=== PATIENT | male | born 1940 | race Caucasian/White ===

== ENCOUNTER → 2023-12-06 13:00 | Outpatient (REF) | payer OTHER, SELFPAY | LOC: HWRAD 13:00 | PROVIDERS: ATTENDING PHYSICIAN Nuclear Medicine Nuclear Cardiology; FAMILY PHYSICIAN Family Medicine | DX: I10 Essential (primary) hypertension (principal); I25.10 Atherosclerotic heart disease of native coronary artery without angina pectoris; I71.40 Abdominal aortic aneurysm, without rupture, unspecified | CPT/HCPCS: 74175; Q9967 ==

== ENCOUNTER → 2024-04-01 10:21 | Outpatient (REF) | payer OTHER, SELFPAY | LOC: HWRCS 10:21 | PROVIDERS: ATTENDING PHYSICIAN Nuclear Medicine Nuclear Cardiology; FAMILY PHYSICIAN Family Medicine | DX: I10 Essential (primary) hypertension (principal); I25.10 Atherosclerotic heart disease of native coronary artery without angina pectoris; I25.2 Old myocardial infarction; G45.9 Transient cerebral ischemic attack, unspecified | CPT/HCPCS: 93306 ==

== ENCOUNTER 2024-04-24 10:51 | Emergency (ER) | payer OTHER, SELFPAY ==
[2024-04-24 11:02] VITALS: BP 144/76
--- NOTE | 2024-04-24 11:35 | ED.GENMED ---
History of Present Illness
General
Chief Complaint: Fall
Time Seen by Provider: 04/24/24 11:21
History of Present Illness
History of Present Illness:
84-year-old male presents the emergency department for evaluation of persistent bleeding from a skin tear to the left forearm, initial injury was sustained nearly 2 weeks ago but continues to bleed profusely with dressing changes. He held his
Eliquis for 2 days but was advised to restart by his primary care physician.
Past History
Past History
ED Past Medical History: CAD, Cancer (Squamous cell carcinoma), GERD, HTN, Hypercholesterolemia, [place] (Non-STEMI June 2015) and Other (BPH, severe obstructive sleep apnea, periodic limb movement disorder, noncompliance)
ED Past Surgical History: Cardiac (PTCA with stent), Cholecystectomy and Orthopedic (Bilateral knee replacement 2010)
Social History
Tobacco: Non-smoker
Alcohol: None
Drug: None
Personal:
Living: with family
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
Family History
Family History: Other (Noncontributory)
Review of Systems
Review of Systems
Allergies reviewed?: Yes
All Other Systems: ROS reviewed and negative except as documented in HPI and ROS
Phy Exam
Physical Exam
Physical Exam:
GEN: Well appearing, NAD, WDWN
HEENT: Oral mucosa moist, no scleral icterus
Cardiac: Regular rate
Lung: No respiratory distress, no tachypnea
MSK: No gross deformity or injuries
Skin: Good color, no pallor or jaundice, no rashes. 4 cm x 1 cm skin tear to the dorsum of the left forearm, scant active bleeding
Neuro: AO x3, moves all extremities freely
Psych: Calm, cooperative
Course
Vital Signs
Initial and Last Documented VS:
Initial Vital Signs
Temp Pulse Resp BP Pulse Ox
97.8 F 65 18 144/76 97
04/24/24 11:02 04/24/24 11:02 04/24/24 11:02 04/24/24 11:02 04/24/24 11:02
Last Documented Vital Signs
Temp Pulse Resp BP Pulse Ox
97.8 F 65 18 144/76 97
04/24/24 11:02 04/24/24 11:02 04/24/24 11:50 04/24/24 11:02 04/24/24 11:02
MDM/Problems Addressed
MDM/Problems Addressed:
Surgicel dressing applied for hemostatic purposes. Discussed wound care with the patient
*Critical Care Note
Total Time (30-74mins, 75-104mins- exclusive of procedures): Not Applicable
ED Attending Note
-
Portions of this chart may have been created with voice recognition software.� Occasional wrong word or��sound alike� substitutions may have occurred due to the inherent limitations of voice recognition software.
Discharge Plan
Departure
Patient Disposition: Home (Routine Discharge)
Date of Disposition: 04/24/24
Time of Disposition: 11:35
Patient with high blood pressure during this ER visit?: No
Discharge Problem:
Skin tear of left forearm without complication
Prescriptions:
No Action
atorvastatin 40 MG tablet
40 mg PO QPM Qty: 90 3RF
Rx Instructions:
This is an increase from previous dosing
latanoprost 0.005 % drops
1 drp BOTH EYES HS
metoprolol succinate 25 mg tablet extended release 24 hr
75 mg PO DAILY
omeprazole 20 mg Tablet,Delayed Release (Dr/Ec)
20 mg PO DAILY
cholecalciferol (vitamin D3) [Vitamin D3] 50 mcg (2,000 unit) Tablet
50 mcg PO DAILY
losartan 50 mg tablet
50 mg PO BID
fluticasone propionate 50 mcg/actuation spray,suspension
2 spray INTRANASAL DAILY
Eliquis 5 mg tablet
5 mg PO BID Qty: 70 0RF
Rx Instructions:
Take 10mg twice a day for one week, then 5mg twice a day following the first week.
cyclobenzaprine 10 mg tablet
10 mg PO HS PRN (Reason: muscle spasms)
betamethasone, augmented 0.05 % ointment
1 applic TOPICAL BID
Rx Instructions:
Itching on right leg
Sarna Original 0.5-0.5 % Lotion
1 applic TOPICAL BID
Rx Instructions:
itching on right leg
Activity Restrictions/Additional Instructions:
The dressing will take about 7-10 days to fully dissolve
Ideally it will remain in place until that time, however some times when you change the dressing, it will fall off. You may gently rinse the wound with water each day when you change the dressing, but do not scrub the area
Change the overlying dressing daily
Continue your Eliquis
Interventions
Interventions:
*Risk Screen - Suicide Last Done: 04/24/24 11:50
*General Assessment Last Done: 04/24/24 11:48
*Neglect/Abuse Screening Last Done: 04/24/24 11:50
ED- Fall Risk Assessment Last Done: 04/24/24 11:50
*ED COVID-19 Vaccine History Last Done: 04/24/24 11:50
*Nursing Disposition Last Done: 04/24/24 11:50
ED-Musculoskeletal Assessment Last Done: 04/24/24 11:48
ED- Neurological Assessment Last Done: 04/24/24 11:51
ED-Skin Assessment Last Done: 04/24/24 11:48
Discharge Date and Time
Discharge Date/Time: 04/24/24 11:51
Print Language: SPANISH
== END 2024-04-24 11:51 | disposition home or self-care (01) ==
LOC: EMR 10:51
PROVIDERS: EMERGENCY PHYSICIAN Emergency Medicine; FAMILY PHYSICIAN Family Medicine
DX: S51.812A Laceration without foreign body of left forearm, initial encounter (principal); X58.XXXA Exposure to other specified factors, initial encounter; I25.10 Atherosclerotic heart disease of native coronary artery without angina pectoris; I10 Essential (primary) hypertension; K21.9 Gastro-esophageal reflux disease without esophagitis; G47.33 Obstructive sleep apnea (adult) (pediatric); E78.00 Pure hypercholesterolemia, unspecified; N40.0 Benign prostatic hyperplasia without lower urinary tract symptoms; I25.2 Old myocardial infarction; Z79.01 Long term (current) use of anticoagulants; Z95.5 Presence of coronary angioplasty implant and graft; Z96.653 Presence of artificial knee joint, bilateral; Z85.828 Personal history of other malignant neoplasm of skin; Z90.49 Acquired absence of other specified parts of digestive tract
CPT/HCPCS: 99282

== ENCOUNTER → 2024-05-03 13:11 | Outpatient (REF) | payer OTHER, SELFPAY | LOC: HWRAD 13:11 | PROVIDERS: ATTENDING PHYSICIAN Internal Medicine Critical Care Medicine; FAMILY PHYSICIAN Family Medicine | DX: R05.3 Chronic cough (principal) | CPT/HCPCS: 71046 ==

== ENCOUNTER → 2024-05-14 07:42 | Outpatient (REF) | payer OTHER, SELFPAY | LOC: RSP 07:42 | PROVIDERS: ATTENDING PHYSICIAN Internal Medicine Critical Care Medicine; FAMILY PHYSICIAN Family Medicine | DX: R06.02 Shortness of breath (principal) | CPT/HCPCS: 94727; 94729; 88738; 94010 ==

== ENCOUNTER → 2024-07-17 10:47 | Outpatient (REF) | payer OTHER, SELFPAY | LOC: HWRAD 10:47 | PROVIDERS: ATTENDING PHYSICIAN Surgery Vascular Surgery; FAMILY PHYSICIAN Family Medicine | DX: I71.40 Abdominal aortic aneurysm, without rupture, unspecified (principal) | CPT/HCPCS: 74174; Q9967 ==

== ENCOUNTER → 2024-11-14 10:58 | Outpatient (REF) | payer OTHER, SELFPAY | LOC: PAVMRI 10:58 | PROVIDERS: ATTENDING PHYSICIAN Family Medicine | DX: R41.82 Altered mental status, unspecified (principal) | CPT/HCPCS: 70553; A9575 ==

== ENCOUNTER → 2025-01-07 10:31 | Outpatient (REF) | payer OTHER, SELFPAY | LOC: RAD 10:31 | PROVIDERS: ATTENDING PHYSICIAN Surgery Vascular Surgery; FAMILY PHYSICIAN Family Medicine | DX: I71.40 Abdominal aortic aneurysm, without rupture, unspecified (principal) | CPT/HCPCS: 74174; Q9967 ==

== ENCOUNTER 2025-01-16 23:02 | Observation (INO) | payer OTHER, SELFPAY ==
[2025-01-16 19:45] VITALS: BP 153/83
--- NOTE | 2025-01-16 21:06 | ED.GENMED ---
History of Present Illness
General
Chief Complaint: Fall
Source: patient and spouse
Exam Limitations: none
Time Seen by Provider: 01/16/25 20:35
Nursing documentation reviewed up to this point in time: agreed with
History of Present Illness
History of Present Illness:
Patient is a an 84-year-old male with history hypertension, hyperlipidemia, DVT on Eliquis presenting to the emergency department after mechanical fall today at doctor's office. Patient states that around 5 PM he tripped in the waiting room of a
doctors office falling on his right hip. He was unable to get up on his own and has been unable to bear weight since. He reports pain in his right groin. No numbness/tingling in right lower extremity. He denies head strike, LOC, or other
associated injuries.
He denies any headache, neck pain, abdominal pain, chest pain, shortness of breath.
Past History
Past History
ED Past Medical History: CAD, Cancer (Squamous cell carcinoma), GERD, HTN, Hypercholesterolemia, [place] (Non-STEMI June 2015) and Other (BPH, severe obstructive sleep apnea, periodic limb movement disorder, noncompliance)
ED Past Surgical History: Cardiac (PTCA with stent), Cholecystectomy and Orthopedic (Bilateral knee replacement 2010)
Social History
Tobacco: Non-smoker
Alcohol: None
Drug: None
Personal:
Living: with family
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
Family History
Family History: Other (Noncontributory)
Review of Systems
Review of Systems
Allergies reviewed?: Yes
All Other Systems: ROS reviewed and negative except as documented in HPI and ROS
Phy Exam
Physical Exam
Physical Exam:
GENERAL: No acute distress
HEENT: atraumatic, extraocular muscles intact, no signs of entrapment, dentition intact, no other obvious trauma
NECK: no midline tenderness, normal range of motion, no other obvious trauma
BACK: no midline tenderness, no other obvious trauma,
CHEST: no tenderness, no flail segment, no subcutaneous emphysema, no other obvious trauma
LUNGS: clear to auscultation bilaterally
CARDIOVASCULAR: regular rate and rhythm
ABDOMEN: soft, non-tender, no masses, no other obvious trauma
PELVIS: stable, point tenderness to right inguinal region
EXTREMITIES: Right lower extremity with pain in right inguinal region as described with otherwise excellent range of motion of right hip including internal/external rotation, RLE neurovascular intact with palpable DP/PT pulses. LLE, bilateral upper
extremities without evidence of traumatic injuries
NEUROLOGIC: awake, alert x 3, no focal deficits
Course
Orders/Labs/Results
Orders:
Orders
01/16/25 19:50
Hip, Right 2-3 Views [CR Hip - RT w/wo Pel 2-3 Vw*] Urgent
Comment:
Reason For Exam: fall
Include a pelvis x-ray?: Yes
01/16/25 21:02
CT Pelvis W/o Iv Contrast Urgent
Comment:
Reason For Exam: fall, unable to bear weight
01/16/25 22:15
Basic Metabolic Panel Urgent
Complete Blood Count/With Diff Urgent
Vital Signs
Initial and Last Documented VS:
Initial Vital Signs
Temp Pulse Resp BP Pulse Ox
97.4 F 60 17 153/83 95
01/16/25 19:45 01/16/25 19:45 01/16/25 19:45 01/16/25 19:45 01/16/25 19:45
Last Documented Vital Signs
Temp Pulse Resp BP Pulse Ox
97.4 F 63 18 186/84 95
01/16/25 19:45 01/16/25 21:13 01/16/25 21:13 01/16/25 21:13 01/16/25 21:13
MDM/Problems Addressed
Differential Diagnosis Includes:
Not limited to: Hip fracture, hip dislocation, pelvic fracture, hip contusion, etc.
MDM/Problems Addressed:
84-year-old male presenting with right groin pain after mechanical fall earlier today landing on right hip. There was no head strike or loss of conscious. Patient unable to bear weight secondary to pain. Hypertensive, otherwise vital signs
stable. He is afebrile. Physical exam as above. Patient has no evidence of head or neck trauma. There is point tenderness to right inguinal crease with great range of motion in right hip. No evidence right knee or right ankle. Right lower
extremity is neurovascular intact. An x-ray was performed of the right hip in triage. I reviewed x-ray which I do feel shows a possible fracture of the pubic rami. A's pelvis CT was done for better visualization which confirms a subtle
nondisplaced fracture of the right superior and inferior pubic rami. Discussed with patient and at bedside. Given patient is unable to ambulate secondary to pain�will admit for PT/case management consult in the morning and pain management.
Patient accepted to hospitalist service in stable condition.
Chronic conditions affecting care:
N/A
Acute Exacerbation and/or Progression of Chronic Illness:
N/A
*Radiology
Radiology exam reviewed: preliminary read by ED provider (X-ray of right hip/pelvis in the ED-possible fracture of right pubic rami) and radiology read reviewed (CT pelvis shows nondisplaced fracture of right inferior/superior pubic rami)
*Pulse Oximetry
Patient hypoxic: no
*EKG
Interpreted by ED Provider?: NA
*Installer Apprentice Interpretation
Rate: Installer Apprentice- N/A
*Critical Care Note
Total Time (30-74mins, 75-104mins- exclusive of procedures): Not Applicable
Patient Management
Discussion with other providers: Hospitalist (Case discussed with hospitalist)
Escalation/DeEscalation of care consider admission/obs:
Admit for PT/CM consult tomorrow and pain management
ED Attending Note
-
Portions of this chart may have been created with voice recognition software.� Occasional wrong word or��sound alike� substitutions may have occurred due to the inherent limitations of voice recognition software.
Discharge Plan
Departure
Patient Disposition: Admit
Date of Disposition: 01/16/25
Time of Disposition: 22:14
Presentation/result/management discussed w/ accepting MD/DO: Hospitalist
Patient with high blood pressure during this ER visit?: Yes
Discharge Problem:
Fracture of right superior pubic ramus, Fracture of right inferior pubic ramus
Prescriptions:
No Action
atorvastatin 40 MG tablet
40 mg PO QPM Qty: 90 3RF
Rx Instructions:
This is an increase from previous dosing
latanoprost 0.005 % drops
1 drp BOTH EYES HS
metoprolol succinate 25 mg tablet extended release 24 hr
25 mg PO BID
omeprazole 20 mg Tablet,Delayed Release (Dr/Ec)
20 mg PO DAILY
cholecalciferol (vitamin D3) [Vitamin D3] 50 mcg (2,000 unit) Tablet
50 mcg PO DAILY
losartan 50 mg tablet
50 mg PO BID
betamethasone, augmented 0.05 % ointment
1 applic TOPICAL BID PRN (Reason: itching to R leg)
Rx Instructions:
Itching on right leg
Sarna Original 0.5-0.5 % Lotion
1 applic TOPICAL BID PRN (Reason: itching to R leg)
Rx Instructions:
itching on right leg
Eliquis 5 mg tablet
2.5 mg PO BID
Rx Instructions:
Take 10mg twice a day for one week, then 5mg twice a day following the first week.
Referrals:
Mckayla Payne DO [Family Provider] -
Interventions
Interventions:
*Risk Screen - Suicide Last Done: 01/16/25 19:45
*General Assessment Last Done: 01/16/25 19:45
*Neglect/Abuse Screening Last Done: 01/16/25 19:45
*ED COVID-19 Vaccine History Last Done: 01/16/25 19:45
ED-Musculoskeletal Assessment Last Done: 01/16/25 21:15
ED- Neurological Assessment Last Done: 01/16/25 21:15
ED-Skin Assessment Last Done: 01/16/25 21:15
Discharge Date and Time
Print Language: MICRONESIAN
[2025-01-16 21:13] VITALS: BP 186/84
[2025-01-16 21:14] VITALS: BMI 28.6
--- NOTE | 2025-01-16 22:22 | HPS.HSE ---
Family Physician
-
Family Physician: Mckayla Payne
Chief Complaint
-
mechanical fall
History of Present Illness
Patient is a 84-year-old male with past medical history significant for gait dysfunction, CAD, GERD, HTN, HLD and BPH/TURP who presented to [facility] ED for evaluation s/p mechanical fall. Patients states he was escorting his to the doctors earlier
today when he sustained the fall. Patient reports shoes getting stuck on floor and his body continuing forward causing him to fall and land on right hip. He denies any dizziness, headache, head strike, palpitations chest pain or shortness of breath.
Medical History
Past Medical History
Past Medical History: Reports Other
Additional Past Medical History:
squamous cell carcinoma
CAD/PTCA with stent
NSTEMI June 2015
GERD
HTN
HLD
BPH/TURP
severe AMANDA
periodic limb movement disorder
Hx reactive thrombocytopenia in setting of sepsis
Pyelonephritis September 2022
Ex-smoker quit 1990
DJD
DVT
Hx TIA
gait dysfunction
Past Surgical History: Reports Other
Additional Past Surgical History:
Bilateral knee replacement
cholecystectomy
PTCA with stent 2014
TURP 2011
Social History
Tobacco: Non-smoker
Alcohol: None
Drug: None
Personal:
Living: With Family ( tamiko)
Employment: Retired
Family History
Family History: Not pertinent
Allergies / Home Medications
Allergies reflects when Allergies were last updated in [facility].
Home Medications with original date entered in [facility]
Allergy/Medication List:
Allergies
Allergy/AdvReac Type Severity Reaction Status Date / Time
clindamycin Allergy Intermediate Rash Verified 01/16/25 21:14
clarithromycin [From Biaxin] Allergy Rash Verified 01/16/25 21:14
levofloxacin [From Levaquin] Allergy Rash Verified 01/16/25 21:14
methylprednisolone Allergy Rash Verified 01/16/25 21:14
mupirocin Allergy Rash Verified 01/16/25 21:14
Penicillins Allergy Rash Verified 01/16/25 21:14
prochlorperazine Allergy Rash Verified 01/16/25 21:14
[From Compazine]
prochlorperazine edisylate Allergy Rash Verified 01/16/25 21:14
[From Compazine]
prochlorperazine maleate Allergy Rash Verified 01/16/25 21:14
[From Compazine]
Sulfa (Sulfonamide Allergy Rash Verified 01/16/25 21:14
Antibiotics)
Home Medications
atorvastatin 40 mg tablet 40 mg PO QPM ##90 06/11/15
cholecalciferol (vitamin D3) 50 mcg (2,000 unit) tablet (Vitamin D3) 50 mcg PO DAILY Supplement 08/08/22
latanoprost 0.005 % eye drops 1 drp BOTH EYES HS Eye condition 08/08/22
metoprolol succinate 25 mg tablet,extended release 24 hr 25 mg PO BID Blood pressure 08/08/22
omeprazole 20 mg tablet,delayed release 20 mg PO DAILY Gastrointestinal issue 08/08/22
losartan 50 mg tablet 50 mg PO BID Blood pressure 09/20/22
betamethasone, augmented 0.05 % topical ointment 1 applic topical BID PRN itching to R leg 06/15/23
camphor-menthol 0.5 %-0.5 % lotion (Sarna Original) 1 applic topical BID PRN itching to R leg 06/15/23
apixaban 5 mg tablet (Eliquis) 2.5 mg PO BID 01/16/25
Review of Systems
-
History Source: Patient
Musculoskeletal: Reports Joint Pain (right hip/right groin )
Physical Exam
Vital Signs
Vital Signs
Temp Pulse Resp BP Pulse Ox
97.4 F 63 18 186/84 95
01/16/25 19:45 01/16/25 21:13 01/16/25 21:13 01/16/25 21:13 01/16/25 21:13
Physical Exam
General: Well Developed, Well Nourished, No Apparent Distress, Comfortable and Conversant
HEENT: NormoCephalic, Moist mucous membranes, Atraumatic, Lillian Conjunctivae, Nose Appears Normal, Ears Appear Normal and Hearing Impaired
Respiratory: Clear
Cardiac: S1/S2 and Regular Rhythm; No Murmur or Rub
GI: Soft, Non Tender, Non Distended and Normal Bowel Sounds; No Organomegaly
Rectal: Deferred by Provider
Genito-urinary: Deferred by me
Musculoskeletal: No Clubbing, No Cyanosis, Edema, Left Lower Extremity, Edema, Right Lower Extremity and Other (pain to right inguinal area, good ROM to RLE )
Skin: IV/Catheter Site
Neuro: Awake, Alert, AO x 3 and Nonfocal/grossly intact
Psych: Calm and Intact Judgment/Insight
Data Reviewed
-
Diagnostic Radiology: Report Reviewed by me (Right hip: Degenerative changes. No findings to confirm recent cortical fracture.)
CT Scan: Report Reviewed by me (Pelvis: Subtle nondisplaced fractures of the right superior and inferior pubic rami. Approximate 4.5 cm lipoma adjacent to the right pubic bones, unchanged.)
Impression/Plan
-
IMPRESSION/PLAN:
#mechanical fall
#gait dysfunction
#Subtle nondisplaced fractures of the right superior and inferior pubic rami
Pelvis CT: Subtle nondisplaced fractures of the right superior and inferior pubic rami.
Approximate 4.5 cm lipoma adjacent to the right pubic bones, unchanged.
Rt Hip X-ray: Degenerative changes.
No findings to confirm recent cortical fracture.
- Admit to med/surg
- Consult PT
- Consult case management
- pain management
#GERD
- continue omeprazole
#HTN
- continue losartan and metoprolol
#CAD
s/p stent
#HLD
- continue atorvastatin
#Hx DVT
- continue Eliquis
#BPH
s/p TURP
Code status: full code
DVT Prophylaxis: Eliquis
--- NOTE | 2025-01-16 22:43 | W.PN.UPDATE ---
Update Note
Progress Note Update
Patient seen in conjunction with YACHT MASTER. I agree with the findings and physical. I concur with the assessment plan listed otherwise.
Briefly, this 84-year-old with past medical history significant for CAD status post stenting, hypertension, hyperlipidemia, recurrent TIAs, history of right lower extremity DVT 2022 currently on Eliquis who presents to the emergency department
following a mechanical fall at a physician's clinic.
Patient does have history of gait abnormality for several years with history of recurrent falls. Patient reports that he last had a fall late last year and it was similar to this fall and associated with stumbling while walking. He reports when he
walks sometimes depending on the issue it gets stuck and he continues moving in and tripped over himself. There was no loss of consciousness. Patient did not strike his head. Was able to get up but then started having right hip pain and
difficulty with ambulation so he came to the emergency department. According to spouse patient has been evaluated for gait abnormalities over the last several years and has had multiple neurology evaluations, PT evaluations and treatments without
much improvement in his gait. Patient reports that he has had multiple trips which spouse thinks is secondary to his underlying gait abnormalities associated with semishuffling. No movement disorder diagnosed after recent neurological evaluation.
Patient has a Holter monitor currently following an episode of syncope lasting about 15 seconds approximately 6 to 7 weeks ago. He has a pending evaluation of the device next week. He has not had any recurrent episodes. He has not had any
dizziness lightheadedness or palpitations.
Here in the emergency department he was afebrile, he was hypertensive with a blood pressure of 186/80 with a pulse of 63 and satting 98% on room air. Imaging of the hips show nondisplaced fractures of the right superior and inferior pubic rami.
His last echocardiogram about 10 months ago was normal. Labs are pending.
Exam is unremarkable.
Assessment an dplan:
84 y.o with mechanical fall, no headstrike. He is on eliquis for DVT. He has pain and ambulatory dysfunction secondary to a R sup and inf. non-displaced pubic rami fracture. He has a type II FFP.
- admit to med/surg
- fracture order set but no indication for surgery
- pain control to assure early mobilization
- PT evaluation
Anticoagulation
- continue apixaban, has had 2 DVTs and is on indefinite anticoagulation
-TIA/CAD
- continue aspirin 3 x / wk.
- continue statin
- continue home antihypertensives
DVT PPX - on apixaban
Code status - Full Code
[2025-01-16 22:56] LABS: Blood Urea Nitrogen 20 mg/dl (9-20); Calcium 9.9 mg/dl (8.4-10.2); Carbon Dioxide 29 mmol/L (22-30); Chloride 97 mmol/L (98-107); Estimated Creatinine Clearance 66 ml/min; Glucose 129 mg/dl (70-99); Potassium 4.6 mmol/L (3.5-5.1); Sodium 133 mmol/L (135-145); eGFR > 60.00
[2025-01-16 23:10] LABS: % Basophils 0.2 % (0-2); % Eosinophils 0.4 % (0-6); % Immature Granulocytes 0.4 % (0-0.5); % Lymphocytes 17.5 % (20.5-51.1); % Monocytes 4.8 % (1.7-9.3); % Neutrophils 76.7 % (42.2-75.2); Absolute Eosinophils 0.1 10^3/uL (0-0.7); Absolute Immature Granulocytes 0.1 10^3/uL (0-0.05); Absolute Lymphocytes 2.4 10^3/uL (1.2-3.4); Absolute Monocytes 0.7 10^3/uL (0.1-0.6); Absolute Neutrophils 10.5 10^3/uL (1.4-6.5); Hematocrit 40.5 % (39.0-52.0); Hemoglobin 13.8 g/dL (13.0-18.0); Mean Corp Hgb Conc. 34.1 g/dL (33.0-37.0); Mean Corpuscular Hgb 29.9 pg (27.0-31.0); Mean Corpuscular Volume 87.7 fL (80.0-94.0); Mean Platelet Volume 12.9 fL (7.4-10.4); Nucleated Red Blood Cells % 0 % (-); Platelet Count 126 10^3/uL (130-400); Red Blood Cell Count 4.62 10^6/uL (4.70-6.10); Red Cell Dist. Width 13.5 % (11.5-14.5); White Blood Cell Count 13.7 10^3/uL (4.8-10.8)
[2025-01-16 23:49] VITALS: BP 160/87
[2025-01-17] MEDS: ULTRAM 50 MG PO ×2 (01:33→14:46)
[2025-01-17] MEDS: PROTONIX 40 MG PO (07:55)
[2025-01-17 07:56] VITALS: BP 155/85
[2025-01-17] MEDS: VITAMIN D3 (cholecalciferol) 50 MCG PO (08:00)
[2025-01-17] MEDS: TYLENOL 650 MG PO (08:00)
[2025-01-17] MEDS: ELIQUIS 2.5 MG PO ×2 (08:00→21:03)
[2025-01-17] MEDS: COZAAR 50 MG PO ×2 (08:03→21:03)
[2025-01-17] MEDS: TOPROL XL 25 MG PO ×2 (08:04→21:03)
[2025-01-17 08:38] VITALS: BP 166/91
--- NOTE | 2025-01-17 14:44 | W.PN.HOSP.TC ---
Today's Communication/Plan
-
PT/OT
Dispo Planning
Assessment / Plan
Assessment / Plan
NAD
Scleral Anicteric
DMM
No JVD
CTABL
RRR, S1/S2
Soft, NT, ND, BS+
Warm, Dry
AAOx3
Calm
Mechanical falls ambulatory dysfunction
Has had multiple neurologic: Physical therapy refused with clear understanding/etiology causation.
Will have physical therapy/Occupational Therapy evaluate
Pubic rami fracture superior/inferior
At this time no role for orthopedic surgery
-This was discussed with Ortho Wrecker Driver Role via TT
--Per [facility]
--4week f/u with Ortho as an outpatient
Focus on physical therapy/Occupational Therapy
Hypertension
Continue antihypertensives
GERD continue PPI
Hyperlipidemia
Continue statin
Anticipated Discharge: > 48 hours
Subjective/Interval History
-
Date of Service: January 17, 2025
Seen and examined. No new complaints. No acute overnight events.
Objective Data
-
Vital Signs:
Vital Signs
Temp Pulse Resp BP Pulse Ox
97.9 F 71 16 166/91 96
01/17/25 08:38 01/17/25 08:38 01/17/25 08:38 01/17/25 08:38 01/17/25 09:31
I&O
01/16/25 01/17/25 01/18/25
06:59 06:59 06:59
Output Total 425 / 425 550 / 550
Balance -425 / -425 -550 / -550
[2025-01-17 15:09] VITALS: BP 134/76
[2025-01-17 15:31] VITALS: BP 166/89; PULSE 74; O2SAT 97
--- NOTE | 2025-01-17 15:39 | CM ---
Addendum entered by Criselda Polk 01/17/25 16:49:
[facility] accept SNF referral; Bed available on Monday'
Spoke with patient; he is agreeable with plan
Original Note:
Initial assessment completed with patient at bedside
[facility]SON form explained; form signed @ 1515
Pharmacy verified: [facility] @ [address] [place] [address]
Patient and live in a one floor condo; elevator access in the building
PLOF: was independent with ADLs; driving; ambulated at time with a rolling walker
SNF stay >5 years ago; Home Health with [facility] for PT
may be able to transport via private car when discharged; confirm again closer to discharge
PT/OT notes pending
Patient told he will need to go to a SNF when stable for discharge; facility list offered; preferences are [facility] and [facility]
will send referrals via [facility]
Plan: Discharge to SNF pending bed availability and AUTH approval
[2025-01-17] MEDS: LIPITOR 40 MG PO (17:08)
[2025-01-17] MEDS: COLACE 100 MG PO (21:03)
[2025-01-17] MEDS: SENOKOT 8.6 MG PO (21:03)
[2025-01-17] MEDS: XALATAN OPHTHALMIC SOLUTION 1 DROP BOTH EYES (21:03)
[2025-01-17 23:00] VITALS: BP 154/74
[2025-01-18 05:47] VITALS: BMI 27.7
[2025-01-18 06:00] VITALS: BMI 27.7
[2025-01-18 07:00] VITALS: BP 172/84
[2025-01-18] MEDS: PROTONIX 40 MG PO (08:27)
[2025-01-18] MEDS: ELIQUIS 2.5 MG PO ×2 (08:27→21:33)
[2025-01-18] MEDS: SENOKOT 8.6 MG PO ×2 (08:27→21:34)
[2025-01-18] MEDS: VITAMIN D3 (cholecalciferol) 50 MCG PO (08:28)
[2025-01-18] MEDS: COZAAR 50 MG PO ×2 (08:28→21:33)
[2025-01-18] MEDS: TOPROL XL 25 MG PO ×2 (08:28→21:34)
[2025-01-18] MEDS: COLACE 100 MG PO ×2 (08:28→21:33)
[2025-01-18 09:56] VITALS: BP 137/91; PULSE 72; O2SAT 95
[2025-01-18 09:57] VITALS: BP 137/91; PULSE 75; O2SAT 94
[2025-01-18 15:00] VITALS: BP 115/79
--- NOTE | 2025-01-18 16:17 | W.PN.HOSP.TC ---
Today's Communication/Plan
-
Assessment / Plan
Assessment / Plan
NAD
Scleral Anicteric
DMM
No JVD
CTABL
RRR, S1/S2
Soft, NT, ND, BS+
Warm, Dry
AAOx3
Calm
Mechanical falls ambulatory dysfunction
Has had multiple neurologic: Physical therapy refused with clear understanding/etiology causation.
Will have physical therapy/Occupational Therapy evaluate
Pubic rami fracture superior/inferior
At this time no role for orthopedic surgery
-This was discussed with Ortho Utility System Repairer Role via TT
--Per [facility]
--4week f/u with Ortho as an outpatient
Focus on physical therapy/Occupational Therapy
Hypertension
Continue antihypertensives
GERD continue PPI
Hyperlipidemia
Continue statin
Anticipated Discharge: 24 - 48 hours
Subjective/Interval History
-
Date of Service: January 18, 2025
seen and examined
no new complaints
no acute ovenright events
Objective Data
-
Vital Signs:
Vital Signs
Temp Pulse Resp BP Pulse Ox
97.9 F 82 16 115/79 97
01/18/25 15:00 01/18/25 15:00 01/18/25 15:00 01/18/25 15:00 01/18/25 15:00
I&O
01/17/25 01/18/25 01/19/25
06:59 06:59 06:59
Intake Total 1440 / 1440
Output Total 425 / 425 2950 / 2950
Balance -425 / -425 -1510 / -1510
[2025-01-18] MEDS: LIPITOR 40 MG PO (17:04)
[2025-01-18] MEDS: XALATAN OPHTHALMIC SOLUTION 1 DROP BOTH EYES (21:35)
[2025-01-18 23:44] VITALS: BP 130/83
[2025-01-19 00:24] VITALS: BP 126/72
[2025-01-19 07:00] VITALS: BP 148/71
[2025-01-19] MEDS: PROTONIX 40 MG PO (09:16)
[2025-01-19] MEDS: COLACE 100 MG PO ×2 (09:16→21:00)
[2025-01-19] MEDS: TOPROL XL 25 MG PO ×2 (09:16→21:01)
[2025-01-19] MEDS: ELIQUIS 2.5 MG PO ×2 (09:16→21:00)
[2025-01-19] MEDS: VITAMIN D3 (cholecalciferol) 50 MCG PO (09:17)
[2025-01-19] MEDS: COZAAR 50 MG PO ×2 (09:17→21:01)
[2025-01-19] MEDS: SENOKOT 8.6 MG PO ×2 (09:17→21:01)
--- NOTE | 2025-01-19 10:25 | W.PN.HOSP.TC ---
Today's Communication/Plan
-
DC to SNF when bed available
Assessment / Plan
Assessment / Plan
NAD
Scleral Anicteric
DMM
No JVD
CTABL
RRR, S1/S2
Soft, NT, ND, BS+
Warm, Dry
AAOx3
Calm
Mechanical falls ambulatory dysfunction
Has had multiple neurologic: Physical therapy refused with clear understanding/etiology causation.
Will have physical therapy/Occupational Therapy evaluate
Pubic rami fracture superior/inferior
At this time no role for orthopedic surgery
-This was discussed with Ortho Activity Aid Role via TT
--Per [facility] WBAT
--4week f/u with Ortho as an outpatient
Focus on physical therapy/Occupational Therapy
Hypertension
Continue antihypertensives
GERD continue PPI
Hyperlipidemia
Continue statin
Pending SNF bed
Anticipated Discharge: Within 24 hours
Subjective/Interval History
-
Date of Service: January 19, 2025
Seen and examined. No new complaints. No acute overnight events.
Objective Data
-
Vital Signs:
Vital Signs
Temp Pulse Resp BP Pulse Ox
97.9 F 82 16 148/71 95
01/19/25 07:00 01/19/25 07:00 01/19/25 07:00 01/19/25 07:00 01/19/25 07:00
I&O
01/18/25 01/19/25 01/20/25
06:59 06:59 06:59
Intake Total 1440 / 1440 960 / 960
Output Total 2950 / 2950 600 / 600
Balance -1510 / -1510 360 / 360
[2025-01-19] MEDS: ULTRAM 50 MG PO (11:55)
[2025-01-19 13:03] VITALS: BP 147/79; PULSE 69; O2SAT 97
[2025-01-19 13:07] VITALS: BP 147/79; PULSE 74; O2SAT 96
[2025-01-19 15:00] VITALS: BP 121/65
[2025-01-19] MEDS: LIPITOR 40 MG PO (17:51)
[2025-01-19] MEDS: XALATAN OPHTHALMIC SOLUTION 1 DROP BOTH EYES (21:09)
[2025-01-20 07:35] VITALS: BP 161/75
[2025-01-20] MEDS: SENOKOT 8.6 MG PO (08:27)
[2025-01-20] MEDS: PROTONIX 40 MG PO (08:27)
[2025-01-20] MEDS: ELIQUIS 2.5 MG PO (08:27)
[2025-01-20] MEDS: LOW STRENGTH ASPIRIN 81 MG PO (08:27)
[2025-01-20] MEDS: VITAMIN D3 (cholecalciferol) 50 MCG PO (08:27)
[2025-01-20] MEDS: COLACE 100 MG PO (08:27)
[2025-01-20] MEDS: TOPROL XL 25 MG PO (08:27)
[2025-01-20] MEDS: COZAAR 50 MG PO (08:27)
--- NOTE | 2025-01-20 09:56 | W.PN.HOSP.TC ---
Today's Communication/Plan
-
medically stable for DC today
Assessment / Plan
Assessment / Plan
NAD
Scleral Anicteric
DMM
No JVD
CTABL
RRR, S1/S2
Soft, NT, ND, BS+
Warm, Dry
AAOx3
Calm
Mechanical falls ambulatory dysfunction
PT/OT - SNF recommended
Pubic rami fracture superior/inferior
At this time no role for orthopedic surgery
-This was discussed with Ortho Art Class Model Role via TT
--Per [facility] WBAT
--4week f/u with Ortho as an outpatient
Focus on physical therapy/Occupational Therapy
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
Hx DVT
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
Hypertension
Continue antihypertensives
GERD continue PPI
Hyperlipidemia
Continue statin
Pending SNF bed
Anticipated Discharge: Today
Subjective/Interval History
-
Date of Service: January 20, 2025
feeling well
no lightheadedness or dizziness
no chest pain
Objective Data
-
Vital Signs:
Vital Signs
Temp Pulse Resp BP Pulse Ox
98.2 F 67 16 161/75 96
01/20/25 07:35 01/20/25 07:35 01/20/25 07:35 01/20/25 07:35 01/20/25 07:35
I&O
01/19/25 01/20/25 01/21/25
06:59 06:59 06:59
Intake Total 960 / 960 1200 / 1200
Output Total 600 / 600 1250 / 1250
Balance 360 / 360 -50 / -50
Review of Systems
-
History Source: Patient
All other systems: Reviewed and negative
Physical Exam
-
General: Well Developed, Well Nourished and No Apparent Distress
HEENT: Normocephalic, Atraumatic and Moist Mucous Membranes
Respiratory: Clear to Auscultation; Negative Wheezes, Rales or Rhonchi
Cardiac: Regular Rhythm and S1/S2
GI: Soft, Nontender, Nondistended and Normal Bowel Sounds
Genito-urinary: No Costovertebral Tender
Musculoskeletal: No Clubbing, No Cyanosis and No Edema
Neuro: Awake, Alert and Oriented
Psych: Calm and Intact Judgement/Insight
Data Reviewed
-
Diagnostic Radiology: Report Reviewed by me
Labs: Labs Reviewed by me
--- NOTE | 2025-01-20 10:36 | W.DS.TRANS ---
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
-
Discharge Instructions:
Discharge Diagnosis/Procedures Pubic Rami Fractures
Diet Regular
Activity As tolerated
Driving Restrictions Not until seen by your Dr
Bathing Restrictions None
Other Services PT,OT
Instructions:
Stand-Alone Forms:
Changes to Home Medications: Yes
Discharge Medications:
DC Medications w/original date entered in [employer]
atorvastatin 40 mg tablet 40 mg PO QPM ##90 06/11/15
cholecalciferol (vitamin D3) 50 mcg (2,000 unit) tablet (Vitamin D3) 50 mcg PO DAILY Supplement 08/08/22
latanoprost 0.005 % eye drops 1 drp BOTH EYES HS Eye condition 08/08/22
metoprolol succinate 25 mg tablet,extended release 24 hr 25 mg PO DAILY Blood pressure 08/08/22
omeprazole 20 mg tablet,delayed release 20 mg PO DAILY Gastrointestinal issue 08/08/22
losartan 50 mg tablet 50 mg PO BID Blood pressure 09/20/22
betamethasone, augmented 0.05 % topical ointment 1 applic topical BID PRN itching to R leg 06/15/23
camphor-menthol 0.5 %-0.5 % lotion (Sarna Original) 1 applic topical BID PRN itching to R leg 06/15/23
apixaban 5 mg tablet (Eliquis) 2.5 mg PO BID 01/16/25
aspirin 81 mg chewable tablet 81 mg PO MOWEFR 01/20/25
bisacodyl 10 mg rectal suppository 10 mg MI [id number] PRN severe constipation #12 ea 01/20/25
docusate sodium 100 mg capsule 100 mg PO BID #60 caps 01/20/25
sennosides 8.6 mg tablet (Melly-madisyn) 8.6 mg PO BID #14 tabs 01/20/25
tramadol 50 mg tablet 50 mg PO Q6HPRN PRN moderate pain #15 tabs 01/20/25
Home Medication Changes
Tramadol PRN
Bowel regimen: Miralax, colace, senna, dulcolax MI PRN
Pending Results: No
--- NOTE | 2025-01-20 14:26 | W.DCSUMMARY ---
Discharge Summary
Discharge Data
Date of Admission: 01/16/25
Date of Discharge: 01/20/25
-
Pending Results: No
Hospital Course
Discharging Physician : Dr. Nancy Ha
Disposition : SNF
Primary care physician : Dr. Mckayla Payne
Principal Discharge diagnosis : Right superior and inferior pubic rami non-displaced fractures
Chronic Discharge diagnosis :
Hospital Course :
Mr. Chun Bender is a 84 yo man with hx gait dysfunction, CAD, GERD, HTN, HLD, BPH who presents to the ER post fall with right hip pain. Triage vitals stable. Labs with mild leukocytosis. Imaging showed subtle nondisplaced fractures of the right
superior and inferior pubic rami. He was admitted to medicine for pain control and rehab evals. Case discussed briefly with on-call Orthopedic surgeon. He is allowed WBAT. Pain controlled with tylenol and Tramadol PRN. Worked with PT/OT and SNF
recommended. He is referred to follow up with Orthopedics in 4 weeks. 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
Time spent on discharge was 32 minutes.
Important imaging findings :
Hip X-Ray
IMPRESSION:
Degenerative changes.
No findings to confirm recent cortical fracture.
Pelvis CT
IMPRESSION:
Subtle nondisplaced fractures of the right superior and inferior pubic rami.
Approximate 4.5 cm lipoma adjacent to the right pubic bones, unchanged.
Procedure findings :
Discharge Plan
-
Patient Disposition: Snf/SNF
Discharge Diagnosis/Procedures: Pubic Rami Fractures
Diet: Regular
Activity: As tolerated
Driving Restrictions: Not until seen by your Dr
Bathing Restrictions: None
Blood Work: CBC and BMP on Monday01/22/25
Other Services: PT and OT
Referrals:
Alex Stinson MD [Active] - in three to four weeks
Elmer,Mckayla G., DO [Family Provider] - in less than 1 week
Prescriptions:
New
docusate sodium 100 mg Capsule
100 mg PO BID Qty: 60 0RF
bisacodyl 10 mg Suppository
10 mg OH [id number] PRN (Reason: severe constipation) Qty: 12 0RF
sennosides [Melly-madisyn] 8.6 mg Tablet
8.6 mg PO BID Qty: 14 0RF
tramadol 50 mg Tablet
50 mg PO Q6HPRN PRN (Reason: moderate pain) Qty: 15 0RF
Continued
atorvastatin 40 MG tablet
40 mg PO QPM Qty: 90 3RF
Rx Instructions:
This is an increase from previous dosing
latanoprost 0.005 % drops
1 drp BOTH EYES HS
metoprolol succinate 25 mg tablet extended release 24 hr
25 mg PO DAILY
omeprazole 20 mg Tablet,Delayed Release (Dr/Ec)
20 mg PO DAILY
cholecalciferol (vitamin D3) [Vitamin D3] 50 mcg (2,000 unit) Tablet
50 mcg PO DAILY
losartan 50 mg tablet
50 mg PO BID
betamethasone, augmented 0.05 % ointment
1 applic TOPICAL BID PRN (Reason: itching to R leg)
Rx Instructions:
Itching on right leg
Sarna Original 0.5-0.5 % Lotion
1 applic TOPICAL BID PRN (Reason: itching to R leg)
Rx Instructions:
itching on right leg
Eliquis 5 mg tablet
2.5 mg PO BID
Rx Instructions:
Take 10mg twice a day for one week, then 5mg twice a day following the first week.
aspirin 81 mg Tablet,Chewable
81 mg PO MOWEFR
Discharge Orders:
Discharge Patient (As Directed); Ordered 01/20/25
Ordered By: Nancy Ha
Discharge Date and Time
Print Language: SWAZI
[2025-01-20 15:00] VITALS: BP 142/75
[2025-01-20 15:17] VITALS: BP 142/75
--- NOTE | 2025-01-20 16:33 | PTCARENOTE ---
Attempted to call report to SNF over 5 times, no response. Facility confirmed that pt. did arrive to SNF, but nurse was unable to answer the phone. Number provided for call back.
== END 2025-01-20 15:15 ==
LOC: 3 WEST ACU 23:02
PROVIDERS: Physician Assistant; ADMITTING PHYSICIAN Internal Medicine; ATTENDING PHYSICIAN Student in an Organized Health Care Education/Training Program; EMERGENCY PHYSICIAN Student in an Organized Health Care Education/Training Program; FAMILY PHYSICIAN Family Medicine
DX: S32.511A Fracture of superior rim of right pubis, initial encounter for closed fracture (principal); S32.591A Other specified fracture of right pubis, initial encounter for closed fracture; R10.31 Right lower quadrant pain; I10 Essential (primary) hypertension; E78.00 Pure hypercholesterolemia, unspecified; R26.2 Difficulty in walking, not elsewhere classified; I25.10 Atherosclerotic heart disease of native coronary artery without angina pectoris; G47.33 Obstructive sleep apnea (adult) (pediatric); G47.61 Periodic limb movement disorder; N40.0 Benign prostatic hyperplasia without lower urinary tract symptoms; I25.2 Old myocardial infarction; K21.9 Gastro-esophageal reflux disease without esophagitis; D17.79 Benign lipomatous neoplasm of other sites; W01.0XXA Fall on same level from slipping, tripping and stumbling without subsequent striking against object, initial encounter; Y93.01 Activity, walking, marching and hiking; Y92.531 Health care provider office as the place of occurrence of the external cause; Z85.828 Personal history of other malignant neoplasm of skin; Z91.199 Patient's noncompliance with other medical treatment and regimen due to unspecified reason; Z90.49 Acquired absence of other specified parts of digestive tract; Z95.5 Presence of coronary angioplasty implant and graft; Z96.653 Presence of artificial knee joint, bilateral; Z86.718 Personal history of other venous thrombosis and embolism; Z79.01 Long term (current) use of anticoagulants; Z86.73 Personal history of transient ischemic attack (TIA), and cerebral infarction without residual deficits; Z87.440 Personal history of urinary (tract) infections; Z87.891 Personal history of nicotine dependence; Z90.79 Acquired absence of other genital organ(s); Z88.1 Allergy status to other antibiotic agents; Z88.0 Allergy status to penicillin; Z88.2 Allergy status to sulfonamides; Z88.8 Allergy status to other drugs, medicaments and biological substances
CPT/HCPCS: 72192; 73502; 80048; 85025; 97116; 97163; 97166; 97530; 97535; 99285; G0378

== ENCOUNTER 2025-02-20 15:25 | Emergency (ER) | payer OTHER, SELFPAY ==
[2025-02-20 15:25] VITALS: BMI 28.7
[2025-02-20 15:30] VITALS: BP 168/82
[2025-02-20 15:32] LABS: Glucose - Point of Care 76 mg/dl (70-99)
[2025-02-20 16:04] VITALS: BP 164/72
[2025-02-20 16:14] LABS: % Basophils 0.5 % (0-2); % Eosinophils 2.8 % (0-6); % Immature Granulocytes 0.3 % (0-0.5); % Lymphocytes 43.5 % (20.5-51.1); % Monocytes 6.1 % (1.7-9.3); % Neutrophils 46.8 % (42.2-75.2); Absolute Eosinophils 0.2 10^3/uL (0-0.7); Absolute Lymphocytes 3.4 10^3/uL (1.2-3.4); Absolute Monocytes 0.5 10^3/uL (0.1-0.6); Absolute Neutrophils 3.7 10^3/uL (1.4-6.5); Hematocrit 39.4 % (39.0-52.0); Hemoglobin 13.2 g/dL (13.0-18.0); Mean Corp Hgb Conc. 33.5 g/dL (33.0-37.0); Mean Corpuscular Hgb 29.7 pg (27.0-31.0); Mean Corpuscular Volume 88.5 fL (80.0-94.0); Mean Platelet Volume 12.3 fL (7.4-10.4); Nucleated Red Blood Cells % 0 % (-); Platelet Count 135 10^3/uL (130-400); Red Blood Cell Count 4.45 10^6/uL (4.70-6.10); Red Cell Dist. Width 13.9 % (11.5-14.5); White Blood Cell Count 7.9 10^3/uL (4.8-10.8)
[2025-02-20 16:20] LABS: ALT (SGPT) 23 U/L (0-50); AST (SGOT) 22 U/L (17-59); Albumin 4.2 g/dl (3.5-5.0); Alkaline Phosphatase 146 U/L (38-126); Blood Urea Nitrogen 18 mg/dl (9-20); Calcium 9.8 mg/dl (8.4-10.2); Carbon Dioxide 30 mmol/L (22-30); Chloride 103 mmol/L (98-107); Estimated Creatinine Clearance 66 ml/min; Glucose 92 mg/dl (70-99); PT 14.5 Sec (11.4-14.6); Potassium 4.7 mmol/L (3.5-5.1); Sodium 136 mmol/L (135-145); Total Bilirubin 0.7 mg/dl (0.2-1.3); Total Protein 6.6 g/dl (6.3-8.2); eGFR > 60.00
[2025-02-20 16:30] LABS: Troponin I < 0.012 ng/ml
[2025-02-20 16:42] LABS: APTT 26.4 Sec (23.4-35.0)
[2025-02-20 17:00] VITALS: BP 154/74
--- NOTE | 2025-02-20 18:04 | ED.CVA ---
History of Present Illness
General
Chief Complaint: CVA/TIA Symptoms
Source: patient and spouse
Exam Limitations: none
Time Seen by Provider: 02/20/25 17:47
Onset of Stroke Symptoms
Onset of symptoms known: Yes
Date of onset of symptoms: 02/20/25
History of Present Illness
History of Present Illness:
See MDM
Past History
Past History
ED Past Medical History: CAD, Cancer (Squamous cell carcinoma), GERD, HTN, Hypercholesterolemia, AL (Non-STEMI June 2015) and Other (BPH, severe obstructive sleep apnea, periodic limb movement disorder, noncompliance)
ED Past Surgical History: Cardiac (PTCA with stent), Cholecystectomy and Orthopedic (Bilateral knee replacement 2010)
Social History
Tobacco: Non-smoker
Alcohol: None
Drug: None
Personal:
Living: with family
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
Family History
Family History: Other (Noncontributory)
Phy Exam
Physical Exam
Physical Exam:
See MDM
NIH Stroke Score
Level of Consciousness: 0 - Alert
LOC questions: 0-Answers both correctly
LOC Commands: 0-Performs both correctly
Best Gaze: 0-Normal
Visual Valle: 0=Normal, no visual loss
Facial palsy: 0=Normal, symmetrical
Motor - Right Arm: 0=No drift 10 seconds
Motor - Left Arm: 0=No drift 10 seconds
Motor - Right Le-No drift 5 seconds
Motor - Left Le-No drift 5 seconds
Limb Ataxia: 0-Absent
Sensation: 0-Normal
Best Language: 0-No aphasia
Dysarthria: 0-Normal
Extinction and Inattention: 0-No abnormality
Total Score:: 0
Scores
NIH Stroke Score
Level of Consciousness: 0 - Alert
LOC Questions: 0-Answers both correctly
LOC Commands: 0-Performs both correctly
Best Horizontal Gaze: 0-Normal
Visual Valle: 0=Normal, no visual loss
Facial Palsy: 0=Normal, symmetrical
Motor - Right Arm: 0=No drift 10 seconds
Motor - Left Arm: 0=No drift 10 seconds
Motor - Right Le-No drift 5 seconds
Motor - Left Le-No drift 5 seconds
Limb Ataxia: 0-Absent
Sensation: 0-Normal
Best Language: 0-No aphasia
Dysarthria: 0-Normal
Extinction and Inattention: 0-No abnormality
NIH Total Score:: 0
Course
Orders/Labs/Results
Orders:
Orders
02/20/25 15:38
Electrocardiogram (*1) Urgent
Reason for Study: Other
Other Reason for Exam: Possible Stroke
02/20/25 15:39
CT Head W/o Iv Contrast Urgent
Comment:
Reason For Exam: aphasia
EKG- Treatment ONCE
02/20/25 15:51
Complete Blood Count/With Diff Urgent
Comprehensive Metabolic Panel Urgent
PTT Urgent
Prothrombin Time Urgent
Troponin I Urgent
Abnormal Lab Results
02/20/25
15:51
RBC 4.45 L 10^6/uL
(4.70-6.10)
MPV 12.3 H fL
(7.4-10.4)
Alkaline Phosphatase 146 H U/L
(38-126)
02/20/25 15:51
02/20/25 15:51
Vital Signs
Initial and Last Documented VS:
Initial Vital Signs
Temp Pulse Resp BP Pulse Ox
98.3 F 63 18 168/82 100
02/20/25 15:30 02/20/25 15:30 02/20/25 15:30 02/20/25 15:30 02/20/25 15:30
Last Documented Vital Signs
Temp Pulse Resp BP Pulse Ox
98.3 F 58 16 154/74 95
02/20/25 15:30 02/20/25 17:30 02/20/25 17:30 02/20/25 17:00 02/20/25 17:30
MDM/Problems Addressed
Differential Diagnosis Includes:
HPI and MDM Narrative:
85-year-old male presenting with for evaluation of TIA. He was watching TV and he was apparently yelling at the TV and trying to lower the volume. His noted that he went silent and then had trouble talking. This lasted for about 30
minutes. was concerned because his TIAs only last for about 10 minutes. He is currently back to baseline. He denies any headache or weakness. His NIH stroke scale 0. He claims compliance with atorvastatin and Eliquis
Physical exam
General: Well appearing and non-toxic. Able to ambulate to the bathroom without difficulty
HEENT: protecting airway
Neck: appears supple
CV: No evidence of cyanosis
Resp: No accessory muscle use
Abd: Non-distended
Extremities: No deformities
Neuro: alert. NIH is 0
Psych: Normal affect
Skin: Intact
Problems Addressed including Acute and Chronic Conditions affecting care:
1. TIA
Acuity: acute
Prognosis: stable
Details: Symptoms resolved and he is already medically optimized
Updates
I had a long discussion with patient and . I discussed admission versus discharge. Given that he has had frequent MRIs and is medically optimized, there may be low utility in admitting. Regardless, I still offered admission if they felt
uncomfortable. Patient is back to baseline and states he does not want to be admitted regardless.
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 Patient declined starting new medication and wants to follow-up with his neurologist
Differential Diagnosis (but not limited to): Seizure, stroke, TIA
Testing considered: Carotid ultrasound
Drug therapy (if applicable): OTC meds, please see d/c instruction regarding Rx drugs
Amount and/or Complexity of Data Reviewed
Clinical info obtained from: Patient
External data reviewed: Patient had MRA in 2020 showing no clinically significant carotid stenosis
Labs I independently reviewed (but not limited to): Electrolytes within normal limits
Radiology: The CT scan was personally and independently reviewed. In addition, official CT report reviewed.
Pulse Ox: not hypoxic
EKG independently reviewed: Sinus rhythm, normal axis, no STEMI
Key Account Executive: sinus rhythm
Critical Care: N/A
Risk of Complication:
Social Determinants of health: Good social support
Discussed with other providers: Neurology
Escalation of Care includes Admit/Obs: After being observed in the Emergency Department, pt stable for discharge.
Occasional wrong word or 'sound a like' substitutions may have occurred due to the inherent limitations of voice recognition software. Read the chart carefully and recognize, using context, where substitutions have occurred.
*Critical Care Note
Total Time (30-74mins, 75-104mins- exclusive of procedures): Not Applicable
ED Attending Note
-
Portions of this chart may have been created with voice recognition software.� Occasional wrong word or��sound alike� substitutions may have occurred due to the inherent limitations of voice recognition software.
Discharge Plan
Departure
Patient Disposition: Home (Routine Discharge)
Date of Disposition: 02/20/25
Time of Disposition: 18:31
Patient with high blood pressure during this ER visit?: Yes
Discharge Problem:
Aphasia
Instructions: Transient Ischemic Attack (DC), BLOOD PRESSURE
Prescriptions:
No Action
atorvastatin 40 MG tablet
40 mg PO QPM Qty: 90 3RF
Rx Instructions:
This is an increase from previous dosing
latanoprost 0.005 % drops
1 drp BOTH EYES HS
metoprolol succinate 25 mg tablet extended release 24 hr
25 mg PO DAILY
omeprazole 20 mg Tablet,Delayed Release (Dr/Ec)
20 mg PO DAILY
cholecalciferol (vitamin D3) [Vitamin D3] 50 mcg (2,000 unit) Tablet
50 mcg PO DAILY
losartan 50 mg tablet
50 mg PO BID
betamethasone, augmented 0.05 % ointment
1 applic TOPICAL BID PRN (Reason: itching to R leg)
Rx Instructions:
Itching on right leg
Sarna Original 0.5-0.5 % Lotion
1 applic TOPICAL BID PRN (Reason: itching to R leg)
Rx Instructions:
itching on right leg
Eliquis 5 mg tablet
2.5 mg PO BID
Rx Instructions:
Take 10mg twice a day for one week, then 5mg twice a day following the first week.
aspirin 81 mg Tablet,Chewable
81 mg PO MOWEFR
docusate sodium 100 mg Capsule
100 mg PO BID Qty: 60 0RF
bisacodyl 10 mg Suppository
10 mg AK [id number] PRN (Reason: severe constipation) Qty: 12 0RF
sennosides [Melly-madisyn] 8.6 mg Tablet
8.6 mg PO BID Qty: 14 0RF
tramadol 50 mg Tablet
50 mg PO Q6HPRN PRN (Reason: moderate pain) Qty: 15 0RF
Referrals:
Forest Richardson MD [Active] -
Mckayla Payne DO [Family Provider] -
Activity Restrictions/Additional Instructions:
Please return for any worsening symptoms.
You may return at any time if you have further concerns.
Please follow up with your doctor at the first available appointment, preferably this week. Please talk to him about completing the stroke workup in regards to outpatient brain MRI and carotid ultrasound.
Please follow-up with the neurologist at the first available appointment. 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 He suggested
starting an antiseizure medicine called Uri. Please have this discussion with the neurologist. The neurologist on-call indicated that you would benefit from outpatient EEG.
Thank you for choosing [facility].
Interventions
Interventions:
*Risk Screen - Suicide Last Done: 02/20/25 15:30
*General Assessment Last Done: 02/20/25 15:30
ED- Pulmonary Assessment Last Done: 02/20/25 16:50
ED- Neurological Assessment Last Done: 02/20/25 16:50
ED- Cardiac Assessment Last Done: 02/20/25 16:50
Discharge Date and Time
Print Language: BHUTANESE
== END 2025-02-20 18:59 | disposition home or self-care (01) ==
LOC: EMR 15:25
PROVIDERS: Emergency Medicine; EMERGENCY PHYSICIAN Student in an Organized Health Care Education/Training Program; FAMILY PHYSICIAN Family Medicine
DX: R47.01 Aphasia (principal); I25.10 Atherosclerotic heart disease of native coronary artery without angina pectoris; K21.9 Gastro-esophageal reflux disease without esophagitis; I10 Essential (primary) hypertension; E78.00 Pure hypercholesterolemia, unspecified; I25.2 Old myocardial infarction; G47.33 Obstructive sleep apnea (adult) (pediatric); N40.0 Benign prostatic hyperplasia without lower urinary tract symptoms; Z86.73 Personal history of transient ischemic attack (TIA), and cerebral infarction without residual deficits; Z90.49 Acquired absence of other specified parts of digestive tract; Z95.5 Presence of coronary angioplasty implant and graft; Z96.653 Presence of artificial knee joint, bilateral
CPT/HCPCS: 99284; 70450; 80053; 82962; 84484; 85025; 85610; 85730; 93005

== ENCOUNTER → 2025-03-04 08:44 | Outpatient (REF) | payer OTHER, SELFPAY | LOC: HWRAD 08:44 | PROVIDERS: ATTENDING PHYSICIAN Family Medicine | DX: G45.9 Transient cerebral ischemic attack, unspecified (principal) | CPT/HCPCS: 93880 ==

== ENCOUNTER → 2025-03-27 10:51 | Outpatient (REF) | payer OTHER, SELFPAY ==
--- NOTE | 2025-03-28 08:16 | EEGC.RPT ---
Continuous EEG Report
Recording
Start Date of Data Reviewed: 03/27/25
Done with Video Recording: Yes
Report
TECHNICAL REMARKS:��This is a technically satisfactory eighteen channel record employing 21 disc electrodes applied according to a measured international 10-20 electrode placement system.��There were no significant technical difficulties.��The study
was done on a Visual Pro 360 System.
STUDY DURATION: 30 min 38 sec
MEDICATIONS:�Tramadol PRN.
CLINICAL HISTORY: This is an 85-year-old man with frequent falls. �This study was requested to look for epileptiform activity.
REPORT: �At the onset of the EEG, the patient is drowsy.� During brief time of wakefulness the background activity consists of 8-9 Hz, impersistent, posteriorly dominant, moderate amplitude, symmetric, and rhythmic activity.�Continuous theta
activity was seen during wakefulness.� Stepwise intermittent photic stimulation (1-31 Hz) did not induce additional abnormalities. Hyperventilation was not performed. No epileptiform activity was seen.�
IMPRESSION: �This is an abnormal awake and drowsy EEG due to a mild generalized slowing. This finding indicates diffuse cerebral dysfunction, nonspecific in terms of etiology.
== END ==
LOC: EEG 10:51
PROVIDERS: ATTENDING PHYSICIAN Psychiatry & Neurology Clinical Neurophysiology; FAMILY PHYSICIAN Family Medicine
DX: I69.30 Unspecified sequelae of cerebral infarction (principal)
CPT/HCPCS: 95816

== ENCOUNTER → 2025-04-10 10:11 | Outpatient (REF) | payer OTHER, SELFPAY | LOC: HWRCS 10:11 | PROVIDERS: ATTENDING PHYSICIAN Nuclear Medicine Nuclear Cardiology; FAMILY PHYSICIAN Internal Medicine | DX: R55 Syncope and collapse (principal); I25.2 Old myocardial infarction; I25.10 Atherosclerotic heart disease of native coronary artery without angina pectoris | CPT/HCPCS: 93306 ==

== ENCOUNTER 2025-07-27 11:34 | Emergency (ER) | payer OTHER, SELFPAY ==
[2025-07-27 11:34] VITALS: BMI 28.8
[2025-07-27 11:35] VITALS: BP 194/87
[2025-07-27 11:38] VITALS: BP 194/87
[2025-07-27 11:39] LABS: Glucose - Point of Care 107 mg/dl (70-99)
[2025-07-27 12:00] VITALS: BP 175/82
[2025-07-27 12:02] LABS: INR 1.09; PT 14.4 Sec (11.4-14.6)
[2025-07-27 12:03] LABS: APTT 28.4 Sec (23.4-35.0)
[2025-07-27 12:04] LABS: ALT (SGPT) 26 U/L (0-50); AST (SGOT) 22 U/L (17-59); Albumin 4.2 g/dl (3.5-5.0); Alkaline Phosphatase 109 U/L (38-126); Blood Urea Nitrogen 23 mg/dl (9-20); Calcium 9.7 mg/dl (8.4-10.2); Carbon Dioxide 31 mmol/L (22-30); Chloride 103 mmol/L (98-107); Estimated Creatinine Clearance 57 ml/min; Glucose 108 mg/dl (70-99); Potassium 4.4 mmol/L (3.5-5.1); Sodium 140 mmol/L (135-145); Total Protein 6.7 g/dl (6.3-8.2); eGFR > 60.00
--- NOTE | 2025-07-27 12:16 | ED.CVA ---
History of Present Illness
<Nguyen Orellana PA-C - Last Filed: 07/29/25 06:31>
General
Chief Complaint: CVA/TIA Symptoms
Time Seen by Provider: 07/27/25 12:00
Onset of Stroke Symptoms
Onset of symptoms known: Yes
Date of onset of symptoms: 07/27/25
History of Present Illness
History of Present Illness:
see MDM
Past History
<Bubba Yin DO - Last Filed: 07/27/25 13:13>
Past History
ED Past Medical History: CAD, Cancer (Squamous cell carcinoma), GERD, HTN, Hypercholesterolemia, [place] (Non-STEMI June 2015) and Other (BPH, severe obstructive sleep apnea, periodic limb movement disorder, noncompliance)
ED Past Surgical History: Cardiac (PTCA with stent), Cholecystectomy and Orthopedic (Bilateral knee replacement 2010)
Social History
Tobacco: Non-smoker
Alcohol: None
Drug: None
Personal:
Living: with family
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
Family History
Family History: Other (Noncontributory)
Phy Exam
<Nguyen Orellana PA-C - Last Filed: 07/29/25 06:31>
Physical Exam
Physical Exam:
GENERAL: Alert , in no apparent distress
HEAD: NCAT
EYE: pupils equal and reactive, no nystagmus, no photophobia
NECK: Supple,full rom, nontender
ENT: o/p clr, mmm.
CARDIAC: Regular rate and rhythm . no edema
LUNGS: Clear breath sounds bilaterally, no acute respiratory distress, no wheezes/rales/rhonchi
ABDOMEN: Soft, without focal tenderness, no r/g, no cvat
NEUROLOGICAL: Alert and orientedx 4, cn intact, no facial asymmetry, 5/5 strength in UE/LE, sensation intact, romberg neg, ambulates without assistance, neg pronator drift
SKIN: Warm and dry, skin intact.
MUSCULOSKELETAL: No edema, well perfused.
PSYCH: Normal and appropriate interaction.
Course
<Nguyen Orellana PA-C - Last Filed: 07/29/25 06:31>
Orders/Labs/Results
Orders:
Orders
07/27/25 11:43
Electrocardiogram (*1) Urgent
Reason for Study: Other
Other Reason for Exam: Possible Stroke
Bedside Glucose- Treatment ONCE
EKG- Treatment ONCE
07/27/25 11:44
Complete Blood Count/With Diff Urgent
Comprehensive Metabolic Panel Urgent
PTT Urgent
Prothrombin Time Urgent
Troponin I Urgent
07/27/25 12:26
CT Head W/o Iv Contrast Urgent
Comment:
Reason For Exam: TIA
Abnormal Lab Results
07/27/25 07/27/25
11:38 11:44
MCHC 32.4 L g/dL
(33.0-37.0)
MPV 13.2 H fL
(7.4-10.4)
Absolute Lymphs (auto) 3.8 H 10^3/uL
(1.2-3.4)
Carbon Dioxide 31 H mmol/L
(22-30)
BUN 23 H mg/dl
(9-20)
Glucose 108 H mg/dl
(70-99)
POC Glucose 107 H mg/dl
(70-99)
07/27/25 11:44
07/27/25 11:44
Vital Signs
Initial and Last Documented VS:
Initial Vital Signs
Temp Pulse Resp BP Pulse Ox
36.6 C 66 16 194/87 97
07/27/25 11:35 07/27/25 11:35 07/27/25 11:35 07/27/25 11:35 07/27/25 11:35
Last Documented Vital Signs
Temp Pulse Resp BP Pulse Ox
36.6 C 57 9 168/76 97
07/27/25 11:35 07/27/25 13:30 07/27/25 13:30 07/27/25 13:30 07/27/25 13:30
<Bubba Yin, DO - Last Filed: 07/27/25 13:13>
Orders/Labs/Results
Orders:
Orders
07/27/25 11:43
Electrocardiogram (*1) Urgent
Reason for Study: Other
Other Reason for Exam: Possible Stroke
Bedside Glucose- Treatment ONCE
EKG- Treatment ONCE
07/27/25 11:44
Complete Blood Count/With Diff Urgent
Comprehensive Metabolic Panel Urgent
PTT Urgent
Prothrombin Time Urgent
Troponin I Urgent
07/27/25 12:26
CT Head W/o Iv Contrast Urgent
Comment:
Reason For Exam: TIA
Abnormal Lab Results
07/27/25 07/27/25
11:38 11:44
MCHC 32.4 L g/dL
(33.0-37.0)
MPV 13.2 H fL
(7.4-10.4)
Absolute Lymphs (auto) 3.8 H 10^3/uL
(1.2-3.4)
Carbon Dioxide 31 H mmol/L
(22-30)
BUN 23 H mg/dl
(9-20)
Glucose 108 H mg/dl
(70-99)
POC Glucose 107 H mg/dl
(70-99)
07/27/25 11:44
07/27/25 11:44
Vital Signs
Initial and Last Documented VS:
Initial Vital Signs
Temp Pulse Resp BP Pulse Ox
36.6 C 66 16 194/87 97
07/27/25 11:35 07/27/25 11:35 07/27/25 11:35 07/27/25 11:35 07/27/25 11:35
Last Documented Vital Signs
Temp Pulse Resp BP Pulse Ox
36.6 C 57 9 168/76 97
07/27/25 11:35 07/27/25 13:30 07/27/25 13:30 07/27/25 13:30 07/27/25 13:30
<Nguyen Orellana PA-C - Last Filed: 07/29/25 06:31>
MDM/Problems Addressed
Differential Diagnosis Includes:
see MDM
MDM/Problems Addressed:
Note:
CHIEF COMPLAINT(S)
- Slurred speech and facial droop on the left side, possibly transient ischemic attack or stroke-like episode.
HISTORY OF PRESENT ILLNESS
The patient, a 64-year-old male, with a history of stroke, presented with slurred speech and a left-sided facial droop. Both the patient and his spouse reported waking around 9:00 AM. The patient appeared normal according to the spouse. Following a
shower and during breakfast preparation, the spouse noted the patient seemed 'hazy' and later observed the patient drooling from the left side while attempting to speak. These symptoms began around 10:40 AM, prompting the spouse to call emergency
services. The blood pressure taken at this time was high, recorded at 192/92 mmHg. Emergency Medical Services were contacted shortly thereafter. By the time EMS arrived, some spontaneous improvement in symptoms was observed.
The patient is currently on apixaban (Eliquis) 2.5 mg twice daily, prescribed for DVT and a history of strokes. The patient also takes a baby aspirin three times a week. The history reveals past episodes of similar transient speech and cognitive
disturbances, the most recent episode being on February 20, with hospital admission and MRI evaluation during that occurrence. He has probably had this happen about 10 or 15 times since the
The spouse reports that the patient did not experience any weakness in the arms or legs at the time of this current event. There are no present complaints of headache or confusion. A previous fall about 3-4 weeks ago resulted in a minor cut over the
eye, but did not necessitate hospitalization nor was there significant head trauma.
PHYSICAL EXAM
GENERAL: Alert , in no apparent distress
HEAD: NCAT
EYE: pupils equal and reactive, no nystagmus, no photophobia
NECK: Supple,full rom, nontender
ENT: o/p clr, mmm.
CARDIAC: Regular rate and rhythm . no edema
LUNGS: Clear breath sounds bilaterally, no acute respiratory distress, no wheezes/rales/rhonchi
ABDOMEN: Soft, without focal tenderness, no r/g, no cvat
NEUROLOGICAL: Alert and orientedx 4, cn intact, no facial asymmetry, 5/5 strength in UE/LE, sensation intact, romberg neg, ambulates without assistance, neg pronator drift no aphasia no significant speech changes, no facial droop
SKIN: Warm and dry, skin intact.
MUSCULOSKELETAL: No edema, well perfused.
PSYCH: Normal and appropriate interaction.
Nursing notes reviewed and vital signs reviewed.
PLAN
1. Proceed with stroke workup: Obtain a computed tomography (CT) scan of the head.
2. Consult with the on-call neurologist for further evaluation.
3. Perform an electrocardiogram (ECG) to monitor cardiac function.
DIFFERENTIAL DIAGNOSIS
The Differential Diagnosis includes, in no particular order and is not limited to:
1. Transient Ischemic Attack (TIA)
2. Stroke
3. Seizure
4. Hypoglycemia
5. Migraine with aura
6. Brain tumor or mass
7. Intracranial hemorrhage
8. Mcfarlan palsy
9. Hypertensive encephalopathy
10. Medication side effects
07/27/25 - 13:28
Patients recent blood work, CAT scan, and EKG show no significant findings. Despite recurrent episodes, patient remains stable and back to baseline with no worsening of symptoms. Patient has had many of these episodes and it does not seem there is
been any medication changes keeping him on the 2-1/2 mg of Eliquis twice daily and the aspirin 3 days a week.. Patient has returned to baseline and has been observed in the emergency department at his baseline. He was seen by ED attending.
Recommendation to consult outpatient neurologist about medication adjustments, such as aspirin or Eliquis. Outpatient neurologists contact provided, appointment advised. Plan to discuss with fire warden about current medication efficacy and
possible dosage adjustments next week. Patient to monitor symptoms, return if persistent deficits occur.
<Nguyen Orellana PA-C - Last Filed: 07/29/25 06:31>
*Pulse Oximetry
Patient hypoxic: no (97)
*Critical Care Note
Total Time (30-74mins, 75-104mins- exclusive of procedures): Not Applicable
<Bubba Yin DO - Last Filed: 07/27/25 13:13>
*Pulse Oximetry
SaO2: 98
Oxygen Mode of Delivery: Room air
ED Attending Note
<Bubba Yin DO - Last Filed: 07/27/25 13:13>
ED Attending Note
Patient seen and examined by attending physician: Yes
I performed the substantive portion of visit, reviewed & personally made and approve the management plan that is documented in note by myself or LATANYA.: Yes
ED Attending Note:
I evaluated the patient at bedside. The patient's had numerous similar events over the last decade or so. He is already on antiplatelets and anticoagulation. He is not in A-fib. CT imaging obtained. He wants to follow-up locally. Will give
contact information for local neurologist.
-
Portions of this chart may have been created with voice recognition software.� Occasional wrong word or��sound alike� substitutions may have occurred due to the inherent limitations of voice recognition software.
Discharge Plan
Departure
Patient Disposition: Home (Routine Discharge)
Date of Disposition: 07/27/25
Time of Disposition: 13:33
Patient with high blood pressure during this ER visit?: Yes
Condition: Fair
Covid-19: Not Applicable
Discharge Problem:
Brain TIA
Instructions: Transient Ischemic Attack (DC)
Prescriptions:
No Action
atorvastatin 40 MG tablet
40 mg PO QPM Qty: 90 3RF
Rx Instructions:
This is an increase from previous dosing
latanoprost 0.005 % drops
1 drp BOTH EYES HS
metoprolol succinate 25 mg tablet extended release 24 hr
25 mg PO DAILY
omeprazole 20 mg Tablet,Delayed Release (Dr/Ec)
20 mg PO DAILY
cholecalciferol (vitamin D3) [Vitamin D3] 50 mcg (2,000 unit) Tablet
50 mcg PO DAILY
losartan 50 mg tablet
50 mg PO BID
betamethasone, augmented 0.05 % ointment
1 applic TOPICAL BID PRN (Reason: itching to R leg)
Rx Instructions:
Itching on right leg
Sarna Original 0.5-0.5 % Lotion
1 applic TOPICAL BID PRN (Reason: itching to R leg)
Rx Instructions:
itching on right leg
Eliquis 5 mg tablet
2.5 mg PO BID
Rx Instructions:
Take 10mg twice a day for one week, then 5mg twice a day following the first week.
aspirin 81 mg Tablet,Chewable
81 mg PO MOWEFR
docusate sodium 100 mg Capsule
100 mg PO BID Qty: 60 0RF
bisacodyl 10 mg Suppository
10 mg AK [id number] PRN (Reason: severe constipation) Qty: 12 0RF
sennosides [Melly-madisyn] 8.6 mg Tablet
8.6 mg PO BID Qty: 14 0RF
tramadol 50 mg Tablet
50 mg PO Q6HPRN PRN (Reason: moderate pain) Qty: 15 0RF
Referrals:
Tona Haro MD [Non-Admitting Privileges, Psychiatry] - Follow up in 5-7 days
Mckayla Payne DO [Family Provider, [facility]]
Activity Restrictions/Additional Instructions:
Your brain imaging did not show any signs of an acute stroke. You should follow-up with the neurologist. You may want to consider discussing advancing your Eliquis from 2-1/2 to 5 mg, I would not do this without your fire warden or neurologist
recommendation. You can also try following up with Dr. Haro who is listed as a psychiatrist but actually she is part of the neurology service and sees patients as an outpatient. When you call tell them that you were seen in the emergency
department.
Return for any further change in mental status or persistent weakness or speech issues.
Interventions
Interventions:
*Risk Screen - Suicide Last Done: 07/27/25 11:35
*General Assessment Last Done: 07/27/25 11:35
*Neglect/Abuse Screening Last Done: 07/27/25 13:25
*ED- Fall Risk Assessment Last Done: 07/27/25 11:35
*Nursing Disposition Last Done: 07/27/25 13:25
ED- Pulmonary Assessment Last Done: 07/27/25 11:35
ED- Neurological Assessment Last Done: 07/27/25 11:35
ED- Cardiac Assessment Last Done: 07/27/25 11:35
ED Swallowing Screen Last Done: 07/27/25 11:35
Discharge Date and Time
Discharge Date/Time: 07/27/25 13:25
Print Language: IRISH
[2025-07-27 12:30] VITALS: BP 183/80
[2025-07-27 12:34] LABS: Troponin I < 0.012 ng/ml
[2025-07-27 12:38] LABS: Hematocrit 44.1 % (39.0-52.0); Hemoglobin 14.3 g/dL (13.0-18.0); Mean Corp Hgb Conc. 32.4 g/dL (33.0-37.0); Mean Corpuscular Volume 90.9 fL (80.0-94.0); Nucleated Red Blood Cells % 0 % (-); Platelet Count 137 10^3/uL (130-400); Red Cell Dist. Width 13.9 % (11.5-14.5)
[2025-07-27 13:00] VITALS: BP 178/82
[2025-07-27 13:30] VITALS: BP 168/76
== END 2025-07-27 13:25 | disposition home or self-care (01) ==
LOC: EMR 11:34
PROVIDERS: Emergency Medicine; EMERGENCY PHYSICIAN Emergency Medicine; FAMILY PHYSICIAN Family Medicine
DX: G45.9 Transient cerebral ischemic attack, unspecified (principal); E78.00 Pure hypercholesterolemia, unspecified; G47.33 Obstructive sleep apnea (adult) (pediatric); I10 Essential (primary) hypertension; I25.10 Atherosclerotic heart disease of native coronary artery without angina pectoris; I25.2 Old myocardial infarction; N40.0 Benign prostatic hyperplasia without lower urinary tract symptoms; Z79.01 Long term (current) use of anticoagulants; Z86.718 Personal history of other venous thrombosis and embolism; Z86.73 Personal history of transient ischemic attack (TIA), and cerebral infarction without residual deficits; Z90.49 Acquired absence of other specified parts of digestive tract; Z95.5 Presence of coronary angioplasty implant and graft
CPT/HCPCS: 99284; 70450; 80053; 82962; 84484; 85025; 85610; 85730; 93005

== ENCOUNTER 2025-08-06 13:47 | Inpatient (IN) | payer OTHER, SELFPAY ==
[2025-08-06] VITALS (25 sets, daily range): BP systolic 100–208; BP diastolic 64–192; BMI 29.1; BMI 27.8
--- NOTE | 2025-08-06 10:15 | ED.CVA ---
History of Present Illness
General
Chief Complaint: CVA/TIA Symptoms
Source: ambulance crew
Time Seen by Provider: 08/06/25 10:12
Onset of Stroke Symptoms
Onset of symptoms known: Yes
Date of onset of symptoms: 08/06/25
Time of onset of symptoms: 09:15
History of Present Illness
History of Present Illness:
85-year-old male presents to the emergency room via ambulance for evaluation of strokelike symptoms. Patient developed aphasia and a facial droop at 9:15 AM. By the time paramedics arrived his symptoms had resolved and he was speaking normally.
However during their assessment symptoms returned. Evidently patient has had multiple episodes such as this where symptoms are present for minutes and then resolved. He is currently taking Eliquis 5 mg twice daily as well as aspirin. Patient was
most recently seen here on July 27, 2010 days ago, with similar symptoms that resolved.
Past History
Past History
ED Past Medical History: CAD, Cancer (Squamous cell carcinoma), GERD, HTN, Hypercholesterolemia, [place] (Non-STEMI June 2015) and Other (BPH, severe obstructive sleep apnea, periodic limb movement disorder, noncompliance)
ED Past Surgical History: Cardiac (PTCA with stent), Cholecystectomy and Orthopedic (Bilateral knee replacement 2010)
Social History
Tobacco: Non-smoker
Alcohol: None
Drug: None
Personal:
Living: with family
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
Family History
Family History: Other (Noncontributory)
Phy Exam
Physical Exam
Physical Exam:
General: Awake, Alert, follows commands
Vitals: unremarkable
Head: Atraumatic
Eyes: Pupils equal, EOMI
Throat: Airway intact, no exudates
Neck: Trachea midline
Lungs: Clear and equal b/l
Heart: Regular rate, no murmurs
Abd: Soft, Nontender, No pulsatile mass
Neuro: Aphasia, left facial droop, muscle strength 5 out of 5 in upper and lower extremities
Skin: Warm, dry, no rash
Extremities: pulses equal b/l, no edema
Scores
NIH Stroke Score
Level of Consciousness: 0 - Alert
LOC Questions: 2-Neither correct
LOC Commands: 2-Performs neither correctly
Best Horizontal Gaze: 0-Normal
Visual Valle: 0=Normal, no visual loss
Facial Palsy: 0=Normal, symmetrical
Motor - Right Arm: 0=No drift 10 seconds
Motor - Left Arm: 0=No drift 10 seconds
Motor - Right Le-No drift 5 seconds
Motor - Left Le-No drift 5 seconds
Limb Ataxia: 0-Absent
Sensation: 0-Normal
Best Language: 2-Severe aphasia
Dysarthria: 2-Severe slurring
Extinction and Inattention: 0-No abnormality
NIH Total Score:: 8
Course
Orders/Labs/Results
Orders:
Orders
08/06/25 Breakfast
NPO
Allow oral meds: No
Allow clear liquids: No
08/06/25 10:13
CT BRAIN PERF STROKE ALERT Urgent
Comment:
Reason For Exam: aphasia, facial droop
CT HEAD STROKE ALERT W/o Cont Urgent
Comment:
Reason For Exam: cva sx @0915
CT HEAD/NECK ANG STROKE ALERT Urgent
Comment:
Reason For Exam: aphasia, facial droop
Bedside Glucose- Treatment ONCE
Cardiac Monitoring- Treatment ONCE
IV Insert/Care/Rem.- Treatment PRN
Vital Signs As Directed
Frequency: Other
Weight As Directed
Frequency: Once
Comment: ZERO STRETCHER SCALE FOR ACCURATE WEIGHT
O2 Therapy [RESP] Urgent
Titrate/Wean O2 to maintain O2 sat greater than (%): 93
Special Instructions: MAINTAIN CONTINUOUS O2 SATS > OR = 93%
08/06/25 10:14
EKG- Treatment ONCE
08/06/25 11:00
Complete Blood Count/With Diff Urgent
Glycohemoglobin (HgbA1c) Urgent
PTT Urgent
Prothrombin Time Urgent
08/06/25 11:29
EEG Routine Urgent
Reason for Exam: confusion, agitation
08/06/25 11:30
MR Brain Without Contrast Routine
Comment:
Reason For Exam: confusion, aphasia
Recent pill cam endoscopy?: No
08/06/25 11:37
Lorazepam [Ativan] 1 mg IV NOW STA
08/06/25 11:48
Lorazepam [Ativan] 2 mg .ROUTE .STK-MED ONE
08/06/25 11:55
Lorazepam [Ativan] 1 mg IV NOW STA
08/06/25 11:56
Cardiovascular Evaluation Urgent
Comment: ADD
Comprehensive Metabolic Panel Urgent
Creatine Phosphokinase Urgent
Comment: ADD
Ferritin Urgent
Comment: ADD
Folate Urgent
Comment: ADD
TSH Reflex To Free T4 Urgent
Comment: ADD
Troponin I Urgent
Vitamin B12 Urgent
Comment: ADD
08/06/25 12:02
Haloperidol Lactate [Haldol] 1 mg IM NOW STA
08/06/25 12:07
EKG [Electrocardiogram (*1)] Routine
Reason for Study: TIA/Stroke
08/06/25 12:24
Urinalysis Reflex To Culture Urgent
Date Specimen was Collected: 08/06/25
Time Specimen was Collected: 11:44
Urine Microscopic Reflex Cult Urgent
Urine Culture Urgent
JEFFERY Source: U
Specimen Description:
Date Specimen was Collected: 08/06/25
Time Specimen was Collected: 11:44
08/06/25 12:30
Add On- LAB Routine
Tests Added?: folate, ferritin, TSH reflex, B12, creatine kinase, lipid panel
Add On- LAB Routine
Tests Added?: hbA1c
08/06/25 12:38
Admit/Transfer Patient As Directed
Co-Sign Provider:
Level of Care: Inpatient admission
Assign to:: IMU- Intermediate Care
Physician / Group: Hospitalist
Diagnosis: CVA
Reason for Hospitalization: CVA
Expected length of stay greater than two midnights?: Yes
ELOS- Estimated Length of Stay in days: 2
I certify the patient meets the requirements for IP care: Yes
08/06/25 12:39
PRN Pain Medication Management As Directed
May give lesser potent ordered pain med per pt: Yes
preference::
Protocol:: Medication orders for pain may be administered in a
manner that supports deferring to patient preference
when the pt is:
- Requesting an ordered lesser potent pain medication.
Least to most potent pain medications are defined
as: acetaminophen < NSAID < tramadol < opioids
(morphine, oxycodone, hydromorphone).
- Requesting a lesser dose of the same medication IF
ORDERED.
- Requesting a less intrusive route of administration
if both routes are prescribed by the provider (PO <
IV).
08/06/25 12:44
Code Status As Directed
Resuscitation Status: Full Code
Abnormal Lab Results
08/06/25 08/06/25 08/06/25
11:00 11:56 12:24
Plt Count 119 L 10^3/uL
(130-400)
MPV 13.2 H fL
(7.4-10.4)
Absolute Lymphs (auto) 4.0 H 10^3/uL
(1.2-3.4)
PT 15.9 H Sec
(11.4-14.6)
Glucose 112 H mg/dl
(70-99)
Alkaline Phosphatase 145 H U/L
(38-126)
Urine Ketones 1+ A
(Negative)
Leukocyte Esterase Rfl 1+ A
(Negative)
Urine Bacteria (Reflex) Few A
(Negative)
Urine Albumin (Reflex) 2+ A
(Neg - Trace)
08/06/25 11:00
08/06/25 11:56
Vital Signs
Initial and Last Documented VS:
Initial Vital Signs
Temp Resp Pulse Ox
98.2 F 16 98
08/06/25 10:30 08/06/25 10:30 08/06/25 10:30
Last Documented Vital Signs
Temp Pulse Resp BP Pulse Ox
98.2 F 124 18 126/88 89
08/06/25 10:30 08/06/25 14:32 08/06/25 14:32 08/06/25 14:45 08/06/25 14:45
MDM/Problems Addressed
Differential Diagnosis Includes:
TIA, ischemic CVA, hemorrhagic CVA, seizure disorder
MDM/Problems Addressed:
Patient presents with aphasia and little bit of a left facial droop. Symptoms were persistent here in the emergency room and in fact the patient became progressively more agitated. He is not a candidate for TNK as he takes Eliquis. He is not a
candidate for IAT as there is no large vessel occlusion noted on CTA. Multiple staff members required to keep him in bed. Sedation provided in a stepwise fashion. Patient given 1 mg of lorazepam followed by a second milligram without adequate
response. Ultimately patient given 5 mg of Haldol IM. This resulted in somewhat but less agitation. Patient admitted to the hospital service. EEG attempted but deferred for some time until the patient's agitation was better controlled.
Chronic conditions affecting care: HTN
*Radiology
Radiology exam reviewed: radiology read reviewed
*Pulse Oximetry
SaO2: 98
Oxygen Mode of Delivery: Room air
Patient hypoxic: no
*EKG
Interpreted by ED Provider?: Yes
Heart Rate: 124
Rate: tachycardiac
Rhythm: sinus tachycardia
[place]: normal axis
Interval: normal interval
QRS Pattern: normal QRS
Ischemia: non-specific ST changes
*[place] Gun Interpretation
Rate: tachycardiac
Interpretation: abnormal
Rhythm: sinus tachycardia
*Critical Care Note
Total Time (30-74mins, 75-104mins- exclusive of procedures): 55 min
comment:
Critical care statement: A total of 55 minutes of critical care time was provided for this patient. This includes management of unstable vital signs, evaluation of the patient at bedside, reviewing the patient's pertinent medical records, discussion
with consultants, review of old EKGs and review of pertinent medical records. This time with separate from time utilized to perform the aforementioned documented procedures
ED Attending Note
-
Portions of this chart may have been created with voice recognition software.� Occasional wrong word or��sound alike� substitutions may have occurred due to the inherent limitations of voice recognition software.
Discharge Plan
Departure
Patient Disposition: Admit
Date of Disposition: 08/06/25
Time of Disposition: 11:22
Admit to: Telemetry
Presentation/result/management discussed w/ accepting MD/DO: Hospitalist
Condition: Fair
Discharge Problem:
Acute CVA (cerebrovascular accident)
Interventions
Interventions:
*Risk Screen - Suicide Last Done: 08/06/25 10:15
*General Assessment Last Done: 08/06/25 10:15
*ED- Fall Risk Assessment Last Done: 08/06/25 10:15
*Nursing Disposition Last Done: 08/06/25 14:34
ED- Pulmonary Assessment Last Done: 08/06/25 10:15
ED- Neurological Assessment Last Done: 08/06/25 10:15
ED- Cardiac Assessment Last Done: 08/06/25 10:15
ED Swallowing Screen Last Done: 08/06/25 10:15
[2025-08-06 11:27] LABS: Hematocrit 43.7 % (39.0-52.0); Hemoglobin 14.5 g/dL (13.0-18.0); Mean Corp Hgb Conc. 33.2 g/dL (33.0-37.0); Mean Corpuscular Volume 90.3 fL (80.0-94.0); Nucleated Red Blood Cells % 0 % (-); Platelet Count 119 10^3/uL (130-400); Red Cell Dist. Width 13.8 % (11.5-14.5)
[2025-08-06 11:41] LABS: APTT 28.6 Sec (23.4-35.0); INR 1.22; PT 15.9 Sec (11.4-14.6)
[2025-08-06] MEDS: ATIVAN 1 MG IV ×3 (11:42→20:28)
--- NOTE | 2025-08-06 11:45 | CON.NEURO4 ---
Addendum entered and electronically signed by Ed Ricardo MD 08/06/25 19:50:
The patient was seen and examined on 08/06/2025 along with the nurse practitioner Deepti Gore. I agree with the nurse practitioner Deepti Gore's assessment and plan. The following is my addendum.
The patient is an 85 years old male who presented to the ER via EMS for evaluation of speech difficulty, facial droop and altered mental status. The patient is on Eliquis for DVT, and he also has a history of hypertension, hyperlipidemia, coronary
artery disease, BPH, AMANDA not on CPAP and history of multiple TIAs.
The history was obtained from the patient's spouse who was present at the bedside, as the patient was very agitated and was unable to provide any history. The last known normal was at around 8:30 AM today and according to the patient's
Neurologic Examination: The patient was unable to cooperate with the neurologic examination which was therefore very limited. He was able to speak a few words but was unable to form sentences. He was unable to follow verbal commands. The patient
had to be restrained because he was very agitated, however, he was able to move all 4 extremities spontaneously and did not have any gross focal weakness. The cranial nerves II to XII grossly appeared to be intact.
Neuro Imaging:
1. CT Head 08/06/25: No evidence of acute intracranial abnormality. ASPECT score: 10.
2. CTA head/neck 08/06/25: There is no CT angiographic evidence for intracranial large vessel occlusion or high-grade stenosis. No evidence for hemodynamically significant stenosis of the carotid bulbs or proximal internal carotid arteries
bilaterally. No significant narrowing of the vertebral or basilar arteries.
3. CT brain perfusion 08/06/25: CT perfusion demonstrating no evidence for core infarction or ischemic penumbra.
ASSESSMENT AND PLAN:
The patient presented with a speech difficulty, facial droop and altered mental status. He does not appear to have any gross focal weakness. He can speak a few words but cannot form sentences. He is also able to follow a few verbal commands. The
etiology of the patient's symptoms appear to be secondary to metabolic encephalopathy or seizure, however, an acute stroke cannot be ruled out. The patient was not a candidate for TNK as he was on Eliquis for DVT, with the last dose of Eliquis
being today morning at around 8 AM. The patient was given Ativan and Haldol in the ED. The plan is to get an EEG and MRI of the brain. Will continue home Eliquis 5 mg twice a day for DVT.
Original Note:
Consultation - Neurology 4
-
CONSULTING PHYSICIAN: Ed Ricardo MD
REFERRING PHYSICIAN: ER/Dr. Guerrero
DICTATED BY: RENETTA Ybarra
DATE/TIME OF REQUEST: 08/06/25
DATE/TIME OF CONSULTATION: 08/06/25
Reason for Consultation: Stroke Alert
History of Present Illness:
This is an 85-year-old right-handed male who has presented to the hospital with report of aphasia, confusion, and possible facial drooping. Patient has been evaluated by our inpatient Neurology service numerous times in the past for similar
symptoms.
From my previous evaluation on 06/16/23:
''This is an 83-year-old right-handed male who has presented to the hospital on 06/15/23 with report of dysarthria. Patient has been evaluated by our Neurology service several times for similar symptoms.
From previous encounter with Dr. George on 08/09/22:
'Patient previously was evaluated by this interviewer across multiple years due to recurrent events of changes in mental status.Patient's mental status changes have included the following: Approximately 10 events which are slightly variable and
include episodic blurred vision with central graying, inability to read, confusion, and expressive aphasia.� Each event is described as approximately 10 minutes in duration and have had a frequency of up to weekly.� Evaluations in the past began in
2007 and the patient was found to have a left frontal acute ischemic stroke in 2009.� MRI imaging in February 2022 indicated a chronic right cerebellar lacunar stroke without acute changes and MRA imaging in 2019 one of the head and neck indicated less
than 50% stenosis in all vessels.� Holter monitoring in 2020 was unremarkable EEG in 2017 was described as normal as was echocardiogram in 2018.� Medications for treatment have included the use of aspirin 325 mg daily and atorvastatin.� The patient
has also been suggested to initiate the use of vitamin B-12 replacement and has declined treatment for periodic limb movement disorder .Additional testing has included sleep testing which indicated severe obstructive sleep apnea which was treated
with auto CPAP.� The patient discontinued that therapy, however.
By medical records, the patient had a fall in May 2022 and declined physical therapy evaluation and treatment. The patient returned to this hospital's emergency department last evening when patient experienced sudden onset of expressive aphasia
and cognitive issues at 1900 hrs. which resolved after approximately 2 hours.'
MRI brain imaging was obtained during that hospitalization on 08/09/22 and demonstrated a chronic right cerebellar infarct that had been demonstrated on prior MRI brain imaging in 2020, no acute infarct. Patient completed DAPT for 21 days at that
time and then was continued on aspirin 81mg daily, until 05/12/23 when he was found to have a RLE DVT and he was switched to Eliquis. Yesterday (06/15/23), around 1530 he was talking to his when his speech suddenly became garbled and his could
not understand him. This has happened in the past, but it did not resolve after a couple of minutes so she brought him to the ER for evaluation. He was recently evaluated in the ER here on 06/12/23 after a fall onto his back with complaint of back
pain. CT lumbar spine showed multilevel DJD and he was to follow-up outpatient with orthopedics and an MRI, he has not done this yet. he has been taking Tylenol PRN for 8/10 lower back pain. He reports falling several times this year for unknown
reasons. He denies dizziness, losing consciousness, or tripping with his falls. He reports making a turn while walking, and just 'going down.' He typically ambulates without an assistive device but since his fall four days ago he has been using a
walker. Currently, he reports feeling completely back to normal with the exception of having lower back pain. He thinks his speech issues resolved after a couple of hours yesterday. He denies any dizziness, headache, vision changes, swallowing
difficulty, numbness, weakness, chest pain, palpitations, and shortness of breath. He denies missing any doses of Eliquis.''
Patient was here again in February 2025 with aphasia and then again on 07/27/25 with aphasia. Following his event on 07/27/25 his reports that his millinery copyist and outpatient Neurologist Dr. Steven Henriquez increased his home apixaban from 2.5mg to
5mg twice a day. His neurologist had previously started him on aspirin 81mg three days per week due to severe white matter disease on previous MRI brain imaging and memory concerns. Patient's reports that he was in his usual state this morning.
At 0915 he suddenly developed a 'glazed eye stare' and speech became confused. This was very similar to previous episodes but when symptoms didn't resolve after 5-10 minutes like they typically do, she called 911. CT head, CTA head/neck, and CT
brain perfusion were obtained and are negative for any acute abnormalities. CT brain perfusion is negative for any areas of infarct or penumbra. Blood pressure was 160/126 on arrival. He is currently significantly agitated/uncooperative and NIHSS is
challenging to assess. He is not a candidate for TNK/IAT due to his last dose of apixaban being this morning, and no LVO for IAT. He is unable to provide answered to review of systems questioning.
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
movement disorder, reactive thrombocytopenia in the setting of pyelonephritis sepsis 09/2022, DJD, GERD, squamous cell carcinoma, chronic lumbar back pain, mild cognitive impairment, glaucoma, b/l hearing aids
Surgical History: Cardiac stent, cholecystectomy, B/L TKR, TURP
Family History: Reviewed and noncontributory.
Social History: Former smoker quit 1990. No alcohol or illicit drug use.
Allergies: See below.
Home Medications: See below.
Review of Symptoms:
Per the HPI. I am unable to obtain a complete review of systems�because of patient's inability to provide history.
Physical Exam:
The patient is agitated/restless, afebrile, abdomen is nondistended, breathing is unlabored, skin is warm and dry, no edema.
NIH Stroke Scale:
I performed the NIH stroke scale on the patient on 08/06/25 at 1100. The patient scored 7 points on the NIH stroke scale assessment, which were assigned as follows: See below.
Neurologic Examination:
The patient is awake, alert, severely agitated. Unable to state name, month, age. Does not provide answers to questions. He is able to follow some commands. There is severe aphasia. There is mild dysarthria. On cranial nerve assessment, pupils are
3 mm bilateral, round and reactive to light and accommodation. CHAD visual valle. CHAD EOMS but tracks in all directions. There is no apparent facial asymmetry. Hearing is intact bilaterally to normal conversation volume. CHAD tongue. Motor strengths
are 5/5 bilateral upper and lower extremities on medical research [place] scale. There is no drift or involuntary movement noted. CHAD sensation, double simultaneous, and coordination.
Lab Results: See below.
Neuro Imaging:
1. CT Head 08/06/25: No evidence of acute intracranial abnormality. ASPECT score: 10.
2. CTA head/neck 08/06/25: There is no CT angiographic evidence for intracranial large vessel occlusion or high-grade stenosis. No evidence for hemodynamically significant stenosis of the carotid bulbs or proximal internal carotid arteries
bilaterally. No significant narrowing of the vertebral or basilar arteries.
3. CT brain perfusion 08/06/25: CBF 0, Tmax 0.
Differentials for the patient's presentation include:
1. Aphasia, confusion, agitation; uncertain etiology. About 15 similar episodes since 2008, CT brain perfusion is negative for any cerebral ischemia, making this less likely to be a stroke but cannot entirely exclude this. Given recurrent similar
episodes and agitation, partial seizure is possible.
2. Chronic small infarcts in the right cerebellum, b/l frontal lobe white matter, and right parietal lobe.
3. History of DVTs, on apixaban.
4. Hypertensive urgency.
Patient has the following risk factors for their symptoms: Hx DVT, hx stroke, agiation,
IV Tenecteplase/IAT candidacy: He is not a candidate for TNK/IAT due to his last dose of apixaban being this morning, and no LVO for IAT.
Recommendations:
-Continue home apixaban 5mg twice a day and aspirin 81mg MWF.
-Urgent EEG pending. Provide lorazepam 1mg IV due to agitation.
-MRI brain noncontrast pending.
-Urinalysis with reflex pending.
-Goal normotension.
-LDL goal <70. Lipid panel is pending. Continue home atorvastatin 40mg daily.
-Goal normoglycemia, hbA1c is pending.
-Checking blood work for metabolic abnormalities.
-NIHSS and neurological checks per unit guidelines.
-Provide patient's with a stroke education packet.
-PT/OT/ST evaluations.
Discussed patient care with: Dr. Ricardo, the patient's
Vital Signs and Labs
-
Vital Signs and Labs:
Vital Signs
Temp Pulse Resp BP Pulse Ox
98.2 F 95 19 196/114 80
08/06/25 10:30 08/06/25 11:30 08/06/25 11:30 08/06/25 11:17 08/06/25 11:30
Lab Results
08/06/25 11:00
PT 15.9 Sec (11.4-14.6) H 08/06/25 11:00
INR 1.22 08/06/25 11:00
APTT 28.6 Sec (23.4-35.0) 08/06/25 11:00
Sodium Cancelled 08/06/25 10:49
Potassium Cancelled 08/06/25 10:49
BUN Cancelled 08/06/25 10:49
Glucose Cancelled 08/06/25 10:49
Calcium Cancelled 08/06/25 10:49
Medications
-
Home Medications
�Medication �Instructions �Recorded
cholecalciferol (vitamin D3) 50 50 mcg PO DAILY Supplement 08/08/22
mcg (2,000 unit) tablet (Vitamin
D3)
latanoprost 0.005 % eye drops 1 drp BOTH EYES HS Eye condition 08/08/22
metoprolol succinate 25 mg 25 mg PO DAILY Blood pressure 08/08/22
tablet,extended release 24 hr
omeprazole 20 mg tablet,delayed 20 mg PO DAILY Gastrointestinal 08/08/22
release issue
apixaban 5 mg tablet (Eliquis) 5 mg PO BID Blood Clot 01/16/25
Prevention/Tx
aspirin 81 mg chewable tablet 81 mg PO MOWEFR 01/20/25
atorvastatin 40 mg tablet 40 mg PO QPM High Cholesterol 08/06/25
docusate sodium 100 mg capsule 100 mg PO BIDPRN PRN constipation 08/06/25
NIH Stroke Score
Subsequent NIH Scale
Date of Subsequent NIH Scale: 08/06/25
Time of Subsequent NIH Scale: 11:00
NIH Stroke Score
Level of Consciousness: 0 - Alert
LOC Questions: 2-Neither correct
LOC Commands: 2-Performs neither correctly
Best Horizontal Gaze: 0-Normal
Visual Valle: 0=Normal, no visual loss
Facial Palsy: 0=Normal, symmetrical
Motor - Right Arm: 0=No drift 10 seconds
Motor - Left Arm: 0=No drift 10 seconds
Motor - Right Le-No drift 5 seconds
Motor - Left Le-No drift 5 seconds
Limb Ataxia: 0-Absent
Sensation: 0-Normal
Best Language: 2-Severe aphasia
Dysarthria: 1-Mild slurring
Extinction and Inattention: 0-No abnormality
NIH Total Score:: 7
Modified [place] (mRS) Score
Modified [place] Scale (mRS): Moderate disability. Requires some help, able to walk unassisted.
Score: 3
Alteplase Contraindication
Inclusion and Exclusion criteria reviewed: Yes
Reasons for NON-Tx with Thrombolytics ABSOLUTE Exclusions: Patient taking oral anticoagulant and last dose within 48 hours
IAT Contraindications: Imaging doesn't show large vessel occlusion as cause of stroke
Allergies
-
Allergies
Allergy/AdvReac Type Severity Reaction Status Date / Time
clarithromycin (From Biaxin) Allergy Rash Verified 08/06/25 10:14
clindamycin Allergy Rash Verified 08/06/25 10:14
levofloxacin (From Levaquin) Allergy Rash Verified 08/06/25 10:14
methylprednisolone Allergy Rash Verified 08/06/25 10:14
mupirocin Allergy Rash Verified 08/06/25 10:14
Penicillins Allergy Rash Verified 08/06/25 10:14
prochlorperazine (From Allergy Rash Verified 08/06/25 10:14
Compazine)
prochlorperazine edisylate Allergy Rash Verified 08/06/25 10:14
(From Compazine)
prochlorperazine maleate Allergy Rash Verified 08/06/25 10:14
(From Compazine)
Sulfa (Sulfonamide Allergy Rash Verified 08/06/25 10:14
Antibiotics)
[2025-08-06] MEDS: HALDOL 1 MG IM (12:02)
[2025-08-06 12:25] LABS: ALT (SGPT) 27 U/L (0-50); AST (SGOT) 27 U/L (17-59); Albumin 4.4 g/dl (3.5-5.0); Alkaline Phosphatase 145 U/L (38-126); Blood Urea Nitrogen 18 mg/dl (9-20); Calcium 9.9 mg/dl (8.4-10.2); Carbon Dioxide 27 mmol/L (22-30); Chloride 98 mmol/L (98-107); Estimated Creatinine Clearance 64 ml/min; Glucose 112 mg/dl (70-99); Potassium 4.2 mmol/L (3.5-5.1); Sodium 136 mmol/L (135-145); Total Protein 7.3 g/dl (6.3-8.2); eGFR > 60.00
[2025-08-06 12:37] LABS: Troponin I < 0.012 ng/ml
--- NOTE | 2025-08-06 13:02 | HPS.HSE ---
Family Physician
-
Family Physician: NO INTERVIEW UNKNOWN
Chief Complaint
-
Aphasia, facial droop
History of Present Illness
85-year-old [id number]-[id number] male presented to the ER via EMS for evaluation of aphasia and facial droop. Has a past medical history of essential hypertension, hyperlipidemia, CAD s/p stents, BPH, severe AMANDA not on CPAP, periodic limb movement
disorder, degenerative joint disease, GERD, H/O DVT on Eliquis ,chronic low back pain, glaucoma, history of multiple TIAs (17) with hospital admissions/ER visits.
History taken from his spouse at bedside, as the patient was not responsive (was agitated and was given Haldol). Patient was last seen normal at around 8:30 AM. His reports that he had facial droop on the left side and aphasia around 9:15 AM,
after he had a shower and was dressing up to attend . He did not have any lightheadedness/dizziness, no numbness/weakness/tingling, fever/chills. No history of trauma/falls. Patient was seen here earlier on 07/27/2025 for similar symptoms.
Medical History
Past Medical History
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
periodic limb movement disorder, reactive thrombocytopenia in the setting of pyelonephritis se)
Past Surgical History: Reports Other (Cardiac stent, cholecystectomy, B/L TKR, TURP)
Social History
Tobacco: Former Smoker
Alcohol: None
Drug: None
Personal:
Living: With Family
Family History
Family History: Not pertinent
Allergies / Home Medications
Allergies reflects when Allergies were last updated in [facility].
Home Medications with original date entered in [facility]
Allergy/Medication List:
Allergies
Allergy/AdvReac Type Severity Reaction Status Date / Time
clarithromycin (From Biaxin) Allergy Rash Verified 08/06/25 10:14
clindamycin Allergy Rash Verified 08/06/25 10:14
levofloxacin (From Levaquin) Allergy Rash Verified 08/06/25 10:14
methylprednisolone Allergy Rash Verified 08/06/25 10:14
mupirocin Allergy Rash Verified 08/06/25 10:14
Penicillins Allergy Rash Verified 08/06/25 10:14
prochlorperazine (From Allergy Rash Verified 08/06/25 10:14
Compazine)
prochlorperazine edisylate Allergy Rash Verified 08/06/25 10:14
(From Compazine)
prochlorperazine maleate Allergy Rash Verified 08/06/25 10:14
(From Compazine)
Sulfa (Sulfonamide Allergy Rash Verified 08/06/25 10:14
Antibiotics)
Home Medications
cholecalciferol (vitamin D3) 50 mcg (2,000 unit) tablet (Vitamin D3) 50 mcg PO DAILY Supplement 08/08/22
latanoprost 0.005 % eye drops 1 drp BOTH EYES HS Eye condition 08/08/22
metoprolol succinate 25 mg tablet,extended release 24 hr 25 mg PO DAILY Blood pressure 08/08/22
omeprazole 20 mg tablet,delayed release 20 mg PO DAILY Gastrointestinal issue 08/08/22
apixaban 5 mg tablet (Eliquis) 5 mg PO BID Blood Clot Prevention/Tx 01/16/25
aspirin 81 mg chewable tablet 81 mg PO MOWEFR 01/20/25
atorvastatin 40 mg tablet 40 mg PO QPM High Cholesterol 08/06/25
docusate sodium 100 mg capsule 100 mg PO BIDPRN PRN constipation 08/06/25
Review of Systems
-
Unable to obtain full review of systems at this time due to: Patient Non-verbal
Physical Exam
Vital Signs
Vital Signs
Temp Pulse Resp BP Pulse Ox
98.2 F 131 27 135/102 90
08/06/25 10:30 08/06/25 13:00 08/06/25 13:00 08/06/25 12:45 08/06/25 12:30
Physical Exam
General: Other (Patient not responsive)
HEENT: NormoCephalic, Atraumatic and PERRLA
Respiratory: Clear (Anterior)
Cardiac: S1/S2 and Regular Rhythm
GI: Soft and Non Distended
Skin: Warm and Dry
Neuro: Sedated
Laboratory Results
-
08/06/25 11:00
08/06/25 11:56
Laboratory Results
PT 15.9 Sec (11.4-14.6) H 08/06/25 11:00
INR 1.22 08/06/25 11:00
APTT 28.6 Sec (23.4-35.0) 08/06/25 11:00
Total Bilirubin 1.3 mg/dl (0.2-1.3) 08/06/25 11:56
AST 27 U/L (17-59) 08/06/25 11:56
ALT 27 U/L (0-50) 08/06/25 11:56
Alkaline Phosphatase 145 U/L (38-126) H 08/06/25 11:56
Troponin I < 0.012 ng/ml 08/06/25 11:56
Impression/Plan
-
IMPRESSION:
85-year-old [id number]-tipwalhi male presented to the ER for evaluation of aphasia and facial droop. Has a past medical history of essential hypertension, hyperlipidemia, CAD s/p stents, BPH, severe AMANDA not on CPAP, periodic limb movement
disorder, degenerative joint disease, GERD, H/O DVT on Eliquis ,chronic low back pain, glaucoma, history of multiple TIAs (17) with hospital admissions/ER visits.
PLAN:
#Aphasia
#Facial droop
Etiology likely due to ischemic stroke, TIA, seizures versus complex migraine versus hypertensive encephalopathy
Patient had an episode of aphasia in the ER.
Later developed agitation, s/p Ativan, Haldol
Blood pressure on arrival 160/126
[address] head, head/neck CTA, brain CT perfusion�no evidence of ischemia, vascular stenosis.
Not a candidate for TNK/tPA-patient on Eliquis, last dose on 08/06/2025 at around 8 AM.
Neurology consulted
MRI brain pending
EEG pending
Urinalysis pending
Will check lipid profile, HbA1c, echo
Maintain permissive hypertension up to 220/120
PT/OT evaluation
Speech eval
#Hyperlipidemia
Will continue atorvastatin
#Essential hypertension
Will hold off on metoprolol for now to maintain permissive hypertension
#GERD
Continue omeprazole
#DVT
Will hold off on Eliquis
Diet n.p.o. for now until cleared by speech
DVT prophylaxis- SCDs
Full code
[2025-08-06 13:03] LABS: Urine Character Clear (Clear)
[2025-08-06 13:14] LABS: Urine Red Blood Cell 0-2 /HPF (0-2); Urine White Cell 0-2 /HPF (0-5)
[2025-08-06 13:19] LABS: HDL Cholesterol 47 mg/dl; LDL Cholesterol, Calculated 32 mg/dl; Very Low Density Lipoprotein 11 mg/dl (0-30)
--- NOTE | 2025-08-06 13:29 | W.PN.UPDATE ---
Update Note
Progress Note Update
HPI: 85-year-old right-hand male with PMH essential hypertension, hyperlipidemia, CAD s/p stents, BPH, AMANDA not on CPAP, periodic limb movement disorder, degenerative joint disease, GERD, H/O DVT on Eliquis, glaucoma, multiple TIAs; p/w acute and
intermittent onset of aphasia and facial droop.
History taken from his spouse at bedside. The patient was in his usual state of health in the morning, but developed acute onset of L facial droop and slurred speech. These symptoms resolved but reappeared in the ED.
He also became very confused in the ED with agitation, and was given IM Haldol and IV Ativan.
A/P:
# Suspect acute stroke with acute metabolic encephalopathy/confusion and aphasia/facial droop
# Possible seizure with abnormal limb movements
Not a candidate for TNK/tPA as patient on Eliquis [employer], last dose on 08/06/2025 at around 8 AM.
s/p Ativan, Haldol in ED
Admission CT head and CT head neck angio unrevealing
check MRI brain , may need Ativan prior to MRI for agitation
NPO with gentle IVF for now, SPL eval
Allow permissive HTN
Check LDL, A1C as part of stroke work up
Check echo
EEG per neuro
Neurology consulted
urine culture was sent, can follow up
# Hyperlipidemia
atorvastatin when cleared by SPL
# Essential hypertension
IV Hydralazine for SBP > 220
# GERD
IV PPI for now
DVT: SCD, holding Eliquis
Full code
admit to IMU for current critical condition/ acute stroke with confusion/agitation
Total Critical Care Time___40__ minutes. I was immediately available to the patient and staff. I personally examined, reviewed labs, diagnostic images/reports, interpretations, treatment plans, discussed patient care with other providers and
family or caregivers (if patient is unable to make decisions), entered orders as appropriate and documented the medical record.
[2025-08-06 14:00] LABS: Glycohemoglobin (HgbA1c) 5.6 % (4.0-5.9)
[2025-08-06 14:11] LABS: Ferritin 38.3 ng/ml (17.9-464.0)
[2025-08-06 14:42] LABS: Folate 12.9 ng/ml (2.76-20); Vitamin B12 518 pg/ml (239-931)
[2025-08-06] MEDS: NSS 1000 IV (16:14)
--- NOTE | 2025-08-06 16:24 | PTCARENOTE ---
Received patient from ED. Family in room at bedside. Unable to do NIH stroke scale on patient. Patient is either sedate and sleeping or restless and agitated. VS stable. BP 151/84,112,25 92% 2L O2. IV fluids infusing as ordered. Patient
remains NPO until able to do swallow evaluation.
--- NOTE | 2025-08-06 19:45 | PTCARENOTE ---
Order obtained for B/L wrist restraints and 4 side rails. Ordered for patient's protection. Family informed. NIH score of 21 which is a change from ED number. Patient received sedating medications in ED. Neurology contacted in regards to change
in NIH score. Spoke with Dr. Ricardo on telephone with update. Order for CT of head without contrast. Dr. Ricardo to be notified of results. Report given to night Nurse. Chito VAIL.
[2025-08-06] MEDS: NSS (PRESERVATIVE FREE) 0.5 ML IV (20:28)
--- NOTE | 2025-08-06 20:30 | PTCARENOTE ---
Assumed care of pt from dayshift. Pt unresponsive and restless. Unable to follow commands. NIHSS 21, difficult to complete. ST in 110s on tele. BP 150s/100s. on 2L NC satting 92-95%. pt mostly appears breathing through mouth, lungs diminished. IVF
infusing through L wrist. Abdomen soft/round. Incontinent yellow urine, CC in place. [employer]OCI[employer] contacted to change order for ativan for head CT. Pt taken for CT. TT sent to Dr. Ricardo with results.
[2025-08-06] MEDS: XALATAN OPHTHALMIC SOLUTION 1 DROP BOTH EYES (21:01)
[2025-08-07] VITALS (55 sets, daily range): BP systolic 76–156; BP diastolic 56–106; BMI 27.9
[2025-08-07] MEDS: NSS 1000 IV (03:41)
[2025-08-07] MEDS: PROTONIX IV IV (05:02)
[2025-08-07 05:18] LABS: AST (SGOT) 44 U/L (17-59); Albumin 4.1 g/dl (3.5-5.0); Alkaline Phosphatase 124 U/L (38-126); Blood Urea Nitrogen 22 mg/dl (9-20); Calcium 9.9 mg/dl (8.4-10.2); Carbon Dioxide 23 mmol/L (22-30); Chloride 103 mmol/L (98-107); Estimated Creatinine Clearance 73 ml/min; Glucose 150 mg/dl (70-99); HDL Cholesterol 48 mg/dl; LDL Cholesterol, Calculated 33 mg/dl; Potassium 4.4 mmol/L (3.5-5.1); Sodium 135 mmol/L (135-145); Total Protein 7.0 g/dl (6.3-8.2); Very Low Density Lipoprotein 11 mg/dl (0-30); eGFR > 60.00
[2025-08-07 05:27] LABS: Hematocrit 43.2 % (39.0-52.0); Hemoglobin 14.9 g/dL (13.0-18.0); Mean Corp Hgb Conc. 34.5 g/dL (33.0-37.0); Mean Corpuscular Volume 86.2 fL (80.0-94.0); Platelet Count 136 10^3/uL (130-400); Red Cell Dist. Width 13.7 % (11.5-14.5)
[2025-08-07 05:29] LABS: ALT (SGPT) 29 U/L (0-50)
[2025-08-07] MEDS: PROTONIX IV 40 MG IV (08:45)
--- NOTE | 2025-08-07 09:04 | W.PN.HOSP.TC ---
Today's Communication/Plan
-
see A/P
Assessment / Plan
Assessment / Plan
HPI: 85-year-old right-hand male with PMH essential hypertension, hyperlipidemia, CAD s/p stents, BPH, AMANDA not on CPAP, periodic limb movement disorder, degenerative joint disease, GERD, H/O DVT on Eliquis, glaucoma, multiple TIAs; p/w acute and
intermittent onset of aphasia and facial droop.
History taken from his spouse at bedside. The patient was in his usual state of health in the morning, but developed acute onset of L facial droop and slurred speech. These symptoms resolved but reappeared in the ED.
He also became very confused in the ED with agitation, and was given IM Haldol and IV Ativan.
A/P:
# Acute metabolic encephalopathy/confusion with aphasia/facial droop [employer], ddx include acute stroke vs seizure
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
s/p Ativan, Haldol in ED
Admission CT head and CT head neck angio unrevealing
repeat CT head again showed No acute intracranial abnormality
Pt remain confused, occasionally agitated
check MRI brain , may need Ativan prior to MRI for agitation
EEG per neuro
NPO with gentle IVF, SPL eval to follow
Allow permissive HTN for now
LDL at 33, A1C 5.6%
Echo was checked as part of stroke work up, follow report
Neurology on board
urine culture was sent, follow up
# Hyperlipidemia
LDL at 33
Cont [employer]ST[employer]ER atorvastatin when cleared by SPL
# Essential hypertension
Allow permissive HTN for now
IV Hydralazine for SBP > 220
# GERD
IV PPI for now
# h/o DVT
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
DVT: cont Eliquis per neuro
Full code
DW RN
updated on the phone
Anticipated Discharge: > 48 hours
Subjective/Interval History
-
Date of Service: August 07, 2025
Objective Data
-
Labs:
Laboratory Results
08/07/25
04:36
WBC 18.1 H
Hgb 14.9
Hct 43.2
Plt Count 136
Sodium 135
Potassium 4.4
Chloride 103
Carbon Dioxide 23
BUN 22 H
Creatinine 0.7
Glucose 150 H
Calcium 9.9
Total Bilirubin 1.5 H
AST 44
ALT 29
Alkaline Phosphatase 124
Vital Signs:
Vital Signs
Temp Pulse Resp BP Pulse Ox
37.0 C 92 26 141/94 91
08/06/25 22:49 08/07/25 05:00 08/07/25 05:00 08/07/25 04:00 08/07/25 05:00
I&O
08/06/25 08/07/25 08/08/25
06:59 06:59 06:59
Intake Total 1000 / 1000
Output Total 425 / 425
Balance 575 / 575
Review of Systems
-
Unable to obtain full review of systems at this time due to: Acuity
Physical Exam
-
General: Well Developed, Well Nourished, Comfortable and Appears Chronically Ill
HEENT: Normocephalic, Atraumatic, Moist Mucous Membranes and Oxygen (3L NC)
Respiratory: Clear to Auscultation and Non Labored Respirations; Negative Accessory Resp Muscle Use
Cardiac: Regular Rhythm and S1/S2
GI: Soft, Nontender, Nondistended and Normal Bowel Sounds
Musculoskeletal: No Clubbing, No Cyanosis and No Edema
Skin: Warm
Psych: Calm and Confused
Data Reviewed
-
CT Scan: Report Reviewed by me
Labs: Labs Reviewed by me
--- NOTE | 2025-08-07 09:11 | CARDSERVLU ---
Echocardiogram with Lumason completed after protocol screening completed. Allergies verified.
Patent IV site: ____left hand_
IV site flushed with 0.9% NaCl pre and post administration.
Diluted bolus method utilized to enhance visualization of ventricular go.
Total volume given: _4.0___ mL
Patient tolerated all procedures well without complications.
--- NOTE | 2025-08-07 10:40 | PTCARENOTE ---
Addendum entered by Jorge Luis Chung RN 08/07/25 13:28:
1215: Patient returned from MRI restless, trying to throw legs out of bed, NST 120s, 88% on 3L NC, moaning, tachypneic in the 30s and mouth breathing with increased work of breathing. MD Tillman at bedside. Nonrebreather placed. Stat ABG being done.
Patient to be intubated and transferred to ICU. at bedside. Emotional support provided.
Original Note:
Patient restless, agitated, pulling at lines. B/L wrist restraints intact. NIH 4. Patient confused, frequent reorientation required. Patients speaking with him by phone to attempt calming him. To go for MRI shortly. NPO. VSS, 3L NC sats 94%.
Will closely monitor.
[2025-08-07] MEDS: ATIVAN 2 MG IV (10:43)
--- NOTE | 2025-08-07 11:24 | PTOTSP ---
Speech Therapy Evaluation:
Pt with chronic risk factors of dysphagia (GERD, TIAs x17) and acute risk factors of dysphagia (concern for acute CVA). At bedside, noted intermittent coughing with thin liquids. Also noted frequent belching, suspicious for esophageal component. No
chest imaging completed thus far, WBC increased, and pt now on supplemental O2 (2L)
Recommend:
1. NPO
2. Meds in puree
3. ARHP via ice chips with RN SPV, following oral care
4. Oral care 3x daily
5. STAFF NURSE ICU RESOURCE TEAM to follow to assess candidacy for diet initiation versus need for instrumental assessment, tx for motor speech, and to determine if pt would benefit from language/cognitive assessment pending MRI
--- NOTE | 2025-08-07 11:54 | CM ---
I.A: Completed By ALFREDO Cintron. Patient is agitated currently so had on the phone with staff in the room to assist calming patient down. Then came in person after MRI.
Patient lives with in a [address] community Condo with no steps to enter, all on one level, and there is an elevator. Patient uses a rolling walker, but has fallen at home. Patient had VN/PT in the past with [facility] and was at [facility]
for SNF in the past.
PCP: Dr. Mckayla Vazquez
Pharmacy: [facility] in [place]
Patient has transportation Home when ready. PLAN: Home PT vs. SNF
--- NOTE | 2025-08-07 13:05 | W.PN.ANESINT ---
Anesthesia Intubation Note
- Intubation Note
Intubation Note:
Diagnosis: respiratory distress
Blade: glidescope 4
Tube Size: 8.0
Depth: 23 cm
Side Taped: right
Drugs Used: propofol 120mg / then Rocuronium 50mg post intubation
Grade View: I
EtCO2 Present: +
Atraumatic: yes
Attempts: 1
Insertion Start and Stop Time:
SaO2 Pre: 98
SaO2 Post: 98
Glidescope Used: yes
Other Airway Adjustments: no
Pre-Oxygenated: yes
Portable Chest X-Ray: to follow
RSI: no
Suctioned: yes - thick/ dry mucous upper airway obscuring view
Bilateral Breath Sounds Confirmed: yes
Vent Settings:
Settings per _X__Attending Physician
[2025-08-07] MEDS: DIPRIVAN 100 IV ×2 (13:14→19:46)
--- NOTE | 2025-08-07 13:15 | CON.INTV ---
Consultation
Consultation Request
Date/Time Consultation Requested: 08/07
Date/Time Consultation Performed: 08/07
Reason for Consultation: Critical care
Medical History
-
History of Present Illness:
History primarily obtained from the chart, , daughter and son-in-law and reviewing outpatient records. 85-year-old male with complex medical history including DVT in 2022 on chronic Eliquis therapy recently increased to 5 mg twice daily,
history of multiple TIAs since 2007 usually presents with facial droop, aphasia, hypertension, coronary disease with history of TN/stent, sleep apnea intolerant to sleep apnea treatment, presents with acute onset of aphasia and facial droop.
According to , he will have transient episodes of facial droop, aphasia. 901 will be called and then by the time they arrived, symptoms resolved. She states this has happened 20 times at least. On the day of admission 08/06, this happened
again and symptoms seem to worsen instead of resolve. EMS was contacted. Upon arrival to [facility], afebrile, breathing at 16, 98%. Patient was becoming progressively more agitated in the ED. CT imaging did not reveal any clot.
Patient was given 1 mg of lorazepam and 5 mg of Haldol to help with agitation. Patient was admitted for further management. Hospital course reviewed. Imaging without evidence of acute findings. Brain MRI was obtained today, patient received 2 mg
of Ativan for significant agitation. Brain MRI without acute findings. Upon return from MRI, patient developed worsened tachypnea, then developed agonal breathing. I was called to see patient emergently. Upon arrival, patient with abdominal
breathing, adequate saturation, adequate blood pressure, moving all extremities. Decision was made to intubate. Intubated without difficulty although there was significant thick secretions in the upper airway. Stat chest x-ray showed extensive
left lower lobe pneumonia. Patient transferred to ICU.
According to , patient has had history of multiple falls. He walks with a walker. He also has coughing episodes while drinking liquids and sometimes eating. According to her, he has had a swallowing evaluation which was unremarkable. There
is no clear history of pneumonia, no obvious fevers. Patient was recently told to go up on his Eliquis dosing to 5 mg twice a day by a team of neurologist and other doctors
.
PMH: Hypertension, hyperlipidemia, history of DVT 2002 on chronic Eliquis therapy, GERD, history of multiple TIAs presenting with facial droop, aphasia, history of sleep apnea intolerant to CPAP therapy. History of multiple falls with syncope.
History of AAA, without rupture. History of glaucoma, periodic limb movement disorder, Alzheimer's disease, nondisplaced fracture of right superior and inferior pubic rami. History of cholecystectomy, TURP 2011
Past Medical History
Past Medical History: None (See above)
Past Surgical History: None (See above)
Social History
Tobacco: Former Smoker ([id number], quit 1979)
Alcohol: Occasional
Drug: None
Personal:
Living: With Family
Employment: Retired
Family History
Family History: Other (Father age 72 with lung cancer. Mother age 76 with brain cancer, colon cancer, bladder cancer. 1 brother is . 2 daughters healthy. Family history negative for lung disease)
Allergies / Home Medications
Allergies
Allergy/AdvReac Type Severity Reaction Status Date / Time
clarithromycin (From Biaxin) Allergy Rash Verified 08/06/25 10:14
clindamycin Allergy Rash Verified 08/06/25 10:14
levofloxacin (From Levaquin) Allergy Rash Verified 08/06/25 10:14
methylprednisolone Allergy Rash Verified 08/06/25 10:14
mupirocin Allergy Rash Verified 08/06/25 10:14
Penicillins Allergy Rash Verified 08/06/25 10:14
prochlorperazine (From Allergy Rash Verified 08/06/25 10:14
Compazine)
prochlorperazine edisylate Allergy Rash Verified 08/06/25 10:14
(From Compazine)
prochlorperazine maleate Allergy Rash Verified 08/06/25 10:14
(From Compazine)
Sulfa (Sulfonamide Allergy Rash Verified 08/06/25 10:14
Antibiotics)
Home Medications
�Medication �Instructions �Recorded �Confirmed �Last Taken �Type
cholecalciferol (vitamin D3) 50 50 mcg PO DAILY Supplement 08/08/22 08/06/25 08/06/25 History
mcg (2,000 unit) tablet (Vitamin
D3)
latanoprost 0.005 % eye drops 1 drp BOTH EYES HS Eye condition 08/08/22 08/06/25 08/05/25 History
metoprolol succinate 25 mg 25 mg PO DAILY Blood pressure 08/08/22 08/06/25 08/06/25 History
tablet,extended release 24 hr
omeprazole 20 mg tablet,delayed 20 mg PO DAILY Gastrointestinal 08/08/22 08/06/25 08/06/25 History
release issue
apixaban 5 mg tablet (Eliquis) 5 mg PO BID Blood Clot 01/16/25 08/06/25 08/06/25 History
Prevention/Tx
aspirin 81 mg chewable tablet 81 mg PO MOWEFR 01/20/25 08/06/25 08/06/25 History
atorvastatin 40 mg tablet 40 mg PO QPM High Cholesterol 08/06/25 08/06/25 08/05/25 History
docusate sodium 100 mg capsule 100 mg PO BIDPRN PRN constipation 08/06/25 08/06/25 Unknown History
Review of Systems
-
History Source: Family
All other systems: Negative unless noted
Vitals / Labs / Diagnostic Testing
Vital Signs
Temp Pulse Resp BP Pulse Ox
99.6 F 110 25 130/97 92
08/07/25 11:39 08/07/25 11:53 08/07/25 11:53 08/07/25 11:53 08/07/25 12:23
Lab Data
08/07/25 04:36
08/07/25 04:36
Microbiology
08/06/25 12:24 Urine Urine Culture - Final
Diagnostic Testing:
Physical Exam
-
HEENT: Normocephalic and Anicteric
Cardiovascular: S1/S2, Regular Rhythm, Murmur (n), Rub (n) and Peripheral Edema (tr)
Respiratory: Wheeze (few), Rales (n), Rhonchi (few) and Accessory Resp Muscle Use (Significant accessory muscle use, abdominal breathing, preintubation)
GI: Soft and Distended
Neurology: Other (Spontaneously moving extremities, preintubation)
Skin: Other (Scattered ecchymoses)
General: Respiratory Distress (Abdominal breathing)
Assessment
-
85-year-old male with history of severe sleep apnea, intolerant to CPAP therapy, multiple TIAs presenting with facial droop, aphasia, hypertension, hyperlipidemia, presents with acute mental status changes, aphasia, facial droop. This time,
symptoms did not resolve prompting admission 08/06. Imaging without evidence of acute stroke but symptoms persisted. Patient developed increased respiratory distress requiring intubation for airway protection, agonal breathing, transferred to ICU
08/07/2025
Acute respiratory failure
Intubated 08/07/2025
Abdominal breathing
Significant upper airway secretions, thick upon intubation
Bilateral pneumonia, left greater than right
Fevers/leukocytosis
Suspected aspiration syndrome
Conditions present prior to admission
History of abdominal aortic aneurysm, suprarenal, 4.7 cm per imaging January 2025
Hypertension/hyperlipidemia
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
Dose recently increased to 5 mg twice a day
Coronary disease with history of angioplasty/stent, LAD
[id number] history, quit 1979
History of cholecystectomy
History of pyelonephritis
BPH
Family history of cancer (lung, colon, brain)
History of Alzheimer's dementia
Multiple falls
Plan/recommendations
At this time, patient is critically ill
Evaluated patient preintubation and postintubation
Salient features include aspiration syndrome like symptoms, persistent mental status changes for greater than 24 hours, with similar presentation of prior TIA without resolution of symptoms this time, significant thick secretions on intubation and
chest x-ray with bilateral pneumonia
Agitation may have been from underlying respiratory distress, sepsis, pneumonia in the setting of stroke
Note multiple allergies including erythromycin, clindamycin, Levaquin, penicillins, sulfa antibiotics
Patient received ativan for agitation in order to proceed with MRI
Moving forward
Continue with volume-cycled ventilation
Currently on AC 16/500/5/100%. Wean oxygen as able
Check ABG
Follow airway pressures
Maintain sedation propofol/fentanyl as needed
Daily sedation vacation given recent neurological presentation
Empirically start antibiotics for aspiration event
Patient with multiple antibiotic allergies
Panculture
Patient with history of coronary disease
Recent echocardiogram unremarkable
Check EKG
Unfortunately, given strokelike symptoms upon presentation, aspiration risk, and now with pneumonia, clinical course over the next 24 to 48 hours will be crucial
Given patient's age, multiple falls, questionable Alzheimer's dementia, recurrent TIAs, unclear whether we will be able to return to prior quality of life
This was reviewed at length with patient and family members
For now we will maintain full code but family has relayed that they would not want long-term life support if not able to return to prior quality of life
Reviewed with critical care nursing, pharmacy, respiratory care
Reviewed with primary service
TCCT 76 min
[2025-08-07 13:17] LABS: Glucose - Point of Care 143 mg/dl (70-99)
--- NOTE | 2025-08-07 13:31 | PTCARENOTE ---
pt received from imu intubated. pt sedated on dip gtt. grimace to pain. restraints in place. ac mode on vent. ivf running as ordered. condom cath in place. pt bladder scan for 58cc
[2025-08-07 13:36] LABS: B.E. 3.0 mmol/L; HCO3 27.1 mmol/L (21-28); O2 Saturation % 97.2 % (94-98); PCO2 39 mmHg (35-48); PO2 77 mmHg (83-108)
--- NOTE | 2025-08-07 13:38 | PTOTSP ---
Pt is now intubated and in ICU. Will continue to hold PT at this time. Will need new orders for PT and OT when stable to participate in therapy activity.
[2025-08-07] MEDS: LR 1000 IV ×3 (13:55→23:41)
--- NOTE | 2025-08-07 13:58 | W.PN.NEURO.1 ---
Addendum entered and electronically signed by Ed Ricardo MD 08/07/25 20:10:
The patient was seen and examined on 08/07/2025 along with the nurse practitioner Deepti Gore. I agree with the nurse practitioner Deepti Gore's assessment and plan. The following is my addendum.
The patient is an 85 years old male who presented to the ER via EMS for evaluation of speech difficulty, facial droop and altered mental status. The patient is on Eliquis for DVT, and he also has a history of hypertension, hyperlipidemia, coronary
artery disease, BPH, AMANDA not on CPAP and history of multiple TIAs.
Neuro Imaging:
1. CT Head 08/06/25: No evidence of acute intracranial abnormality. ASPECT score: 10.
2. CTA head/neck 08/06/25: There is no CT angiographic evidence for intracranial large vessel occlusion or high-grade stenosis. No evidence for hemodynamically significant stenosis of the carotid bulbs or proximal internal carotid arteries
bilaterally. No significant narrowing of the vertebral or basilar arteries.
3. CT brain perfusion 08/06/25: CT perfusion demonstrating no evidence for core infarction or ischemic penumbra.
ASSESSMENT AND PLAN:
The patient presented with a speech difficulty, facial droop and altered mental status. The history was obtained from the patient's spouse who was present at the bedside, as the patient was very agitated and was unable to provide any history when he
presented to the hospital on 08/06/2025, however today, the patient's mental status had improved and he was alert, he knew his age and his speech showed mild dysarthria. The patient had antigravity strength in bilateral upper and lower extremities.
The cranial nerves II to XII are grossly intact.
The patient's mental status had improved today as compared to yesterday but, he developed increased respiratory distress later today requiring intubation for airway protection, and he was transferred to ICU. The patient does not appear to have had
a new stroke and he appears to have pneumonia. The MRI of the brain done today does not show evidence of acute intracranial abnormality.
Will sign off. Please call if you have any question.
Original Note:
Today's Communication / Plan
-
.
Neuro Assessment/Plan
Assessment
The patient is an 85 years old male who presented to the ER via EMS on 08/06/25 for evaluation of speech difficulty, facial droop and altered mental status. The patient is on Eliquis for DVT, and he also has a history of hypertension,
hyperlipidemia, coronary artery disease, BPH, AMANDA not on CPAP and history of multiple TIAs. The history was obtained from the patient's spouse who was present at the bedside, as the patient was very agitated and was unable to provide any history.
The last known normal was at around 8:30 AM today and according to the patient's . Patient was not a candidate for TNK as he was on Eliquis for DVT, with the last dose of Eliquis being today morning at around [address] AM[address]
-CT Head 08/06/25: No evidence of acute intracranial abnormality. ASPECT score: 10.
-CTA head/neck 08/06/25: There is no CT angiographic evidence for intracranial large vessel occlusion or high-grade stenosis. No evidence for hemodynamically significant stenosis of the carotid bulbs or proximal internal carotid arteries
bilaterally. No significant narrowing of the vertebral or basilar arteries.
-CT brain perfusion 08/06/25: CT perfusion demonstrating no evidence for core infarction or ischemic penumbra.
-MRI brain 08/07/25:
The patient presented with speech difficulty, facial droop and altered mental status as he has numerous times in the past since 2007 with negative MRI brain imaging; this time he later progressed to having severe agitation which was unusual for him.
MRI brain today is negative for stroke. Etiology of the patient's symptoms appear to be secondary to toxic metabolic encephalopathy in the setting of pneumonia.
Plan
-Continue home apixaban 5mg twice a day and aspirin 81mg MWF.
-No role for EEG at this time.
-Goal normotension.
-LDL goal <70. LDl is 33. Continue home atorvastatin 40mg daily.
-Goal normoglycemia, hbA1c is 5.6.
-Neurological checks per unit guidelines. No role for NIHSS at this time.
-Provide patient's with a stroke education packet.
-PT/OT/ST evaluations when able.
Neurology will sign-off. Please contact our Neurology service with any questions/concerns.
Subjective/Objective
Subjective Data
Date of Service: August 07, 2025
Patient seemed improved this morning; however, WBC count was up to 18.1. Patient later received ativan due to agitation to obtain MRI brain imaging, which is negative for stroke. He then became tachypneic wtih agonal breathing. Chest xray was
obtained and demonstrates extensive LLL pneumonia. He was intubated and transferred to the ICU.
Objective Data
Vital Signs
Temp Pulse Resp BP Pulse Ox
99.6 F 91 19 93/64 96
08/07/25 11:39 08/07/25 13:16 08/07/25 13:16 08/07/25 13:16 08/07/25 13:18
Lab Results
08/07/25 04:36
08/07/25 04:36
PT 15.9 Sec (11.4-14.6) H 08/06/25 11:00
INR 1.22 08/06/25 11:00
APTT 28.6 Sec (23.4-35.0) 08/06/25 11:00
Sodium 135 mmol/L (135-145) 08/07/25 04:36
Potassium 4.4 mmol/L (3.5-5.1) 08/07/25 04:36
BUN 22 mg/dl (9-20) H 08/07/25 04:36
Glucose 150 mg/dl (70-99) H 08/07/25 04:36
Calcium 9.9 mg/dl (8.4-10.2) 08/07/25 04:36
LDL Cholesterol, Calc 33 mg/dl 08/07/25 04:36
Vitamin B12 518 pg/ml (239-931) 08/06/25 11:56
Patient Allergies
clarithromycin (From Biaxin) Allergy (Verified 08/06/25 10:14)
Rash
clindamycin Allergy (Verified 08/06/25 10:14)
Rash
levofloxacin (From Levaquin) Allergy (Verified 08/06/25 10:14)
Rash
methylprednisolone Allergy (Verified 08/06/25 10:14)
Rash
mupirocin Allergy (Verified 08/06/25 10:14)
Rash
Penicillins Allergy (Verified 08/06/25 10:14)
Rash
prochlorperazine (From Compazine) Allergy (Verified 08/06/25 10:14)
Rash
prochlorperazine edisylate (From Compazine) Allergy (Verified 08/06/25 10:14)
Rash
prochlorperazine maleate (From Compazine) Allergy (Verified 08/06/25 10:14)
Rash
Sulfa (Sulfonamide Antibiotics) Allergy (Verified 08/06/25 10:14)
Rash
Review of Systems
-
History Source: Patient
EENT: Negative Blurry Vision, Decreased Vision or Swallowing Difficulty
Neuro: Negative Dizzy, Headache, Weakness, Numbness, Ataxia, Tremors or Speech Problem
Physical Exam
-
General: No Apparent Distress
Eyes: No Ptosis and PERRLA
HEENT: Normocephalic and Atraumatic
Neck: Full Range of Motion
GI: Non-distended
Extended Neurological Exam
Mood & Affect: Mood Unremarkable and Affect Unremarkable
Attention Span & Concentration: Awake, Alert and Interactive
Memory: Reduced (AAOx3 but forgetful to recent events)
Tremor: Hand Tremor Absent and Head Tremor Absent
Speech: Quantity Unremarkable, Rate of Production Unremarkable and Dysarthric
Cranial Nerves III, IV, : Extraocular Movement: Extraocular Movement Full in all Directions
Cranial Nerve VII: Facial Symmetry: Normal Facial Symmetry
Cranial Nerve VIII: Hearing: Unremarkable Hearing to Normal Conversational Volume
Cranial Nerve XII: Tongue Protusion: Midline
Muscle Strength, Overall: Full Throughout
Modified [place] Score (MRS)
-
Modified [place] Scale (mRS): No significant disability. Able to carry out usual activities.
Score: 1
Data Reviewed
-
CT-A: Report Reviewed
CT-Perfusion: Report Reviewed and Image Reviewed
CT Head: Report Reviewed and Image Reviewed
MRI Head: Report Reviewed and Image Reviewed
Labs: Report Reviewed
Lipid Profile: Report Reviewed
HgbA1C: Report Reviewed
Reviewed with: Physician and Patient
Medications
-
Active Medications
Generic Name Dose Route Start Last Admin
Trade Name Freq PRN Reason Stop Dose Admin
Acetaminophen 650 mg 08/06/25 15:44
Acetaminophen 650 Mg Rectal Suppository RECTAL 09/03/25 15:43
Q4HPRN PRN
QUINTERO, mild pain, or temp >100.4F
Acetaminophen 650 mg 08/06/25 15:44
Acetaminophen 325 Mg Tablet PO 09/03/25 15:43
Q4HPRN PRN
QUINTERO, mild pain, or temp >100.4F
Apixaban 5 mg 08/07/25 20:00
Apixaban (Eliquis) 5 Mg Tablet TUBE 09/04/25 19:59
BID JOSE ENRIQUE
Aspirin 81 mg 08/08/25 08:00
Aspirin 81 Mg Chewable Tablet TUBE 09/05/25 07:59
MoWeFr@0800 JOSE ENRIQUE
Atorvastatin Calcium 40 mg 08/07/25 13:46
Atorvastatin (Lipitor) 40 Mg Tablet TUBE 09/03/25 17:59
QPM JOSE ENRIQUE
Docusate Sodium 100 mg 08/06/25 15:44
Docusate Sodium 100 Mg Capsule PO 09/03/25 15:43
BIDPRN PRN
constipation
Fentanyl Citrate 50 mcg 08/07/25 13:37 08/07/25 14:06
Fentanyl (50 Mcg/Ml) 100 Mcg/2 Ml Ampul IV 08/21/25 13:36 50 mcg
X23CMUL PRN Administration
see protocol
Protocol
Hydralazine HCl 5 mg 08/06/25 15:44
Hydralazine 20 Mg/Ml Vial IV 09/03/25 15:43
Q6HPRN PRN
sbp > 220, dbp > 120
Propofol 1,000,000 mcg in 100 mls @ 0 mls/hr 08/07/25 14:00 08/07/25 13:14
Diprivan IV 100 mls
PER PROTOCOL JOSE ENRIQUE Administration
Protocol
Per Protocol
Ampicillin Sodium/Sulbactam 120 mls @ 240 mls/hr 08/07/25 14:00
Sodium 3 gm/ Sodium Chloride IV
Q6H JOSE ENRIQUE
Lactated Ringer's 1,000 mls @ 100 mls/hr 08/07/25 14:00 08/07/25 13:55
Lr IV 1,000 mls
.Q10H JOSE ENRIQUE Administration
Norepinephrine Bitartrate 4 mg in 250 mls @ 0 mls/hr 08/07/25 14:15
Levophed IV
PER PROTOCOL JOSE ENRIQUE
Protocol
Per Protocol
Latanoprost 0 drop 08/06/25 22:00 08/06/25 21:01
Latanoprost 0.005% (Ophthalmic Solution) 2.5 Ml Bottle BOTH EYES 09/03/25 21:59 1 drop
HS JOSE ENRIQUE Administration
Lorazepam 2 mg 08/07/25 09:18 08/07/25 10:43
Lorazepam 2 Mg/Ml Vial IV 08/07/25 15:57 2 mg
ONCE PRN PRN Administration
before to MRI if agitated
Pantoprazole Sodium 40 mg 08/06/25 15:44 08/07/25 08:45
Pantoprazole Sodium 40 Mg/10 Ml Vial IV 09/03/25 15:43 40 mg
DAILY JOSE ENRIQUE Administration
Polyethylene Glycol 17 grams 08/08/25 08:00
Polyethylene Glycol Powder 17 Grams Packet TUBE 09/05/25 07:59
DAILY JOSE ENRIQUE
Sodium Chloride 0 flush 08/06/25 16:00
Sodium Chloride 0.9% (Flush) Syringe IV 09/03/25 15:59
PER PROTOCOL JOSE ENRIQUE
Sodium Chloride 0 ml 08/06/25 16:00 08/06/25 20:28
Sodium Chloride 0.9% (Preservative Free) 10 Ml Vial IV 08/07/25 15:59 0.5 ml
PRN PRN Administration
IV Lorazepam dilution
Protocol
Sodium Chloride 1 ml 08/07/25 09:29
Nss (Pf) 10 Ml Vial For Ativan 2 Mg Dose IV 09/04/25 09:28
ONCE PRN PRN
IV LORAZEPAM DILUTION
Home Medications
�Medication �Instructions �Recorded
cholecalciferol (vitamin D3) 50 50 mcg PO DAILY Supplement 08/08/22
mcg (2,000 unit) tablet (Vitamin
D3)
latanoprost 0.005 % eye drops 1 drp BOTH EYES HS Eye condition 08/08/22
metoprolol succinate 25 mg 25 mg PO DAILY Blood pressure 08/08/22
tablet,extended release 24 hr
omeprazole 20 mg tablet,delayed 20 mg PO DAILY Gastrointestinal 08/08/22
release issue
apixaban 5 mg tablet (Eliquis) 5 mg PO BID Blood Clot 01/16/25
Prevention/Tx
aspirin 81 mg chewable tablet 81 mg PO MOWEFR 01/20/25
atorvastatin 40 mg tablet 40 mg PO QPM High Cholesterol 08/06/25
docusate sodium 100 mg capsule 100 mg PO BIDPRN PRN constipation 08/06/25
[2025-08-07] MEDS: SUBLIMAZE 50 MCG IV (14:06)
[2025-08-07] MEDS: UNASYN IV ×2 (14:30→19:53)
[2025-08-07] MEDS: LEVOPHED 250 IV (14:32)
--- NOTE | 2025-08-07 15:30 | PTCARENOTE ---
Small bore feeding tube placed via L nare at 70 cm silvio. Abd xray done post and placement confirmed. Sats 99%
[2025-08-07] MEDS: LIPITOR 40 MG TUBE (16:52)
[2025-08-07 16:59] LABS: Troponin I 5.330 ng/ml
--- NOTE | 2025-08-07 17:33 | CON.CAR ---
Consultation
Consultation Request
Date/Time Consultation Requested: August 07, 2025
Date/Time Consultation Performed: August 07, 2025
Requesting Provider: Hospitalist service
Performing Provider: Dr. Daryl Ryan
Reason for Consultation: Abnormal troponin and abnormal ECG
Medical History
-
History of Present Illness:
.
Primary hydrologist, Dr. Vj Burton
Primary care physician Dr. Jessika Payne
He presented to the emergency department on August 06, 2025 for evaluation of speech difficulty, facial droop and altered mental status.
As such, patient unable to provide any detailed history.
He became progressively more agitated in the emergency department.
It is noted that when he returned from MRI he developed worsening tachypnea and then agonal breathing. He became hypotensive. He was urgently intubated. With intubation it is noted that there are thick secretions and stat chest x-ray showed
extensive left lower lobe pneumonia.
Today a troponin value is obtained which is elevated at 5. ECG on presentation sinus tachycardia with occasional PVCs and lateral ST and T wave abnormalities. Subsequent ECG obtained today August 07, 2025 finds sinus rhythm with QT interval
prolongation and ST and T wave abnormalities anteriorly and inferiorly
MRI obtained this hospital stay finds moderate diffuse atrophy and moderate leukomalacia as well as stable foci of old infarction and no evidence of acute intracranial abnormalities.
April 10, 2025 echocardiogram finds normal left ventricular size and function with no wall motion abnormality no significant valvular disease. Unchanged compared to March 2024.
Past medical history:
Myocardial infarction
Myocardial infarction in 2014 for which he underwent PCI of the LAD.
Deep venous thrombosis, currently on Eliquis.
Hypertension
Memory loss
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 Most recent TIA was in the spring 2023
Syncope November 2024
Obstructive sleep apnea but stopped using CPAP.
Abdominal aortic aneurysm, CT abd showed AAA 4.4 cm February 2023.
Social History
Tobacco: Former Smoker (Stop 1979)
Alcohol: Occasional
Drug: None
Personal:
Living: With Family
Employment: Retired
Family History
Family History: Reviewed & Not Pertinent
Allergies / Home Medications
Allergy/AdvReac Type Severity Reaction Status Date / Time
clarithromycin (From Biaxin) Allergy Rash Verified 08/06/25 10:14
clindamycin Allergy Rash Verified 08/06/25 10:14
levofloxacin (From Levaquin) Allergy Rash Verified 08/06/25 10:14
methylprednisolone Allergy Rash Verified 08/06/25 10:14
mupirocin Allergy Rash Verified 08/06/25 10:14
Penicillins Allergy Rash Verified 08/06/25 10:14
prochlorperazine (From Allergy Rash Verified 08/06/25 10:14
Compazine)
prochlorperazine edisylate Allergy Rash Verified 08/06/25 10:14
(From Compazine)
prochlorperazine maleate Allergy Rash Verified 08/06/25 10:14
(From Compazine)
Sulfa (Sulfonamide Allergy Rash Verified 08/06/25 10:14
Antibiotics)
�Medication �Instructions �Recorded �Confirmed �Type
cholecalciferol (vitamin D3) 50 50 mcg PO DAILY Supplement 08/08/22 08/06/25 History
mcg (2,000 unit) tablet (Vitamin
D3)
latanoprost 0.005 % eye drops 1 drp BOTH EYES HS Eye condition 08/08/22 08/06/25 History
metoprolol succinate 25 mg 25 mg PO DAILY Blood pressure 08/08/22 08/06/25 History
tablet,extended release 24 hr
omeprazole 20 mg tablet,delayed 20 mg PO DAILY Gastrointestinal 08/08/22 08/06/25 History
release issue
apixaban 5 mg tablet (Eliquis) 5 mg PO BID Blood Clot 01/16/25 08/06/25 History
Prevention/Tx
aspirin 81 mg chewable tablet 81 mg PO MOWEFR 01/20/25 08/06/25 History
atorvastatin 40 mg tablet 40 mg PO QPM High Cholesterol 08/06/25 08/06/25 History
docusate sodium 100 mg capsule 100 mg PO BIDPRN PRN constipation 08/06/25 08/06/25 History
Review of Systems
-
Unable to obtain full review of systems at this time due to: Patient Intubation
Physical Exam
Vital Signs
Temp Pulse Resp BP Pulse Ox
99.3 F 64 0 103/79 100
08/07/25 15:30 08/07/25 16:10 08/07/25 16:10 08/07/25 16:10 08/07/25 16:40
Lab Results
08/07/25 04:36
08/07/25 04:36
Troponin I 5.330 ng/ml H* 08/07/25 16:06
Physical Exam
General: Well Developed, Well Nourished, No Apparent Distress (Intubated and sedated) and Intubated
HEENT: Normocephalic, Anicteric and Moist Mucous Membranes
Respiratory: Other (Intubated with coarse breath sounds anteriorly bilaterally)
Cardiac: S1/S2, Regular Rhythm and Murmur (There is a grade 1/6 apical holosystolic murmur no rubs. PMI is normally placed.)
Breast: Deferred by me
GI: Soft, Non Distended and Normal Bowel Sounds
Rectal: Deferred by Provider
Musculoskeletal: No Clubbing, No Cyanosis and Edema (+1 pretibial edema bilaterally lower extremities)
Skin: Warm and Dry
Neuro: Sedated
Impression / Plan
-
Assessment and recommendations:
He is critically ill
We are consulted because of elevated troponin value of 5. Additionally ECG now with anterior and inferior ST and T wave abnormalities and in particular rather deep T wave inversions (marked change from presenting ECG yesterday). It was noted that
he developed progressive agitation during this hospital stay but there is no notation of any specific complaints of chest pain. He developed marked and refractory hypotension earlier today. He is now on IV pressor support and is intubated and
sedated. Also he is now diagnosed with extensive left-sided pneumonia.
Troponin elevation may be non-[place] related troponin elevation related to marked hypotension, respiratory failure and pneumonia/sepsis although I cannot exclude non-ST segment elevation myocardial infarction at this point.
Continue supportive care with IV pressor support and respiratory support
Continue to trend troponin values
Continue to follow EKGs
Check echocardiogram in the morning
I have discussed this with his family at the bedside and answered all of their questions.
Critical care time 45 minutes
Data Reviewed
-
EKG: Tracing Personally Visualized and interpreted
Radiology: Image Personally Visualized and interpreted and Report Reviewed by me
CT Scan: Report Reviewed by me
MRI: Report Reviewed by me
Medical Tests (Nuc Med, Echo etc): Report Reviewed by me
Labs: Labs Reviewed by me and Discussed with Family
Old Records: Reviewed
Critical Care Time (in minutes): 45
--- NOTE | 2025-08-07 18:39 | W.PN.UPDATE ---
Update Note
Progress Note Update
ECHO was done today. Echo withnew LV dysfunction, There is Apical akinesis with sparing of the base.
This could represent Takotsubo but cannot exclude PR at this point.
He remains hypotensive requiring IV pressures so cannot start NTG
Will stop apixaban and start IV heparin
He has Dopoff tube so will give asa
Discussed with ICU nursing
[2025-08-07] MEDS: HEPARIN 25000 UNITS/250 ML IV (19:47)
[2025-08-07] MEDS: HEPARIN 4000 UNITS IV (19:52)
[2025-08-07] MEDS: XALATAN OPHTHALMIC SOLUTION 1 DROP BOTH EYES (19:53)
--- NOTE | 2025-08-07 20:00 | PTCARENOTE ---
Assumed care at 1900. On the Vent AC 16/500/40/5. ET tube #8, 24 at the lip. On propofol, levo, IVF. NSR/ Sinus vineet on the monitor. See worklist for nursing assessment/NIH/neurocheck. L dobhoff 70 cm at the nare. Troponin and PTT drawn- heparin
initiated.
[2025-08-07 20:02] LABS: APTT 29.8 Sec (23.4-35.0)
[2025-08-07 20:31] LABS: Troponin I 4.230 ng/ml
--- NOTE | 2025-08-07 21:34 | W.PN.UPDATE ---
Update Note
Progress Note Update
Procedure Note: Arterial Line�
� Right Wrist Arrow 20 (12/10)�
Diagnosis:��Pnuemonitis/Heart Failure
IV Line Comments: Uneventful Procedure�
Nasim completed pre-procedure: Yes�
A-Line Comments: Sterile technique as per standard protocol, Ultrasound guided insertion�
Functioning�A-line in situ: Yes�
A-line Insertion Start Time:��2104
A-line in at:��2114
--- NOTE | 2025-08-08 | PTCARENOTE ---
No change from previous assessment. A line placed by ICU provider. Propofol weaned to 15mcg/kg/min. Bolus dose of fentanyl given for pain per CPOT scale. CHG bath completed.
[2025-08-08] MEDS: SUBLIMAZE 50 MCG IV ×2 (00:20→04:36)
[2025-08-08] MEDS: DIPRIVAN 100 IV ×3 (01:48→23:59)
[2025-08-08] MEDS: LEVOPHED 250 IV (02:00)
[2025-08-08] MEDS: UNASYN IV ×4 (02:01→19:10)
[2025-08-08 02:17] LABS: APTT 139.4 Sec (23.4-35.0)
[2025-08-08 03:49] LABS: B.E. 2.2 mmol/L; HCO3 25.1 mmol/L (21-28); O2 Saturation % 99.2 % (94-98); PCO2 33 mmHg (35-48); PO2 133 mmHg (83-108)
[2025-08-08 03:50] LABS: O2 Therapy %Oxygen/Room Air 40%
[2025-08-08 03:57] LABS: Hematocrit 39.8 % (39.0-52.0); Hemoglobin 13.1 g/dL (13.0-18.0); Mean Corp Hgb Conc. 32.9 g/dL (33.0-37.0); Mean Corpuscular Volume 89.2 fL (80.0-94.0); Nucleated Red Blood Cells % 0 % (-); Platelet Count 112 10^3/uL (130-400); Red Cell Dist. Width 14.0 % (11.5-14.5)
[2025-08-08 04:24] LABS: Blood Urea Nitrogen 29 mg/dl (9-20); Calcium 9.2 mg/dl (8.4-10.2); Carbon Dioxide 23 mmol/L (22-30); Chloride 104 mmol/L (98-107); Estimated Creatinine Clearance 73 ml/min; Glucose 126 mg/dl (70-99); Magnesium 1.9 mg/dl (1.6-2.3); Potassium 3.9 mmol/L (3.5-5.1); Sodium 132 mmol/L (135-145); eGFR > 60.00
[2025-08-08 04:39] LABS: Troponin I 3.520 ng/ml
[2025-08-08 04:40] VITALS: BMI 29.0
--- NOTE | 2025-08-08 04:58 | PTCARENOTE ---
Attempted to wean off propofol to assess neuro status. See neurocheck flowsheet on the worklist to see details. Patient placed back on the propofol for RASS of 3, CPOT of 8. Fentanyl bolus administered. Vent settings changed to AC 14/500/40/5 for
recent ABG.
[2025-08-08 07:37] VITALS: BP 133/80
[2025-08-08] MEDS: MIRALAX 17 GRAMS TUBE (07:38)
[2025-08-08] MEDS: PROTONIX IV 40 MG IV (07:38)
[2025-08-08] MEDS: LOW STRENGTH ASPIRIN 81 MG TUBE (07:38)
--- NOTE | 2025-08-08 07:46 | W.PN.INTV ---
Today's Communication / Plan
Recommendations
Continue antibiotics
Check tracheal culture
Daily sedation vacation
Daily chest x-ray, ABG
Consider repeat head CT at some point as clinically indicated
Check lower extremity Dopplers
Assessment
-
85-year-old male with history of severe sleep apnea, intolerant to CPAP therapy, multiple TIAs presenting with facial droop, aphasia, hypertension, hyperlipidemia, presents with acute mental status changes, aphasia, facial droop. This time,
symptoms did not resolve prompting admission 08/06. Imaging without evidence of acute stroke but symptoms persisted. Patient developed increased respiratory distress requiring intubation for airway protection, agonal breathing, transferred to ICU
08/07/2025
Acute respiratory failure
Intubated 08/07/2025, secondary to respiratory distress
Significant upper airway secretions, thick upon intubation
Bilateral pneumonia, left greater than right
Fevers/leukocytosis
Suspected aspiration syndrome
Poor airway clearance, lack of effective cough in the setting of stroke/mental status changes
Elevated troponin, abnormal EKG
Cardiomyopathy, EF 25%, new
Conditions present prior to admission
History of abdominal aortic aneurysm, suprarenal, 4.7 cm per imaging January 2025
Hypertension/hyperlipidemia
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
Dose recently increased to 5 mg twice a day
Coronary disease with history of angioplasty/stent, LAD
98-pmxd-mefd history, quit 1979
History of cholecystectomy
History of pyelonephritis
BPH
Family history of cancer (lung, colon, brain)
History of Alzheimer's dementia
Multiple falls
Plan/recommendations
At this time, patient is critically ill
Requiring low-dose norepinephrine. Appears to be very sensitive to fentanyl for pain control
Currently on propofol with fentanyl as needed
Suspect possible community-acquired pneumonia, plus or minus aspiration event.
Family describes significant coughing after eating and drinking
In the past this usually would resolve in the setting of TIA, with resolution of symptoms
Patient also gets agitated with TIA
This episode appears to be more prolonged, possibly due to prolonged neurological symptoms
There is a discrepancy in what history I obtained from the children versus the
Children state that patient does get agitated with history of TIA
They are also learning for the first time that patient has had TIAs without their knowledge, would recommend evaluation but symptoms would resolve and patient would refuse further evaluation
Moving forward
Continue with volume-cycled ventilation
Currently on AC 14/500/5/40%
Chest x-ray with slight improvement in left basilar infiltrate
Secretions are persistent
Follow airway pressures
Check culture
Maintain sedation propofol/fentanyl as needed
Daily sedation vacation given recent neurological presentation
Daily chest x-ray, ABG in the a.m.
Discussed at length with and daughter at bedside difficult situation with sedation for mechanical ventilation/pain/comfort and ability to follow neurological symptoms in the setting of multiple TIAs, heparin therapy
Will continue with sedation vacation at least daily if not twice a day as able
Presently patient is squeezing him, nodding head appropriately with family members, moving all extremities
Empirically start antibiotics for aspiration event
Patient with multiple antibiotic allergies
Panculture
Continue Unasyn therapy at this time
Patient with history of coronary disease
Recent echocardiogram unremarkable
Repeat echo with drop in EF, questionable stress cardiomyopathy vs ischemic?
Abnormal EKG, elevated troponin noted, trending down
Patient started on heparin therapy
Patient on aspirin
Cardiology following
Dobbhoff tube placed
Tolerating tube feeds, continue
Continue with IV fluids, decrease as able
Creatinine 0.7
Follow urine output. Muller catheter in place
Patient with history of DVTs
Was on outpatient Eliquis, unclear if this was for history of TIA
Check Dopplers
GI prophylaxis: Remains on Protonix
DVT prophylaxis: Currently on heparin drip for cardiac issues
Unfortunately, given strokelike symptoms upon presentation, aspiration risk, and now with pneumonia, clinical course over the next 24 to 48 hours will be crucial
Given patient's age, multiple falls, questionable Alzheimer's dementia, recurrent TIAs, unclear whether we will be able to return to prior quality of life
This was reviewed at length with patient and family members
For now we will maintain full code but family has relayed that they would not want long-term life support if not able to return to prior quality of life
Reviewed with critical care nursing, pharmacy, respiratory care
Reviewed with primary service
Reviewed with cardiology
Updated family members at bedside at length on 08/08
TCCT 46 min
Subjective Dataa
Subjective Data
Date of Service:
Date of Service: August 08, 2025
Subjective:
Remains critically ill. Significant secretions per nursing. Requiring low-dose norepinephrine. Sedation vacation this morning with 10 moving all extremities, resedated. Urine output okay, creatinine is stable
Objective Data
Data Reviewed
Vital Signs / I&O / Oxygen:
Vital Signs
Temp Pulse Resp BP Pulse Ox
98.6 F 60 9 80/59 98
08/08/25 07:28 08/08/25 06:30 08/08/25 06:30 08/07/25 20:00 08/08/25 06:30
Intake and Output
08/07/25 08/08/25 08/09/25
06:59 06:59 06:59
Intake Total 1000 / 1000 3164.5 / 3164.5
Output Total 425 / 425 150 / 150
Balance 575 / 575 3014.5 / 3014.5
SaO2 [A/C] 98
SaO2 98
Nasal Cannula flow liters per 6
minute
Physical Exam
General: Comfortable
HEENT: Normocephalic and Anicteric
Cardiovascular: S1-S2, Regular Rhythm, Murmur (n), Rub (n), Peripheral Edema (tr) and Calf Tenderness (n)
Respiratory: Wheeze (n), Crackles (n), Rhonchi (few), Non-Labored Respirations, ET Tube and Other (Bronchial breath sounds)
GI: Soft, Non Distended and Non Tender
Neurology: No Motor Deficits (Spontaneously moves extremities with sedation vacation) and Lethargic (Sedated)
Skin: Cyanosis (n), Jaundice (n) and Bruising (Few)
Labs/Micro/Reports
Lab Data
08/08/25 03:42
08/08/25 03:42
Laboratory Results
08/07/25 08/07/25 08/07/25
12:38 13:27 19:41
APTT 29.8
pH Cancelled 7.45
pCO2 Cancelled 39
pO2 Cancelled 77 L
HCO3 Cancelled 27.1
O2 Delivery Level Cancelled Not Reportable
08/08/25 08/08/25
01:58 03:42
APTT 139.4 H
pH 7.49 H
pCO2 33 L
pO2 133 H
HCO3 25.1
O2 Delivery Level %oxygen/room air 40%
Microbiology
08/06/25 12:24 Urine Urine Culture - Final
--- NOTE | 2025-08-08 08:05 | W.PN.HOSP.TC ---
Today's Communication/Plan
-
see A/P
Assessment / Plan
Assessment / Plan
HPI: 85-year-old right-hand male with PMH essential hypertension, hyperlipidemia, CAD s/p stents, BPH, AMANDA not on CPAP, periodic limb movement disorder, degenerative joint disease, GERD, H/O DVT on Eliquis, glaucoma, multiple TIAs; p/w acute and
intermittent onset of aphasia and facial droop.
History taken from his spouse at bedside. The patient was in his usual state of health in the morning, but developed acute onset of L facial droop and slurred speech. These symptoms resolved but reappeared in the ED.
He also became very confused in the ED with agitation, and was given IM Haldol and IV Ativan.
A/P:
# Acute metabolic encephalopathy/confusion with aphasia/facial droop SCIENTIST ENGINEER, ddx include TIA vs seizure
Not a candidate for TNK/tPA as patient on Eliquis SCIENTIST ENGINEER, last dose on 08/06/2025 at around 8 AM.
s/p Ativan, Haldol in ED
Admission CT head and CT head neck angio unrevealing
repeat CT head again showed No acute intracranial abnormality
MRI brain also without acute intracranial abnormality.
EEG per neuro (probably not relevant right now under sedation)
Pt was intubated 08/07 for respiratory distress/airway protection
Dophoff placed
Ungraded to ICU
# Suspect aspiration pneumonia
# Now acute hypoxic respiratory failure
Pt was intubated 08/07 for respiratory distress/airway protection
sedation and mechanical ventilation per Control Tower Radio Operator
CXR: Left basilar atelectasis and/or pneumonia.
Cont Abx, changed Unasyn to Zosyn
# Septic shock vs Post-intubation hypotension
Started pressor support with Levo, wean as tolerated
# Suspect non-[place] troponin elevation
Trop peak at 5.33
EKG showed TWI
Echo showed new LV dysfunction, apical akinesis with sparing of the base. This could represent [place] but cannot exclude [place] at this point.
started IV heparin
Card on board
# Hyperlipidemia
LDL at 33
Cont SCIENTIST ENGINEER atorvastatin when able
# Essential hypertension
# GERD
IV PPI
# h/o DVT
SCIENTIST ENGINEER Eliquis
DVT: now on heparin drip
Full code
DW RN
updated on the phone
CC time 40 min
Anticipated Discharge: > 48 hours
Subjective/Interval History
-
Date of Service: August 08, 2025
Objective Data
-
Labs:
Laboratory Results
08/07/25 08/08/25 08/08/25
19:41 01:58 03:42
WBC 17.3 H
Hgb 13.1
Hct 39.8
Plt Count 112 L
APTT 29.8 139.4 H
HCO3 25.1
Sodium 132 L
Potassium 3.9
Chloride 104
Carbon Dioxide 23
BUN 29 H
Creatinine 0.7
Glucose 126 H
Calcium 9.2
08/08/25
09:30
WBC
Hgb
Hct
Plt Count
APTT Pending
HCO3
Sodium
Potassium
Chloride
Carbon Dioxide
BUN
Creatinine
Glucose
Calcium
Vital Signs:
Vital Signs
Temp Pulse Resp BP Pulse Ox
37.0 C 60 9 80/59 98
08/08/25 07:28 08/08/25 06:30 08/08/25 06:30 08/07/25 20:00 08/08/25 07:56
I&O
08/07/25 08/08/25 08/09/25
06:59 06:59 06:59
Intake Total 1000 / 1000 3164.5 / 3555.0 390.5 / 390.5
Output Total 425 / 425 150 / 200 50 / 50
Balance 575 / 575 3014.5 / 3355.0 340.5 / 340.5
Review of Systems
-
Unable to obtain full review of systems at this time due to: Patient Intubation
Physical Exam
-
General: Well Developed, Well Nourished, Intubated and Appears Chronically Ill
HEENT: Normocephalic, Atraumatic, Moist Mucous Membranes and Oxygen (on vent )
Respiratory: Clear to Auscultation and Non Labored Respirations; Negative Accessory Resp Muscle Use
Cardiac: Regular Rhythm and S1/S2
GI: Soft, Nontender, Nondistended, Normal Bowel Sounds and Other (dophoff tube )
Musculoskeletal: No Clubbing, No Cyanosis and No Edema
Skin: Warm
Neuro: Sedated
Data Reviewed
-
Diagnostic Radiology: Report Reviewed by me
CT Scan: Report Reviewed by me
Labs: Labs Reviewed by me
[2025-08-08 08:17] VITALS: BP 133/80
--- NOTE | 2025-08-08 08:28 | PTCARENOTE ---
Update with Data Analysis Assistant team. Respiratory therapy at bedside. Patient desaturated into the 70% this am, high peak pressures high etco2. Noted copus oral and et secretions lavage suction with immediate improvement. Presently 98% pip 21 rate 16 and
etco2 31. Updated assessment, vital signs ongoing and as documented. Update with hospitalist team at bedside this am. Will follow up plan of cares in am rounds.
[2025-08-08 09:48] LABS: APTT 52.7 Sec (23.4-35.0)
[2025-08-08] MEDS: LR 1000 IV ×2 (10:27→20:47)
--- NOTE | 2025-08-08 11:31 | PTCARENOTE ---
Cardiology at bedside with family. Continue updated plan of cares. Will continue follow up with architecture analyst team. Nursing in and out at bedside. Update with at bedside. Continue drip titration and follow as per protocol.
--- NOTE | 2025-08-08 13:17 | W.PN.CARDCBS ---
Today's Communication / Plan
-
Continue supportive care with intubation and pressor support as needed
Discussed at length with family
Continue aspirin, heparin and lipid-lowering.
Continue to follow telemetry and EKGs.
If meaningful recovery could consider ischemic assessment at that time
Guideline directed therapy for heart failure with reduced ejection fraction if able in the future if blood pressures tolerate
Impression / Plan
-
Impression:
Acute respiratory failure intubated
Septic shock
Troponin elevation possibly [place] versus nonischemic troponin elevation related to neurologic status
Abnormal EKG with profound T wave inversion
Heart failure with reduced ejection fraction, new during this event
TIAs change in mental status
Acute encephalopathy
Pneumonia with possible aspiration
Hypotension
History of multiple TIAs
History of Alzheimer's dementia
History of abdominal aortic aneurysm 4.7 cm (January 2025)
Hypertension
Hyperlipidemia
Echocardiogram 08/07/2025: Ejection fraction 25 to 30% severely reduced with apical akinesis. Normal right ventricle. Mild AR. Trace MR.
Plan:
He remains critically ill and intubated. I spoke with the patient's live and his daughter was on the telephone at that time. We were initially consulted because of elevated troponin value of 5. Additionally ECG now with anterior and inferior
ST and T wave abnormalities and in particular rather deep T wave inversions (marked change from presenting ECG prior). It was noted that he developed progressive agitation during this hospital stay but there is no notation of any specific
complaints of chest pain. He then developed marked and refractory hypotension requiring IV pressor support and is intubated and sedated (pneumonia/aspiration/airway protection).
He continues to be intubated and sedated. He continues to require pressor support.
Troponin elevation may be non-[place] related troponin elevation related to marked hypotension, respiratory failure and pneumonia/sepsis although cannot exclude non-ST segment elevation myocardial infarction at this point. Especially in light of very
abnormal EKG.
For now given critical degree of illness continue supportive care.
IV pressor support and respiratory support
Troponins have peaked and declined
Continue to follow EKGs which remain very abnormal with significantly prolonged QT interval.
Avoid QT prolonging medication
Continue aspirin and heparin as tolerates. Continue statin.
At this time given multiple core morbidities and significant illness conservative management of decline in left ventricular ejection fraction with heart failure with reduced ejection fraction and troponin elevation which may be consistent with
non-ST elevation [place].
Continue to reassess
Discussed with psych tech service and family.
Greater than 40 minutes total critical care time.
Progress Note - Rehabilitation Coordinator
Subjective
Date of Service: August 08, 2025
Intubated and sedated
Objective
Labs:
08/08/25 03:42
08/08/25 03:42
Labs
Hgb 13.1 g/dL (13.0-18.0) 08/08/25 03:42
Hct 39.8 % (39.0-52.0) 08/08/25 03:42
Plt Count 112 10^3/uL (130-400) L 08/08/25 03:42
PT 15.9 Sec (11.4-14.6) H 08/06/25 11:00
INR 1.22 08/06/25 11:00
APTT 52.7 Sec (23.4-35.0) H 08/08/25 09:15
Sodium 132 mmol/L (135-145) L 08/08/25 03:42
Potassium 3.9 mmol/L (3.5-5.1) 08/08/25 03:42
BUN 29 mg/dl (9-20) H 08/08/25 03:42
Creatinine 0.7 mg/dL (0.7-1.3) 08/08/25 03:42
Glucose 126 mg/dl (70-99) H 08/08/25 03:42
Troponins
08/06/25 08/06/25 08/06/25
10:49 11:26 11:56
Troponin I Cancelled Cancelled < 0.012
08/07/25 08/07/25 08/07/25
16:06 18:05 19:41
Troponin I 5.330 H* Cancelled 4.230 H*
08/07/25 08/08/25
23:45 03:42
Troponin I Cancelled 3.520 H*
Vital Signs and I&O:
Vital Signs
Temp Pulse Resp BP Pulse Ox
97.7 F 68 9 133/80 98
08/08/25 11:11 08/08/25 12:30 08/08/25 12:30 08/08/25 08:17 08/08/25 12:30
Vital Signs
Temp Pulse Resp BP Pulse Ox
97.7 F 68 9 133/80 98
08/08/25 11:11 08/08/25 12:30 08/08/25 12:30 08/08/25 08:17 08/08/25 12:30
Intake & Output
08/06/25 08/07/25 08/08/25 08/09/25
06:59 06:59 06:59 06:59
Intake Total 1000 / 1000 3164.5 / 3555.0 981.8 / 981.8
Output Total 425 / 425 150 / 200 50 / 50
Balance 575 / 575 3014.5 / 3355.0 931.8 / 931.8
Physical Exam
Physical Exam
General: Intubated and sedated
Heart: Distant heart
Lungs: Intubated and coarse anterior breath sounds
Abdomen: Normal bowel sounds, soft, non-tender, non-distended.
Extremities: No clubbing, cyanosis or edema bilaterally.
Neuro: Sedated
--- NOTE | 2025-08-08 14:19 | PHA.VAN.IN ---
Assessment
- Assessment
Renal Function: Appears similar to baseline
Concomitant Antimicrobials: ampicillin/sulbactam
AUC Dosing Plan
- Dosing Variables
Dosing Weight (kg): 86
Dosing CrCl (ml/min): 73
Vd coefficient (L/kg): 0.7
- Empiric Dosing
Initial / Loading Dose: 2000mg - administration pending
Maintenance Regimen: Vanc 750mg Q12H starting 08/09 06
Estimated AUC (mcg*h/mL): 400
Estimated Peak (mcg*h/mL): 23
Estimated Trough (mcg/ml): 11.3
Estimated Half Life (H): 10.7
- Monitoring
No levels ordered at this time: consider levels in next few days
Pharmacokinetics Vancomycin I
- -
Patient Age: 85
Patient Sex: Male
Vancomycin Day #: 1
Indication: Pulmonary/Respiratory
Requesting Provider: Dr. Tillman
Pertinent Antimicrobial Allergies:
clarithromycin - rash
clindamycin - rash
levofloxacin - rash
mupirocin - rash
penicillins - rash
sulfonamide antibiotics - rash
Height / Weight:
Height 5 ft 8 in
Actual Weight 86.4 kg
- Vital Signs / Lab Results
Temp Pulse Resp BP Pulse Ox
97.7 F 61 17 133/80 97
08/08/25 11:11 08/08/25 13:45 08/08/25 13:45 08/08/25 08:17 08/08/25 13:45
Lab Results - Hematology
08/06/25 08/06/25 08/07/25
10:49 11:00 04:36
WBC Cancelled 10.4 18.1 H
08/08/25
03:42
WBC 17.3 H
Lab Results - Chemistry
08/06/25 08/06/25 08/06/25
10:49 11:20 11:56
BUN Cancelled Cancelled 18
Creatinine Cancelled Cancelled 0.8
Estimated Creat Clear Cancelled Cancelled 64
Albumin Cancelled Cancelled 4.4
08/07/25 08/08/25
04:36 03:42
BUN 22 H 29 H
Creatinine 0.7 0.7
Estimated Creat Clear 73 73
Albumin 4.1
Lab Results - Urine
08/06/25
12:24
Urine Nitrite (Reflex) Negative
Leukocyte Esterase Rfl 1+ A
Urine WBC (Reflex) 0-2
Ur Squamous Epith Cells 11-15
Urine Bacteria (Reflex) Few A
Microbiology Results
08/08/25 09:15 Nasal Screen MRSA (PCR) - Final
Nose Staph aureus MRSA
08/06/25 12:24 Urine Culture - Final
Urine
[2025-08-08] MEDS: VANCOCIN 540 MG IV (14:37)
[2025-08-08] MEDS: SUBLIMAZE 25 MCG IV ×3 (14:47→23:58)
--- NOTE | 2025-08-08 16:31 | CM ---
Intubated, Dobhoff. Discharge POC: TBD. Await medical stability and therapy evaluation.
--- NOTE | 2025-08-08 16:32 | PTCARENOTE ---
Assessment unchanged. Continue follow up drip titration and protocol heparin drip as per cv protocol. Continue updates with patient and daughters. Decrease ivf as per orders. Tube feeds as ordered by nutrition will follow to goal. Again
supportive cares and emotional support for . Follow up questions and plan of cares.
[2025-08-08] MEDS: LIPITOR 40 MG TUBE (17:21)
[2025-08-08 17:48] LABS: APTT 71.1 Sec (23.4-35.0)
[2025-08-08] MEDS: LOPRESSOR 5 MG IV (18:17)
[2025-08-08] MEDS: XALATAN OPHTHALMIC SOLUTION 1 DROP BOTH EYES (20:46)
[2025-08-08] MEDS: NEO-SYNEPHRINE 250 IV (20:47)
[2025-08-08] MEDS: HEPARIN 25000 UNITS/250 ML IV (20:54)
--- NOTE | 2025-08-08 21:12 | PTCARENOTE ---
pt remains in afib, HR up to 150s (not sustained), SBP hovering in 80s, MAP <65. ICU PHOTORADIO OPERATOR made aware, levo gtt transitioned to neto, BMP sent. care ongoing.
[2025-08-08 21:37] LABS: Blood Urea Nitrogen 26 mg/dl (9-20); Calcium 8.7 mg/dl (8.4-10.2); Carbon Dioxide 25 mmol/L (22-30); Chloride 104 mmol/L (98-107); Estimated Creatinine Clearance 73 ml/min; Glucose 138 mg/dl (70-99); Magnesium 2.0 mg/dl (1.6-2.3); Potassium 3.3 mmol/L (3.5-5.1); Sodium 130 mmol/L (135-145); eGFR > 60.00
[2025-08-08] MEDS: KCL 270 MEQ IV (21:48)
[2025-08-08 23:02] LABS: B.E. 1.8 mmol/L; HCO3 25.7 mmol/L (21-28); O2 Saturation % 98.4 % (94-98); PCO2 37 mmHg (35-48); PO2 126 mmHg (83-108); Potassium 3.5 mMOL/L (3.5-5.1); Sodium 134 mMOL/L (136-145)
--- NOTE | 2025-08-08 23:04 | PTCARENOTE ---
pt vineet down to 30s on monitor, propofol gtt temporarily paused, EKG obtained. pt now in NSR/SB. ICU LOCOMOTIVE ENGINEER made aware. ABG sent. fent gtt ordered, attempt to transition from prop to fent gtt. care continues.
[2025-08-08] MEDS: SUBLIMAZE 100 IV (23:08)
[2025-08-08 23:47] LABS: APTT 81.6 Sec (23.4-35.0)
[2025-08-09] MEDS: UNASYN IV ×4 (01:36→19:40)
[2025-08-09] MEDS: SUBLIMAZE 25 MCG IV ×4 (01:36→21:38)
[2025-08-09 03:56] VITALS: BMI 29.8
[2025-08-09 04:42] LABS: Hematocrit 34.7 % (39.0-52.0); Hemoglobin 11.7 g/dL (13.0-18.0); Mean Corp Hgb Conc. 33.7 g/dL (33.0-37.0); Mean Corpuscular Volume 90.6 fL (80.0-94.0); Nucleated Red Blood Cells % 0 % (-); Platelet Count 94 10^3/uL (130-400); Red Cell Dist. Width 14.0 % (11.5-14.5)
[2025-08-09 04:56] LABS: Blood Urea Nitrogen 25 mg/dl (9-20); Calcium 8.5 mg/dl (8.4-10.2); Carbon Dioxide 25 mmol/L (22-30); Chloride 108 mmol/L (98-107); Estimated Creatinine Clearance 82 ml/min; Glucose 108 mg/dl (70-99); Potassium 3.8 mmol/L (3.5-5.1); Sodium 136 mmol/L (135-145); eGFR > 60.00
[2025-08-09] MEDS: VANCOCIN 150 IV ×2 (05:57→17:35)
[2025-08-09] MEDS: KCL 270 MEQ IV (05:57)
[2025-08-09 06:14] LABS: APTT 89.6 Sec (23.4-35.0)
--- NOTE | 2025-08-09 07:06 | W.PN.INTV ---
Addendum entered and electronically signed by Calvin Courtney MD 08/09/25 10:32:
Reviewed medications with pharmacy regarding prolonged QTc
Propofol has moderate effect, dexmedetomidine has less of an effect
Will increase fentanyl, wean off propofol and start dexmedetomidine and reassess
Depending on result, may require Ativan with fentanyl
Reviewed with critical care nursing
Original Note:
Today's Communication / Plan
Recommendations
Continue volume-cycled ventilation
Maintain sedation
Check ABG
Daily sedation vacation
Avoid prolonged QT agents
Follow electrolytes, hemoglobin
Assessment
-
85-year-old male with history of severe sleep apnea, intolerant to CPAP therapy, multiple TIAs presenting with facial droop, aphasia, hypertension, hyperlipidemia, presents with acute mental status changes, aphasia, facial droop. This time,
symptoms did not resolve prompting admission 08/06. Imaging without evidence of acute stroke but symptoms persisted. Patient developed increased respiratory distress requiring intubation for airway protection, agonal breathing, transferred to ICU
08/07/2025
Acute respiratory failure
Intubated 08/07/2025, secondary to respiratory distress
Significant upper airway secretions, thick upon intubation
Bilateral pneumonia, left greater than right
Fevers/leukocytosis
Suspected aspiration syndrome
Poor airway clearance, lack of effective cough in the setting of stroke/mental status changes
Elevated troponin, abnormal EKG
Cardiomyopathy, EF 25%, new
Conditions present prior to admission
History of abdominal aortic aneurysm, suprarenal, 4.7 cm per imaging January 2025
Hypertension/hyperlipidemia
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
Dose recently increased to 5 mg twice a day
Coronary disease with history of angioplasty/stent, LAD
[id number] history, quit 1979
History of cholecystectomy
History of pyelonephritis
BPH
Family history of cancer (lung, colon, brain)
History of Alzheimer's dementia
Multiple falls
Plan/recommendations
At this time, patient is critically ill
Episode of tachycardia yesterday, requiring transition from norepinephrine to phenylephrine
Rapid A-fib, now in sinus rhythm
Episodic bradycardia as well
Propofol decreased, fentanyl as needed
Abnormal EKG, prolonged QT
Patient remains on IV heparin
Suspect possible community-acquired pneumonia, plus or minus aspiration event.
Family describes significant coughing after eating and drinking
In the past this usually would resolve in the setting of TIA, with resolution of symptoms
Patient also gets agitated with TIA
This episode appears to be more prolonged, possibly due to prolonged neurological symptoms
There is a discrepancy in what history I obtained from the children vs the
Children state that patient does get agitated with history of TIA
They are also learning for the first time that patient has had TIAs without their knowledge, would recommend evaluation but symptoms would resolve and patient would refuse further evaluation
Moving forward
Continue with volume-cycled ventilation
Currently on AC 14/500/5/40%
Chest x-ray with slight improvement in left basilar infiltrate
Secretions are persistent
Follow airway pressures
Check culture
Maintain sedation fentanyl as needed
Daily sedation vacation given recent neurological presentation
Moving all extremities
Discussed at length with and daughter at bedside difficult situation with sedation for mechanical ventilation/pain/comfort and ability to follow neurological symptoms in the setting of multiple TIAs, heparin therapy
Will continue with sedation vacation at least daily if not twice a day as able
Presently patient is squeezing him, nodding head appropriately with family members, moving all extremities
Continue antibiotics for likely commune acquired pneumonia with component of aspiration
MRSA screen positive
Patient with multiple antibiotic allergies
Panculture
Continue Unasyn/vancomycin therapy at this time
Patient with history of coronary disease
Recent echocardiogram unremarkable
Repeat echo with drop in EF, questionable stress cardiomyopathy vs ischemic?
Abnormal EKG, elevated troponin noted, trending down
Prolonged QT
Avoid prolonged QT agents
Patient started on heparin therapy
Patient on aspirin
Cardiology following
Follow electrolytes
Dobbhoff tube placed
Tolerating tube feeds, continue
Minimize fluids at this time, significant positive fluid status
Creatinine 0.7
Follow urine output. Muller catheter in place
Patient with history of DVTs
Was on outpatient Eliquis, unclear if this was for history of TIA
Check Dopplers on 08/11
GI prophylaxis: Remains on Protonix
DVT prophylaxis: Currently on heparin drip for cardiac issues
Unfortunately, given strokelike symptoms upon presentation, aspiration risk, and now with pneumonia, clinical course over the next 24 to 48 hours will be crucial
Given patient's age, multiple falls, questionable Alzheimer's dementia, recurrent TIAs, unclear whether we will be able to return to prior quality of life
This was reviewed at length with patient and family members
For now we will maintain full code but family has relayed that they would not want long-term life support if not able to return to prior quality of life
Reviewed with critical care nursing, pharmacy, respiratory care
Reviewed with primary service
Updated family members at bedside 08/09
TCCT 40 min
Subjective Dataa
Subjective Data
Date of Service:
Date of Service: August 09, 2025
Subjective:
Patient remains critically ill. Episode of increased agitation overnight, heart rate 150s, hypertensive, pressors stopped, sedation increased. Persistent tachycardia noted. Transition from norepinephrine to phenylephrine. Spontaneous conversion
from atrial fibrillation to sinus. Secretions continue but improved
Objective Data
Data Reviewed
Vital Signs / I&O / Oxygen:
Vital Signs
Temp Pulse Resp BP Pulse Ox
98 F 58 14 104/57 99
08/09/25 03:59 08/09/25 06:15 08/09/25 06:15 08/08/25 18:17 08/09/25 06:15
Intake and Output
08/08/25 08/09/25 08/10/25
06:59 06:59 05:59
Intake Total 3164.5 / 3555.0 5098.7 / 5098.7
Output Total 150 / 200 725 / 725
Balance 3014.5 / 3355.0 4373.7 / 4373.7
SaO2 [A/C] 100
SaO2 99
Nasal Cannula flow liters per 6
minute
Physical Exam
General: Comfortable
HEENT: Normocephalic and Anicteric
Cardiovascular: S1-S2, Regular Rhythm, Murmur (n), Rub (n), Peripheral Edema (tr) and Calf Tenderness (n)
Respiratory: Wheeze (n), Crackles (n), Rhonchi (few), Non-Labored Respirations, ET Tube and Other (Bronchial breath sounds)
GI: Soft, Non Distended and Non Tender
Neurology: No Motor Deficits (Patient is moving extremities, following commands, squeezes hand) and Lethargic (Sedated)
Skin: Cyanosis (n), Jaundice (n) and Bruising (Few)
Labs/Micro/Reports
Lab Data
08/09/25 03:53
08/09/25 03:53
Laboratory Results
08/08/25 08/08/25 08/08/25
09:15 17:30 22:56
APTT 52.7 H 71.1 H
pH 7.45
pCO2 37
pO2 126 H
HCO3 25.7
O2 Delivery Level
08/08/25 08/09/25 08/09/25
23:16 05:53 06:00
APTT 81.6 H 89.6 H
pH Cancelled
pCO2 Cancelled
pO2 Cancelled
HCO3 Cancelled
O2 Delivery Level Cancelled
Microbiology
08/08/25 15:16 Tracheal Aspirate Gram Stain - Preliminary
08/08/25 09:15 Nose Nasal Screen MRSA (PCR) - Final
Staph aureus MRSA
08/06/25 12:24 Urine Urine Culture - Final
[2025-08-09] MEDS: PROTONIX IV 40 MG IV (07:20)
[2025-08-09] MEDS: LOW STRENGTH ASPIRIN 81 MG TUBE (07:20)
[2025-08-09] MEDS: MIRALAX 17 GRAMS TUBE (07:20)
--- NOTE | 2025-08-09 08:20 | PHA.VAN.FU ---
Vancomycin Assessment / Plan
- Assessment
Renal Function: Stable
WBC's are: Trending Down
In the past 24 hrs, patient has been: Afebrile
Concomitant Antimicrobials: UNASYN
- Dosing Plan
Continue: 750MG Q12H
- Monitoring Plan
Peak Level: 08/10 @2100
Trough Level: 08/11 @0530
- Follow Up
Pharmacy will continue to follow.
Vancomycin Follow UP
- -
Patient Age: 85
Patient Sex: Male
Vancomycin Day #: 2
Indication: Pulmonary/Respiratory
Requesting Provider: Dr. Tillman
Pertinent Antimicrobial Allergies:
clarithromycin - rash
clindamycin - rash
levofloxacin - rash
mupirocin - rash
penicillins - rash
sulfonamide antibiotics - rash
Height / Weight:
Height 5 ft 8 in
Actual Weight 89 kg
- Vital Signs / Lab Results
Temp Pulse Resp BP Pulse Ox
99.1 F 77 14 104/57 99
08/09/25 07:30 08/09/25 07:15 08/09/25 07:15 08/08/25 18:17 08/09/25 07:36
Lab Results - Hematology
08/06/25 08/06/25 08/07/25
10:49 11:00 04:36
WBC Cancelled 10.4 18.1 H
08/08/25 08/09/25
03:42 03:53
WBC 17.3 H 9.8
Lab Results - Chemistry
08/06/25 08/06/25 08/06/25
10:49 11:20 11:56
BUN Cancelled Cancelled 18
Creatinine Cancelled Cancelled 0.8
Estimated Creat Clear Cancelled Cancelled 64
Albumin Cancelled Cancelled 4.4
08/07/25 08/08/25 08/08/25
04:36 03:42 20:46
BUN 22 H 29 H 26 H
Creatinine 0.7 0.7 0.7
Estimated Creat Clear 73 73 73
Albumin 4.1
08/09/25
03:53
BUN 25 H
Creatinine 0.7
Estimated Creat Clear 82
Albumin
Microbiology Results
08/08/25 15:16 Gram Stain - Preliminary
Tracheal Aspirate
08/08/25 09:15 Nasal Screen MRSA (PCR) - Final
Nose Staph aureus MRSA
08/06/25 12:24 Urine Culture - Final
Urine
--- NOTE | 2025-08-09 08:49 | W.PN.CARDCBS ---
Today's Communication / Plan
-
Remains crit ill.
BP improved and now off pressors.
Eventually attempts at GDMT for HFrEF
QTc remains very prolonged:
Avoid QT prolonging medication
Keep K 4-5
Keep Mg 2-3
IV heparin with eventual transition to DOAC
Impression / Plan
-
Impression:
Acute respiratory failure intubated
Septic shock
Troponin elevation possibly WV versus nonischemic troponin elevation related to neurologic status
Abnormal EKG with profound T wave inversion
Heart failure with reduced ejection fraction, new during this event
TIAs change in mental status
Acute encephalopathy
Pneumonia with possible aspiration
Hypotension
History of multiple TIAs
History of Alzheimer's dementia
History of abdominal aortic aneurysm 4.7 cm (January 2025)
Hypertension
Hyperlipidemia
Echocardiogram 08/07/2025: Ejection fraction 25 to 30% severely reduced with apical akinesis. Normal right ventricle. Mild AR. Trace MR.
Plan:
He remains critically ill and intubated.
We were initially consulted because of elevated troponin value of 5. Additionally ECG now with anterior and inferior ST and T wave abnormalities and in particular rather deep T wave inversions (marked change from presenting ECG prior). It was
noted that he developed progressive agitation during this hospital stay but there is no notation of any specific complaints of chest pain. He then developed marked and refractory hypotension requiring IV pressor support and is intubated and sedated
(pneumonia/aspiration/airway protection).
He continues to be intubated and sedated.
Pressors have been weaned off
Troponin elevation may be non-WV related troponin elevation related to marked hypotension, respiratory failure and pneumonia/sepsis, possibly takotsubo, although cannot exclude non-ST segment elevation myocardial infarction at this point.
Especially in light of very abnormal EKG.
For now given critical degree of illness continue supportive care.
IV pressor weaned off, continue respiratory support
Troponins have peaked and declined, Continue statin. Continue asa
Continue to follow EKGs which remain very abnormal with significantly prolonged QT interval.
Avoid QT prolonging medication
Keep K 4-5
Keep Mg 2-3
PAF overnight, now back in SR
Heparin as tolerates. Was on DOAC (apixaban) as outpatient for recurrent DVTs, but this adm has demonstrated PAF. Eventually transition back to DOAC.
At this time given multiple core morbidities and significant illness conservative management of decline in left ventricular ejection fraction with heart failure with reduced ejection fraction and troponin elevation which may be consistent with
non-ST elevation WV.
Continue to reassess
Discussed with ICU nursing
35 minutes total critical care time.
Progress Note - [employer]
Subjective
Date of Service: August 09, 2025
Intubated and sedated
Objective
Labs:
08/09/25 03:53
08/09/25 03:53
Labs
Hgb 11.7 g/dL (13.0-18.0) L 08/09/25 03:53
Hct 34.7 % (39.0-52.0) L 08/09/25 03:53
Plt Count 94 10^3/uL (130-400) L 08/09/25 03:53
PT 15.9 Sec (11.4-14.6) H 08/06/25 11:00
INR 1.22 08/06/25 11:00
APTT 89.6 Sec (23.4-35.0) H 08/09/25 05:53
Sodium 136 mmol/L (135-145) 08/09/25 03:53
Potassium 3.8 mmol/L (3.5-5.1) 08/09/25 03:53
BUN 25 mg/dl (9-20) H 08/09/25 03:53
Creatinine 0.7 mg/dL (0.7-1.3) 08/09/25 03:53
Glucose 108 mg/dl (70-99) H 08/09/25 03:53
Troponins
08/06/25 08/06/25 08/06/25
10:49 11:26 11:56
Troponin I Cancelled Cancelled < 0.012
08/07/25 08/07/25 08/07/25
16:06 18:05 19:41
Troponin I 5.330 H* Cancelled 4.230 H*
08/07/25 08/08/25
23:45 03:42
Troponin I Cancelled 3.520 H*
Vital Signs and I&O:
Vital Signs
Temp Pulse Resp BP Pulse Ox
99.1 F 77 14 104/57 99
08/09/25 07:30 08/09/25 07:15 08/09/25 07:15 08/08/25 18:17 08/09/25 07:36
Vital Signs
Temp Pulse Resp BP Pulse Ox
99.1 F 77 14 104/57 99
08/09/25 07:30 08/09/25 07:15 08/09/25 07:15 08/08/25 18:17 08/09/25 07:36
Intake & Output
08/07/25 08/08/25 08/09/25 08/10/25
06:59 06:59 06:59 05:59
Intake Total 1000 / 1000 3164.5 / 3555.0 5098.7 / 5098.7
Output Total 425 / 425 150 / 200 725 / 725
Balance 575 / 575 3014.5 / 3355.0 4373.7 / 4373.7
Physical Exam
Physical Exam
General: Intubated and sedated
Heart: Distant heart
Lungs: Intubated and coarse anterior breath sounds
Abdomen: Normal bowel sounds, soft, non-tender, non-distended.
Extremities: No clubbing, cyanosis or edema bilaterally.
Neuro: Sedated
--- NOTE | 2025-08-09 08:52 | W.PN.HOSP.TC ---
Today's Communication/Plan
-
see A/P
Assessment / Plan
Assessment / Plan
HPI: 85-year-old right-hand male with PMH essential hypertension, hyperlipidemia, CAD s/p stents, BPH, AMANDA not on CPAP, periodic limb movement disorder, degenerative joint disease, GERD, H/O DVT on Eliquis, glaucoma, multiple TIAs; p/w acute and
intermittent onset of aphasia and facial droop.
History taken from his spouse at bedside. The patient was in his usual state of health in the morning, but developed acute onset of L facial droop and slurred speech. These symptoms resolved but reappeared in the ED.
He also became very confused in the ED with agitation, and was given IM Haldol and IV Ativan.
A/P:
# Acute metabolic encephalopathy/confusion with aphasia/facial droop [employer], ddx include TIA vs seizure vs CAP
Not a candidate for TNK/tPA as patient on Eliquis CA[employer]ING CLE[employer]ER, last dose on 08/06/2025 at around 8 AM.
s/p Ativan, Haldol in ED
Admission CT head and CT head neck angio unrevealing
repeat CT head again showed No acute intracranial abnormality
MRI brain also without acute intracranial abnormality.
EEG per neuro (probably not relevant right now under sedation)
Pt was intubated 08/07 for respiratory distress/airway protection
Dophoff placed , Tube feed started with water flushes
Cont ICU level of care
Muller placed
# Suspect aspiration pneumonia with component of community acquired pneumonia
# Now acute hypoxic respiratory failure
Pt was intubated 08/07 for respiratory distress/airway protection
sedation and mechanical ventilation per Client Consultant
CXR: Left basilar atelectasis and/or pneumonia.
repeat CXR 08/09: Slight improvement in parenchymal opacity within the right lower lung.
d/w Client Consultant Dr Courtney,�he prefers Unasyn over Zosyn (due to salt load). Cont Abx with Unasyn
MRSA positive, added vancomycin
# Septic shock vs Post-intubation hypotension
s/p pressors
# Suspect non-CT troponin elevation
Trop peak at 5.33
EKG showed TWI
Echo showed low EF 25-30%, new LV dysfunction, apical akinesis with sparing of the base. This could represent Takotsubo but cannot exclude CT at this point.
Cont IV heparin
Card on board
# Hyperlipidemia
LDL at 33
Cont CA[employer]ING CLE[employer]ER atorvastatin via Dobbhoff
# Essential hypertension
# GERD
IV PPI
# h/o DVT
CASTING CLE[employer]ER Eliquis
now on heparin drip
DVT: now on heparin drip
Full code
DW RN
updated and daughter on the phone
CC time 40 min
Anticipated Discharge: > 48 hours
Subjective/Interval History
-
Date of Service: August 09, 2025
Objective Data
-
Labs:
Laboratory Results
08/08/25 08/08/25 08/08/25
20:46 22:56 23:16
WBC
Hgb
Hct
Plt Count
APTT 81.6 H
HCO3 25.7
Sodium 130 L
Potassium 3.3 L
Chloride 104
Carbon Dioxide 25
BUN 26 H
Creatinine 0.7
Glucose 138 H
Calcium 8.7
08/09/25 08/09/25 08/09/25
03:53 05:53 06:00
WBC 9.8
Hgb 11.7 L
Hct 34.7 L
Plt Count 94 L
APTT 89.6 H
HCO3 Cancelled
Sodium 136
Potassium 3.8
Chloride 108 H
Carbon Dioxide 25
BUN 25 H
Creatinine 0.7
Glucose 108 H
Calcium 8.5
Vital Signs:
Vital Signs
Temp Pulse Resp BP Pulse Ox
37.3 C 77 14 104/57 99
08/09/25 07:30 08/09/25 07:15 08/09/25 07:15 08/08/25 18:17 08/09/25 07:36
I&O
08/08/25 08/09/25 08/10/25
06:59 06:59 05:59
Intake Total 3164.5 / 3555.0 5098.7 / 5098.7
Output Total 150 / 200 725 / 725
Balance 3014.5 / 3355.0 4373.7 / 4373.7
Review of Systems
-
Unable to obtain full review of systems at this time due to: Patient Intubation
Physical Exam
-
General: Well Developed, Well Nourished, Intubated and Appears Chronically Ill
HEENT: Normocephalic, Atraumatic, Moist Mucous Membranes and Oxygen (on vent )
Respiratory: Non Labored Respirations; Negative Accessory Resp Muscle Use
Cardiac: Regular Rhythm and S1/S2
GI: Soft, Nontender, Nondistended, Normal Bowel Sounds and Other (dophoff tube )
Genito-urinary: Muller (to be placed by RN )
Musculoskeletal: No Clubbing, No Cyanosis and No Edema
Skin: Warm
Neuro: Sedated (intermittently)
Data Reviewed
-
Diagnostic Radiology: Report Reviewed by me
CT Scan: Report Reviewed by me
Labs: Labs Reviewed by me
[2025-08-09] MEDS: DIPRIVAN 100 IV (09:04)
--- NOTE | 2025-08-09 09:27 | PTCARENOTE ---
Rec'd pt at 0700. Pt restless/agitated in bed on Prop/Fent gtts on vent. Opens eyes spontaneously, +tracking. Follows simple commands, HAMILTON. Propofol gtts titrated up for RASS +1/+3, PRN Fent given for pain and gtts increased. By 0900 pt appears
calm/comfortable. Monitor SBR/SR. Lungs sct coarse, pox 100% on 40% fio2. DHT in place with Jevity at 40mls/hr. Condom cath in place with small amt jarvis urine, bladder scanned for 300ml. Muller placed per .
[2025-08-09 10:46] LABS: Magnesium 1.9 mg/dl (1.6-2.3)
[2025-08-09] MEDS: ATIVAN 1 MG IV (11:03)
--- NOTE | 2025-08-09 11:40 | PTCARENOTE ---
PRN Ativan given, Propofol gtts titrated off per MD. Precedex gtts started at 0.2mcg/kg/hr. Family at bedside, updated.
[2025-08-09] MEDS: SUBLIMAZE 100 IV ×2 (12:07→22:41)
[2025-08-09 13:52] VITALS: BP_SYST 87
[2025-08-09 15:00] VITALS: BP_SYST 83
[2025-08-09 15:13] VITALS: BP_SYST 82
--- NOTE | 2025-08-09 15:29 | PTCARENOTE ---
SBP dropping into 80's, Precedex and Fentanyl gtts titrated down with minimal effects. Dr. Courtney aware, Ehrnán gtts started at 40mcg/min, SBP 90-110's at this time.
[2025-08-09] MEDS: LIPITOR 40 MG TUBE (17:36)
[2025-08-09 17:43] LABS: Glucose - Point of Care 116 mg/dl (70-99)
[2025-08-09] MEDS: HEPARIN 25000 UNITS/250 ML IV (18:11)
--- NOTE | 2025-08-09 20:00 | PTCARENOTE ---
Received pt intubated and sedated on precedex and fentanyl gtts. Pt. drowsy but arousable, opens eyes, following some simple commands but then drifts back to sleep. NIH = 10 (difficult to assess due to sedation). SB on tele, HR 40-50. On and off low
dose neto gtts to maintain MAP>65- see worklist. Weak DPs. Afebrile. Heparin gtt per protocol. #8 ETT @24cm at lip, moved to the left. Tolerating A/C 14/500/+5/40%. Spo2 99%. Lungs diminished and coarse. Dobhoff tube with jevity 1.5 at goal. Temp
sensing angulo draining jarvis urine. Turning q2
[2025-08-09] MEDS: XALATAN OPHTHALMIC SOLUTION 1 DROP BOTH EYES (21:39)
[2025-08-09] MEDS: PRECEDEX 100 IV (23:19)
[2025-08-10] MEDS: SUBLIMAZE 25 MCG IV (00:17)
--- NOTE | 2025-08-10 00:38 | PTCARENOTE ---
Has required multiple fentanyl boluses and increases in precedex gtt and fentanyl due to RASS +1/+2 and CPOT >4. Pt. becomes very agitated, unable to redirect, trying to swing legs out of bed.
[2025-08-10] MEDS: UNASYN IV ×4 (01:21→19:32)
[2025-08-10] MEDS: SUBLIMAZE 50 MCG IV ×2 (03:09→05:15)
[2025-08-10 03:45] LABS: B.E. -0.7 mmol/L; HCO3 23.4 mmol/L (21-28); O2 Saturation % 98.5 % (94-98); PCO2 36 mmHg (35-48); PO2 98 mmHg (83-108)
[2025-08-10 04:00] LABS: APTT 70.4 Sec (23.4-35.0)
[2025-08-10 04:08] LABS: Hematocrit 36.9 % (39.0-52.0); Hemoglobin 12.6 g/dL (13.0-18.0); Mean Corp Hgb Conc. 34.1 g/dL (33.0-37.0); Mean Corpuscular Volume 87.2 fL (80.0-94.0); Nucleated Red Blood Cells % 0 % (-); Platelet Count 109 10^3/uL (130-400); Red Cell Dist. Width 14.2 % (11.5-14.5)
[2025-08-10 04:16] LABS: Blood Urea Nitrogen 25 mg/dl (9-20); Calcium 8.7 mg/dl (8.4-10.2); Carbon Dioxide 24 mmol/L (22-30); Chloride 110 mmol/L (98-107); Estimated Creatinine Clearance 96 ml/min; Glucose 122 mg/dl (70-99); Magnesium 2.1 mg/dl (1.6-2.3); Potassium 4.3 mmol/L (3.5-5.1); Sodium 138 mmol/L (135-145); eGFR > 60.00
[2025-08-10] MEDS: ATIVAN 1 MG IV ×4 (04:18→20:19)
[2025-08-10] MEDS: VANCOCIN 150 IV ×2 (05:32→17:14)
[2025-08-10 05:33] VITALS: BMI 31.4
--- NOTE | 2025-08-10 05:34 | PTCARENOTE ---
Continues with intermittent, sudden episodes of restlessness/agitation. See MAR for PRNs given. Bathed with CHG. AM labs drawn
--- NOTE | 2025-08-10 06:39 | W.PN.INTV ---
Today's Communication / Plan
Recommendations
Continue pressors as needed
Discontinue dexmedetomidine due to bradycardia
Fentanyl, Ativan continues
Tolerating tube feeds
Continue antibiotics, follow cultures
Consider head CT scan depending on clinical coourse
Follow QT interval. Avoid QT prolonging agents
Assessment
-
85-year-old male with history of severe sleep apnea, intolerant to CPAP therapy, multiple TIAs presenting with facial droop, aphasia, hypertension, hyperlipidemia, presents with acute mental status changes, aphasia, facial droop. This time,
symptoms did not resolve prompting admission 08/06. Imaging without evidence of acute stroke but symptoms persisted. Patient developed increased respiratory distress requiring intubation for airway protection, agonal breathing, transferred to ICU
08/07/2025
Acute respiratory failure
Intubated 08/07/2025, secondary to respiratory distress
Significant upper airway secretions, thick upon intubation
Bilateral pneumonia
Fevers/leukocytosis
Suspected aspiration syndrome
Poor airway clearance, lack of effective cough in the setting of stroke/mental status changes
Elevated troponin, abnormal EKG
Cardiomyopathy, EF 25%, new
Hypotension
Intermittently requiring phenylephrine
Suspect multifactorial (new cardiomyopathy, pneumonia)
Conditions present prior to admission
History of abdominal aortic aneurysm, suprarenal, 4.7 cm per imaging January 2025
Hypertension/hyperlipidemia
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
Dose recently increased to 5 mg twice a day
Coronary disease with history of angioplasty/stent, LAD
[id number] history, quit 1979
History of cholecystectomy
History of pyelonephritis
BPH
Family history of cancer (lung, colon, brain)
History of Alzheimer's dementia
Multiple falls
Plan/recommendations
At this time, patient is critically ill
Episode of tachycardia yesterday, requiring transition from norepinephrine to phenylephrine
Rapid A-fib, now in sinus rhythm
Episodic bradycardia as well, with sxn, HR 30's (vagal?)
Propofol discontinued, Precedex discontinued
Abnormal EKG, prolonged QT, persistent
Patient remains on IV heparin
Secretions noted
Moving forward
Continue with volume-cycled ventilation
Currently on AC 14/500/5/40%
Ppk 20, Pplat 15
Chest x-ray with slight improvement in left basilar infiltrate, now with increased right pleural parenchymal process
Secretions are persistent
Daily CXR
Cultures negative to date
Maintain sedation fentanyl as needed
Will add Ativan [id number]. Off propofol and off dexmedetomidine due to bradycardia.
Daily sedation vacation given recent neurological presentation
Moving all extremities, agitated at times
As of 08/10, he is following commands, nodding appropriately, moving all extremities
Discussed at length with and daughter at bedside difficult situation with sedation for mechanical ventilation/pain/comfort and ability to follow neurological symptoms in the setting of multiple TIAs, heparin therapy
Will consider head CT imaging in the next 24 hours, depending on clinical course
SBT in the next 24 hours ( would like to be present to help calm pt)
Continue antibiotics for likely community acquired pneumonia with component of aspiration
MRSA screen positive
Patient with multiple antibiotic allergies
Follow cultures
Continue Unasyn/vancomycin therapy at this time
No fever, no white count
Patient with history of coronary disease
Recent echocardiogram unremarkable
Repeat echo with drop in EF (25%), questionable stress cardiomyopathy vs ischemic?
Abnormal EKG, elevated troponin noted, trending down
Prolonged QT
Avoid prolonged QT agents
Remains on heparin therapy, aspirin
Cardiology following
Follow electrolytes
May require Lasix, weight increase noted
Cardiology considering ischemic evaluation as indicated, Repeat echocardiogram
Dobbhoff tube placed
Tolerating tube feeds, continue
Minimize fluids at this time, significant positive fluid status
Creatinine 0.7
Follow urine output. Muller catheter in place
Patient with history of DVTs
Was on outpatient Eliquis, unclear if this was for history of TIA
Check Dopplers on 08/11 (ordered)
GI prophylaxis: Remains on Protonix
DVT prophylaxis: Currently on heparin drip for cardiac issues
Unfortunately, given strokelike symptoms upon presentation, aspiration risk, and now with pneumonia, clinical course over the next 24 to 48 hours will be crucial
Given patient's age, multiple falls, questionable Alzheimer's dementia, recurrent TIAs, unclear whether we will be able to return to prior quality of life
This was reviewed at length with patient and family members
For now we will maintain full code but family has relayed that they would not want long-term life support if not able to return to prior quality of life
Reviewed with critical care nursing, pharmacy, respiratory care
Reviewed with primary service
Updated family members at bedside 08/10
TCCT 40 min
Subjective Dataa
Subjective Data
Date of Service:
Date of Service: August 10, 2025
Subjective:
Patient remains critically ill intermittently requiring phenylephrine. Episodic bradycardia especially with suction suggesting vasovagal. Continues with moderate secretions. Intermittent agitation noted. Urine output noted
Objective Data
Data Reviewed
Vital Signs / I&O / Oxygen:
Vital Signs
Temp Pulse Resp BP Pulse Ox
98.1 F 47 14 104/57 96
08/10/25 03:20 08/10/25 06:30 08/10/25 06:30 08/08/25 18:17 08/10/25 06:30
Intake and Output
08/08/25 08/09/25 08/10/25
06:59 06:59 05:59
Intake Total 3164.5 / 3555.0 5098.7 / 5247.2 2799.1 / 2799.1
Output Total 150 / 200 725 / 725 835 / 835
Balance 3014.5 / 3355.0 4373.7 / 4522.2 1964.1 / 1964.1
SaO2 [A/C] 98
SaO2 96
Nasal Cannula flow liters per 6
minute
Physical Exam
General: Comfortable
HEENT: Normocephalic and Anicteric
Cardiovascular: S1-S2, Regular Rhythm, Murmur (n), Rub (n), Peripheral Edema (tr) and Calf Tenderness (n)
Respiratory: Wheeze (n), Crackles (n), Rhonchi (few), Non-Labored Respirations, ET Tube and Other (Bronchial breath sounds, decreased at the base)
GI: Soft, Non Distended and Non Tender
Neurology: Lethargic (Sedated)
Skin: Cyanosis (n), Jaundice (n) and Bruising (Few)
Labs/Micro/Reports
Lab Data
08/10/25 03:36
08/10/25 03:36
Laboratory Results
08/10/25
03:36
APTT 70.4 H
pH 7.42
pCO2 36
pO2 98
HCO3 23.4
O2 Delivery Level
Microbiology
08/08/25 15:16 Tracheal Aspirate Respiratory Culture - Preliminary
Usual Respiratory Ashely
08/08/25 15:16 Tracheal Aspirate Gram Stain - Preliminary
08/08/25 09:15 Nose Nasal Screen MRSA (PCR) - Final
Staph aureus MRSA
08/06/25 12:24 Urine Urine Culture - Final
[2025-08-10] MEDS: PROTONIX IV 40 MG IV (07:08)
[2025-08-10] MEDS: NSS (PRESERVATIVE FREE) 10 ML IV (07:08)
[2025-08-10] MEDS: MIRALAX 17 GRAMS TUBE (07:09)
[2025-08-10] MEDS: LOW STRENGTH ASPIRIN 81 MG TUBE (07:09)
--- NOTE | 2025-08-10 07:45 | W.PN.HOSP.TC ---
Today's Communication/Plan
-
see A/P
Assessment / Plan
Assessment / Plan
HPI: 85-year-old right-hand male with PMH essential hypertension, hyperlipidemia, CAD s/p stents, BPH, AMANDA not on CPAP, periodic limb movement disorder, degenerative joint disease, GERD, H/O DVT on Eliquis, glaucoma, multiple TIAs; p/w acute and
intermittent onset of aphasia and facial droop.
History taken from his spouse at bedside. The patient was in his usual state of health in the morning, but developed acute onset of L facial droop and slurred speech. These symptoms resolved but reappeared in the ED.
He also became very confused in the ED with agitation, and was given IM Haldol and IV Ativan.
A/P:
# Acute metabolic encephalopathy/confusion with aphasia/facial droop [facility], ddx include TIA vs seizure vs CAP
Not a candidate for TNK/tPA as patient on Eliquis [facility], last dose on 08/06/2025 at around 8 AM.
s/p Ativan, Haldol in ED
Admission CT head and CT head neck angio unrevealing
repeat CT head again showed No acute intracranial abnormality
MRI brain also without acute intracranial abnormality.
EEG per neuro (probably not relevant right now under sedation)
Pt was intubated 08/07 for respiratory distress/airway protection
Dophoff placed , Tube feed started with water flushes
Muller placed
Cont ICU level of care
# Suspect aspiration pneumonia with component of community acquired pneumonia
# Now acute hypoxic respiratory failure
Pt was intubated 08/07 for respiratory distress/airway protection
sedation and mechanical ventilation per [employer]
CXR: Left basilar atelectasis and/or pneumonia.
repeat CXR 08/09: Slight improvement in parenchymal opacity within the right lower lung.
d/w Power Line Lineman Dr Courtney,�he prefers Unasyn over Zosyn (due to salt load). Cont Abx with Unasyn
MRSA positive, added vancomycin
# Septic shock vs Post-intubation hypotension
on Hernán PRN
# Suspect non-IL troponin elevation
Trop peak at 5.33
EKG showed TWI
Echo showed low EF 25-30%, new LV dysfunction, apical akinesis with sparing of the base. This could represent Takotsubo but cannot exclude IL at this point.
Cont IV heparin
Card on board
# Hyperlipidemia
LDL at 33
Cont [facility] atorvastatin via Dobbhoff
# Essential hypertension
# GERD
IV PPI
# h/o DVT
[facility] Eliquis
now on heparin drip
DVT: now on heparin drip
Full code
DW RN
Called to update, calls not answered
CC time 40 min
Anticipated Discharge: > 48 hours
Subjective/Interval History
-
Date of Service: August 10, 2025
Objective Data
-
Labs:
Laboratory Results
08/10/25 08/10/25
03:36 10:15
WBC 8.5
Hgb 12.6 L
Hct 36.9 L
Plt Count 109 L
APTT 70.4 H Pending
HCO3 23.4
Sodium 138
Potassium 4.3
Chloride 110 H
Carbon Dioxide 24
BUN 25 H
Creatinine 0.6 L
Glucose 122 H
Calcium 8.7
Vital Signs:
Vital Signs
Temp Pulse Resp BP Pulse Ox
36.3 C 47 14 104/57 96
08/10/25 07:08 08/10/25 06:30 08/10/25 06:30 08/08/25 18:17 08/10/25 07:08
I&O
08/09/25 08/10/25 08/11/25
06:59 05:59 06:59
Intake Total 5098.7 / 5247.2 2799.1 / 2799.1
Output Total 725 / 725 835 / 835
Balance 4373.7 / 4522.2 /
--- NOTE | 2025-08-10 07:52 | PHA.VAN.FU ---
Vancomycin Assessment / Plan
- Assessment
Renal Function: Stable
WBC's are: WNL
In the past 24 hrs, patient has been: Afebrile
Concomitant Antimicrobials: UNASYN
- Dosing Plan
Continue: 750MG Q12H
- Monitoring Plan
Peak Level: 08/10 @2100
Trough Level: 08/11 @0530
- Follow Up
Pharmacy will continue to follow.
Vancomycin Follow UP
- -
Patient Age: 85
Patient Sex: Male
Vancomycin Day #: 3
Indication: Pulmonary/Respiratory
Requesting Provider: Dr. Tillman
Pertinent Antimicrobial Allergies:
clarithromycin - rash
clindamycin - rash
levofloxacin - rash
mupirocin - rash
penicillins - rash
sulfonamide antibiotics - rash
Height / Weight:
Height 5 ft 8 in
Actual Weight 93.8 kg
- Vital Signs / Lab Results
Temp Pulse Resp BP Pulse Ox
97.4 F 47 14 104/57 99
08/10/25 07:08 08/10/25 06:30 08/10/25 06:30 08/08/25 18:17 08/10/25 07:37
Lab Results - Hematology
08/08/25 08/09/25 08/10/25
03:42 03:53 03:36
WBC 17.3 H 9.8 8.5
Lab Results - Chemistry
08/08/25 08/08/25 08/09/25
03:42 20:46 03:53
BUN 29 H 26 H 25 H
Creatinine 0.7 0.7 0.7
Estimated Creat Clear 73 73 82
08/10/25
03:36
BUN 25 H
Creatinine 0.6 L
Estimated Creat Clear 96
Microbiology Results
08/08/25 15:16 Respiratory Culture - Preliminary
Tracheal Aspirate Usual Respiratory Ashely
Gram Stain - Preliminary
08/08/25 09:15 Nasal Screen MRSA (PCR) - Final
Nose Staph aureus MRSA
[2025-08-10] MEDS: PRECEDEX IV (07:54)
[2025-08-10] MEDS: NSS (PRESERVATIVE FREE) 0.5 ML IV ×2 (08:39→12:45)
[2025-08-10] MEDS: SUBLIMAZE 100 IV ×3 (09:32→22:56)
--- NOTE | 2025-08-10 09:52 | W.PN.CARDCBS ---
Today's Communication / Plan
-
Continue supportive care
Consideration for eventual repeat echocardiogram and possibly ischemic evaluation
Impression / Plan
-
Impression:
Acute respiratory failure intubated
Septic shock
Troponin elevation possibly HI versus nonischemic troponin elevation related to neurologic status
Abnormal EKG with profound T wave inversion
Heart failure with reduced ejection fraction, new during this event
TIAs change in mental status
Acute encephalopathy
Pneumonia with possible aspiration
Hypotension
History of multiple TIAs
History of Alzheimer's dementia
History of abdominal aortic aneurysm 4.7 cm (January 2025)
Hypertension
Hyperlipidemia
Echocardiogram 08/07/2025: Ejection fraction 25 to 30% severely reduced with apical akinesis. Normal right ventricle. Mild AR. Trace MR.
Plan:
He remains critically ill and intubated.
We were initially consulted because of elevated troponin value of 5. Additionally ECG now with anterior and inferior ST and T wave abnormalities and in particular rather deep T wave inversions (marked change from presenting ECG prior). It was
noted that he developed progressive agitation during this hospital stay but there is no notation of any specific complaints of chest pain. He then developed marked and refractory hypotension requiring IV pressor support and is intubated and sedated
(pneumonia/aspiration/airway protection).
He continues to be intubated and sedated.
He is once again on pressors for blood pressure support in the setting of septic shock likely related to aspiration pneumonia.
Troponin elevation may be non-HI related troponin elevation related to marked hypotension, respiratory failure and pneumonia/sepsis, possibly takotsubo, although cannot exclude non-ST segment elevation myocardial infarction at this point.
Especially in light of very abnormal EKG.
For now given critical degree of illness continue supportive care.
He is back on IV pressor, continue respiratory support in the setting of suspected aspiration pneumonia
Troponins have peaked and declined, Continue statin. Continue asa
Continue to follow EKGs which remain very abnormal with significantly prolonged QT interval.
Avoid QT prolonging medication
Keep K 4-5
Keep Mg 2-3
PAF overnight 08/08->08/09, now back in SR
Heparin as tolerates. Was on DOAC (apixaban) as outpatient for recurrent DVTs, but this adm has demonstrated PAF. Eventually transition back to DOAC.
At this time given multiple core morbidities and significant illness conservative management of decline in left ventricular ejection fraction with heart failure with reduced ejection fraction and troponin elevation which may be consistent with
non-ST elevation HI.
Continue to reassess
Discussed with ICU nursing
31 minutes total critical care time.
Progress Note - Electrician'S Assistant
Subjective
Date of Service: August 10, 2025
Intubated and sedated
Objective
Labs:
08/10/25 03:36
08/10/25 03:36
Labs
Hgb 12.6 g/dL (13.0-18.0) L 08/10/25 03:36
Hct 36.9 % (39.0-52.0) L 08/10/25 03:36
Plt Count 109 10^3/uL (130-400) L 08/10/25 03:36
PT 15.9 Sec (11.4-14.6) H 08/06/25 11:00
INR 1.22 08/06/25 11:00
APTT 70.4 Sec (23.4-35.0) H 08/10/25 03:36
Sodium 138 mmol/L (135-145) 08/10/25 03:36
Potassium 4.3 mmol/L (3.5-5.1) 08/10/25 03:36
BUN 25 mg/dl (9-20) H 08/10/25 03:36
Creatinine 0.6 mg/dL (0.7-1.3) L 08/10/25 03:36
Glucose 122 mg/dl (70-99) H 08/10/25 03:36
Troponins
08/07/25 08/07/25 08/07/25
16:06 18:05 19:41
Troponin I 5.330 H* Cancelled 4.230 H*
08/07/25 08/08/25
23:45 03:42
Troponin I Cancelled 3.520 H*
Vital Signs and I&O:
Vital Signs
Temp Pulse Resp BP Pulse Ox
97.4 F 46 14 104/57 95
08/10/25 07:08 08/10/25 08:00 08/10/25 08:00 08/08/25 18:17 08/10/25 08:00
Vital Signs
Temp Pulse Resp BP Pulse Ox
97.4 F 46 14 104/57 95
08/10/25 07:08 08/10/25 08:00 08/10/25 08:00 08/08/25 18:17 08/10/25 08:00
Intake & Output
08/08/25 08/09/25 08/10/25 08/11/25
06:59 06:59 05:59 06:59
Intake Total 3164.5 / 3555.0 5098.7 / 5247.2 2799.1 / 2907.2 216.2 / 216.2
Output Total 150 / 200 725 / 725 835 / 850
Balance 3014.5 / 3355.0 4373.7 / 4522.2 1964.1 / 205.2 186.2 / 186.2
Physical Exam
Physical Exam
General: Intubated and sedated
Heart: Distant heart
Lungs: Intubated and coarse anterior breath sounds
Abdomen: Normal bowel sounds, soft, non-tender, non-distended.
Extremities: No clubbing, cyanosis or edema bilaterally.
Neuro: Sedated
--- NOTE | 2025-08-10 10:15 | PTCARENOTE ---
Rec'd pt at 0700. Pt sedate on Fent/Precedex gtts on vent. Monitor SBR 40-50's, prolonged QT, pt aware. Lungs sct coarse. With suctioning/coughing this am HR dropping into 30's and BP also dropping into 70's briefly. Dr. Courtney notified. Precedex
gtts dc'd, PRN Ativan given per MD. +BS, abd soft. DHT with tube feeds at goal 50mls/hr. Muller draining jarvis urine, decreased UO this am, MD aware.
[2025-08-10 10:35] LABS: APTT 84.6 Sec (23.4-35.0)
[2025-08-10] MEDS: SUBLIMAZE 100 MCG IV ×3 (11:22→13:14)
--- NOTE | 2025-08-10 12:48 | PTCARENOTE ---
Pt restless in bed, family frequently stimulating pt. HR 120's, SBP 150-160's. CPOT-5, PRN Fentanyl given with minimal effects. PRN Ativan given.
[2025-08-10] MEDS: TYLENOL 650 MG PO ×2 (13:46→20:18)
[2025-08-10] MEDS: PRECEDEX 100 IV (13:49)
[2025-08-10] MEDS: HEPARIN 25000 UNITS/250 ML IV (14:55)
--- NOTE | 2025-08-10 15:09 | PTCARENOTE ---
Pt continued with restlessness/agitation and kicking legs OOB despite PRN meds. HR 130's, SBP 150's. Dr. Courtney notified. Precedex gtts restarted at ~1345. Pt repositioned into chair position in bed. Pt appears calmer at this time. HR 80's, SBP
90-100's.
[2025-08-10 15:30] VITALS: BP_SYST 82
[2025-08-10 16:24] LABS: APTT 80.6 Sec (23.4-35.0)
[2025-08-10] MEDS: LIPITOR 40 MG TUBE (17:13)
--- NOTE | 2025-08-10 20:00 | PTCARENOTE ---
Received pt intubated and sedated on precedex and fentanyl gtts. Pt. drowsy but arousable, opens eyes, following some simple commands but then drifts back to sleep. NIH = 10 (difficult to assess due to sedation). SB on tele, HR 50s. On neto gtt to
maintain MAP>65- see worklist. Weak DPs. Temp 100.7 - tylenol given. Heparin gtt per protocol. #8 ETT @24cm at lip, moved to the right. Tolerating A/C 14/500/+5/40%. Spo2 100%. Lungs diminished and coarse. Dobhoff tube with jevity 1.5 at goal. Temp
sensing angulo draining jarvis urine. R midline with fent, dex and neto. R radial A line tubing changed and redressed. Turning q2
--- NOTE | 2025-08-10 22:22 | PTCARENOTE ---
When turning pt in bed, pt vomited small amount (color of tube feed). Small amt then suctioned out of mouth. TF residual checked = 780ml tube feed. RENETTA Weems notified. Orders to reduce tube feeds to 25ml/hr.
[2025-08-10] MEDS: XALATAN OPHTHALMIC SOLUTION 1 DROP BOTH EYES (22:57)
[2025-08-10 23:32] LABS: Glucose - Point of Care 114 mg/dl (70-99)
[2025-08-11] MEDS: UNASYN IV ×4 (02:40→19:34)
[2025-08-11 02:46] VITALS: BMI 32.6
[2025-08-11 03:58] LABS: Hematocrit 37.8 % (39.0-52.0); Hemoglobin 12.2 g/dL (13.0-18.0); Mean Corp Hgb Conc. 32.3 g/dL (33.0-37.0); Mean Corpuscular Volume 90.6 fL (80.0-94.0); Nucleated Red Blood Cells % 0 % (-); Platelet Count 132 10^3/uL (130-400); Red Cell Dist. Width 14.5 % (11.5-14.5)
[2025-08-11] MEDS: SUBLIMAZE 100 MCG IV ×7 (03:59→22:33)
[2025-08-11 04:03] LABS: APTT 89.3 Sec (23.4-35.0)
--- NOTE | 2025-08-11 04:03 | PTCARENOTE ---
Addendum entered by Kinga Huffman RN 08/11/25 04:27:
Shortly after fentanyl bolus given, pt agitated again, HR 100, BP 170/90s. Unable to redirect. PRN ativan given.
Original Note:
Fentanyl and dex titrated down overnight- see worklists Pt required bolus of fentanyl for agitation but now resting calmly again. Difficult to redirect when he becomes agitated. AM labs drawn. Was bathed w CHG.
[2025-08-11] MEDS: ATIVAN 1 MG IV ×2 (04:26→08:59)
[2025-08-11 04:41] LABS: Blood Urea Nitrogen 27 mg/dl (9-20); Calcium 8.6 mg/dl (8.4-10.2); Carbon Dioxide 23 mmol/L (22-30); Chloride 108 mmol/L (98-107); Estimated Creatinine Clearance 86 ml/min; Glucose 111 mg/dl (70-99); Potassium 4.1 mmol/L (3.5-5.1); Sodium 134 mmol/L (135-145); eGFR > 60.00
[2025-08-11] MEDS: PRECEDEX 100 IV ×2 (06:13→22:39)
[2025-08-11] MEDS: VANCOCIN 150 IV (07:02)
--- NOTE | 2025-08-11 07:37 | W.PN.INTV ---
Today's Communication / Plan
Recommendations
Diuresis
Replace electrolytes
Heparin drip continues
Gentle sedation
Antibiotics
Attempt spontaneous breathing trial
Assessment
-
85-year-old male with history of severe sleep apnea, intolerant to CPAP therapy, multiple TIAs presenting with facial droop, aphasia, hypertension, hyperlipidemia, presents with acute mental status changes, aphasia, facial droop. This time,
symptoms did not resolve prompting admission 08/06. Imaging without evidence of acute stroke but symptoms persisted. Patient developed increased respiratory distress requiring intubation for airway protection, agonal breathing, transferred to ICU
08/07/2025
Acute respiratory failure
Intubated 08/07/2025, secondary to respiratory distress
Significant upper airway secretions, thick upon intubation
Bilateral pneumonia
Fevers/leukocytosis
Suspected aspiration syndrome
Poor airway clearance, lack of effective cough in the setting of stroke/mental status changes
Elevated troponin, abnormal EKG
Cardiomyopathy, EF 25%, new
Hypotension
Intermittently requiring phenylephrine
Suspect multifactorial (new cardiomyopathy, pneumonia)
Lower extremity DVT
Conditions present prior to admission
History of abdominal aortic aneurysm, suprarenal, 4.7 cm per imaging January 2025
Hypertension/hyperlipidemia
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
Dose recently increased to 5 mg twice a day
Coronary disease with history of angioplasty/stent, LAD
[id number] history, quit 1979
History of cholecystectomy
History of pyelonephritis
BPH
Family history of cancer (lung, colon, brain)
History of Alzheimer's dementia
Multiple falls
Plan/recommendations
Remains critically ill on a ventilator
Ventilator settings reviewed
Attempt spontaneous breathing trial if mental status improves after diuresis
Follow chest x-ray
Nebulizers as needed
VAP prevention protocol
Precedex and fentanyl-monitor for bradycardia and QTc prolongation
Cultures reviewed
MRSA screen positive
Sputum culture-usual respiratory william
Blood cultures negative
Antibiotics for community-acquired pneumonia and aspiration-Unasyn and vancomycin
Pressors-attempt to wean off phenylephrine
Monitor for arrhythmias and recurrent bradycardia
Monitor QTc
IV heparin
Cardiology following-correspondence reviewed
Eventual ischemia evaluation
Repeat echo with drop in EF (25%), questionable stress cardiomyopathy vs ischemic?
Diuresis as tolerated
Monitor renal function, electrolytes, intake/output, lower extremity edema and weight
Replace electrolytes as needed
Dobbhoff tube placed
Tolerating tube feeds, continue
Minimize fluids at this time, significant positive fluid status
Patient with history of DVTs
Was on outpatient Eliquis, unclear if this was for history of TIA
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
Currently on a heparin drip
DVT prophylaxis-on heparin drip
GI prophylaxis-on Protonix
Nutrition-tube feeds
Early mobilization/bedside range of motion
Critical care statement: A total of 45 minutes of critical care time was provided for this patient today. This includes management of unstable vital signs, evaluation of the patient at bedside, reviewing the patient�s pertinent medical records
including radiographs, ventilator settings, pressor management, microbiology, laboratory evaluations, and��discussion with primary team, consultants, pharmacy, nutrition, physical therapy, case management, charge nurse, critical care nursing, and
respiratory therapy.
Subjective Dataa
Subjective Data
Date of Service:
Date of Service: August 11, 2025
Chief Complaint: [employer] Follow Up and Pulmonary Follow Up
Subjective:
Agitated this morning, no increased secretions, body weight increased,
Review of Systems
General: Unobtainable - Sedation and Other (Per HPI)
Objective Data
Data Reviewed
Vital Signs / I&O / Oxygen:
Vital Signs
Temp Pulse Resp BP Pulse Ox
99.6 F 64 14 104/57 100
08/11/25 03:53 08/11/25 06:30 08/11/25 06:30 08/08/25 18:17 08/11/25 07:31
Intake and Output
08/10/25 08/11/25 08/12/25
05:59 06:59 06:59
Intake Total 2799.1 / 2907.2 2663.9 / 2893.4 229.5 / 229.5
Output Total 835 / 850 515 / 555 40 / 40
Balance 1964.1 / 2057.2 2148.9 / 2338.4 189.5 / 189.5
SaO2 [A/C] 100
SaO2 100
Nasal Cannula flow liters per 6
minute
Physical Exam
General: Respiratory Distress (n) and Comfortable
HEENT: Normocephalic and Anicteric
Cardiovascular: Regular Rhythm, Murmur (n), Rub (n), Peripheral Edema (tr) and Calf Tenderness (n)
Respiratory: Wheeze (n), Crackles (n), Rhonchi (few), Non-Labored Respirations, ET Tube and Other (Bronchial breath sounds, decreased at the base)
GI: Soft, Non Distended and Non Tender
Neurology: No Motor Deficits and Lethargic (Sedated)
Skin: Warm, Good Color, Cyanosis (n), Jaundice (n) and Bruising (Few)
Labs/Micro/Reports
Lab Data
08/11/25 03:39
08/11/25 03:39
Laboratory Results
08/10/25 08/10/25 08/11/25
10:01 16:01 03:39
APTT 84.6 H 80.6 H 89.3 H
Microbiology
08/08/25 15:16 Tracheal Aspirate Respiratory Culture - Final
Usual Respiratory William
08/08/25 15:16 Tracheal Aspirate Gram Stain - Final
08/08/25 09:15 Nose Nasal Screen MRSA (PCR) - Final
Staph aureus MRSA
[2025-08-11] MEDS: PROTONIX IV 40 MG IV (07:46)
[2025-08-11] MEDS: MIRALAX 17 GRAMS TUBE (07:46)
[2025-08-11] MEDS: NSS (PRESERVATIVE FREE) 10 ML IV (07:46)
[2025-08-11] MEDS: LOW STRENGTH ASPIRIN 81 MG TUBE (07:46)
[2025-08-11 07:54] VITALS: BP 123/72
--- NOTE | 2025-08-11 08:09 | W.PN.CARDCBS ---
Today's Communication / Plan
-
Agree with IV Lasix
Stay off phenylephrine if possible
Fentanyl preferable to Precedex given tendency for QT prolongation with latter
No objections to IV Lasix
Continue heparin, eventual DOAC for A-fib
Eventual ischemic evaluation
Impression / Plan
-
Impression:
Acute respiratory failure intubated
Septic shock
Troponin elevation possibly AK versus nonischemic troponin elevation related to neurologic status
Abnormal EKG with profound T wave inversion
Heart failure with reduced ejection fraction, new during this event
TIAs change in mental status
Acute encephalopathy
Pneumonia with possible aspiration
Hypotension
History of multiple TIAs
History of Alzheimer's dementia
History of abdominal aortic aneurysm 4.7 cm (January 2025)
Hypertension
Hyperlipidemia
Echocardiogram 08/07/2025: Ejection fraction 25 to 30% severely reduced with apical akinesis. Normal right ventricle. Mild AR. Trace MR.
Plan:
He remains critically ill on the ventilator, obtunded, and with profound QT prolongation. He he is on Precedex which can exacerbate QT effects, would preferentially use fentanyl and lorazepam or other benzo for sedation, also avoid propofol given
QT effects.
His EKG has profound T wave changes, obstructive CAD versus Takotsubo. As he recovers eventually will need to consider ischemic evaluation based on his functional status and goals of care
He is somewhat volume overloaded, agree with Lasix
Continue to keep magnesium and potassium in mid to high normal range
Hopefully to wean.
Continue IV heparin, eventually back on DOAC
Continue low-dose aspirin at present
Discussed with Dr Sanches and nursing
Progress Note - Floor Polisher
Subjective
Date of Service: August 11, 2025:
85-year-old man admitted with stroke and subsequent respiratory failure August 06, extensive left lower pneumonia and troponin of 5.
PMH/PSH: Anterior AK, LAD PCI 2014, history of DVT, hypertension, memory loss, multiple atherothrombotic TIAs, syncope, sleep apnea, 4.4 cm abdominal aortic aneurysm
Current meds: Vancomycin, Precedex, MiraLAX, atorvastatin, heparin IV, aspirin 81 mg a day, fentanyl, Hernán-Synephrine
Weight: 97.2 kg 123/72, pulse 45 respiratory rate 16, sats 100% 40% on ventilator, moving spontaneously, restless not terribly agitated, exam is limited, diminished breath sounds but limited inspiration, regular rate and rhythm, heart rate 80s to
90s while awake, 40s while sleeping, no obvious murmurs, JVD not dramatically elevated 1+ edema
BUN and creatinine are 27 and 0.7, potassium is 4.1 PTT is 89, hemoglobin is 12.2
Chest x-ray effusions, infiltrates bilaterally
ECG: Sinus bradycardia, profound QT prolongation with deep anterolateral T wave inversions
QTc: > 600 ms
ECG: EF 25-30%, apical akinesis, mild AR and trace MR, normal RV, possible Takotsubo
Objective
Labs:
08/11/25 03:39
08/11/25 03:39
Labs
Hgb 12.2 g/dL (13.0-18.0) L 08/11/25 03:39
Hct 37.8 % (39.0-52.0) L 08/11/25 03:39
Plt Count 132 10^3/uL (130-400) D 08/11/25 03:39
PT 15.9 Sec (11.4-14.6) H 08/06/25 11:00
INR 1.22 08/06/25 11:00
APTT 89.3 Sec (23.4-35.0) H 08/11/25 03:39
Sodium 134 mmol/L (135-145) L 08/11/25 03:39
Potassium 4.1 mmol/L (3.5-5.1) 08/11/25 03:39
BUN 27 mg/dl (9-20) H 08/11/25 03:39
Creatinine 0.7 mg/dL (0.7-1.3) 08/11/25 03:39
Glucose 111 mg/dl (70-99) H 08/11/25 03:39
Vital Signs and I&O:
Vital Signs
Temp Pulse Resp BP Pulse Ox
37.4 C 45 14 123/72 100
08/11/25 07:41 08/11/25 07:30 08/11/25 07:30 08/11/25 07:54 08/11/25 07:31
Vital Signs
Temp Pulse Resp BP Pulse Ox
37.4 C 45 14 123/72 100
08/11/25 07:41 08/11/25 07:30 08/11/25 07:30 08/11/25 07:54 08/11/25 07:31
Intake & Output
08/09/25 08/10/25 08/11/25 08/12/25
07:59 06:59 07:59 07:59
Intake Total 4856.7 / 5130.2 2758.7 / 2866.8 2785.3 / 2785.3
Output Total 675 / 675 850 / 865 540 / 540
Balance 4181.7 / 4455.2 1908.7 / 2001.8 2245.3 / 2245.3
Physical Exam
Physical Exam
See above
--- NOTE | 2025-08-11 08:22 | PHA.VAN.FU ---
Vancomycin Assessment / Plan
- Assessment
Renal Function: Stable
WBC's are: WNL
Concomitant Antimicrobials: ampicillin/sulbactam
- Assessment - Therapeutic Drug Monitoring
Extrapolated Cmax (mcg/mL): 20.6
Peak level was drawn: Appropriately (drawn ~1.5H after end of previous infusion)
Extrapolated Cmin (mcg/mL): 9.4
Trough Drawn: Appropriately
Levels were drawn: At steady state (levels drawn after 4th maintenance dose)
Calculated AUC (mcg*h/mL): 344
Calculated ke: 0.0713
Calculated half life (H): 9.7
Calculated Vd (L): 61 (~0.6 L/kg)
Calculated Vanc CL (ml/min): 73
- Dosing Plan
Adjust Regimen to: Vanc 1000mg Q12H
New Regimen Predicts: AUC (475), Peak (28.4), Trough (13)
- Monitoring Plan
No level(s) ordered at this time: consider levels in next few days
- Follow Up
Pharmacy will continue to follow.
Vancomycin Follow UP
- -
Patient Age: 85
Patient Sex: Male
Vancomycin Day #: 4
Indication: Pulmonary/Respiratory
Requesting Provider: Dr. Tillman
Pertinent Antimicrobial Allergies:
clarithromycin - rash
clindamycin - rash
levofloxacin - rash
mupirocin - rash
penicillins - rash
sulfonamide antibiotics - rash
Height / Weight:
Height 5 ft 8 in
Actual Weight 97.2 kg
- Vital Signs / Lab Results
Temp Pulse Resp BP Pulse Ox
99.3 F 75 16 123/72 100
08/11/25 07:41 08/11/25 08:00 08/11/25 08:00 08/11/25 07:54 08/11/25 08:00
Lab Results - Hematology
11/11/0208/10/25 08/11/25
03:53 03:36 03:39
WBC 9.8 8.5 9.2
Lab Results - Chemistry
08/08/25 08/09/25 08/10/25
20:46 03:53 03:36
BUN 26 H 25 H 25 H
Creatinine 0.7 0.7 0.6 L
Estimated Creat Clear 73 82 96
08/11/25
03:39
BUN 27 H
Creatinine 0.7
Estimated Creat Clear 86
Microbiology Results
08/08/25 15:16 Respiratory Culture - Final
Tracheal Aspirate Usual Respiratory Ashely
Gram Stain - Final
Therapeutic Drug Monitoring
Vancomycin Peak 18.5 ug/ml (18-26) 08/10/25 19:43
Vancomycin Trough 9.3 ug/ml (5-20) 08/11/25 05:22
--- NOTE | 2025-08-11 08:40 | PTCARENOTE ---
Rec'd care of patient at 0700. Patient intubated and sedated on Fentanyl/Precedex drips. Intermittent periods of agitation. Thrashing in bed and attempting to pull out ett. Calming methods and reorientation unsuccessful. Inconsistently following
commands. PERRLA. MAEx4; normal strength. HR ranging from 40's to 110's. SB/NSR/ST, prolonged QT interval. Right radial tessie zeroed and flushed. Correlating with bp cuff. Hernán titrated off; MAP>65. #8.0 ett, 24 cm @ the lip. Vent settings- A/C
14/500/5/40%. Lung sounds diminished throughout. Pulse ox 98-100%. While repositioning in bed, pulse ox down to 84%. Quick to recover. Small amount of secretions suctioned from ett. +BS. Abdomen round/soft/distended. No BM. TFs running through DHT.
Muller in place for critical I/O. Output 30-40 cc/hr. Decreased urine output and large weight gain discussed with Health Analyst. Plan to diurese and then attempt to wean off ventilator.
--- NOTE | 2025-08-11 08:50 | PTOTSP ---
Reviewed chart. Pt remains intubated and sedated, and is not appropriate for PT evaluation at this time. Will need updated PT/OT orders post-extubation when stable to participate.
[2025-08-11] MEDS: NSS (PRESERVATIVE FREE) 0.5 ML IV (09:00)
[2025-08-11] MEDS: SUBLIMAZE 100 IV ×2 (09:30→20:10)
--- NOTE | 2025-08-11 10:44 | PTCARENOTE ---
US b/l LE completed as ordered. at bedside; all questions answered.
[2025-08-11] MEDS: LASIX 20 MG IV (10:50)
[2025-08-11] MEDS: COLACE LIQUID 100 MG TUBE ×2 (11:01→19:35)
[2025-08-11] MEDS: SENNA SYRUP 8.6 MG TUBE ×2 (11:02→19:35)
--- NOTE | 2025-08-11 11:03 | PTCARENOTE ---
Orders for diuresis and bowel regimen obtained. 20mg IV Lasix administered.
[2025-08-11] MEDS: HEPARIN 25000 UNITS/250 ML IV (11:04)
[2025-08-11 11:38] VITALS: BP_SYST 159
[2025-08-11 11:44] VITALS: BP_SYST 159
--- NOTE | 2025-08-11 12:31 | PTCARENOTE ---
Systems reviewed. Around 1130, agitation worsening. Fentanyl bolus administered. RT at bedside. SBT attempted. Tachycardia and hypertension worsening. Vent settings changed to ASV at 1200. HR and BP improved. Patient calmer. Muller output 790 mL
after receiving 20mg IV Lasix. Lytes and ABG ordered to be drawn at 1300. No other changes.
[2025-08-11 13:16] LABS: B.E. 2.3 mmol/L; HCO3 26.5 mmol/L (21-28); O2 Saturation % 97.8 % (94-98); PCO2 39 mmHg (35-48); PO2 80 mmHg (83-108)
--- NOTE | 2025-08-11 13:41 | PTCARENOTE ---
Patient observed to be bleeding from around right radial arterial line from restlessness/tugging on restraints. Dressing changed. While changing linens, patient agitated and thrashing. HR in the 120's. BP 210/80's. RR 30-40's. Volumes down. Large
amount of thick, madsen secretions suctioned from ett. Repositioned for comfort. Fentanyl bolus administered. Agitation and vitals improved in response.
[2025-08-11 13:49] LABS: Carbon Dioxide 26 mmol/L (22-30); Chloride 103 mmol/L (98-107); Potassium 3.7 mmol/L (3.5-5.1); Sodium 132 mmol/L (135-145)
[2025-08-11] MEDS: KCL ELIXIR 40 MEQ TUBE (15:57)
--- NOTE | 2025-08-11 16:20 | CM ---
Intubated, SBT, heparin drip, IV/AB. Discharge POC: TBD
--- NOTE | 2025-08-11 16:30 | PTCARENOTE ---
Systems reviewed. Patient resting comfortably. RASS -1 to -2. Lung sounds less diminished than prior assessments. Urine output 100-200 cc/hr. VSS. No other changes.
--- NOTE | 2025-08-11 16:36 | W.PN.HOSP.TC ---
Today's Communication/Plan
-
remains intubated, sedated. IV abx, IV lasix. hopefully resp status improves enough for wean trial
Assessment / Plan
Assessment / Plan
85M with HTN, HLD, CAD s/p stents, BPH, AMANDA not on CPAP, periodic limb movement disorder, degenerative joint disease, GERD, H/O DVT on Eliquis, glaucoma, multiple TIAs; p/w acute and intermittent onset of aphasia and facial droop.
A/P:
Acute metabolic encephalopathy
p/w confusion with aphasia/facial droop, ddx include TIA vs seizure vs CAP
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
s/p Ativan, Haldol in ED
Admission CT head and CT head neck angio unrevealing
repeat CT head again showed No acute intracranial abnormality
MRI brain also without acute intracranial abnormality.
EEG rec per neuro
Acute hypoxic respiratory failure
Suspected aspiration pneumonia with component of community acquired pneumonia
CXR: Left basilar atelectasis and/or pneumonia.
Pt was intubated 08/07 for respiratory distress/airway protection. Sedation and mechanical ventilation per Administrative Specialist. Wean precedex as able as may be contributing to prolonged QT
Dophoff placed, Tube feed started with water flushes
Muller placed
Cont ICU level of care
Continue IV antibiotics per CC - unasyn
MRSA positive, added vancomycin
Continue IV lasix for diuresis as per CC
Hypotension
Septic shock vs Post-intubation hypotension
req pressors, Hernán - now OFF
Cardiomyopathy
Troponin elevation possibly [place] versus nonischemic troponin elevation related to neurologic status
Per Cardiology, CAD vs Takotsubo's CMP.. Appreciate mgmt. possible ischemic eval after pt stabilizes
Trop peak at 5.33
EKG showed TWI and pt has long QT
Echo showed low EF 25-30%, new LV dysfunction, apical akinesis with sparing of the base. This could represent Takotsubo but cannot exclude OK at this point.
Cont IV heparin
Cont IV lasix
Hyperlipidemia
LDL at 33
Cont DIGITAL PROGRAM MANAGER atorvastatin via Dobbhoff
GERD
IV PPI
h/o DVT
DIGITAL PROGRAM MANAGER Eliquis on hold
now on heparin drip
DVT: heparin drip
Full code
Anticipated Discharge: > 48 hours
Subjective/Interval History
-
Date of Service: August 11, 2025
Seen in a.m., patient was agitated, so Precedex had to be increased. Discussed with nurse and cardiology, plan to lower Precedex as able as it may be contributing to long QT
Objective Data
-
Labs:
Laboratory Results
08/11/25 08/11/25
03:39 13:07
WBC 9.2
Hgb 12.2 L
Hct 37.8 L
Plt Count 132 D
HCO3 26.5
Sodium 134 L 132 L
Potassium 4.1 3.7
Chloride 108 H 103
Carbon Dioxide 23 26
BUN 27 H
Creatinine 0.7
Glucose 111 H
Calcium 8.6
Vital Signs:
Vital Signs
Temp Pulse Resp BP Pulse Ox
99.9 F 64 13 164/74 99
08/11/25 15:20 08/11/25 16:30 08/11/25 16:30 08/11/25 10:50 08/11/25 16:30
I&O
08/10/25 08/11/25 08/12/25
05:59 06:59 06:59
Intake Total 2799.1 / 2907.2 2663.9 / 2893.4 1081.5 / 1081.5
Output Total 835 / 850 515 / 555 1989 / 1989
Balance 1964.1 / 2056.2 2148.9 / 2338.4 -908.5 / -908.5
Review of Systems
-
Unable to obtain full review of systems at this time due to: Patient Intubation
Physical Exam
-
General: Intubated
HEENT: PERRLA
Respiratory: Clear to Auscultation
Cardiac: Regular Rhythm and S1/S2; Negative Murmur, Rub or Gallop
GI: Soft, Nontender, Nondistended and Normal Bowel Sounds
Skin: Warm and Dry
Neuro: Awake
Hematologic / Lymphatic: No Lymphadenopathy
Psych: Agitated
Data Reviewed
-
Labs: Labs Reviewed by me, Discussed with Physician and Discussed with Nurse
[2025-08-11] MEDS: VANCOCIN 200 IV (17:43)
[2025-08-11] MEDS: LIPITOR 40 MG TUBE (17:43)
--- NOTE | 2025-08-11 18:30 | PTCARENOTE ---
No BM after receiving Miralax, Senna, Colace. Abdomen distention increasing. TFs placed on hold. GLUER MACHINE OPERATOR aware.
[2025-08-11] MEDS: TYLENOL ORAL SOLUTION 650 MG TUBE (19:45)
[2025-08-11] MEDS: LEVOPHED 250 IV (21:28)
[2025-08-11] MEDS: XALATAN OPHTHALMIC SOLUTION 1 DROP BOTH EYES (21:29)
[2025-08-11 21:30] VITALS: BP_SYST 85
--- NOTE | 2025-08-11 21:32 | PTCARENOTE ---
levo gtt initiated to maintain SBP >90
[2025-08-11 21:42] VITALS: BP_SYST 124
[2025-08-11 23:11] VITALS: BP_SYST 87
[2025-08-12] VITALS (38 sets, daily range): BP systolic 87–172; BP diastolic 43–141; PULSE 39; BMI 31.8
[2025-08-12] MEDS: SUBLIMAZE 100 MCG IV ×4 (01:25→14:20)
[2025-08-12] MEDS: UNASYN IV ×4 (02:56→19:51)
[2025-08-12 03:16] LABS: B.E. 1.2 mmol/L; HCO3 26.0 mmol/L (21-28); O2 Saturation % 99.1 % (94-98); PCO2 41 mmHg (35-48); PO2 126 mmHg (83-108)
[2025-08-12 03:24] LABS: Hematocrit 34.9 % (39.0-52.0); Hemoglobin 11.5 g/dL (13.0-18.0); Mean Corp Hgb Conc. 33.0 g/dL (33.0-37.0); Mean Corpuscular Volume 90.9 fL (80.0-94.0); Platelet Count 123 10^3/uL (130-400); Red Cell Dist. Width 14.5 % (11.5-14.5)
[2025-08-12 03:28] LABS: APTT 87.3 Sec (23.4-35.0)
[2025-08-12 03:40] LABS: Blood Urea Nitrogen 23 mg/dl (9-20); Calcium 8.6 mg/dl (8.4-10.2); Carbon Dioxide 26 mmol/L (22-30); Chloride 104 mmol/L (98-107); Estimated Creatinine Clearance 100 ml/min; Glucose 121 mg/dl (70-99); Magnesium 1.9 mg/dl (1.6-2.3); Potassium 3.9 mmol/L (3.5-5.1); Sodium 135 mmol/L (135-145); eGFR > 60.00
[2025-08-12] MEDS: SUBLIMAZE 100 IV ×2 (04:12→17:07)
--- NOTE | 2025-08-12 04:24 | PTCARENOTE ---
AM labs sent. pt agitated at times overnight. restraints in place. remains SB on monitor. pt tolerating ASV settings overnight. TF remains off. oral care and angulo care provided. arterial line set up changed, new dressing applied.
heparin/fent/precedex gtts continue. care continues.
[2025-08-12] MEDS: ATIVAN 1 MG IV (04:51)
[2025-08-12] MEDS: VANCOCIN 200 IV ×2 (05:04→17:07)
[2025-08-12] MEDS: HEPARIN 25000 UNITS/250 ML IV (06:12)
--- NOTE | 2025-08-12 07:27 | W.PN.INTV ---
Today's Communication / Plan
Recommendations
No change in ventilator
Not ready for spontaneous breathing trial
Mucolytic's
Antibiotics
Diuresis
Goals of care discussion ongoing
Assessment
-
85-year-old male with history of severe sleep apnea, intolerant to CPAP therapy, multiple TIAs presenting with facial droop, aphasia, hypertension, hyperlipidemia, presents with acute mental status changes, aphasia, facial droop. This time,
symptoms did not resolve prompting admission 08/06. Imaging without evidence of acute stroke but symptoms persisted. Patient developed increased respiratory distress requiring intubation for airway protection, agonal breathing, transferred to ICU
08/07/2025
Acute respiratory failure
Intubated 08/07/2025, secondary to respiratory distress
Significant upper airway secretions, thick upon intubation
Bilateral pneumonia
Fevers/leukocytosis
Suspected aspiration syndrome
Poor airway clearance, lack of effective cough in the setting of stroke/mental status changes
Elevated troponin, abnormal EKG
Cardiomyopathy, EF 25%, new
Hypotension
Intermittently requiring phenylephrine
Suspect multifactorial (new cardiomyopathy, pneumonia)
Lower extremity DVT
Conditions present prior to admission
History of abdominal aortic aneurysm, suprarenal, 4.7 cm per imaging January 2025
Hypertension/hyperlipidemia
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
Dose recently increased to 5 mg twice a day
Coronary disease with history of angioplasty/stent, LAD
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
History of cholecystectomy
History of pyelonephritis
BPH
Family history of cancer (lung, colon, brain)
History of Alzheimer's dementia
Multiple falls
Plan/recommendations
Remains critically ill on a ventilator-thick tenacious secretions
Ventilator settings reviewed
Attempt spontaneous breathing trial if mental status improves after diuresis
Follow chest x-ray
Nebulizers as needed
VAP prevention protocol
Precedex and fentanyl-monitor for bradycardia and QTc prolongation
Add Mucinex
Add saline nebulizers
Cultures reviewed
MRSA screen positive
Sputum culture-usual respiratory william
Blood cultures negative
Antibiotics for community-acquired pneumonia and aspiration-Unasyn and vancomycin
Pressors-attempt to wean off phenylephrine
Monitor for arrhythmias and recurrent bradycardia
Monitor QTc
IV heparin
Cardiology following-correspondence reviewed
Eventual ischemia evaluation
Repeat echo with drop in EF (25%), questionable stress cardiomyopathy vs ischemic?
Diuresis continues as tolerated
Monitor renal function, electrolytes, intake/output, lower extremity edema and weight
Replace electrolytes as needed
Dobbhoff tube placed
Tolerating tube feeds, continue
Minimize fluids at this time, significant positive fluid status
Work on bowel regiment
Patient with history of DVTs
Was on outpatient Eliquis, unclear if this was for history of TIA
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
Currently on a heparin drip
DVT prophylaxis-on heparin drip
GI prophylaxis-on Protonix
Nutrition-tube feeds
Early mobilization/bedside range of motion
Reviewed with , daughter and granddaughter on multidisciplinary rounds 08/12/2025 discussed DNR status and potential extubation and no reintubation-they will think about it
Critical care statement: A total of 45 minutes of critical care time was provided for this patient today. This includes management of unstable vital signs, evaluation of the patient at bedside, reviewing the patient�s pertinent medical records
including radiographs, ventilator settings, pressor management, microbiology, laboratory evaluations, and��discussion with primary team, consultants, pharmacy, nutrition, physical therapy, case management, charge nurse, critical care nursing, and
respiratory therapy.
Subjective Dataa
Subjective Data
Date of Service:
Date of Service: August 12, 2025
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
Subjective:
Intermittently agitated, blood pressure high then low, now on pressors, thick tenacious secretions,
Review of Systems
General: Unobtainable - Pat Unresp
Objective Data
Data Reviewed
Vital Signs / I&O / Oxygen:
Vital Signs
Temp Pulse Resp BP Pulse Ox
98.0 F 43 13 164/74 100
08/12/25 07:00 08/12/25 07:00 08/12/25 07:00 08/11/25 10:50 08/12/25 07:09
Intake and Output
08/11/25 08/12/25 08/13/25
06:59 06:59 06:59
Intake Total 2663.9 / 2893.4 2122.3 / 2151.8 29.5 / 29.5
Output Total 515 / 555 2630 / 2655
Balance 2148.9 / 2338.4 -507.7 / -503.2 4.5 / 4.5
SaO2 [ASV] 100
SaO2 [A/C] 100
SaO2 100
Nasal Cannula flow liters per 6
minute
Physical Exam
General: Respiratory Distress (n) and Comfortable
HEENT: Normocephalic and Anicteric
Cardiovascular: Regular Rhythm, Murmur (n), Rub (n), Peripheral Edema (tr) and Calf Tenderness (n)
Respiratory: Wheeze (n), Crackles (n), Rhonchi (few), Non-Labored Respirations, ET Tube and Other (Bronchial breath sounds, decreased at the base)
GI: Soft, Non Distended and Non Tender
Neurology: No Motor Deficits and Lethargic (Sedated)
Skin: Warm, Good Color, Cyanosis (n), Jaundice (n) and Bruising (Few)
Labs/Micro/Reports
Lab Data
08/12/25 03:05
08/12/25 03:05
Laboratory Results
08/11/25 08/12/25
13:07 03:05
APTT 87.3 H
pH 7.44 7.41
pCO2 39 41
pO2 80 L 126 H
HCO3 26.5 26.0
O2 Delivery Level
Microbiology
08/08/25 15:16 Tracheal Aspirate Respiratory Culture - Final
Usual Respiratory William
08/08/25 15:16 Tracheal Aspirate Gram Stain - Final
--- NOTE | 2025-08-12 07:58 | W.PN.CARDCBS ---
Today's Communication / Plan
-
IV Lasix
Check proBNP
Magnesium and potassium supplementation
Hopefully to extubate
Impression / Plan
-
Impression:
Acute respiratory failure intubated
Septic shock
Troponin elevation possibly [place] versus nonischemic troponin elevation related to neurologic status
Abnormal EKG with profound T wave inversion
Heart failure with reduced ejection fraction, new during this event
TIAs change in mental status
Acute encephalopathy
Pneumonia with possible aspiration
Hypotension
History of multiple TIAs
History of Alzheimer's dementia
History of abdominal aortic aneurysm 4.7 cm (January 2025)
Hypertension
Hyperlipidemia
Echocardiogram 08/07/2025: Ejection fraction 25 to 30% severely reduced with apical akinesis. Normal right ventricle. Mild AR. Trace MR.
Plan:
He remains on the ventilator, remains obtunded, and is still volume overloaded but overall improved. Precedex has been stopped, which will help regarding his QT interval, now on fentanyl for sedation. When sleeping, heart rate is in the 40s and
even high 30s, when stimulated heart rate goes to 90s and he becomes very hypertensive. Norepinephrine was started and is now off.
His QT interval is better. Will check electrocardiogram.
Attempts to wean have been limited related to agitation. Plan is quick wean and extubation per nursing.
He remains on IV heparin given his non-ST segment elevation MA, possible suspected Takotsubo cardiomyopathy. Remains on aspirin. Beta-dannie and GDMT on hold related to intermittent hypotension at present.
Magnesium and potassium are currently acceptable.
proBNP has been ordered and is pending. Will give IV Lasix x 1 and supplement magnesium and potassium.
Progress Note - Frontend Engineer
Subjective
Date of Service: August 12, 2025:
85-year-old man admitted with stroke and subsequent respiratory failure August 06, extensive left lower pneumonia and troponin of 5.
PMH/PSH: Anterior MA, LAD PCI 2014, history of DVT, hypertension, memory loss, multiple atherothrombotic TIAs, syncope, sleep apnea, 4.4 cm abdominal aortic aneurysm
Current medications: IV ampicillin, still on Precedex, pantoprazole, MiraLAX, atorvastatin 40, aspirin 81 mg a day, vancomycin, norepinephrine, fentanyl, heparin
164/74, pulse 43, respiratory rate 13, afebrile, intake and output -0.7 L, weight is 94.7 kg, if accurate down 2.5 kg, obtunded, intubated, NG tube, lungs relatively clear, regular rate and rhythm, no obvious murmurs JVD hard to assess, 1+ edema
Leg vein ultrasound, probable chronic thrombus left femoral and popliteal
Last chest x-ray, diffuse haziness/infiltrates effusion
ECG: Pending
Hemoglobin 11.5, platelets 123, ABG 7.4 , BUN 23, creatinine 0.6, potassium 3.9
IV Lasix, check proBNP
IV heparin, eventual DOAC
Wean eventual
Ischemic evaluation
Follow QT interval, check ECG GDMT
Objective
Labs:
08/12/25 03:05
08/12/25 03:05
Labs
Hgb 11.5 g/dL (13.0-18.0) L 08/12/25 03:05
Hct 34.9 % (39.0-52.0) L 08/12/25 03:05
Plt Count 123 10^3/uL (130-400) L 08/12/25 03:05
PT 15.9 Sec (11.4-14.6) H 08/06/25 11:00
INR 1.22 08/06/25 11:00
APTT 87.3 Sec (23.4-35.0) H 08/12/25 03:05
Sodium 135 mmol/L (135-145) 08/12/25 03:05
Potassium 3.9 mmol/L (3.5-5.1) 08/12/25 03:05
BUN 23 mg/dl (9-20) H 08/12/25 03:05
Creatinine 0.6 mg/dL (0.7-1.3) L 08/12/25 03:05
Glucose 121 mg/dl (70-99) H 08/12/25 03:05
Vital Signs and I&O:
Vital Signs
Temp Pulse Resp BP Pulse Ox
36.7 C 43 13 164/74 100
08/12/25 07:00 08/12/25 07:00 08/12/25 07:00 08/11/25 10:50 08/12/25 07:25
Vital Signs
Temp Pulse Resp BP Pulse Ox
36.7 C 43 13 164/74 100
08/12/25 07:00 08/12/25 07:00 08/12/25 07:00 08/11/25 10:50 08/12/25 07:25
Intake & Output
08/09/25 08/10/25 08/11/25 08/12/25
07:59 06:59 07:59 07:59
Intake Total 4856.7 / 5130.2 2758.7 / 2866.8 2785.3 / 2981.8 1922.3 / 1922.3
Output Total 675 / 675 850 / 865 540 / 575 2615 / 2615
Balance 4181.7 / 4455.2 1908.7 / 2001.8 2245.3 / 2406.8 -692.7 / -692.7
Physical Exam
Physical Exam
See above
--- NOTE | 2025-08-12 08:10 | PTCARENOTE ---
Norepinephrine titrated off.
--- NOTE | 2025-08-12 08:22 | PHA.VAN.FU ---
Vancomycin Assessment / Plan
- Assessment
Renal Function: Stable
WBC's are: WNL
Concomitant Antimicrobials: ampicillin/sulbactam
- Dosing Plan
Continue: Vanc 1000mg Q12H (adjusted 08/11)
- Monitoring Plan
No level(s) ordered at this time: consider levels in next few days
- Follow Up
Pharmacy will continue to follow.
Vancomycin Follow UP
- -
Patient Age: 85
Patient Sex: Male
Vancomycin Day #: 5
Indication: Pulmonary/Respiratory
Requesting Provider: Dr. Tillman
Pertinent Antimicrobial Allergies:
clarithromycin - rash
clindamycin - rash
levofloxacin - rash
mupirocin - rash
penicillins - rash
sulfonamide antibiotics - rash
Height / Weight:
Height 5 ft 8 in
Actual Weight 94.7 kg
- Vital Signs / Lab Results
Temp Pulse Resp BP Pulse Ox
98.0 F 44 12 164/74 100
08/12/25 07:00 08/12/25 08:00 08/12/25 08:00 08/11/25 10:50 08/12/25 08:00
Lab Results - Hematology
08/10/25 08/11/25 08/12/25
03:36 03:39 03:05
WBC 8.5 9.2 8.3
Lab Results - Chemistry
08/10/25 08/11/25 08/12/25
03:36 03:39 03:05
BUN 25 H 27 H 23 H
Creatinine 0.6 L 0.7 0.6 L
Estimated Creat Clear 96 86 100
Microbiology Results
08/08/25 15:16 Respiratory Culture - Final
Tracheal Aspirate Usual Respiratory Ashely
Gram Stain - Final
Therapeutic Drug Monitoring
Vancomycin Peak 18.5 ug/ml (18-) 08/10/25 19:43
Vancomycin Trough 9.3 ug/ml (5-20) 08/11/25 05:22
[2025-08-12] MEDS: COLACE LIQUID 100 MG TUBE ×2 (08:43→19:47)
[2025-08-12] MEDS: SENNA SYRUP 8.6 MG TUBE ×2 (08:43→19:47)
[2025-08-12] MEDS: NSS (PRESERVATIVE FREE) 10 ML IV (08:44)
[2025-08-12] MEDS: MIRALAX 17 GRAMS TUBE (08:44)
[2025-08-12] MEDS: PROTONIX IV 40 MG IV (08:44)
[2025-08-12] MEDS: LOW STRENGTH ASPIRIN 81 MG TUBE (08:44)
--- NOTE | 2025-08-12 08:44 | PTOTSP ---
Pt remains intubated and sedated this AM and not appropriate for PT evaluation. Will need new orders when able to participate in therapy activities.
--- NOTE | 2025-08-12 09:45 | PTCARENOTE ---
Patient tugging on restraints and attempting to pull out ett. Right radial arterial line no longer functioning and removed by RN.
[2025-08-12] MEDS: DIPRIVAN 100 IV ×2 (11:05→18:24)
[2025-08-12] MEDS: MAGNESIUM SULFATE 100 IV (11:14)
[2025-08-12] MEDS: KCL ELIXIR 20 MEQ TUBE (11:14)
[2025-08-12] MEDS: LASIX 40 MG IV (11:14)
--- NOTE | 2025-08-12 11:15 | PTCARENOTE ---
Patient placed on wean by RT. Tolerated about 1 hr 15 minutes. Patient tachypneic, tachycardic and restless. Labored breathing. Large amount of secretions. Placed back on ASV. Fentanyl bolus administered and drip increased. Discussed with
Director Of Athletics. Propofol drip initiated.
--- NOTE | 2025-08-12 11:30 | PTCARENOTE ---
1x dose 40mg IV Lasix ordered and administered. Potassium and Magnesium repletion administered as well.
[2025-08-12] MEDS: SODIUM CHLORIDE 3% FOR INHALATION 1 VIAL INH ×2 (12:00→20:42)
[2025-08-12] MEDS: ROBITUSSIN 400 MG TUBE ×4 (12:24→23:59)
--- NOTE | 2025-08-12 13:00 | PTCARENOTE ---
Urine output 1800 cc's s/p 40mg IV Lasix. Channel Development Manager notified. Repeat labs ordered for 1500.
--- NOTE | 2025-08-12 14:03 | W.PN.HOSP.TC ---
Today's Communication/Plan
-
Failed breathing trial due to agitation, unstable vital signs
Assessment / Plan
Assessment / Plan
85M with HTN, HLD, CAD s/p stents, BPH, AMANDA not on CPAP, periodic limb movement disorder, degenerative joint disease, GERD, H/O DVT on Eliquis, glaucoma, multiple TIAs; p/w acute and intermittent onset of aphasia and facial droop.
A/P:
Acute metabolic encephalopathy
p/w confusion with aphasia/facial droop, ddx include TIA vs seizure vs CAP
Not a candidate for TNK/tPA as patient on Eliquis SLIDE FASTENER REPAIRER
s/p Ativan, Haldol in ED
Admission CT head and CT head neck angio unrevealing
repeat CT head again showed No acute intracranial abnormality
MRI brain also without acute intracranial abnormality.
EEG rec per neuro
Acute hypoxic respiratory failure
Suspected aspiration pneumonia with component of community acquired pneumonia
CXR: Left basilar atelectasis and/or pneumonia.
Pt was intubated 08/07 for respiratory distress/airway protection. Sedation and mechanical ventilation per Manager Government. Weaned off precedex as able as may be contributing to prolonged QT. On fentanyl.
Dophoff placed, Tube feed started with water flushes
Muller placed
Cont ICU level of care
Continue IV antibiotics per CC - unasyn
MRSA positive, added vancomycin
Continue IV lasix for diuresis as per CC/cardiology
Pulmonary toilet, consider nebulized saline
Hypotension -resolved
Septic shock vs Post-intubation hypotension
req pressors, Hernán - now OFF, patient is hypertensive, However GDMT is on hold due to intermittent hypotension
Cardiomyopathy
Troponin elevation possibly VT versus nonischemic troponin elevation related to neurologic status
Per Cardiology, CAD vs Takotsubo's CMP.. Appreciate mgmt. possible ischemic eval after pt stabilizes
Trop peak at 5.33
EKG showed TWI and pt has long QT
Echo showed low EF 25-30%, new LV dysfunction, apical akinesis with sparing of the base. This could represent Takotsubo but cannot exclude VT at this point.
Cont IV heparin
Intermittent IV lasix
Hyperlipidemia
LDL at 33
Cont SLIDE FASTENER REPAIRER atorvastatin via Dobbhoff
GERD
IV PPI
h/o DVT
SLIDE FASTENER REPAIRER Eliquis on hold
now on heparin drip
DVT: heparin drip
Full code
Anticipated Discharge: > 48 hours
Subjective/Interval History
-
Date of Service: August 12, 2025
Patient had a breathing trial this morning and was extremely agitated with unstable vital signs. He also has copious secretions. I discussed his care with PARTNERSHIP DEVELOPMENT MANAGER and pulm/CC physician
Objective Data
-
Labs:
Laboratory Results
08/12/25 08/12/25
03:05 15:00
WBC 8.3
Hgb 11.5 L
Hct 34.9 L
Plt Count 123 L
APTT 87.3 H
HCO3 26.0
Sodium 135 Pending
Potassium 3.9 Pending
Chloride 104 Pending
Carbon Dioxide 26 Pending
BUN 23 H
Creatinine 0.6 L
Glucose 121 H
Calcium 8.6
Vital Signs:
Vital Signs
Temp Pulse Resp BP Pulse Ox
99.3 F 99 13 141/86 97
08/12/25 12:00 08/12/25 13:02 08/12/25 13:02 08/12/25 13:02 08/12/25 13:02
I&O
08/11/25 08/12/25 08/13/25
06:59 06:59 06:59
Intake Total 2663.9 / 2893.4 2122.3 / 2151.8 381.0 / 381.0
Output Total 515 / 555 2630 / 2655 2024
Balance 2148.9 / 2338.4 -507.7 / -503.2 -1644.0 / -1644.0
Review of Systems
-
Unable to obtain full review of systems at this time due to: Patient Intubation
Physical Exam
-
General: Intubated
HEENT: PERRLA
Respiratory: Clear to Auscultation
Cardiac: Regular Rhythm and S1/S2; Negative Murmur, Rub or Gallop
GI: Soft, Nontender, Nondistended and Normal Bowel Sounds
Musculoskeletal: No Edema
Skin: Warm and Dry
Neuro: Awake
Hematologic / Lymphatic: No Lymphadenopathy
Psych: Agitated
Data Reviewed
-
Labs: Labs Reviewed by me, Discussed with Physician and Discussed with Nurse
--- NOTE | 2025-08-12 15:45 | PTCARENOTE ---
Patient thrashing and trying to pull out ett. Frequently pushing self to bottom of bed and throwing legs off side, requiring multiple boosts in bed. Unable to tolerated laying flat due to large amount of secretions. Copious amounts of thick, madsen
secretions suctioned from ett. Sedation increased. Activity Leader notified. Sputum cx obtained.
[2025-08-12 16:08] LABS: Carbon Dioxide 29 mmol/L (22-30); Chloride 100 mmol/L (98-107); Potassium 3.8 mmol/L (3.5-5.1); Sodium 132 mmol/L (135-145); Triglycerides 76 mg/dl (10-149)
[2025-08-12] MEDS: LIPITOR 40 MG TUBE (17:07)
--- NOTE | 2025-08-12 17:30 | PTCARENOTE ---
Milk of Molasses enema administered as ordered. Patient tolerated. VSS.
--- NOTE | 2025-08-12 18:30 | PTCARENOTE ---
Complete bed bath performed. Patient incontinent of small soft/loose BM.
--- NOTE | 2025-08-12 20:00 | PTCARENOTE ---
Assumed care of patient. Hand-off validation done with drips with off-going nurse. Patient is sedated on 25 of propofol. Patient arouses but does not follow commands. Bilateral wrist restraints in place for patient localizing pain, reaching for ETT.
He is on 100 of fentanyl for pain. He is in sinus bradycardia with adequate blood pressures. Radial pulses are palpable with doppler pulses in the lower extremities. Generalized trace edema with +1 edema in the lower extremities. Patient has a 8.0
ETT that is 24 at the lip. He is on ASV with 80% minute ventilation, 40% FiO2, and 5 of PEEP. Lung bases have rhonchi and are diminished. Small amount of madsen secretions from ETT and clear secretions from mouth. Abdomen is distended but soft, bowel
sounds present. DHT is at 70 in the left nare, tube feeds off. Muller catheter in place with temp sensing probe. Sacrum has blanchable redness, pressure off-loaded. Heels off-loaded. Scattered bruising on arms. IV lines are c/d/i.
[2025-08-12] MEDS: XALATAN OPHTHALMIC SOLUTION 1 DROP BOTH EYES (21:22)
[2025-08-13] VITALS (38 sets, daily range): BP systolic 93–158; BP diastolic 48–117; BMI 31.1
--- NOTE | 2025-08-13 00:15 | PTCARENOTE ---
No change in patient assessment. Patient resting comfortably in bed on sedation. Temp 98.4 with temp sensing Muller.
[2025-08-13] MEDS: UNASYN IV ×4 (02:12→20:32)
[2025-08-13] MEDS: HEPARIN 25000 UNITS/250 ML IV (02:54)
[2025-08-13 03:24] LABS: APTT 90.1 Sec (23.4-35.0)
[2025-08-13 03:45] LABS: Blood Urea Nitrogen 19 mg/dl (9-20); Calcium 8.4 mg/dl (8.4-10.2); Carbon Dioxide 30 mmol/L (22-30); Chloride 100 mmol/L (98-107); Estimated Creatinine Clearance 74 ml/min; Glucose 96 mg/dl (70-99); Potassium 3.7 mmol/L (3.5-5.1); Sodium 136 mmol/L (135-145); eGFR > 60.00
[2025-08-13] MEDS: ROBITUSSIN 400 MG TUBE ×6 (03:46→23:17)
[2025-08-13 03:49] LABS: Hematocrit 31.9 % (39.0-52.0); Hemoglobin 10.7 g/dL (13.0-18.0); Mean Corp Hgb Conc. 33.5 g/dL (33.0-37.0); Mean Corpuscular Volume 88.9 fL (80.0-94.0); Platelet Count 118 10^3/uL (130-400); Red Cell Dist. Width 14.1 % (11.5-14.5)
--- NOTE | 2025-08-13 03:53 | PTCARENOTE ---
No change in patient assessment.
[2025-08-13] MEDS: SUBLIMAZE 100 IV ×3 (04:27→21:54)
[2025-08-13 05:13] LABS: B.E. 4.9 mmol/L; HCO3 29.9 mmol/L (21-28); O2 Saturation % 99.1 % (94-98); PCO2 45 mmHg (35-48); PO2 108 mmHg (83-108)
[2025-08-13] MEDS: VANCOCIN 200 IV ×2 (05:55→17:31)
[2025-08-13] MEDS: DIPRIVAN 100 IV ×4 (06:04→23:26)
[2025-08-13] MEDS: SUBLIMAZE 100 MCG IV ×7 (06:45→22:21)
--- NOTE | 2025-08-13 07:27 | W.PN.INTV ---
Today's Communication / Plan
Recommendations
Diuresis
Antibiotics
Mucolytic's
Adjusting sedation
Spontaneous breathing trial in next 24 hours
Updated family
Assessment
-
85-year-old male with history of severe sleep apnea, intolerant to CPAP therapy, multiple TIAs presenting with facial droop, aphasia, hypertension, hyperlipidemia, presents with acute mental status changes, aphasia, facial droop. This time,
symptoms did not resolve prompting admission 08/06. Imaging without evidence of acute stroke but symptoms persisted. Patient developed increased respiratory distress requiring intubation for airway protection, agonal breathing, transferred to ICU
08/07/2025
Acute respiratory failure
Intubated 08/07/2025, secondary to respiratory distress
Significant upper airway secretions, thick upon intubation
Bilateral pneumonia
Fevers/leukocytosis
Suspected aspiration syndrome
Poor airway clearance, lack of effective cough in the setting of stroke/mental status changes
Elevated troponin, abnormal EKG
Cardiomyopathy, EF 25%, new
Hypotension
Intermittently requiring phenylephrine
Suspect multifactorial (new cardiomyopathy, pneumonia)
Lower extremity DVT
Conditions present prior to admission
History of abdominal aortic aneurysm, suprarenal, 4.7 cm per imaging January 2025
Hypertension/hyperlipidemia
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
Dose recently increased to 5 mg twice a day
Coronary disease with history of angioplasty/stent, LAD
[id number] history, quit 1979
History of cholecystectomy
History of pyelonephritis
BPH
Family history of cancer (lung, colon, brain)
History of Alzheimer's dementia
Multiple falls
Plan/recommendations
Remains critically ill on a ventilator-thick tenacious secretions somewhat improved
Ventilator settings reviewed
ABG reviewed
Attempt spontaneous breathing trial in the next 24 hours
Recheck chest x-ray
Nebulizers as needed
VAP prevention protocol
Precedex and fentanyl-monitor for bradycardia and QTc prolongation
Continue Mucinex
Continue saline nebulizers
Follow chest x-ray
Cultures reviewed
MRSA screen positive
Sputum culture-usual respiratory william
Blood cultures negative
Antibiotics for community-acquired pneumonia and aspiration-Unasyn and vancomycin
Pressors-attempt to wean off phenylephrine
Monitor for arrhythmias and recurrent bradycardia
Monitor QTc
IV heparin-consideration towards change to Eliquis if no procedures
Cardiology following-correspondence reviewed
Eventual ischemia evaluation
Repeat echo with drop in EF (25%), questionable stress cardiomyopathy vs ischemic?
Diuresis continues as tolerated--1.8 L / 24 hours
Monitor renal function, electrolytes, intake/output, lower extremity edema and weight
Replace electrolytes as needed
Dobbhoff tube placed
Tolerating tube feeds, continue
Minimize fluids at this time, significant positive fluid status
Work on bowel regiment
Patient with history of DVTs
Was on outpatient Eliquis, unclear if this was for history of TIA
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
Currently on a heparin drip
DVT prophylaxis-on heparin drip-to be converted to Eliquis
GI prophylaxis-on Protonix
Nutrition-tube feeds
Early mobilization/bedside range of motion
Reviewed with , daughter and granddaughter on multidisciplinary rounds 08/12/2025 discussed DNR status and potential extubation and no reintubation-they will think about it
Dr. Wolff reviewed with and daughter on multidisciplinary rounds 08/13/2025-stated that the patient would not want reintubation if extubated-not ready for extubation but might be in the next 24 hours
Critical care statement: A total of 45 minutes of critical care time was provided for this patient today. This includes management of unstable vital signs, evaluation of the patient at bedside, reviewing the patient�s pertinent medical records
including radiographs, ventilator settings, pressor management, microbiology, laboratory evaluations, and��discussion with primary team, consultants, pharmacy, nutrition, physical therapy, case management, charge nurse, critical care nursing, and
respiratory therapy.
Subjective Dataa
Subjective Data
Date of Service:
Date of Service: August 13, 2025
Chief Complaint: School Health Aide Follow Up and Pulmonary Follow Up
Subjective:
Less agitated with adequate sedation, secretions decreased, sedated and unable to obtain review of systems
Review of Systems
General: Unobtainable - Sedation
Objective Data
Data Reviewed
Vital Signs / I&O / Oxygen:
Vital Signs
Temp Pulse Resp BP Pulse Ox
98.0 F 76 12 140/76 99
08/13/25 03:53 08/13/25 06:01 08/13/25 06:01 08/13/25 06:01 08/13/25 06:01
Intake and Output
08/12/25 08/13/25 08/14/25
06:59 06:59 06:59
Intake Total 2122.3 / 2151.8 1918.2 / 1918.2
Output Total 2630 / 2655 3785 / 3785
Balance -507.7 / -503.2 -1866.8 / -1866.8
SaO2 [ASV] 98
SaO2 [A/C] 100
SaO2 99
Nasal Cannula flow liters per 6
minute
Physical Exam
General: Respiratory Distress (n) and Comfortable
HEENT: Normocephalic and Anicteric
Cardiovascular: Regular Rhythm, Murmur (n), Rub (n), Peripheral Edema (tr) and Calf Tenderness (n)
Respiratory: Wheeze (n), Crackles (n), Rhonchi (few), Non-Labored Respirations, ET Tube and Other (Bronchial breath sounds, decreased at the base)
GI: Soft, Non Distended and Non Tender
Neurology: No Motor Deficits and Lethargic (Sedated)
Skin: Warm, Good Color, Cyanosis (n), Jaundice (n) and Bruising (Few)
Labs/Micro/Reports
Lab Data
08/13/25 02:59
08/13/25 02:59
Laboratory Results
08/13/25 08/13/25
02:59 05:06
APTT 90.1 H
pH 7.43
pCO2 45
pO2 108
HCO3 29.9 H
O2 Delivery Level
Microbiology
08/12/25 15:26 Endotracheal Gram Stain - Preliminary
08/08/25 15:16 Tracheal Aspirate Respiratory Culture - Final
Usual Respiratory William
08/08/25 15:16 Tracheal Aspirate Gram Stain - Final
[2025-08-13] MEDS: SODIUM CHLORIDE 3% FOR INHALATION 1 VIAL INH ×2 (07:47→21:13)
[2025-08-13] MEDS: PROTONIX IV 40 MG IV (08:34)
[2025-08-13] MEDS: NSS (PRESERVATIVE FREE) 10 ML IV (08:34)
[2025-08-13] MEDS: COLACE LIQUID 100 MG TUBE ×2 (08:34→20:31)
[2025-08-13] MEDS: SENNA SYRUP 8.6 MG TUBE ×2 (08:34→20:31)
[2025-08-13] MEDS: MIRALAX 17 GRAMS TUBE (08:35)
[2025-08-13] MEDS: FLUSH (NSS) 2 FLUSH IV ×2 (08:35→11:10)
[2025-08-13] MEDS: LOW STRENGTH ASPIRIN 81 MG TUBE (08:35)
--- NOTE | 2025-08-13 08:38 | PTOTSP ---
Pt remains sedated and intubated at this time. PT will sign off. Re-consult at a later date if pt able to participate in PT activity.
--- NOTE | 2025-08-13 08:42 | W.PN.CARDCBS ---
Today's Communication / Plan
-
Cont IV Heparin with eventual transition to oral anticoagulation given troponin, PAFib and DVT this admit. Was on Eliquis as an outpatient.
QTc remains stable, monitor EKG. Some prior bradycardia was noted with sedation.
Potassium and magnesium have been stable, continue to monitor
Pressors have been weaned as blood pressure has been labile but slightly improved.
GDMT limited for cardiomyopathy given hypotension.
Remains on aspirin
Beta-dannie held with hypotension.
Continue statin therapy.
proBNP 2140 on August 12, 2025 and he received Lasix 40 mg IV x 1 at that time.
His weight is down 4 pounds over the last 24 hours but remains from admission weight of 191. Will give additional Lasix 40 g IV x 1 August 13, 2025
Creatinine remains stable.
Impression / Plan
-
.
Primary material worker: Dr Burton
Impression:
Acute respiratory failure
VDRF
Septic shock
Troponin elevation peak 5.3, possibly MT versus nonischemic troponin elevation related to neurologic status, possible Takotsubo
Abnormal EKG with profound T wave inversion
Prolonged QT interval, improved
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
PAFib
TIAs change in mental status
Acute encephalopathy
Pneumonia with possible aspiration
Hypotension
History of multiple TIAs
History of Alzheimer's dementia
History of abdominal aortic aneurysm 4.7 cm (January 2025)
Hypertension
Hyperlipidemia
History of recurrent DVT
Echo Aug 07 2025: EF 25 to 30% with apical akinesis. Normal right ventricle. Mild AR.
Plan:
He remains intubated. He failed a wean yesterday with agitation. Continue attempts to wean. His sedation has been adjusted.
Cont IV Heparin with eventual transition to oral anticoagulation given troponin, PAFib and DVT this admit. Was on Eliquis as an outpatient.
QTc remains stable, monitor EKG. Some prior bradycardia was noted with sedation.
Potassium and magnesium have been stable, continue to monitor
Pressors have been weaned as blood pressure has been labile but slightly improved.
GDMT limited for cardiomyopathy given hypotension.
Remains on aspirin
Beta-dannie held with hypotension.
Continue statin therapy.
proBNP 2140 on August 12, 2025 and he received Lasix 40 mg IV x 1 at that time.
His weight is down 4 pounds over the last 24 hours but remains from admission weight of 191. Will give additional Lasix 40 g IV x 1 August 13, 2025
Creatinine remains stable.
Discussed with nursing
Critical care time: 32 minutes
HPI: We were initially consulted because of elevated troponin value of 5. Additionally ECG now with anterior and inferior ST and T wave abnormalities and in particular rather deep T wave inversions (marked change from presenting ECG prior). It was
noted that he developed progressive agitation during this hospital stay but there is no notation of any specific complaints of chest pain. He then developed marked and refractory hypotension requiring IV pressor support and is intubated and sedated
(pneumonia/aspiration/airway protection).
Progress Note - Director Stars
Subjective
Date of Service: August 13, 2025
Pt seen and examined. Sedated on ventilator.
Objective
Labs:
08/13/25 02:59
08/13/25 02:59
Labs
Hgb 10.7 g/dL (13.0-18.0) L 08/13/25 02:59
Hct 31.9 % (39.0-52.0) L 08/13/25 02:59
Plt Count 118 10^3/uL (130-400) L 08/13/25 02:59
PT 15.9 Sec (11.4-14.6) H 08/06/25 11:00
INR 1.22 08/06/25 11:00
APTT 90.1 Sec (23.4-35.0) H 08/13/25 02:59
Sodium 136 mmol/L (135-145) 08/13/25 02:59
Potassium 3.7 mmol/L (3.5-5.1) 08/13/25 02:59
BUN 19 mg/dl (9-20) 08/13/25 02:59
Creatinine 0.8 mg/dL (0.7-1.3) 08/13/25 02:59
Glucose 96 mg/dl (70-99) 08/13/25 02:59
Vital Signs and I&O:
Vital Signs
Temp Pulse Resp BP Pulse Ox
98.3 F 76 12 140/76 100
08/13/25 07:41 08/13/25 06:01 08/13/25 06:01 08/13/25 06:01 08/13/25 07:51
Vital Signs
Temp Pulse Resp BP Pulse Ox
98.3 F 76 12 140/76 100
08/13/25 07:41 08/13/25 06:01 08/13/25 06:01 08/13/25 06:01 08/13/25 07:51
Intake & Output
08/11/25 08/12/25 08/13/25 08/14/25
06:59 06:59 06:59 06:59
Intake Total 2663.9 / 2893.4 2122.3 / 2151.8 1918.2 / 1918.2
Output Total 515 / 555 2630 / 2655 3785 / 3785
Balance 2148.9 / 2338.4 -507.7 / -503.2 -1866.8 / -1866.8
Physical Exam
Physical Exam
General: Sedated on ventilator
Neck: Negative JVD
Heart: Regular, Negative S3 positive S1/S2, Negative S4, No murmur
Lungs: CTA b/l, negative wheezes/rales/rhonchi
Abd: Positive BS, NT/ND, neg rebound/rigidity/guarding
Ext: Negative cyanosis/clubbing/edema
Neuro: nonfocal
--- NOTE | 2025-08-13 08:47 | W.PN.HOSP.TC ---
Today's Communication/Plan
-
c/w abx, pulm toiket, wean sedation when able
GOC
Assessment / Plan
Assessment / Plan
85M with HTN, HLD, CAD s/p stents, BPH, AMANDA not on CPAP, periodic limb movement disorder, degenerative joint disease, GERD, H/O DVT on Eliquis, glaucoma, multiple TIAs; p/w acute and intermittent onset of aphasia and facial droop.
A/P:
Acute metabolic encephalopathy
p/w confusion with aphasia/facial droop, ddx include TIA vs seizure vs CAP
Not a candidate for TNK/tPA as patient on Eliquis PLACEMENT COORDINATOR
s/p Ativan, Haldol in ED
Admission CT head and CT head neck angio unrevealing
repeat CT head again showed No acute intracranial abnormality
MRI brain also without acute intracranial abnormality.
EEG rec per neuro
Acute hypoxic respiratory failure
Suspected aspiration pneumonia with component of community acquired pneumonia
CXR: Left basilar atelectasis and/or pneumonia.
Pt was intubated 08/07 for respiratory distress/airway protection. Sedation and mechanical ventilation per Cleaner Signs. Weaned off precedex as able as may be contributing to prolonged QT. On fentanyl/propofol. QTc<500
Dophoff placed, Tube feed started with water flushes
Muller placed
Cont ICU level of care
Continue IV antibiotics per CC - unasyn
MRSA positive, added vancomycin
sputum cx 08/08 NGTD, repeat 08/12 pending
Continue IV lasix for diuresis as per CC/cardiology
Pulmonary toilet, nebulized saline
Hypotension -resolved
Septic shock vs Post-intubation hypotension
req pressors, Hernán - now OFF, patient is hypertensive, However GDMT is on hold due to intermittent hypotension
Cardiomyopathy
Troponin elevation possibly ME versus nonischemic troponin elevation related to neurologic status
Per Cardiology, CAD vs Takotsubo's CMP.. Appreciate mgmt. possible ischemic eval after pt stabilizes
Trop peak at 5.33
EKG showed TWI and pt has long QT
Echo showed low EF 25-30%, new LV dysfunction, apical akinesis with sparing of the base. This could represent Takotsubo but cannot exclude ME at this point.
Cont IV heparin
Intermittent IV lasix
Hyperlipidemia
LDL at 33
Cont PLACEMENT COORDINATOR atorvastatin via Dobbhoff
GERD
IV PPI
h/o DVT
PLACEMENT COORDINATOR Eliquis on hold
now on heparin drip
DVT: heparin drip
Full code
Anticipated Discharge: > 48 hours
Subjective/Interval History
-
Date of Service: August 13, 2025
Pt sedated, d/w RN at bedside, fewer secretions today, calm
Objective Data
-
Labs:
Laboratory Results
08/13/25 08/13/25
02:59 05:06
WBC 8.2
Hgb 10.7 L
Hct 31.9 L
Plt Count 118 L
APTT 90.1 H
HCO3 29.9 H
Sodium 136
Potassium 3.7
Chloride 100
Carbon Dioxide 30
BUN 19
Creatinine 0.8
Glucose 96
Calcium 8.4
Vital Signs:
Vital Signs
Temp Pulse Resp BP Pulse Ox
98.3 F 76 12 140/76 100
08/13/25 07:41 08/13/25 06:01 08/13/25 06:01 08/13/25 06:01 08/13/25 07:51
I&O
08/12/25 08/13/25 08/14/25
06:59 06:59 06:59
Intake Total 2122.3 / 2151.8 1918.2 / 1918.2
Output Total 2630 / 2655 3785 / 3785
Balance -507.7 / -503.2 -1866.8 / -1865.8
Review of Systems
-
Unable to obtain full review of systems at this time due to: Patient Intubation
Physical Exam
-
General: Intubated
HEENT: PERRLA
Respiratory: Clear to Auscultation
Cardiac: Regular Rhythm and S1/S2; Negative Murmur, Rub or Gallop
GI: Soft, Nontender, Nondistended and Normal Bowel Sounds
Musculoskeletal: No Edema
Skin: Warm and Dry
Neuro: Awake
Hematologic / Lymphatic: No Lymphadenopathy
Psych: Agitated
Data Reviewed
-
Labs: Labs Reviewed by me, Discussed with Physician and Discussed with Nurse
--- NOTE | 2025-08-13 08:49 | PHA.VAN.FU ---
Vancomycin Assessment / Plan
- Assessment
Renal Function: Stable
WBC's are: WNL
In the past 24 hrs, patient has been: Afebrile
Concomitant Antimicrobials: ampicillin/sulbactam
- Dosing Plan
Continue: Vanc 1000mg Q12H
- Monitoring Plan
No level(s) ordered at this time: consider levels in next few days
- Follow Up
Pharmacy will continue to follow.
Vancomycin Follow UP
- -
Patient Age: 85
Patient Sex: Male
Vancomycin Day #: 6
Indication: Pulmonary/Respiratory
Requesting Provider: Dr. Tillman
Pertinent Antimicrobial Allergies:
clarithromycin - rash
clindamycin - rash
levofloxacin - rash
mupirocin - rash
penicillins - rash
sulfonamide antibiotics - rash
Height / Weight:
Height 5 ft 8 in
Actual Weight 92.8 kg
- Vital Signs / Lab Results
Temp Pulse Resp BP Pulse Ox
98.3 F 76 12 140/76 100
08/13/25 07:41 08/13/25 06:01 08/13/25 06:01 08/13/25 06:01 08/13/25 07:51
Lab Results - Hematology
08/11/25 08/12/25 08/13/25
03:39 03:05 02:59
WBC 9.2 8.3 8.2
Lab Results - Chemistry
08/11/25 08/12/25 08/13/25
03:39 03:05 02:59
BUN 27 H 23 H 19
Creatinine 0.7 0.6 L 0.8
Estimated Creat Clear 86 100 74
Microbiology Results
08/12/25 15:26 Gram Stain - Preliminary
Endotracheal
Therapeutic Drug Monitoring
Vancomycin Peak 18.5 ug/ml (18-26) 08/10/25 19:43
Vancomycin Trough 9.3 ug/ml (5-20) 08/11/25 05:22
--- NOTE | 2025-08-13 09:00 | PTCARENOTE ---
Rec'd pt at 0800 resting in bed. Rec'd sedated on Diprivan at 25 mcg and Fentanyl at 100 mcg. Will open eyes to verbal and tactile stimuli. Will intermittently look at stimuli but mostly when wakeful is restless and tends to want to pull at
restraints. Soft wrist restraints bilaterally on for pt safety. RASS is a -2. [place] at 2mm. H[place]ILTON- will occasionally grasp hands but not release on command. Skin is pale wm and dry. Does have some bruising on him otherwise skin is intact. Respirs are
intact on the vent. #8 Ett taped at the 24 cm silvio R side of the mouth. BS are decreased throughout with some rhonchi. + cough and gag. Does have a mod amt of clear oral secretions and suctioned for thick tannish/white secretions. Vent settings ASV
80%, peep 5 fio2 40%- sats are 99%. Adds an occasional breath but mostly rate is around 13. TV 300-400's. Montitor SR with prolonged QT - 506. + pulses. DP pulses with the doppler. VS as documented. Edema as noted. Abd is distended but soft with +
BS. No stools currently. L nare feeding tube at the 70 cm silvio. 85ml residual aspirated and reinstilled. Placement ausculated. Tube feeds remain on hold. Meds given and flushed. Thermistor angulo in place for yellow urine. IV Prop and Fentanyl
infusing via R upper arm Midline.Capped ints intact L and R hands. Heparin gtt infusing at 1200 units/hr via L upper arm IV. All sites wnl. Turned and repositioned. Skin and mouth care given CHG bath given. Pts and daughter in and updated.
--- NOTE | 2025-08-13 10:50 | PTCARENOTE ---
Pt with increased restlessness and pulling up toward ETT. Fentanyl 100 mg IV bolus given as ordered for CPOT of 6.
[2025-08-13] MEDS: DUONEB 3 ML INH ×3 (11:02→21:14)
[2025-08-13] MEDS: LASIX 40 MG IV (11:09)
--- NOTE | 2025-08-13 11:15 | PTCARENOTE ---
ECG done. Lasix 40 mg IV given as ordered. Repositioned. Calmed briefly after Fentanyl bolus but still with stimulation will try to pull at restraints and reach up to ETT. Family at the bedside.
--- NOTE | 2025-08-13 11:50 | PTCARENOTE ---
Remedicated with Fentanyl 100 mcg for CPOT of 6/ Restless pulling at restraints. Gtt increased to 125 mcg
--- NOTE | 2025-08-13 13:00 | PTCARENOTE ---
Again agitated/restless pulling at restraints Remedicated with Fentanyl 100 mcg and Diprivan increased to 30 mcg. Fentanyl had been increased to 125 mcg at 1145 after bolus of Fentanyl given. Suctioned for tannish/whitish secretions. Diurising from
Lasix. Repositioned into chair position.
--- NOTE | 2025-08-13 15:30 | PTCARENOTE ---
Calm and restful currently. Continues to diurese from Lasix. No other changes currently.
[2025-08-13 16:12] LABS: Carbon Dioxide 32 mmol/L (22-30); Chloride 99 mmol/L (98-107); Potassium 3.6 mmol/L (3.5-5.1); Sodium 134 mmol/L (135-145)
--- NOTE | 2025-08-13 17:12 | CM ---
Intubated, SBT in next 24 hrs, pulmonary toilet, IV/AB. Discharge POC: Discuss GOC. Await therapy eval when able.
[2025-08-13] MEDS: KCL ELIXIR 40 MEQ TUBE (17:30)
[2025-08-13] MEDS: LIPITOR 40 MG TUBE (17:30)
--- NOTE | 2025-08-13 17:30 | PTCARENOTE ---
Assessment overall is unchanged. Restless at intervals and calm at others. Did open his eyes and sqeeze my hands on command and release them but then will get restless and pull at restraint and reach up toward ETT. Remedicated with Fentanyl 100 mcg.
Fent infusion remains at 125 mcg and Prop at 30 mcg. Suctioned for tannish/whitish secretions. ASV settings continue. At times is controlled and takes no spont breaths and other times will breathe at a rate of 14-16. TV 200-600's. VS as documented.
Overall tolerating tube feeds. Diuresing from Lasix. Capped int removed from L hand due to leaking. Turned and repositioned. Skin and mouth care given as documented. Soft wrist restraints intact.
[2025-08-13] MEDS: FLUSH (NSS) 1 FLUSH IV (17:31)
--- NOTE | 2025-08-13 20:00 | PTCARENOTE ---
Assumed care of patient. Hand-off drip validation done with off-going nurse. Patient resting comfortably in bed sedated on 30 mcg of prop, 125 mcg of fentanyl. Arouses to verbal and tactile stimuli. Pupils equal and reactive. Afebrile. Patient is in
sinus rhythm, adequate blood pressures. Pedal pulses obtained with doppler. Patient has 8.0 ETT on ASV, 40%, 5 peep, 80% MV. Lung sounds are diminished in the bases. Abdomen is distended, soft. Bowel sounds are present. TF at goal through DHT, left
nare @ 70. Temp sensing Muller catheter in place. Blanchable area of redness on sacrum. IV sites are c/d/i.
[2025-08-13] MEDS: ELIQUIS 5 MG TUBE (20:31)
[2025-08-13] MEDS: XALATAN OPHTHALMIC SOLUTION 1 DROP BOTH EYES (21:52)
[2025-08-14] VITALS (23 sets, daily range): BP systolic 93–168; BP diastolic 50–91; BMI 30.9
--- NOTE | 2025-08-14 00:09 | PTCARENOTE ---
Two doses of prn fentanyl given for agitation and CPOT scores > 3. No other changes in assessment.
[2025-08-14] MEDS: SUBLIMAZE 100 MCG IV (00:49)
[2025-08-14 01:01] LABS: Blood Urea Nitrogen 13 mg/dl (9-20); Calcium 8.4 mg/dl (8.4-10.2); Carbon Dioxide 31 mmol/L (22-30); Chloride 101 mmol/L (98-107); Estimated Creatinine Clearance 84 ml/min; Glucose 102 mg/dl (70-99); Potassium 3.8 mmol/L (3.5-5.1); Sodium 134 mmol/L (135-145); eGFR > 60.00
[2025-08-14] MEDS: UNASYN IV ×4 (02:31→19:34)
[2025-08-14] MEDS: ROBITUSSIN 400 MG TUBE ×5 (03:07→19:35)
[2025-08-14] MEDS: DIPRIVAN 100 IV ×2 (03:11→07:13)
[2025-08-14 03:31] LABS: Hematocrit 32.4 % (39.0-52.0); Hemoglobin 10.9 g/dL (13.0-18.0); Mean Corp Hgb Conc. 33.6 g/dL (33.0-37.0); Mean Corpuscular Volume 92.0 fL (80.0-94.0); Platelet Count 132 10^3/uL (130-400); Red Cell Dist. Width 14.3 % (11.5-14.5)
[2025-08-14 03:40] LABS: APTT 34.9 Sec (23.4-35.0)
--- NOTE | 2025-08-14 04:00 | PTCARENOTE ---
No change in patient assessment.
[2025-08-14 04:03] LABS: Blood Urea Nitrogen 12 mg/dl (9-20); Calcium 8.2 mg/dl (8.4-10.2); Carbon Dioxide 32 mmol/L (22-30); Chloride 100 mmol/L (98-107); Estimated Creatinine Clearance 84 ml/min; Glucose 96 mg/dl (70-99); Magnesium 2.0 mg/dl (1.6-2.3); Potassium 3.9 mmol/L (3.5-5.1); Sodium 137 mmol/L (135-145); eGFR > 60.00
[2025-08-14 05:18] LABS: B.E. 6.6 mmol/L; HCO3 31.9 mmol/L (21-28); O2 Saturation % 98.5 % (94-98); PCO2 48 mmHg (35-48); PO2 99 mmHg (83-108)
[2025-08-14] MEDS: VANCOCIN 200 IV (06:01)
[2025-08-14] MEDS: SUBLIMAZE 100 IV (06:32)
[2025-08-14] MEDS: LOW STRENGTH ASPIRIN 81 MG TUBE (07:12)
[2025-08-14] MEDS: COLACE LIQUID 100 MG TUBE ×2 (07:12→19:35)
[2025-08-14] MEDS: SENNA SYRUP 8.6 MG TUBE ×2 (07:12→19:35)
[2025-08-14] MEDS: NSS (PRESERVATIVE FREE) 10 ML IV (07:13)
[2025-08-14] MEDS: PROTONIX IV 40 MG IV (07:13)
[2025-08-14] MEDS: ELIQUIS 5 MG TUBE ×2 (07:13→19:35)
[2025-08-14] MEDS: MIRALAX 17 GRAMS TUBE (07:13)
[2025-08-14] MEDS: DUONEB 3 ML INH ×5 (07:27→22:46)
[2025-08-14] MEDS: SODIUM CHLORIDE 3% FOR INHALATION 1 VIAL INH ×2 (07:27→19:18)
--- NOTE | 2025-08-14 07:31 | W.PN.INTV ---
Today's Communication / Plan
Recommendations
Diuresis
Spontaneous breathing trial
Hope to extubate
Antibiotics
Updated family-they would want reintubation if fails
Assessment
-
85-year-old male with history of severe sleep apnea, intolerant to CPAP therapy, multiple TIAs presenting with facial droop, aphasia, hypertension, hyperlipidemia, presents with acute mental status changes, aphasia, facial droop. This time,
symptoms did not resolve prompting admission 08/06. Imaging without evidence of acute stroke but symptoms persisted. Patient developed increased respiratory distress requiring intubation for airway protection, agonal breathing, transferred to ICU
08/07/2025
Acute respiratory failure
Intubated 08/07/2025, secondary to respiratory distress
Significant upper airway secretions, thick upon intubation
Bilateral pneumonia
Fevers/leukocytosis
Suspected aspiration syndrome
Poor airway clearance, lack of effective cough in the setting of stroke/mental status changes
Elevated troponin, abnormal EKG
Cardiomyopathy, EF 25%, new
Hypotension
Intermittently requiring phenylephrine
Suspect multifactorial (new cardiomyopathy, pneumonia)
Lower extremity DVT
Conditions present prior to admission
History of abdominal aortic aneurysm, suprarenal, 4.7 cm per imaging January 2025
Hypertension/hyperlipidemia
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
Dose recently increased to 5 mg twice a day
Coronary disease with history of angioplasty/stent, LAD
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
History of cholecystectomy
History of pyelonephritis
BPH
Family history of cancer (lung, colon, brain)
History of Alzheimer's dementia
Multiple falls
Plan/recommendations
Remains critically ill on a ventilator-thick tenacious secretions somewhat improved and now less tenacious and less voluminous
Ventilator settings reviewed
ABG reviewed
Attempt spontaneous breathing trial today
Chest x-ray 08/14/2025 with small bilateral pleural effusions and overall little change
Nebulizers as needed
VAP prevention protocol
Precedex discontinued due to bradycardia and now on propofol and fentanyl-monitor for QTc prolongation
Continue Mucinex
Continue saline nebulizers
Follow chest x-ray
Cultures reviewed
MRSA screen positive
Sputum culture-usual respiratory william
Blood cultures negative
Antibiotics for community-acquired pneumonia and aspiration-Unasyn and vancomycin
Pressors-attempt to wean off phenylephrine
Monitor for arrhythmias and recurrent bradycardia
Monitor QTc
IV heparin-consideration towards change to Eliquis if no procedures
Cardiology following-correspondence reviewed
Eventual ischemia evaluation
Repeat echo 08/07/2025 with drop in EF (25-30 %), questionable stress cardiomyopathy vs ischemic?
Diuresis continues as tolerated---6.3 L / 3 days
Monitor renal function, electrolytes, intake/output, lower extremity edema and weight
Replace electrolytes as needed
Dobbhoff tube placed
Tolerating tube feeds-trickle
Minimize fluids at this time, significant positive fluid status
Work on bowel regiment
Patient with history of DVTs
Was on outpatient Eliquis, unclear if this was for history of TIA
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
Currently on a heparin drip
DVT prophylaxis-on heparin drip-to be converted to Eliquis
GI prophylaxis-on Protonix
Nutrition-tube feeds
Early mobilization/bedside range of motion
Reviewed with , daughter and granddaughter on multidisciplinary rounds 08/12/2025 discussed DNR status and potential extubation and no reintubation-they will think about it
Dr. Wolff reviewed with and daughter on multidisciplinary rounds 08/13/2025-stated that the patient would not want reintubation if extubated-not ready for extubation but might be in the next [address] Wolff reviewed with as well as 2 daughters on rounds 08/14/2025-now they state patient would want to be reintubated if a reversible process was noted-explained we will proceed with extubation if passes spontaneous breathing trial and we
will reintubate if necessary
Critical care statement: A total of 50 minutes of critical care time was provided for this patient today. This includes management of unstable vital signs, evaluation of the patient at bedside, reviewing the patient�s pertinent medical records
including radiographs, ventilator settings, pressor management, microbiology, laboratory evaluations, and��discussion with primary team, consultants, pharmacy, nutrition, physical therapy, case management, charge nurse, critical care nursing, and
respiratory therapy.
Subjective Dataa
Subjective Data
Date of Service:
Date of Service: August 14, 2025
Chief Complaint: Prison Keeper Follow Up and Pulmonary Follow Up
Subjective:
Mental status much improved, secretions less thick and less voluminous, continues with intermittent agitation,
Review of Systems
General: Unobtainable - Sedation
Objective Data
Data Reviewed
Vital Signs / I&O / Oxygen:
Vital Signs
Temp Pulse Resp BP Pulse Ox
97.6 F 48 14 96/53 100
08/14/25 03:09 08/14/25 06:00 08/14/25 06:00 08/14/25 06:00 08/14/25 07:25
Intake and Output
08/13/25 08/14/25 08/15/25
06:59 06:59 06:59
Intake Total 1918.2 / 1954.4 1880.7 / 1913.1 32.4 / 32.4
Output Total 3785 / 3785 4315 / 4375 60 / 60
Balance -1866.8 / -1830.6 -2434.3 / -2461.9 -27.6 / -27.6
SaO2 [ASV] 98
SaO2 [A/C] 100
SaO2 100
Nasal Cannula flow liters per 6
minute
Physical Exam
General: Respiratory Distress (n) and Comfortable
HEENT: Normocephalic and Anicteric
Cardiovascular: Regular Rhythm, Murmur (n), Rub (n), Peripheral Edema (tr) and Calf Tenderness (n)
Respiratory: Wheeze (n), Crackles (n), Rhonchi (few), Non-Labored Respirations, ET Tube and Other (Bronchial breath sounds, decreased at the base)
GI: Soft, Non Distended and Non Tender
Neurology: No Motor Deficits and Lethargic (Sedated)
Skin: Warm, Good Color, Cyanosis (n), Jaundice (n) and Bruising (Few)
Labs/Micro/Reports
Lab Data
08/14/25 03:03
08/14/25 03:03
Laboratory Results
08/14/25 08/14/25
03:03 05:05
APTT 34.9
pH 7.43
pCO2 48
pO2 99
HCO3 31.9 H
O2 Delivery Level
Microbiology
08/12/25 15:26 Endotracheal Respiratory Culture - Preliminary
Gram negative bacilli
08/12/25 15:26 Endotracheal Gram Stain - Preliminary
--- NOTE | 2025-08-14 07:36 | W.PN.HOSP.TC ---
Addendum entered and electronically signed by Vangie Tillman MD 08/14/25 08:19:
General: sedated, intubated on vent
Cardiac: S1 S2, RR, no murmur
GI: Soft, Nontender, normal BS
: Muller
Skin: Warm, Dry, neg Rashes
Neuro: sedated
Psych: Calm
Original Note:
Today's Communication/Plan
-
see A/P
Assessment / Plan
Assessment / Plan
85M with HTN, HLD, CAD s/p stents, BPH, AMANDA not on CPAP, periodic limb movement disorder, degenerative joint disease, GERD, H/O DVT on Eliquis, glaucoma, multiple TIAs; p/w acute and intermittent onset of aphasia and facial droop.
A/P:
Acute metabolic encephalopathy
p/w confusion with aphasia/facial droop, ddx include TIA vs seizure vs CAP
Not a candidate for TNK/tPA as patient on Eliquis PLANNING AND ANALYSIS MANAGER
s/p Ativan, Haldol in ED
Admission CT head and CT head neck angio unrevealing
repeat CT head again showed No acute intracranial abnormality
MRI brain also without acute intracranial abnormality.
EEG rec per neuro
Acute hypoxic respiratory failure
Suspected aspiration pneumonia with component of community acquired pneumonia
CXR: Left basilar atelectasis and/or pneumonia.
Pt was intubated 08/07 for respiratory distress/airway protection. Sedation and mechanical ventilation per Gleason Operator.
Weaned off precedex (may have contributed to prolonged QT). Now on fentanyl/propofol- cont. QTc<500
Spontaneous breathing trial in next 24 hours
Dophoff placed, Tube feed started with water flushes
Muller placed
Cont ICU level of care
Continue IV antibiotics per CC - unasyn
MRSA positive, added vancomycin
sputum cx 08/08 NGTD, repeat 08/12 growing GNR
Continue IV lasix PRN for diuresis as per CC/cardiology
Pulmonary toilet, nebulized saline
Hypotension -resolved
Septic shock vs Post-intubation hypotension
req pressors, Hernán - now OFF, patient is hypertensive, However GDMT is on hold due to intermittent hypotension
Cardiomyopathy
Troponin elevation possibly [place] versus nonischemic troponin elevation related to neurologic status
Per Cardiology, CAD vs Takotsubo's CMP.. Appreciate mgmt. possible ischemic eval after pt stabilizes
Trop peak at 5.33
EKG showed TWI and pt has long QT
Echo showed low EF 25-30%, new LV dysfunction, apical akinesis with sparing of the base. This could represent Takotsubo but cannot exclude [place] at this point.
IV heparin drip -> Eliquis 5 mg BID
Intermittent IV lasix
Hyperlipidemia
LDL at 33
Cont PLANNING AND ANALYSIS MANAGER atorvastatin via Dobbhoff
GERD
IV PPI
h/o DVT
resumed PLANNING AND ANALYSIS MANAGER Eliquis
DVT: resumed PLANNING AND ANALYSIS MANAGER Eliquis
Full code
called twice, calls not answered
Total Critical Care Time__40__ minutes. I was immediately available to the patient and staff. I personally examined, reviewed labs, diagnostic images/reports, interpretations, treatment plans, discussed patient care with other providers and
family or caregivers (if patient is unable to make decisions), entered orders as appropriate and documented the medical record.
Anticipated Discharge: > 48 hours
Subjective/Interval History
-
Date of Service: August 14, 2025
Objective Data
-
Labs:
Laboratory Results
08/14/25 08/14/25 08/14/25
00:29 03:03 05:05
WBC 8.2
Hgb 10.9 L
Hct 32.4 L
Plt Count 132
APTT 34.9
HCO3 31.9 H
Sodium 134 L 137
Potassium 3.8 3.9
Chloride 101 100
Carbon Dioxide 31 H 32 H
BUN 13 12
Creatinine 0.7 0.7
Glucose 102 H 96
Calcium 8.4 8.2 L
Vital Signs:
Vital Signs
Temp Pulse Resp BP Pulse Ox
36.4 C 58 14 96/53 100
08/14/25 03:09 08/14/25 07:27 08/14/25 07:27 08/14/25 06:00 08/14/25 07:27
I&O
08/13/25 08/14/25 08/15/25
06:59 06:59 06:59
Intake Total 1918.2 / 1954.4 1880.7 / 1913.1 32.4 / 32.4
Output Total 3785 / 3785 4315 / 4375 60 / 60
Balance -1866.8 / -1830.6 -2434.3 / -2461.9 -27.6 / -27.6
--- NOTE | 2025-08-14 10:42 | W.PN.CARDCBS ---
Today's Communication / Plan
-
Cont Eliquis
lasix 40 mg IV today
Impression / Plan
-
.
Primary hob mill operator: Dr Burton
Impression:
Acute respiratory failure
VDRF
Septic shock
Troponin elevation peak 5.3, possibly [place] versus nonischemic troponin elevation related to neurologic status, possible Takotsubo
Abnormal EKG with profound T wave inversion
Prolonged QT interval, improved
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
PAFib
TIAs change in mental status
Acute encephalopathy
Pneumonia with possible aspiration
Hypotension
History of multiple TIAs
History of Alzheimer's dementia
History of abdominal aortic aneurysm 4.7 cm (January 2025)
Hypertension
Hyperlipidemia
History of recurrent DVT
Echo Aug 07 2025: EF 25 to 30% with apical akinesis. Normal right ventricle. Mild AR.
Plan:
He remains intubated. Continue attempts to wean. His sedation has been adjusted.
IV Heparin has been stopped and he has been transitioned back to Eliquis. He has hx of elevated troponin, PAFib and DVT and was on Eliquis as an outpatient.
QTc remains stable, monitor EKG. Some prior bradycardia was noted with sedation.
Potassium and magnesium have been stable, continue to monitor
Pressors have been weaned, blood pressures remain on the lower side.
GDMT limited for cardiomyopathy given hypotension.
Remains on aspirin
Beta-dannie held with hypotension.
Continue statin therapy.
proBNP 2140 on August 12, 2025 and he received Lasix 40 mg IV x 1 at that time.
His weight is down 5 pounds over the last 48 hours. He remains up from admission weight of 191.
He has received Lasix 40 g IV x 1 August 13 and 2024
Creatinine remains stable.
-2400 last 24 hrs
Critical care time: 30 minutes
HPI: We were initially consulted because of elevated troponin value of 5. Additionally ECG now with anterior and inferior ST and T wave abnormalities and in particular rather deep T wave inversions (marked change from presenting ECG prior). It was
noted that he developed progressive agitation during this hospital stay but there is no notation of any specific complaints of chest pain. He then developed marked and refractory hypotension requiring IV pressor support and is intubated and sedated
(pneumonia/aspiration/airway protection).
Progress Note - Medical Records Auditor
Subjective
Date of Service: August 14, 2025
Sedated on vent.
Objective
Labs:
08/14/25 03:03
08/14/25 03:03
Labs
Hgb 10.9 g/dL (13.0-18.0) L 08/14/25 03:03
Hct 32.4 % (39.0-52.0) L 08/14/25 03:03
Plt Count 132 10^3/uL (130-400) 08/14/25 03:03
PT 15.9 Sec (11.4-14.6) H 08/06/25 11:00
INR 1.22 08/06/25 11:00
APTT 34.9 Sec (23.4-35.0) 08/14/25 03:03
Sodium 137 mmol/L (135-145) 08/14/25 03:03
Potassium 3.9 mmol/L (3.5-5.1) 08/14/25 03:03
BUN 12 mg/dl (9-20) 08/14/25 03:03
Creatinine 0.7 mg/dL (0.7-1.3) 08/14/25 03:03
Glucose 96 mg/dl (70-99) 08/14/25 03:03
Vital Signs and I&O:
Vital Signs
Temp Pulse Resp BP Pulse Ox
97.5 F 76 14 108/53 97
08/14/25 08:30 08/14/25 08:30 08/14/25 08:30 08/14/25 08:00 08/14/25 08:30
Vital Signs
Temp Pulse Resp BP Pulse Ox
97.5 F 76 14 108/53 97
08/14/25 08:30 08/14/25 08:30 08/14/25 08:30 08/14/25 08:00 08/14/25 08:30
Intake & Output
08/12/25 08/13/25 08/14/25 08/15/25
06:59 06:59 06:59 06:59
Intake Total 2122.3 / 2151.8 1918.2 / 1954.4 1880.7 / 1913.1 197.2 / 197.2
Output Total 2630 / 2655 3785 / 3785 4315 / 4375 150 / 150
Balance -507.7 / -503.2 -1866.8 / -1830.6 -2434.3 / -2461.9 47.2 / 47.2
Physical Exam
Physical Exam
General: Sedated on ventilator
Neck: Negative JVD
Heart: Regular, Negative S3 positive S1/S2, Negative S4, No murmur
Lungs: CTA b/l, negative wheezes/rales/rhonchi
Abd: Positive BS, NT/ND, neg rebound/rigidity/guarding
Ext: Negative cyanosis/clubbing/edema
Neuro: nonfocal
[2025-08-14] MEDS: KCL ELIXIR 40 MEQ TUBE (10:56)
[2025-08-14] MEDS: LASIX 20 MG IV (10:56)
--- NOTE | 2025-08-14 11:02 | PTCARENOTE ---
Addendum entered by Torey Myers RN 08/14/25 11:29:
All sedation off
Wean 07/16 started 1120.
Pt. following all commands, calm, family bedside.
Per front services agent VBG --> extubate after 20-30 minutes.
Original Note:
Round notes
lasix 20 IVP given w/ K replted.
Plan to diurese, wean sedation and start SBT/SAT trial. Discussion w. Family on multidisciplinary rounds, during wean if agitation persists yet hemodynamically stable may cont. w. Extubation, family ok with reintubation. See Conveyor Belt Repairer note for
further details.
[2025-08-14 11:52] LABS: Venous Blood Gas B.E. 7.9 mmol/L (-4 to +4); Venous Blood Gas O2 Sat % 96.0 %
--- NOTE | 2025-08-14 12:13 | RESPNOTE ---
Respiratory: Extubate per Dr. Wolff @1205 no stridor no wheeze. SpO2 96% 6 LPM.
--- NOTE | 2025-08-14 12:29 | PTCARENOTE ---
Successfully extubated to 2L N/C.
Hemodynamically stable. Following all commands.
--- NOTE | 2025-08-14 12:43 | W.PN.UPDATE ---
Update Note
Progress Note Update
Reevaluated patient at the bedside at end of spontaneous breathing trial-pressure support 8/CPAP 5-tolerated well
VBG with some chronic hypercapnia
Patient alert vital signs stable with family at the bedside
Recommend extubation with BiPAP backup if needed
Reviewed with critical care nursing as well as respiratory therapy and family
Reintubate if fails extubation/BiPAP
--- NOTE | 2025-08-14 15:54 | PTCARENOTE ---
No changes in assessment.
[2025-08-14] MEDS: LIPITOR 40 MG TUBE (17:20)
--- NOTE | 2025-08-14 20:00 | PTCARENOTE ---
Assumed care of patient. Patient is oriented to self, follows commands appropriately. Afebrile. Pupils equal and reactive. See [facility] charting. Patient is in normal sinus rhythm with occassional PVCs. Blood pressure with 160 systolic. +1 edema in lower
extremities, pulses obtained with doppler. Radial pulses palpable. He is on 2L NC, 95%, lungs diminished in the bases. Abdomen is distended, soft and non-tender. Bowel sounds are present. DHT in left nare @ 70. Jevity 1.5 running at 10ml/hr with
every hour flush 25cc/hr. Temp sensing Muller catheter in place draining light yellow urine. Skin c/d/i. IV sites c/d/i.
[2025-08-14] MEDS: XALATAN OPHTHALMIC SOLUTION 1 DROP BOTH EYES (20:53)
[2025-08-14] MEDS: MELATONIN 5 MG PO (22:45)
[2025-08-14] MEDS: TYLENOL ORAL SOLUTION 650 MG TUBE (22:45)
--- NOTE | 2025-08-14 23:05 | PTCARENOTE ---
Patient increased to 4L NC. Respiratory made aware, breathing treatment given.
--- NOTE | 2025-08-14 23:34 | PTCARENOTE ---
Patient had episode of large volume of emesis. MEDICAL INFORMATION SPECIALIST made aware, tube feeds being held. Abdomen is still distended and soft, positive bowel sounds. No bowel movement at this time.
[2025-08-15] VITALS (28 sets, daily range): BP systolic 130–188; BP diastolic 67–146; PULSE 79–95; O2SAT 94–95; BMI 29.2
[2025-08-15] MEDS: ROBITUSSIN TUBE ×3 (00:15→08:28)
--- NOTE | 2025-08-15 00:52 | PTCARENOTE ---
Patient had another episode of large volume of emesis. Patient states he is not nauseous. SCRIPT GIRL made aware, continue to watch, if another episode then place NG tube for suction.
[2025-08-15] MEDS: UNASYN IV ×4 (02:06→20:16)
[2025-08-15 04:01] LABS: Hematocrit 39.1 % (39.0-52.0); Hemoglobin 12.6 g/dL (13.0-18.0); Mean Corp Hgb Conc. 32.2 g/dL (33.0-37.0); Mean Corpuscular Volume 91.4 fL (80.0-94.0); Platelet Count 185 10^3/uL (130-400); Red Cell Dist. Width 14.2 % (11.5-14.5)
[2025-08-15 04:03] LABS: Blood Urea Nitrogen 10 mg/dl (9-20); Calcium 9.0 mg/dl (8.4-10.2); Carbon Dioxide 33 mmol/L (22-30); Chloride 99 mmol/L (98-107); Estimated Creatinine Clearance 97 ml/min; Glucose 119 mg/dl (70-99); Potassium 4.3 mmol/L (3.5-5.1); Sodium 136 mmol/L (135-145); Triglycerides 58 mg/dl (10-149); eGFR > 60.00
--- NOTE | 2025-08-15 04:27 | PTCARENOTE ---
No more episodes of emesis. No other changes in patient assessment.
[2025-08-15] MEDS: LOPRESSOR 5 MG IV ×3 (06:16→19:15)
--- NOTE | 2025-08-15 07:34 | W.PN.INTV ---
Today's Communication / Plan
Recommendations
Speech therapy evaluation
Patient pulled the nasogastric tube
Eliquis continues
Finite course of antibiotics
Continue nebulizers and mucus clearing devices
Transfer out of ICU to IMU-pulmonary will continue to follow
Assessment
-
85-year-old male with history of severe sleep apnea, intolerant to CPAP therapy, multiple TIAs presenting with facial droop, aphasia, hypertension, hyperlipidemia, presents with acute mental status changes, aphasia, facial droop. This time,
symptoms did not resolve prompting admission 08/06. Imaging without evidence of acute stroke but symptoms persisted. Patient developed increased respiratory distress requiring intubation for airway protection, agonal breathing, transferred to ICU
08/07/2025
Acute respiratory failure
Intubated 08/07/2025, secondary to respiratory distress
Significant upper airway secretions, thick upon intubation
Bilateral pneumonia
Fevers/leukocytosis
Suspected aspiration syndrome
Poor airway clearance, lack of effective cough in the setting of stroke/mental status changes
Elevated troponin, abnormal EKG
Cardiomyopathy, EF 25%, new
Hypotension
Intermittently requiring phenylephrine
Suspect multifactorial (new cardiomyopathy, pneumonia)
Lower extremity DVT
Conditions present prior to admission
History of abdominal aortic aneurysm, suprarenal, 4.7 cm per imaging January 2025
Hypertension/hyperlipidemia
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
Dose recently increased to 5 mg twice a day
Coronary disease with history of angioplasty/stent, LAD
08-[id number] history, quit 1979
History of cholecystectomy
History of pyelonephritis
BPH
Family history of cancer (lung, colon, brain)
History of Alzheimer's dementia
Multiple falls
Plan/recommendations
Tolerated extubation
Wean FiO2
Mucus clearing devices
Consider vest therapy
Continue Mucinex
Continue saline nebulizers
Follow chest x-ray
Aspiration precautions
Speech therapy evaluation
Video swallow if needed
Cultures reviewed
MRSA screen positive
Sputum culture-usual respiratory william
Blood cultures negative
Antibiotics for community-acquired pneumonia and aspiration-Unasyn and vancomycin-now on Unasyn-finite course
Pressors weaned
Monitor for arrhythmias and recurrent bradycardia
Monitor QTc
IV heparin-changed to Eliquis
Cardiology following-correspondence reviewed
Eventual ischemia evaluation
Repeat echo 08/07/2025 with drop in EF (25-30 %), questionable stress cardiomyopathy vs ischemic?
Diuresis continues as tolerated--- 8.5 L / 4 days
Monitor renal function, electrolytes, intake/output, lower extremity edema and weight
Replace electrolytes as needed
Dobbhoff tube placed
Tolerating tube feeds-trickle
Minimize fluids at this time, significant positive fluid status
Work on bowel regiment
Patient with history of DVTs
Was on outpatient Eliquis, unclear if this was for history of TIA
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
Currently on a heparin drip-recently changed back to Eliquis
DVT prophylaxis-on heparin drip-to be converted to Eliquis
GI prophylaxis-on Protonix
Nutrition-tube feeds
Early mobilization/bedside range of motion
Patient stable for transfer out of ICU to IMU-pulmonary will continue to follow
Reviewed with , daughter and granddaughter on multidisciplinary rounds 08/12/2025 discussed DNR status and potential extubation and no reintubation-they will think about it
Dr. Wolff reviewed with and daughter on multidisciplinary rounds 08/13/2025-stated that the patient would not want reintubation if extubated-not ready for extubation but might be in the next [address] Wolff reviewed with as well as 2 daughters on rounds 08/14/2025-now they state patient would want to be reintubated if a reversible process was noted-explained we will proceed with extubation if passes spontaneous breathing trial and we
will reintubate if necessary
Dr. Wolff reviewed with and daughter on rounds 08/15/2025-updated on improved and stable condition
Reviewed the patient�s pertinent medical records including radiographs, ventilator settings, pressor management, microbiology, laboratory evaluations, and��discussion with primary team, consultants, pharmacy, nutrition, physical therapy, case
management, charge nurse, critical care nursing, and respiratory therapy.
Subjective Dataa
Subjective Data
Date of Service:
Date of Service: August 15, 2025
Chief Complaint: Adult Services Librarian Follow Up and Pulmonary Follow Up
Subjective:
Tolerated extubation, more alert, no complaints of shortness of breath, chest pain or abdominal pain, pulled nasogastric tube out
Review of Systems
General: Other ( per HPI)
Objective Data
Data Reviewed
Vital Signs / I&O / Oxygen:
Vital Signs
Temp Pulse Resp BP Pulse Ox
98.0 F 83 20 182/96 93
08/15/25 04:28 08/15/25 06:16 08/15/25 06:00 08/15/25 06:16 08/15/25 06:00
Intake and Output
08/14/25 08/15/25 08/16/25
06:59 06:59 06:59
Intake Total 1880.7 / 1913.1 541.0 / 541.0
Output Total 4315 / 4375 4075 / 4075
Balance -2434.3 / -2461.9 -3534.0 / -3534.0
SaO2 [ASV] 99
SaO2 [A/C] 100
SaO2 93
Nasal Cannula flow liters per 4
minute
Physical Exam
General: Respiratory Distress (n) and Comfortable
HEENT: Normocephalic and Anicteric
Cardiovascular: Regular Rhythm, Murmur (n), Rub (n), Peripheral Edema (tr) and Calf Tenderness (n)
Respiratory: Wheeze (n), Crackles (n), Rhonchi (few), Non-Labored Respirations and Other (Bronchial breath sounds, decreased at the base)
GI: Soft, Non Distended and Non Tender
Neurology: Awake, Alert, No Motor Deficits and Lethargic (Sedated)
Skin: Warm, Good Color, Cyanosis (n), Jaundice (n) and Bruising (Few)
Labs/Micro/Reports
Lab Data
08/15/25 03:07
08/15/25 03:07
Microbiology
08/12/25 15:26 Endotracheal Respiratory Culture - Final
Citrobacter koseri
08/12/25 15:26 Endotracheal Gram Stain - Final
--- NOTE | 2025-08-15 07:41 | PTCARENOTE ---
Assumed care of pt. approx 0700.
Pt. removed dobhoff tube, delirious but able to be oriented.
Writer Editor to be notified, for speech consult.
[2025-08-15] MEDS: DUONEB 3 ML INH ×4 (07:48→20:18)
[2025-08-15] MEDS: SODIUM CHLORIDE 3% FOR INHALATION 1 VIAL INH ×2 (07:48→20:18)
--- NOTE | 2025-08-15 08:06 | W.PN.HOSP.TC ---
Today's Communication/Plan
-
see A/P
Assessment / Plan
Assessment / Plan
85M with HTN, HLD, CAD s/p stents, BPH, AMANDA not on CPAP, periodic limb movement disorder, degenerative joint disease, GERD, H/O DVT on Eliquis, glaucoma, multiple TIAs; p/w acute and intermittent onset of aphasia and facial droop.
A/P:
Acute metabolic encephalopathy
p/w confusion with aphasia/facial droop, ddx include TIA vs seizure vs CAP
Not a candidate for TNK/tPA as patient on Eliquis WIRE FENCE ERECTOR
s/p Ativan, Haldol in ED
Admission CT head and CT head neck angio unrevealing
repeat CT head again showed No acute intracranial abnormality
MRI brain also without acute intracranial abnormality.
could consider EEG per neuro
Acute hypoxic respiratory failure
Suspected aspiration pneumonia with component of community acquired pneumonia
CXR: Left basilar atelectasis and/or pneumonia.
Pt was intubated 08/07 for respiratory distress/airway protection.
Extubated 08/14 and doing well. Cont current O2 support with 6L NC
Pt also self pulled Dobbhoff tube
SPL eval prior to feeding
Cont Muller
Continue IV antibiotics per CC - unasyn
MRSA positive, received vancomycin for 5 days
sputum cx 08/08 NGTD, repeat 08/12 growing Citrobacter
IV lasix PRN for diuresis as per CC/cardiology
Pulmonary toilet, nebulized saline
Hypotension -resolved
Septic shock vs Post-intubation hypotension
req pressors, Hernán - now off,
patient now hypertensive, IV hydralazine PRN
eventual addition of GDMT
Cardiomyopathy
Troponin elevation possibly ID versus nonischemic troponin elevation related to neurologic status
Per Cardiology, CAD vs Takotsubo's CMP.. Appreciate mgmt. possible ischemic eval after pt stabilizes
Trop peak at 5.33
EKG showed TWI and pt has long QT
Echo showed low EF 25-30%, new LV dysfunction, apical akinesis with sparing of the base. This could represent Takotsubo but cannot exclude ID at this point.
IV heparin drip -> Eliquis 5 mg BID
Intermittent IV lasix
Hyperlipidemia
LDL at 33
Cont WIRE FENCE ERECTOR atorvastatin
GERD
IV PPI
h/o DVT
resumed WIRE FENCE ERECTOR Eliquis
DVT: resumed WIRE FENCE ERECTOR Eliquis
Full code
DW Machine Fancy Stitcher
DW RN
Anticipated Discharge: > 48 hours
Subjective/Interval History
-
Date of Service: August 15, 2025
Objective Data
-
Labs:
Laboratory Results
08/15/25
03:07
WBC 11.4 H
Hgb 12.6 L
Hct 39.1
Plt Count 185 D
Sodium 136
Potassium 4.3
Chloride 99
Carbon Dioxide 33 H
BUN 10
Creatinine 0.6 L
Glucose 119 H
Calcium 9.0
Vital Signs:
Vital Signs
Temp Pulse Resp BP Pulse Ox
36.7 C 74 18 182/96 92
08/15/25 04:28 08/15/25 07:51 08/15/25 07:51 08/15/25 06:16 08/15/25 07:51
I&O
08/14/25 08/15/25 08/16/25
06:59 06:59 06:59
Intake Total 1880.7 / 1913.1 541.0 / 541.0
Output Total 4315 / 4375 4075 / 4135 60 / 60
Balance -2434.3 / -2461.9 -3534.0 / -3594.0 -60 / -60
Review of Systems
-
Unable to obtain full review of systems at this time due to: Acuity
Physical Exam
-
General: Well Developed, Well Nourished, Respiratory Distress, Conversant and Appears Chronically Ill
HEENT: PERRLA and Oxygen (6L NC)
Respiratory: Clear to Auscultation and Non Labored Respirations; Negative Accessory Resp Muscle Use
Cardiac: Regular Rhythm and S1/S2; Negative Murmur, Rub or Gallop
GI: Soft, Nontender, Nondistended and Normal Bowel Sounds
Genito-urinary: Muller
Musculoskeletal: No Edema
Skin: Warm and Dry
Neuro: Awake
Psych: Calm
Data Reviewed
-
Labs: Labs Reviewed by me
[2025-08-15] MEDS: NSS (PRESERVATIVE FREE) 10 ML IV (08:15)
[2025-08-15] MEDS: PROTONIX IV 40 MG IV (08:15)
[2025-08-15] MEDS: ELIQUIS 5 MG PO ×2 (08:17→19:14)
[2025-08-15] MEDS: COLACE LIQUID TUBE (08:22)
[2025-08-15] MEDS: ELIQUIS TUBE (08:23)
[2025-08-15] MEDS: LOW STRENGTH ASPIRIN TUBE (08:25)
[2025-08-15] MEDS: MIRALAX TUBE (08:28)
[2025-08-15] MEDS: SENNA SYRUP TUBE (08:29)
--- NOTE | 2025-08-15 08:54 | PTCARENOTE ---
Attempting to remove midline, removing , leads. Attempting to get OOB.
Home Service Advisor notified.
--- NOTE | 2025-08-15 09:42 | W.PN.CARDCBS ---
Today's Communication / Plan
-
Add beta-dannie and ARB given cardiomyopathy
Cont gentle diuresis
Impression / Plan
-
Primary exchange underwriting consultant: Dr Burton
Impression:
Acute respiratory failure
VDRF
Septic shock
Troponin elevation peak 5.3, possibly [place] versus nonischemic troponin elevation related to neurologic status, possible Takotsubo
Abnormal EKG with profound T wave inversion
Prolonged QT interval, improved
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
PAFib
TIAs change in mental status
Acute encephalopathy
Pneumonia with possible aspiration
Hypotension
History of multiple TIAs
History of Alzheimer's dementia
History of abdominal aortic aneurysm 4.7 cm (January 2025)
Hypertension
Hyperlipidemia
History of recurrent DVT
Echo Aug 07 2025: EF 25 to 30% with apical akinesis. Normal right ventricle. Mild AR.
Plan:
Extubated. Wean supplemental O2 as able.
He has been transitioned back to Eliquis. He has hx of elevated troponin, PAFib and DVT and was on Eliquis as an outpatient.
Pressors have been weaned
With new cardiomyopathy would add back home BB
Start losartan
Continue ASA/statin for possible ICM given elevated troponin
Consideration for eventual ischemic evaluation, could be arranged as an outpatient
proBNP 2140 on August 12, 2025
Would continue IV lasix to help optimize respiratory statud
HPI: We were initially consulted because of elevated troponin value of 5. Additionally ECG now with anterior and inferior ST and T wave abnormalities and in particular rather deep T wave inversions (marked change from presenting ECG prior). It was
noted that he developed progressive agitation during this hospital stay but there is no notation of any specific complaints of chest pain. He then developed marked and refractory hypotension requiring IV pressor support and is intubated and sedated
(pneumonia/aspiration/airway protection).
Progress Note - Agricultural Inspector
Subjective
Date of Service: August 15, 2025
NAOE. Remains in ICU where he is restrained. No cardiac complaints.
Objective
Labs:
08/15/25 03:07
08/15/25 03:07
Labs
Hgb 12.6 g/dL (13.0-18.0) L 08/15/25 03:07
Hct 39.1 % (39.0-52.0) 08/15/25 03:07
Plt Count 185 10^3/uL (130-400) D 08/15/25 03:07
PT 15.9 Sec (11.4-14.6) H 08/06/25 11:00
INR 1.22 08/06/25 11:00
APTT 34.9 Sec (23.4-35.0) 08/14/25 03:03
Sodium 136 mmol/L (135-145) 08/15/25 03:07
Potassium 4.3 mmol/L (3.5-5.1) 08/15/25 03:07
BUN 10 mg/dl (9-20) 08/15/25 03:07
Creatinine 0.6 mg/dL (0.7-1.3) L 08/15/25 03:07
Glucose 119 mg/dl (70-99) H 08/15/25 03:07
Vital Signs and I&O:
Vital Signs
Temp Pulse Resp BP Pulse Ox
98.7 F 81 31 188/88 93
08/15/25 08:54 08/15/25 08:00 08/15/25 08:00 08/15/25 08:00 08/15/25 08:00
Vital Signs
Temp Pulse Resp BP Pulse Ox
98.7 F 81 31 188/88 93
08/15/25 08:54 08/15/25 08:00 08/15/25 08:00 08/15/25 08:00 08/15/25 08:00
Intake & Output
11/0508/14/25 08/15/25 08/16/25
06:59 06:59 06:59 06:59
Intake Total 8.2 / 4.4 1880.7 / 1913.1 541.0 / 541.0 120 / 120
Output Total 3785 / 3785 4315 / 4375 4075 / 4135 310 / 310
Balance -1866.8 / -1830.6 -2434.3 / -2461.9 -3534.0 / -3594.0 -190 / -190
Physical Exam
Physical Exam
Gen: NAD, AA, restrained
HEENT: NC/AT, sclera anicteric
CV: RRR, NL s1/s2
Lungs: 15L O2
Abd: S/ND
Ext: Trace LE edema
Skin: Warm, dry
Psych: Agitated
[2025-08-15] MEDS: LOW STRENGTH ASPIRIN PO (10:13)
[2025-08-15] MEDS: SENOKOT PO (11:11)
[2025-08-15] MEDS: MUCINEX PO (11:11)
[2025-08-15] MEDS: COLACE PO (11:11)
[2025-08-15] MEDS: MIRALAX PO (11:11)
--- NOTE | 2025-08-15 11:15 | PTCARENOTE ---
ROUND NOTES
Downgraded to IMU.
Speech bedside --> recommending video swallow. Environmental Journalist bedside, hold all meds until after swallow study.
Remove angulo per home comfort advisor since leaving critical care.
[2025-08-15] MEDS: LASIX 20 MG IV (11:48)
[2025-08-15] MEDS: APRESOLINE 10 MG IV ×2 (11:49→21:49)
--- NOTE | 2025-08-15 11:57 | PTCARENOTE ---
Patient arrived to IMU from ICU. AOx2 (time). Needs frequent reminders to not pull at midline, BP cuff, telemetry. at bedside. NIH 1. On 6L midflow with SpO2 95%. BP 168/118. PRN hydralazine given. Holding oral meds until speech does bedside
VSE. NSR with PVC's on monitor. DTV post angulo removal. Urinal within reach. Bruising around R midline. Call mccormick within reach, bed in lowest position, and bed of wheels locked. Bed alarm on and audible.
--- NOTE | 2025-08-15 12:42 | PTCARENOTE ---
Addendum entered by Irasema Santos RN 08/15/25 14:13:
Patient cleared by speech to safely swallow pills. PO toprol and cozaar given. Amio bolus and gtt. BP stable. A fib with HR in the 120'-130's.
Original Note:
Patient working with PT/OT to get OOB to the chair. Patient went into new onset a fib RVR. HR in the 140's-150's. BP 130/88. PRN Lopressor given. EKG done. Patient asymptomatic. Dr. Sanders and Dr. Tillman made aware. Unable to take oral meds until
cleared by speech. No new orders at this time.
[2025-08-15] MEDS: TOPROL XL 12.5 MG PO ×2 (13:42→19:14)
[2025-08-15] MEDS: COZAAR 25 MG PO ×2 (13:42→19:13)
[2025-08-15] MEDS: CORDARONE 103 MG IV (13:49)
[2025-08-15] MEDS: CORDARONE 259 MG IV (13:59)
--- NOTE | 2025-08-15 14:36 | PTCARENOTE ---
Patient converted back to NSR. HR in the 80's. EKG ordered. Continue amio gtt per Dr. Sanders. Care ongoing.
--- NOTE | 2025-08-15 17:05 | CM ---
Pulled NG, speech eval, IV/AB/Lasix. Discharge POC: Therapy rec for SNF. Need preferences. [employer] list explained and provided to patient and . They will choose at least 4 preferences.
[2025-08-15] MEDS: LIPITOR 40 MG PO (17:07)
[2025-08-15] MEDS: COLACE 100 MG PO (19:13)
[2025-08-15] MEDS: MUCINEX 1200 MG PO (19:14)
[2025-08-15] MEDS: SENOKOT 8.6 MG PO (19:15)
[2025-08-15] MEDS: XALATAN OPHTHALMIC SOLUTION 1 DROP BOTH EYES (21:39)
[2025-08-16] VITALS (16 sets, daily range): BP systolic 147–190; BP diastolic 68–111; BMI 29.0
--- NOTE | 2025-08-16 00:50 | PTCARENOTE ---
Assumed care for patient overnight. Pt disoriented to time. NIHSS 1. Amio gtt at subsequent dose 0.5mg/min. Pt in NSR HR 70s. Pt went into A-fib at change of shift HR 140s, PRN Metoprolol administered see DEC. Pt converted into NSR. Pt hypertensive
systolic BP >160, PRN Hydralazine administered. Received pt on 2L NC, SpO2 92%. Pt utilizing the urinal to void. Pt had one episode of emesis at start of shift, however pt denies any nausea at this time. CHG bath done. Pt back into bed with x2
assist however legs are extremely weak. Call mccormick is within reach, bed alarm is on.
[2025-08-16] MEDS: CORDARONE 259 MG IV (01:37)
[2025-08-16] MEDS: UNASYN IV ×4 (01:45→19:58)
[2025-08-16] MEDS: LOPRESSOR 5 MG IV (02:04)
[2025-08-16] MEDS: APRESOLINE 10 MG IV (05:21)
--- NOTE | 2025-08-16 05:27 | PTCARENOTE ---
Patient remains hypertensive. BP 190/86. PRN Hydralazine administered, see DEC.
[2025-08-16 06:08] LABS: Hematocrit 38.9 % (39.0-52.0); Hemoglobin 13.1 g/dL (13.0-18.0); Mean Corp Hgb Conc. 33.7 g/dL (33.0-37.0); Mean Corpuscular Volume 88.8 fL (80.0-94.0); Platelet Count 228 10^3/uL (130-400); Red Cell Dist. Width 13.8 % (11.5-14.5)
[2025-08-16 06:30] LABS: Blood Urea Nitrogen 15 mg/dl (9-20); Calcium 9.0 mg/dl (8.4-10.2); Carbon Dioxide 32 mmol/L (22-30); Chloride 96 mmol/L (98-107); Estimated Creatinine Clearance 73 ml/min; Glucose 111 mg/dl (70-99); Potassium 3.8 mmol/L (3.5-5.1); Sodium 136 mmol/L (135-145); eGFR > 60.00
[2025-08-16] MEDS: DUONEB 3 ML INH ×4 (07:19→20:41)
[2025-08-16] MEDS: SODIUM CHLORIDE 3% FOR INHALATION 1 VIAL INH (07:19)
--- NOTE | 2025-08-16 07:35 | W.PN.CARDCBS ---
Today's Communication / Plan
-
Placed on IV amiodarone overnight for elevated heart rates and is back in sinus rhythm.
Transition to oral amiodarone 200 mg 3 times daily
He is tolerating Eliquis for stroke prophylaxis. He has hx of elevated troponin, PAFib and DVT and was on Eliquis as an outpatient.
proBNP 2139 on August 12, 2025, continue IV lasix to help optimize respiratory status and possible transition to oral Lasix next 24 hours
Wean supplemental oxygen as able
His blood pressures improved and he remains off pressors
With his cardiomyopathy his EF, Toprol XL 25 mg twice a day was added as well as Cozaar 25 mg twice a day.
Continue ASA/statin for possible ICM given elevated troponin
Consideration for eventual ischemic evaluation, will likely be arranged as an outpatient
Impression / Plan
-
Primary sales person: Dr Burton
Impression:
Acute respiratory failure
VDRF
Septic shock
Troponin elevation peak 5.3, possibly [place] versus nonischemic troponin elevation related to neurologic status, possible Takotsubo
Abnormal EKG with profound T wave inversion
Prolonged QT interval, improved
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
PAFib
TIAs change in mental status
Acute encephalopathy
Pneumonia with possible aspiration
Hypotension
History of multiple TIAs
History of Alzheimer's dementia
History of abdominal aortic aneurysm 4.7 cm (January 2025)
Hypertension
Hyperlipidemia
History of recurrent DVT
Echo Aug 07 2025: EF 25 to 30% with apical akinesis. Normal right ventricle. Mild AR.
Plan:
Placed on IV amiodarone overnight for elevated heart rates and is back in sinus rhythm.
Transition to oral amiodarone 200 mg 3 times daily
He is tolerating Eliquis for stroke prophylaxis. He has hx of elevated troponin, PAFib and DVT and was on Eliquis as an outpatient.
proBNP 2140 on August 12, 2025, continue IV lasix to help optimize respiratory status and possible transition to oral Lasix next 24 hours
Wean supplemental oxygen as able
His blood pressures improved and he remains off pressors
With his cardiomyopathy his EF, Toprol XL 25 mg twice a day was added as well as Cozaar 25 mg twice a day.
Continue ASA/statin for possible ICM given elevated troponin
Consideration for eventual ischemic evaluation, will likely be arranged as an outpatient
Treatment of suspected aspiration pneumonia per primary service, almost completed antibiotic regimen
Discussed with primary service
HPI: We were initially consulted because of elevated troponin value of 5. Additionally ECG now with anterior and inferior ST and T wave abnormalities and in particular rather deep T wave inversions (marked change from presenting ECG prior). It was
noted that he developed progressive agitation during this hospital stay but there is no notation of any specific complaints of chest pain. He then developed marked and refractory hypotension requiring IV pressor support and is intubated and sedated
(pneumonia/aspiration/airway protection).
Progress Note - Can Filling Room Sweeper
Subjective
Date of Service: August 16, 2025
Pt seen and examined. No complaints. No chest pain or shortness of breath.
Objective
Labs:
08/16/25 04:58
08/16/25 04:58
Labs
Hgb 13.1 g/dL (13.0-18.0) 08/16/25 04:58
Hct 38.9 % (39.0-52.0) L 08/16/25 04:58
Plt Count 228 10^3/uL (130-400) D 08/16/25 04:58
PT 15.9 Sec (11.4-14.6) H 08/06/25 11:00
INR 1.22 08/06/25 11:00
APTT 34.9 Sec (23.4-35.0) 08/14/25 03:03
Sodium 136 mmol/L (135-145) 08/16/25 04:58
Potassium 3.8 mmol/L (3.5-5.1) 08/16/25 04:58
BUN 15 mg/dl (9-20) 08/16/25 04:58
Creatinine 0.7 mg/dL (0.7-1.3) 08/16/25 04:58
Glucose 111 mg/dl (70-99) H 08/16/25 04:58
Vital Signs and I&O:
Vital Signs
Temp Pulse Resp BP Pulse Ox
98.6 F 87 20 158/101 90
08/16/25 03:00 08/16/25 07:22 08/16/25 07:22 08/16/25 06:06 08/16/25 07:22
Vital Signs
Temp Pulse Resp BP Pulse Ox
98.6 F 87 20 158/101 90
08/16/25 03:00 08/16/25 07:22 08/16/25 07:22 08/16/25 06:06 08/16/25 07:22
Intake & Output
08/14/25 08/15/25 08/16/25 08/17/25
06:59 06:59 06:59 06:59
Intake Total 1880.7 / 1913.1 541.0 / 541.0 563 / 563
Output Total 4315 / 4375 4075 / 4135 2380 / 2380
Balance -2434.3 / -2461.9 -3534.0 / -3594.0 -1817 / -1817
Physical Exam
Physical Exam
General: No acute distress, awake and alert
Neck: Negative JVD
Heart: Regular, Negative S3 positive S1/S2, Negative S4, No murmur
Lungs: CTA b/l, negative wheezes/rales/rhonchi
Abd: Positive BS, NT/ND, neg rebound/rigidity/guarding
Ext: Negative cyanosis/clubbing/edema
Neuro: nonfocal
--- NOTE | 2025-08-16 07:44 | W.PN.INTV ---
Today's Communication / Plan
Recommendations
Finish antibiotics
Diuresis
Wean FiO2
Atrial fibrillation now in sinus rhythm
Amiodarone initiated
Assessment
-
85-year-old male with history of severe sleep apnea, intolerant to CPAP therapy, multiple TIAs presenting with facial droop, aphasia, hypertension, hyperlipidemia, presents with acute mental status changes, aphasia, facial droop. This time,
symptoms did not resolve prompting admission 08/06. Imaging without evidence of acute stroke but symptoms persisted. Patient developed increased respiratory distress requiring intubation for airway protection, agonal breathing, transferred to ICU
08/07/2025
Acute respiratory failure
Intubated 08/07/2025, secondary to respiratory distress
Significant upper airway secretions, thick upon intubation
Bilateral pneumonia
Fevers/leukocytosis
Suspected aspiration syndrome
Poor airway clearance, lack of effective cough in the setting of stroke/mental status changes
Elevated troponin, abnormal EKG
Cardiomyopathy, EF 25%, new
Hypotension
Intermittently requiring phenylephrine
Suspect multifactorial (new cardiomyopathy, pneumonia)
Lower extremity DVT
Conditions present prior to admission
History of abdominal aortic aneurysm, suprarenal, 4.7 cm per imaging January 2025
Hypertension/hyperlipidemia
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
Dose recently increased to 5 mg twice a day
Coronary disease with history of angioplasty/stent, LAD
[id number] history, quit 1979
History of cholecystectomy
History of pyelonephritis
BPH
Family history of cancer (lung, colon, brain)
History of Alzheimer's dementia
Multiple falls
Plan/recommendations
Tolerated extubation
Wean FiO2
Mucus clearing devices
Consider vest therapy if unable to produce mucus
Continue Mucinex and saline nebulizers
Follow-up occasional chest x-ray
Aspiration precautions
Speech therapy evaluation
Video swallow if needed
Cultures reviewed
MRSA screen positive
Sputum culture-usual respiratory william
Blood cultures negative
Antibiotics for community-acquired pneumonia and aspiration-Unasyn and vancomycin-now on Unasyn-finite course
Pressors weaned
Had recurrent atrial fibrillation with rapid ventricular response
Amiodarone drip initiated 08/16/2025
IV heparin-changed to Eliquis
Cardiology following-correspondence reviewed
Eventual ischemia evaluation
Repeat echo 08/07/2025 with drop in EF (25-30 %), questionable stress cardiomyopathy vs ischemic?
Diuresis continues as tolerated--- 10 L /5 days
Monitor renal function, electrolytes, intake/output, lower extremity edema and weight
Replace electrolytes as needed
Dobbhoff tube-patient removed 08/15/2025
Speech therapy saw patient
Advance diet per speech therapy recommendations
Patient with history of DVTs
Was on outpatient Eliquis, unclear if this was for history of TIA-now has had episode of atrial fibrillation in the hospital but no other indication for long-term anticoagulation
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
DVT prophylaxis-on heparin drip-to be converted to Eliquis
GI prophylaxis-on Protonix
Nutrition
PT/OT
Reviewed with nursing
Family meetings
Reviewed with , daughter and granddaughter on multidisciplinary rounds 08/12/2025 discussed DNR status and potential extubation and no reintubation-they will think about it
Dr. Wolff reviewed with and daughter on multidisciplinary rounds 08/13/2025-stated that the patient would not want reintubation if extubated-not ready for extubation but might be in the next [address] Wolff reviewed with as well as 2 daughters on rounds 08/14/2025-now they state patient would want to be reintubated if a reversible process was noted-explained we will proceed with extubation if passes spontaneous breathing trial and we
will reintubate if necessary
Dr. Wolff reviewed with and daughter on rounds 08/15/2025-updated on improved and stable condition
Subjective Dataa
Subjective Data
Date of Service:
Date of Service: August 16, 2025
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
Subjective:
Denies any shortness of breath, chest pain, minimal cough, no abdominal pain, had episode of rapid atrial fibrillation
Review of Systems
General: Other (Per HPI)
Objective Data
Data Reviewed
Vital Signs / I&O / Oxygen:
Vital Signs
Temp Pulse Resp BP Pulse Ox
98.6 F 87 20 158/101 90
08/16/25 03:00 08/16/25 07:22 08/16/25 07:22 08/16/25 06:06 08/16/25 07:22
Intake and Output
08/15/25 08/16/25 08/17/25
06:59 06:59 06:59
Intake Total 541.0 / 541.0 563 / 563
Output Total 4075 / 4135 2380 / 2380
Balance -3534.0 / -3594.0 -1817 / -1817
SaO2 [ASV] 99
SaO2 [A/C] 100
SaO2 90
Nasal Cannula flow liters per 2
minute
Physical Exam
General: Respiratory Distress (n) and Comfortable
HEENT: Normocephalic and Anicteric
Cardiovascular: Regular Rhythm, Murmur (n), Rub (n), Peripheral Edema (tr) and Calf Tenderness (n)
Respiratory: Wheeze (n), Crackles (Few basilar), Rhonchi (few), Non-Labored Respirations and Other (Bronchial breath sounds, decreased at the base)
GI: Soft, Non Distended and Non Tender
Neurology: Awake, Alert, No Motor Deficits and Lethargic (Sedated)
Skin: Warm, Good Color, Cyanosis (n), Jaundice (n) and Bruising (Few)
Labs/Micro/Reports
Lab Data
08/16/25 04:58
08/16/25 04:58
Microbiology
08/12/25 15:26 Endotracheal Respiratory Culture - Final
Citrobacter koseri
08/12/25 15:26 Endotracheal Gram Stain - Final
[2025-08-16] MEDS: MIRALAX 17 GRAMS PO (09:54)
[2025-08-16] MEDS: COLACE 100 MG PO ×2 (09:54→19:57)
[2025-08-16] MEDS: SENOKOT 8.6 MG PO ×2 (09:54→19:57)
[2025-08-16] MEDS: LOW STRENGTH ASPIRIN 81 MG PO (09:54)
[2025-08-16] MEDS: COZAAR 25 MG PO ×2 (09:54→19:58)
[2025-08-16] MEDS: MUCINEX 1200 MG PO ×2 (09:55→19:58)
[2025-08-16] MEDS: LASIX 20 MG IV (09:55)
[2025-08-16] MEDS: TOPROL XL 12.5 MG PO ×2 (09:55→19:57)
[2025-08-16] MEDS: ELIQUIS 5 MG PO ×2 (10:02→19:57)
--- NOTE | 2025-08-16 10:21 | W.PN.HOSP.TC ---
Today's Communication/Plan
-
Started on amiodarone drip last night, now in sinus with rate control
PT/OT
Last day of antibiotics
Assessment / Plan
Assessment / Plan
85M with HTN, HLD, CAD s/p stents, BPH, AMANDA not on CPAP, periodic limb movement disorder, degenerative joint disease, GERD, H/O DVT on Eliquis, glaucoma, multiple TIAs; p/w acute and intermittent onset of aphasia and facial droop.
A/P:
A-fib with RVR
Started on amiodarone drip last night 08/15 for HR 140s not responding to metoprolol
Converted to SR
Cardiology managing
Acute metabolic encephalopathy�improving
p/w confusion, which has improved, with aphasia/facial droop, which have resolved, ddx include TIA vs seizure vs CAP. Metabolic encephalopathy could be secondary to pneumonia.
Not a candidate for TNK/tPA as patient on Eliquis TIN STACKER
s/p Ativan, Haldol in ED
Admission CT head and CT head neck angio unrevealing
repeat CT head again showed No acute intracranial abnormality
MRI brain also without acute intracranial abnormality.
could consider EEG per neuro
Acute hypoxic respiratory failure�resolved
Secondary to below
Pt was intubated 08/07 for respiratory distress/airway protection.
Extubated 08/14 and doing well. Cont current O2 support with 6L NC
Pt also self pulled Dobbhoff tube
ST has advanced diet to solids
Cont Muller
On IV lasix diuresis as per cardiology
Pulmonary toilet, nebulized saline
Suspected aspiration pneumonia with component of community acquired pneumonia
CXR: Left basilar atelectasis and/or pneumonia.
Continue IV antibiotics per CC - unasyn day 10, today is the last day
MRSA positive, received vancomycin for 5 days
sputum cx 08/08 NGTD, repeat 08/12 growing Citrobacter
Hypotension -resolved
Septic shock vs Post-intubation hypotension
req pressors, Hernán - now off,
patient now hypertensive, IV hydralazine PRN
eventual addition of GDMT
Cardiomyopathy
Troponin elevation possibly CO versus nonischemic troponin elevation related to neurologic status
Per Cardiology, CAD vs Takotsubo's CMP.. Appreciate mgmt. possible ischemic eval after pt stabilizes
Trop peak at 5.33
EKG showed TWI and pt has long QT
Echo showed low EF 25-30%, new LV dysfunction, apical akinesis with sparing of the base. This could represent Takotsubo but cannot exclude CO at this point.
IV heparin drip -> Eliquis 5 mg BID
On daily IV lasix
Hypertension
Beta-dannie and ARB, adjust for better BP control
As needed IV hydralazine
Hyperlipidemia
LDL at 33
Cont TIN STACKER
h/o DVT
Eliquis
DVT: Eliquis
Full code
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
Anticipated Discharge: > 48 hours
Subjective/Interval History
-
Date of Service: August 16, 2025
Patient reports feeling weak when he tries to move around and get out of bed. Denies chest pain, shortness of breath, nausea, vomiting, abdominal pains. RN at bedside.
Objective Data
-
Labs:
Laboratory Results
08/16/25
04:58
WBC 13.1 H
Hgb 13.1
Hct 38.9 L
Plt Count 228 D
Sodium 136
Potassium 3.8
Chloride 96 L
Carbon Dioxide 32 H
BUN 15
Creatinine 0.7
Glucose 111 H
Calcium 9.0
Vital Signs:
Vital Signs
Temp Pulse Resp BP Pulse Ox
98.6 F 83 16 168/95 90
08/16/25 03:00 08/16/25 08:30 08/16/25 08:30 08/16/25 08:30 08/16/25 08:30
I&O
08/15/25 08/16/25 08/17/25
06:59 06:59 06:59
Intake Total 541.0 / 541.0 563 / 563 600 / 600
Output Total 4075 / 4135 2380 / 2380
Balance -3534.0 / -3594.0 -1817 / -1817 600 / 600
Review of Systems
-
All other systems: Reviewed and negative
Physical Exam
-
General: No Apparent Distress
HEENT: Moist Mucous Membranes, Anicteric and PERRLA
Respiratory: Clear to Auscultation; Negative Wheezes, Rales or Rhonchi
Cardiac: Regular Rhythm and S1/S2; Negative Murmur, Rub or Gallop
GI: Soft, Nontender, Nondistended and Normal Bowel Sounds
Musculoskeletal: No Edema
Skin: Warm and Dry; Negative Rash, Ulcers or Lesions
Neuro: Awake, Alert and Oriented (To self, '1998', does not know where he is)
Hematologic / Lymphatic: No Lymphadenopathy
Psych: Calm
Data Reviewed
-
CT Scan: Report Reviewed by me and Discussed with Patient
Labs: Labs Reviewed by me, Discussed with Nurse and Discussed with Patient
--- NOTE | 2025-08-16 14:08 | PTCARENOTE ---
Patient OOB with PT/OT. Sat in chair for about an hour. Assist x1 with rolling walker. Left nare NG may be clamped with ambulation. Otherwise low intermittent suction. NO irrigation. Patient AAOx3. [place]. Midline abdominal dressing C/DI.
Strict NPO. Afib on monitor. VS stable,afebrile.
[2025-08-16] MEDS: FLUSH (NSS) 1 FLUSH IV (15:35)
[2025-08-16] MEDS: PACERONE 200 MG PO ×2 (16:58→21:05)
[2025-08-16] MEDS: LIPITOR 40 MG PO (17:01)
[2025-08-16] MEDS: XALATAN OPHTHALMIC SOLUTION 1 DROP BOTH EYES (19:58)
[2025-08-17] VITALS (15 sets, daily range): BP systolic 119–181; BP diastolic 63–110; BMI 28.7
--- NOTE | 2025-08-17 01:54 | PTCARENOTE ---
assumed care of patient. pt is oriented x2-3, forgetful and confused at times. slow speech noted. able to make needs known. VSS. 94% 2LNC. bed alarm on. able to take pills whole with applesauce without issues. no complaints of pain. care ongoing.
[2025-08-17 03:46] LABS: Hematocrit 37.6 % (39.0-52.0); Hemoglobin 13.1 g/dL (13.0-18.0); Mean Corp Hgb Conc. 34.8 g/dL (33.0-37.0); Mean Corpuscular Volume 87.9 fL (80.0-94.0); Nucleated Red Blood Cells % 0 % (-); Platelet Count 222 10^3/uL (130-400); Red Cell Dist. Width 13.7 % (11.5-14.5)
[2025-08-17 04:11] LABS: Blood Urea Nitrogen 20 mg/dl (9-20); Calcium 8.9 mg/dl (8.4-10.2); Carbon Dioxide 32 mmol/L (22-30); Chloride 99 mmol/L (98-107); Estimated Creatinine Clearance 73 ml/min; Glucose 106 mg/dl (70-99); Potassium 3.4 mmol/L (3.5-5.1); Sodium 136 mmol/L (135-145); eGFR > 60.00
[2025-08-17] MEDS: APRESOLINE 10 MG IV (06:03)
[2025-08-17] MEDS: DUONEB 3 ML INH ×4 (07:24→20:42)
--- NOTE | 2025-08-17 08:34 | W.PN.CARDCBS ---
Today's Communication / Plan
-
Remains in sinus on oral amiodarone 200 mg TID.
He is tolerating Eliquis for stroke prophylaxis. He has hx of elevated troponin, PAFib and DVT and was on Eliquis as an outpatient.
Continue gentle diuresis
proBNP 2140 on August 12, 2025
Possible transition to oral Lasix next 24 hours
Wean supplemental oxygen as able
His blood pressures remain stable.
With his cardiomyopathy his EF, Toprol XL 25 mg twice a day was added as well as Cozaar 25 mg twice a day.
Continue ASA/statin for possible ICM given elevated troponin
Consideration for eventual ischemic evaluation, will likely be arranged as an outpatient
Impression / Plan
-
Primary is technician: Dr Burton
Impression:
Acute respiratory failure
VDRF
Septic shock
Troponin elevation peak 5.3, possibly [place] versus nonischemic troponin elevation related to neurologic status, possible Takotsubo
Abnormal EKG with profound T wave inversion
Prolonged QT interval, improved
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
PAFib
TIAs change in mental status
Acute encephalopathy
Pneumonia with possible aspiration
Hypotension
History of multiple TIAs
History of Alzheimer's dementia
History of abdominal aortic aneurysm 4.7 cm (January 2025)
Hypertension
Hyperlipidemia
History of recurrent DVT
Echo Aug 07 2025: EF 25 to 30% with apical akinesis. Normal right ventricle. Mild AR.
Plan:
Remains in sinus on oral amiodarone 200 mg TID.
He is tolerating Eliquis for stroke prophylaxis. He has hx of elevated troponin, PAFib and DVT and was on Eliquis as an outpatient.
Continue gentle diuresis
proBNP 2140 on August 12, 2025
Possible transition to oral Lasix next 24 hours
Wean supplemental oxygen as able
His blood pressures remain stable.
With his cardiomyopathy his EF, Toprol XL 25 mg twice a day was added as well as Cozaar 25 mg twice a day.
Continue ASA/statin for possible ICM given elevated troponin
Consideration for eventual ischemic evaluation, will likely be arranged as an outpatient
Treatment of suspected aspiration pneumonia per primary service, almost completed antibiotic regimen
He has been dealing with some memory loss.
Discussed with nursing
HPI: We were initially consulted because of elevated troponin value of 5. Additionally ECG now with anterior and inferior ST and T wave abnormalities and in particular rather deep T wave inversions (marked change from presenting ECG prior). It was
noted that he developed progressive agitation during this hospital stay but there is no notation of any specific complaints of chest pain. He then developed marked and refractory hypotension requiring IV pressor support and is intubated and sedated
(pneumonia/aspiration/airway protection).
Progress Note - Address Change Clerk
Subjective
Date of Service: August 17, 2025
Patient seen and examined. No chest pain or shortness of breath
Objective
Labs:
08/17/25 03:22
08/17/25 03:22
Labs
Hgb 13.1 g/dL (13.0-18.0) 08/17/25 03:22
Hct 37.6 % (39.0-52.0) L 08/17/25 03:22
Plt Count 222 10^3/uL (130-400) 08/17/25 03:22
PT 15.9 Sec (11.4-14.6) H 08/06/25 11:00
INR 1.22 08/06/25 11:00
APTT 34.9 Sec (23.4-35.0) 08/14/25 03:03
Sodium 136 mmol/L (135-145) 08/17/25 03:22
Potassium 3.4 mmol/L (3.5-5.1) L 08/17/25 03:22
BUN 20 mg/dl (9-20) 08/17/25 03:22
Creatinine 0.7 mg/dL (0.7-1.3) 08/17/25 03:22
Glucose 106 mg/dl (70-99) H 08/17/25 03:22
Vital Signs and I&O:
Vital Signs
Temp Pulse Resp BP Pulse Ox
98.5 F 81 22 176/76 92
08/17/25 07:32 08/17/25 08:00 08/17/25 08:00 08/17/25 08:00 08/17/25 08:00
Vital Signs
Temp Pulse Resp BP Pulse Ox
98.5 F 81 22 176/76 92
08/17/25 07:32 08/17/25 08:00 08/17/25 08:00 08/17/25 08:00 08/17/25 08:00
Intake & Output
08/15/25 08/16/25 08/17/25 08/18/25
06:59 06:59 06:59 06:59
Intake Total 541.0 / 541.0 563 / 563 1645 / 1645
Output Total 4075 / 4135 2380 / 2380 720 / 720
Balance -3534.0 / -3594.0 -1817 / -1817 925 / 925
Physical Exam
Physical Exam
General: No acute distress, AAOX3
Neck: Negative JVD
Heart: Regular, Negative S3 positive S1/S2, Negative S4, No murmur
Lungs: CTA b/l, negative wheezes/rales/rhonchi
Abd: Positive BS, NT/ND, neg rebound/rigidity/guarding
Ext: Negative cyanosis/clubbing/edema
Neuro: nonfocal
[2025-08-17] MEDS: MUCINEX 1200 MG PO ×2 (09:34→19:49)
[2025-08-17] MEDS: ELIQUIS 5 MG PO ×2 (09:34→19:49)
[2025-08-17] MEDS: COLACE 100 MG PO ×2 (09:34→19:49)
[2025-08-17] MEDS: SENOKOT 8.6 MG PO ×2 (09:34→19:49)
[2025-08-17] MEDS: TOPROL XL 12.5 MG PO ×2 (09:34→19:49)
[2025-08-17] MEDS: MIRALAX 17 GRAMS PO (09:35)
[2025-08-17] MEDS: LASIX 20 MG IV (09:35)
[2025-08-17] MEDS: LOW STRENGTH ASPIRIN 81 MG PO (09:35)
[2025-08-17] MEDS: PACERONE 200 MG PO ×3 (09:35→21:03)
[2025-08-17] MEDS: FLUSH (NSS) 2 FLUSH IV (09:38)
[2025-08-17] MEDS: COZAAR 50 MG PO ×2 (09:40→19:49)
--- NOTE | 2025-08-17 11:10 | W.PN.INTV ---
Today's Communication / Plan
Recommendations
Increase activity
Wean FiO2
Assess discharge supplemental oxygen needs
Finite course of antibiotics finished
Continue nebulizers as needed
Monitor for recurrence of atrial fibrillation
Patient stable and from a pulmonary perspective could be downgraded to telemetry-pulmonary will continue to follow briefly
Assessment
-
85-year-old male with history of severe sleep apnea, intolerant to CPAP therapy, multiple TIAs presenting with facial droop, aphasia, hypertension, hyperlipidemia, presents with acute mental status changes, aphasia, facial droop. This time,
symptoms did not resolve prompting admission 08/06. Imaging without evidence of acute stroke but symptoms persisted. Patient developed increased respiratory distress requiring intubation for airway protection, agonal breathing, transferred to ICU
08/07/2025
Acute respiratory failure
Intubated 08/07/2025, secondary to respiratory distress
Significant upper airway secretions, thick upon intubation
Bilateral pneumonia
Fevers/leukocytosis
Suspected aspiration syndrome
Poor airway clearance, lack of effective cough in the setting of stroke/mental status changes
Elevated troponin, abnormal EKG
Cardiomyopathy, EF 25%, new
Hypotension
Intermittently requiring phenylephrine
Suspect multifactorial (new cardiomyopathy, pneumonia)
Lower extremity DVT
Conditions present prior to admission
History of abdominal aortic aneurysm, suprarenal, 4.7 cm per imaging January 2025
Hypertension/hyperlipidemia
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
Dose recently increased to 5 mg twice a day
Coronary disease with history of angioplasty/stent, LAD
[id number] history, quit 1979
History of cholecystectomy
History of pyelonephritis
BPH
Family history of cancer (lung, colon, brain)
History of Alzheimer's dementia
Multiple falls
Plan/recommendations
Tolerated extubation
Wean FiO2-occasionally takes oxygen off-room air 93% saturation
Mucus clearing devices
Consider vest therapy if unable to produce mucus-has not needed
Continue Mucinex and saline nebulizers
Follow-up occasional chest x-ray
Aspiration precautions
Speech therapy following
Cultures reviewed
MRSA screen positive
Sputum culture-usual respiratory william
Blood cultures negative
Antibiotics for community-acquired pneumonia and aspiration-Unasyn and vancomycin-now on Unasyn-finite course
Had recurrent atrial fibrillation with rapid ventricular response
Amiodarone drip initiated 08/16/2025
IV heparin-changed to Eliquis
Cardiology following-correspondence reviewed
Eventual ischemia evaluation
Repeat echo 08/07/2025 with drop in EF (25-30 %), questionable stress cardiomyopathy vs ischemic?
Diuresis continues as tolerated--- 10 L /5 days-now euvolemic-+1 L / 24-hour
Monitor renal function, electrolytes, intake/output, lower extremity edema and weight
Replace electrolytes as needed
Dobbhoff tube-patient removed 08/15/2025
Speech therapy saw patient
Continue diet per speech recommendations
Patient with history of DVTs
Was on outpatient Eliquis, unclear if this was for history of TIA-now has had episode of atrial fibrillation in the hospital but no other indication for long-term anticoagulation
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
DVT prophylaxis-on heparin drip-to be converted to Eliquis
GI prophylaxis-on Protonix
Nutrition
PT/OT
Reviewed with nursing
Family meetings
Reviewed with , daughter and granddaughter on multidisciplinary rounds 08/12/2025 discussed DNR status and potential extubation and no reintubation-they will think about it
Dr. Wolff reviewed with and daughter on multidisciplinary rounds 08/13/2025-stated that the patient would not want reintubation if extubated-not ready for extubation but might be in the next [address] Wolff reviewed with as well as 2 daughters on rounds 08/14/2025-now they state patient would want to be reintubated if a reversible process was noted-explained we will proceed with extubation if passes spontaneous breathing trial and we
will reintubate if necessary
Dr. Wolff reviewed with and daughter on rounds 08/15/2025-updated on improved and stable condition
Subjective Dataa
Subjective Data
Date of Service:
Date of Service: August 17, 2025
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
Subjective:
Feels better, no complaints of shortness of breath, no chest congestion, productive cough, abdominal pain
Review of Systems
General: Other (Per HPI)
Objective Data
Data Reviewed
Vital Signs / I&O / Oxygen:
Vital Signs
Temp Pulse Resp BP Pulse Ox
98.5 F 81 22 176/76 92
08/17/25 07:32 08/17/25 08:00 08/17/25 08:00 08/17/25 08:00 08/17/25 08:00
Intake and Output
08/16/25 08/17/25 08/18/25
06:59 06:59 06:59
Intake Total 563 / 563 1645 / 1645
Output Total 2380 / 2380 720 / 720
Balance -1817 / -1817 925 / 925
SaO2 [ASV] 99
SaO2 [A/C] 100
SaO2 92
Nasal Cannula flow liters per 2
minute
Physical Exam
General: Respiratory Distress (n) and Comfortable
HEENT: Normocephalic and Anicteric
Cardiovascular: Regular Rhythm, Murmur (n), Rub (n), Peripheral Edema (tr) and Calf Tenderness (n)
Respiratory: Wheeze (n), Crackles (Few basilar), Rhonchi (few), Non-Labored Respirations and Other (Bronchial breath sounds, decreased at the base)
GI: Soft, Non Distended and Non Tender
Neurology: Awake, Alert, No Motor Deficits and Lethargic (Sedated)
Skin: Warm, Good Color, Cyanosis (n), Jaundice (n) and Bruising (Few)
Labs/Micro/Reports
Lab Data
08/17/25 03:22
08/17/25 03:22
Microbiology
08/12/25 15:26 Endotracheal Respiratory Culture - Final
Citrobacter koseri
08/12/25 15:26 Endotracheal Gram Stain - Final
--- NOTE | 2025-08-17 11:38 | W.PN.HOSP.TC ---
Today's Communication/Plan
-
Continue amiodarone, check UA/CXR for leukocytosis
Assessment / Plan
Assessment / Plan
85M with HTN, HLD, CAD s/p stents, BPH, AMANDA not on CPAP, periodic limb movement disorder, degenerative joint disease, GERD, H/O DVT on Eliquis, glaucoma, multiple TIAs; p/w acute and intermittent onset of aphasia and facial droop, found to have
pneumonia.
A/P:
A-fib with RVR
Started on amiodarone drip 08/15 for HR 140s not responding to metoprolol, rate now controlled, transition to oral amiodarone
Converted to SR
Cardiology managing
Leukocytosis
Continues to increase
No fever
Check UA, CXR
Acute metabolic encephalopathy�improving
p/w confusion, which has improved, with aphasia/facial droop, which have resolved, ddx include TIA vs seizure vs CAP. Metabolic encephalopathy could be secondary to sepsis/pneumonia.
Not a candidate for TNK/tPA as patient on Eliquis [employer]
s/p Ativan, Haldol in ED
Admission CT head and CT head neck angio unrevealing
repeat CT head again showed No acute intracranial abnormality
MRI brain also without acute intracranial abnormality.
could consider EEG per neuro
Acute hypoxic respiratory failure�resolved
Secondary to below
Pt was intubated 08/07 for respiratory distress/airway protection.
Extubated 08/14 and doing well. Cont current O2 support with 2L NC
Pt also self pulled Dobbhoff tube
ST has advanced diet to solids
d/c'd Muller
On IV lasix diuresis as per cardiology
Pulmonary toilet, nebulized saline
Suspected aspiration pneumonia with component of community acquired pneumonia
Meet sepsis criteria with acute metabolic encephalopathy
CXR: Left basilar atelectasis and/or pneumonia.
MRSA positive, received vancomycin for 5 days
sputum cx 08/08 NGTD, repeat 08/12 growing Citrobacter
IV antibiotics per CC - unasyn completed 10-day course
Hypotension -resolved
Septic shock vs Post-intubation hypotension
req pressors, Hernán - now off,
patient now hypertensive, IV hydralazine PRN
eventual addition of GDMT
Cardiomyopathy
Troponin elevation possibly ND versus nonischemic troponin elevation related to neurologic status
Per Cardiology, CAD vs Takotsubo's CMP. Appreciate mgmt. possible ischemic eval after pt stabilizes
Trop peak at 5.33
EKG showed TWI and pt has long QT
Echo showed low EF 25-30%, new LV dysfunction, apical akinesis with sparing of the base. This could represent Takotsubo but cannot exclude ND at this point.
IV heparin drip -> Eliquis 5 mg BID
On daily IV lasix
Hypertension
Beta-dannie and ARB, adjusted for better BP control
As needed IV hydralazine
Hyperlipidemia
LDL at 33
Statin
h/o DVT
Eliquis
DVT: Eliquis
Full code
Anticipated Discharge: > 48 hours
Subjective/Interval History
-
Date of Service: August 17, 2025
Patient denies any problems overnight. He seems a bit confused, asking about his atorvastatin, saying he takes 5 mg twice a day, after review of the chart it appears he was thinking about Eliquis. RN at bedside, discussed plan of care. Productive
cough
Objective Data
-
Labs:
Laboratory Results
08/17/25
03:22
WBC 14.8 H
Hgb 13.1
Hct 37.6 L
Plt Count 222
Sodium 136
Potassium 3.4 L
Chloride 99
Carbon Dioxide 32 H
BUN 20
Creatinine 0.7
Glucose 106 H
Calcium 8.9
Vital Signs:
Vital Signs
Temp Pulse Resp BP Pulse Ox
98.5 F 78 23 128/63 94
08/17/25 07:32 08/17/25 11:30 08/17/25 11:30 08/17/25 10:00 08/17/25 11:30
I&O
08/16/25 08/17/25 08/18/25
06:59 06:59 06:59
Intake Total 563 / 563 1645 / 1645
Output Total 2380 / 2380 720 / 720
Balance -1817 / -1817 925 / 925
Review of Systems
-
All other systems: Reviewed and negative
Physical Exam
-
General: No Apparent Distress
HEENT: Moist Mucous Membranes, Anicteric and PERRLA
Respiratory: Clear to Auscultation; Negative Wheezes, Rales or Rhonchi
Cardiac: Regular Rhythm and S1/S2; Negative Murmur, Rub or Gallop
GI: Soft, Nontender, Nondistended and Normal Bowel Sounds
Musculoskeletal: No Edema
Skin: Warm and Dry; Negative Rash, Ulcers or Lesions
Neuro: Awake, Alert and Oriented (To self, '1998', does not know where he is)
Hematologic / Lymphatic: No Lymphadenopathy
Psych: Calm
Data Reviewed
-
CT Scan: Report Reviewed by me and Discussed with Patient
Labs: Labs Reviewed by me, Discussed with Nurse and Discussed with Patient
[2025-08-17 15:37] LABS: Urine Character Clear (Clear)
--- NOTE | 2025-08-17 17:00 | PTCARENOTE ---
Patient out of bed to chair today. Assistance x2 and walker. Appetite better. VS stable,afebrile. Pulse ox 93% RA. Patient denies shortness of breath. Lungs diminished. Patient has productive cough.
[2025-08-17] MEDS: LIPITOR 40 MG PO (17:41)
[2025-08-17] MEDS: COZAAR PO (17:42)
[2025-08-17] MEDS: XALATAN OPHTHALMIC SOLUTION 1 DROP BOTH EYES (19:50)
[2025-08-18] VITALS (20 sets, daily range): BP systolic 72–178; BP diastolic 57–107; PULSE 86–106; BMI 27.2
--- NOTE | 2025-08-18 01:21 | PTCARENOTE ---
assumed care of patient. pt is oriented x2-3, confused and forgetful at times. bed alarm on. 89% RA, 2L NC applied, now 94%. able to take pills whole with applesauce without issues. using urinal at bedside. care ongoing.
[2025-08-18 05:14] LABS: Hematocrit 38.5 % (39.0-52.0); Hemoglobin 13.1 g/dL (13.0-18.0); Mean Corp Hgb Conc. 34.0 g/dL (33.0-37.0); Mean Corpuscular Volume 85.7 fL (80.0-94.0); Nucleated Red Blood Cells % 0 % (-); Platelet Count 246 10^3/uL (130-400); Red Cell Dist. Width 13.8 % (11.5-14.5)
[2025-08-18 05:24] LABS: Blood Urea Nitrogen 26 mg/dl (9-20); Calcium 8.7 mg/dl (8.4-10.2); Carbon Dioxide 32 mmol/L (22-30); Chloride 99 mmol/L (98-107); Estimated Creatinine Clearance 64 ml/min; Glucose 104 mg/dl (70-99); Potassium 3.3 mmol/L (3.5-5.1); Sodium 135 mmol/L (135-145); eGFR > 60.00
[2025-08-18] MEDS: APRESOLINE 10 MG IV (06:05)
[2025-08-18] MEDS: DUONEB 3 ML INH ×2 (07:30→10:34)
--- NOTE | 2025-08-18 08:00 | PTCARENOTE ---
Pt AAOx2-3 some confusion noted along with being forgetful. Looking for pt eye glasses with out any luck. Pt took pills whole in applesauce and thickened water. Using urinal properly
[2025-08-18] MEDS: TOPROL XL 12.5 MG PO ×2 (08:13→21:07)
[2025-08-18] MEDS: MUCINEX 1200 MG PO (08:14)
[2025-08-18] MEDS: LOW STRENGTH ASPIRIN 81 MG PO (08:14)
[2025-08-18] MEDS: COZAAR 50 MG PO ×2 (08:14→21:06)
[2025-08-18] MEDS: SENOKOT 8.6 MG PO ×2 (08:15→21:07)
[2025-08-18] MEDS: ELIQUIS 5 MG PO ×2 (08:16→21:07)
[2025-08-18] MEDS: PACERONE 200 MG PO ×3 (08:16→21:07)
[2025-08-18] MEDS: COLACE 100 MG PO ×2 (08:16→21:06)
[2025-08-18] MEDS: LASIX 20 MG IV (08:17)
[2025-08-18] MEDS: MIRALAX 17 GRAMS PO (08:19)
--- NOTE | 2025-08-18 08:23 | W.PN.HOSP.TC ---
Today's Communication/Plan
-
see A/P
Assessment / Plan
Assessment / Plan
85M with HTN, HLD, CAD s/p stents, BPH, AMANDA not on CPAP, periodic limb movement disorder, degenerative joint disease, GERD, H/O DVT on Eliquis, glaucoma, multiple TIAs; p/w acute and intermittent onset of aphasia and facial droop, found to have
pneumonia.
A/P:
# paroxysmal A-fib with resolved RVR
Converted to SR
amiodarone drip 08/15 -> oral amiodarone
Cont oral amiodarone 200 mg TID.
Cont Toprol 12.5 mg BID
Cardiology following
# Leukocytosis, reactive vs infective?
No fever
Check repeat blood cultures x2, UA reflex culture, procal, CXR
# Acute metabolic encephalopathy�improving
p/w confusion with aphasia/facial droop, which have resolved.
Metabolic encephalopathy could be secondary to sepsis/pneumonia.
Not a candidate for TNK/tPA as patient on Eliquis [employer]
Admission CT head and CT head neck angio unrevealing
repeat CT head again showed No acute intracranial abnormality
MRI brain also without acute intracranial abnormality.
Cont to monitor MS, he is now awake and conversant
# Acute hypoxic respiratory failure� resolved
Secondary to below
Pt was intubated 08/07 for respiratory distress/airway protection. Extubated 08/14 and doing well.
Cont current O2 support with 2L NC, wean as tolerated.
Pt self pulled Dobbhoff tube. ST has advanced diet to solids
d/c'd Muller
On IV lasix diuresis as per cardiology, with plan to transition to oral Lasix soon
Pulmonary toilet, nebulized saline
# Suspected aspiration pneumonia with component of community acquired pneumonia
Meet sepsis criteria with acute metabolic encephalopathy
CXR: Left basilar atelectasis and/or pneumonia.
MRSA positive, received vancomycin for 5 days
sputum cx 08/08 NGTD, repeat 08/12 growing Citrobacter
IV antibiotics per CC - unasyn completed 10-day course
# Hypotension- resolved. Septic shock vs Post-intubation hypotension
req pressors, Hernán - now off,
patient now hypertensive, IV hydralazine PRN
GDMT Cozaar and Toprol added per card (see below)
# Cardiomyopathy
# Troponin elevation possibly [place] versus nonischemic troponin elevation related to neurologic status
Per Cardiology, CAD vs Takotsubo's CMP. Appreciate mgmt. Possible ischemic eval after pt stabilizes
Trop peak at 5.33
EKG showed TWI and pt has long QT
Echo showed low EF 25-30%, new LV dysfunction, apical akinesis with sparing of the base. This could represent Takotsubo but cannot exclude [place] at this point.
IV heparin drip -> Eliquis 5 mg BID
On daily IV lasix
GDMT Cozaar and Toprol added
# Now Hypertension
GDMT Cozaar and Toprol added.
As needed IV hydralazine
# Hyperlipidemia
LDL at 33
Statin
# h/o DVT
Eliquis
DVT: Eliquis
Full code
Dispo: SNF
Called Pushpa and daughter Neelima several times to give update, calls not answered
Anticipated Discharge: > 48 hours
Subjective/Interval History
-
Date of Service: August 18, 2025
Objective Data
-
Labs:
Laboratory Results
08/18/25
04:39
WBC 14.8 H
Hgb 13.1
Hct 38.5 L
Plt Count 246
Sodium 135
Potassium 3.3 L
Chloride 99
Carbon Dioxide 32 H
BUN 26 H
Creatinine 0.8
Glucose 104 H
Calcium 8.7
Vital Signs:
Vital Signs
Temp Pulse Resp BP Pulse Ox
36.7 C 76 20 136/78 97
08/18/25 07:29 08/18/25 08:14 08/18/25 07:30 08/18/25 08:14 08/18/25 07:30
I&O
08/17/25 08/18/25 08/19/25
06:59 06:59 06:59
Intake Total 1645 / 1645 1275 / 1275
Output Total 720 / 720 1110 / 1110
Balance 925 / 925 165 / 165
Review of Systems
-
All other systems: Reviewed and negative
Physical Exam
-
General: Well Developed, Well Nourished, Comfortable and Conversant
HEENT: Normocephalic, Atraumatic, Anicteric and Oxygen (2L NC)
Respiratory: Clear to Auscultation and Non Labored Respirations; Negative Accessory Resp Muscle Use
Cardiac: Regular Rhythm and S1/S2; Negative Murmur, Rub or Gallop
GI: Soft, Nontender, Nondistended and Normal Bowel Sounds
Musculoskeletal: No Edema
Skin: Warm and Dry; Negative Rash, Ulcers or Lesions
Neuro: Awake and Alert
Psych: Calm and Intact Judgement/Insight (somewhat)
Data Reviewed
-
CT Scan: Report Reviewed by me and Discussed with Patient
Labs: Labs Reviewed by me, Discussed with Nurse and Discussed with Patient
[2025-08-18] MEDS: KCL 40 MEQ PO (09:05)
[2025-08-18 09:16] LABS: Procalcitonin < 0.05 ng/ml (0.0-0.25)
--- NOTE | 2025-08-18 09:31 | W.PN.CARDCBS ---
Today's Communication / Plan
-
Changed to p.o. Lasix
Consider outpatient ischemic evaluation
Remains in sinus rhythm on amiodarone 200 mg p.o. 3 times daily started on August 16 and will change to 200 p.o. twice daily on discharge
Impression / Plan
-
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
Impression:
Acute respiratory failure
VDRF
Septic shock
Troponin elevation peak 5.3, possibly PA versus nonischemic troponin elevation related to neurologic status, possible Takotsubo
Abnormal EKG with profound T wave inversion
Prolonged QT interval, improved
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
PAFib
TIAs change in mental status
Acute encephalopathy
Pneumonia with possible aspiration
Hypotension
History of multiple TIAs
History of Alzheimer's dementia
History of abdominal aortic aneurysm 4.7 cm (January 2025)
Hypertension
Hyperlipidemia
History of recurrent DVT
Echo Aug 07 2025: EF 25 to 30% with apical akinesis. Normal right ventricle. Mild AR.
Plan:
Volume status appears stable
Will change to oral Lasix 40 mg daily and stop IV Lasix
Remains in sinus on oral amiodarone 200 mg TID started August 16 and will change to 200 mg p.o. twice daily on discharge.
He is tolerating Eliquis for stroke prophylaxis. He has hx of elevated troponin, PAFib and DVT and was on Eliquis as an outpatient.
He remains on oxygen but only at night
With his cardiomyopathy his EF, Toprol XL 25 mg twice a day was added as well as Cozaar 25 mg twice a day.
Continue ASA/statin for possible ICM given elevated troponin
Consideration for eventual ischemic evaluation, will likely be arranged as an outpatient
Treatment of suspected aspiration pneumonia per primary service, almost completed antibiotic regimen
Discussed with nursing
HPI: We were initially consulted because of elevated troponin value of 5. Additionally ECG now with anterior and inferior ST and T wave abnormalities and in particular rather deep T wave inversions (marked change from presenting ECG prior). It was
noted that he developed progressive agitation during this hospital stay but there is no notation of any specific complaints of chest pain. He then developed marked and refractory hypotension requiring IV pressor support and is intubated and sedated
(pneumonia/aspiration/airway protection).
Progress Note - Superannuation Clerk
Subjective
Date of Service: August 18, 2025
No complaints
Objective
Labs:
08/18/25 04:39
08/18/25 04:39
Labs
Hgb 13.1 g/dL (13.0-18.0) 08/18/25 04:39
Hct 38.5 % (39.0-52.0) L 08/18/25 04:39
Plt Count 246 10^3/uL (130-400) 08/18/25 04:39
PT 15.9 Sec (11.4-14.6) H 08/06/25 11:00
INR 1.22 08/06/25 11:00
APTT 34.9 Sec (23.4-35.0) 08/14/25 03:03
Sodium 135 mmol/L (135-145) 08/18/25 04:39
Potassium 3.3 mmol/L (3.5-5.1) L 08/18/25 04:39
BUN 26 mg/dl (9-20) H 08/18/25 04:39
Creatinine 0.8 mg/dL (0.7-1.3) 08/18/25 04:39
Glucose 104 mg/dl (70-99) H 08/18/25 04:39
Vital Signs and I&O:
Vital Signs
Temp Pulse Resp BP Pulse Ox
98.0 F 76 20 136/78 96
08/18/25 07:29 08/18/25 08:14 08/18/25 07:30 08/18/25 08:14 08/18/25 08:00
Vital Signs
Temp Pulse Resp BP Pulse Ox
98.0 F 76 20 136/78 96
08/18/25 07:29 08/18/25 08:14 08/18/25 07:30 08/18/25 08:14 08/18/25 08:00
Intake & Output
08/16/25 08/17/25 08/18/25 08/19/25
06:59 06:59 06:59 06:59
Intake Total 563 / 563 1645 / 1645 1275 / 1275
Output Total 2380 / 2380 720 / 720 1110 / 1110 200 / 200
Balance -1817 / -1817 925 / 925 165 / 165 -200 / -200
Physical Exam
Physical Exam
General: Well developed, well nourished in NAD.
Neck: Supple, no JVD, HJR, carotids +2 B/L, no bruits bilaterally.
Heart: Non displaced PMI, RRR, no murmurs, No S3, S4, no rubs.
Lungs: Scattered rhonchi
Extremities: No clubbing, cyanosis or edema bilaterally.
Neuro: Grossly nonfocal, awake, alert and oriented x3.
[2025-08-18 09:35] LABS: Magnesium 2.3 mg/dl (1.6-2.3)
[2025-08-18] MEDS: KCL 20 MEQ PO (11:14)
--- NOTE | 2025-08-18 12:31 | W.PN.PUL3 ---
Today's Communication / Plan
-
- Procalcitonin normal, continue to monitor off antibiotics
- Incentive spirometry, PT/OT
- Pulmonary team will sign off, please call as needed.
Assessment
-
85-year-old male with history of severe sleep apnea, intolerant to CPAP therapy, multiple TIAs presenting with facial droop, aphasia, hypertension, hyperlipidemia, presents with acute mental status changes, aphasia, facial droop. This time,
symptoms did not resolve prompting admission 08/06. Imaging without evidence of acute stroke but symptoms persisted. Patient developed increased respiratory distress requiring intubation for airway protection, agonal breathing, transferred to ICU
08/07/2025.
Acute respiratory failure
-Intubated 08/07/2025, secondary to respiratory distress
Significant upper airway secretions, thick upon intubation
Bilateral pneumonia
Fevers/leukocytosis
Suspected aspiration syndrome
Poor airway clearance, lack of effective cough in the setting of stroke/mental status changes, improved.
Elevated troponin, abnormal EKG
Cardiomyopathy, EF 25%, new
Hypotension
Intermittently requiring phenylephrine
Suspect multifactorial (new cardiomyopathy, pneumonia)
Lower extremity DVT
Conditions present prior to admission
History of abdominal aortic aneurysm, suprarenal, 4.7 cm per imaging January 2025
Hypertension/hyperlipidemia
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
Dose recently increased to 5 mg twice a day
Coronary disease with history of angioplasty/stent, LAD
[id number] history, quit 1979
History of cholecystectomy
History of pyelonephritis
BPH
Family history of cancer (lung, colon, brain)
History of Alzheimer's dementia
Multiple falls
Plan/recommendations
Doing well postextubation, currently sitting comfortably in chair on room air.
Mucus clearing devices
PRN Mucinex
Aspiration precautions
Speech therapy following
Cultures reviewed
MRSA screen positive
Completed antibiotics, follow-up procalcitonin on 08/18, unremarkable with improving chest x-ray.
Incentive spirometry, continue to monitor off antibiotics
Pulmonary service will sign off, please call as needed.
Updated patient's daughter at bedside
Family meetings
Reviewed with , daughter and granddaughter on multidisciplinary rounds 08/12/2025 discussed DNR status and potential extubation and no reintubation-they will think about it
Dr. Wolff reviewed with and daughter on multidisciplinary rounds 08/13/2025-stated that the patient would not want reintubation if extubated-not ready for extubation but might be in the next [address] Wolff reviewed with as well as 2 daughters on rounds 08/14/2025-now they state patient would want to be reintubated if a reversible process was noted-explained we will proceed with extubation if passes spontaneous breathing trial and we
will reintubate if necessary
Dr. Wolff reviewed with and daughter on rounds 08/15/2025-updated on improved and stable condition
Subjective Data
-
Date of Service:
Date of Service: August 18, 2025
Subjective:
Patient comfortable sitting in chair, in no acute distress.
Review of Systems
Genitourinary: Other (All 14 systems reviewed and negative except as stated above in the history of present illness.)
Objective Data
Data Reviewed
Vital Signs / I&O / Oxygen:
Vital Signs
Temp Pulse Resp BP Pulse Ox
98.0 F 85 27 115/58 97
08/18/25 11:30 08/18/25 12:00 08/18/25 12:00 08/18/25 10:00 08/18/25 10:37
Intake and Output
08/17/25 08/18/25 08/19/25
06:59 06:59 06:59
Intake Total 1645 / 1645 1275 / 1275
Output Total 720 / 720 1110 / 1110 600 / 600
Balance 925 / 925 165 / 165 -600 / -600
SaO2 [ASV] 99
SaO2 [A/C] 100
SaO2 97
Nasal Cannula flow liters per 2
minute
Physical Exam
General: Comfortable
HEENT: Normocephalic
Cardiovascular: S1-S2
Respiratory: Clear and Non-Labored Respirations
GI: Soft and Non Distended
Neurology: Awake and Alert
Skin: Warm
Labs/Micro/Reports
Lab Data
08/18/25 04:39
08/18/25 04:39
--- NOTE | 2025-08-18 15:07 | CM ---
F/U: met with ALFREDO Cintron to provide SNF choice in this order: [facility], [facility], [facility], and [facility]. Referrals were made. PLAN: SNF when ready.
[2025-08-18] MEDS: LIPITOR 40 MG PO (17:47)
[2025-08-18] MEDS: XALATAN OPHTHALMIC SOLUTION 1 DROP BOTH EYES (21:08)
[2025-08-19] VITALS (10 sets, daily range): BP systolic 134–177; BP diastolic 62–79; BMI 28.6
--- NOTE | 2025-08-19 02:50 | PTCARENOTE ---
Cannot verify vitals prior to 1900. Assumed care for patient, AAOx3, although forgetful and confused at times. NSR on the monitor HR 70s. Pt utilizing the urinal independently. Pt took oral pills whole one at a time with water, with no issues. Bed
alarm is on. Call mccormick is within reach.
[2025-08-19] MEDS: APRESOLINE 10 MG IV (04:49)
[2025-08-19 05:00] LABS: Hematocrit 40.2 % (39.0-52.0); Hemoglobin 13.2 g/dL (13.0-18.0); Mean Corp Hgb Conc. 32.8 g/dL (33.0-37.0); Mean Corpuscular Volume 88.9 fL (80.0-94.0); Nucleated Red Blood Cells % 0 % (-); Platelet Count 262 10^3/uL (130-400); Red Cell Dist. Width 14.1 % (11.5-14.5)
[2025-08-19 05:24] LABS: Blood Urea Nitrogen 26 mg/dl (9-20); Calcium 9.0 mg/dl (8.4-10.2); Carbon Dioxide 34 mmol/L (22-30); Chloride 98 mmol/L (98-107); Estimated Creatinine Clearance 57 ml/min; Glucose 105 mg/dl (70-99); Magnesium 2.2 mg/dl (1.6-2.3); Potassium 3.7 mmol/L (3.5-5.1); Sodium 136 mmol/L (135-145); eGFR > 60.00
--- NOTE | 2025-08-19 08:04 | W.PN.HOSP.TC ---
Addendum entered and electronically signed by Vangie Tillman MD 08/20/25 14:23:
# Acute on Chronic HFrEF, resolved
Original Note:
Today's Communication/Plan
-
see A/P
Assessment / Plan
Assessment / Plan
85M with HTN, HLD, CAD s/p stents, BPH, AMANDA not on CPAP, periodic limb movement disorder, degenerative joint disease, GERD, H/O DVT on Eliquis, glaucoma, multiple TIAs; p/w acute and intermittent onset of aphasia and facial droop, found to have
pneumonia.
A/P:
# paroxysmal A-fib with resolved RVR
Converted to SR
amiodarone drip 08/15 -> oral amiodarone
Per card, cont oral amiodarone 200 mg TID and change to 200 p.o. twice daily on discharge
Cont Toprol 12.5 mg BID
Cardiology following
# Leukocytosis is likely reactive
No fever
repeat CXR 08/18 showed improvement in interstitial and basilar airspace opacities
Procal negative, UA 08/17 clean
repeat blood cultures x2 were sent, can follow up
# Acute metabolic encephalopathy, resolved
p/w confusion with aphasia/facial droop, which have resolved.
Metabolic encephalopathy could be secondary to sepsis/pneumonia POA
Admission CT head and CT head neck angio unrevealing. Repeat CT head again showed No acute intracranial abnormality. MRI brain also without acute intracranial abnormality.
Pt is now awake and conversant
# Acute hypoxic respiratory failure, resolved
Pt was intubated 08/07 for respiratory distress/airway protection. Extubated 08/14 and doing well.
Weaned off O2 support to RA
ST advanced diet to solids
Pulmonary toilet, nebulized saline
# Suspected aspiration pneumonia with component of community acquired pneumonia
Meet sepsis criteria with acute metabolic encephalopathy
Admission CXR: Left basilar atelectasis and/or pneumonia.
MRSA positive, received vancomycin for 5 days
sputum cx 08/08 NGTD, repeat 08/12 growing Citrobacter
IV antibiotics unasyn per ICU, completed 10-day course
# Hypotension- resolved. Septic shock vs Post-intubation hypotension
req pressor Hernán - now off,
GDMT Cozaar and Toprol added per card (see below)
# Cardiomyopathy
# Troponin elevation possibly [place] versus nonischemic troponin elevation related to neurologic status
Per Cardiology, CAD vs Takotsubo's CMP. Appreciate mgmt. Possible ischemic eval after pt stabilizes
Trop peak at 5.33
EKG showed TWI and pt has long QT
Echo showed low EF 25-30%, new LV dysfunction, apical akinesis with sparing of the base. This could represent Takotsubo but cannot exclude NH at this point.
IV heparin drip -> Eliquis 5 mg BID
GDMT Cozaar and Toprol added
IV lasix diuresis -> PO lasix 40 mg daily per card
# Now Hypertension
GDMT Cozaar and Toprol added.
As needed IV hydralazine
# Hyperlipidemia
LDL at 33
Statin
# h/o DVT
Eliquis
DVT: Eliquis
Full code
Dispo: SNF
DW RN
Anticipated Discharge: Within 24 hours
Subjective/Interval History
-
Date of Service: August 19, 2025
Objective Data
-
Labs:
Laboratory Results
08/19/25
04:30
WBC 16.5 H
Hgb 13.2
Hct 40.2
Plt Count 262
Sodium 136
Potassium 3.7
Chloride 98
Carbon Dioxide 34 H
BUN 26 H
Creatinine 0.9
Glucose 105 H
Calcium 9.0
Vital Signs:
Vital Signs
Temp Pulse Resp BP Pulse Ox
37.0 C 71 19 137/68 94
08/19/25 07:40 08/19/25 06:00 08/19/25 06:00 08/19/25 06:00 08/19/25 03:17
I&O
08/18/25 08/19/25 08/20/25
06:59 06:59 06:59
Intake Total 1275 / 1275
Output Total 1110 / 1110 1200 / 1200
Balance 165 / 165 -1200 / -1200
Review of Systems
-
History Source: Patient
All other systems: Reviewed and negative
Physical Exam
-
General: Well Developed, Well Nourished, No Apparent Distress, Comfortable and Conversant
HEENT: Normocephalic, Atraumatic and Anicteric; Negative Oxygen
Respiratory: Clear to Auscultation and Non Labored Respirations; Negative Accessory Resp Muscle Use
Cardiac: Regular Rhythm and S1/S2; Negative Murmur, Rub or Gallop
GI: Soft, Nontender, Nondistended and Normal Bowel Sounds
Musculoskeletal: No Edema
Skin: Warm and Dry; Negative Rash, Ulcers or Lesions
Neuro: Awake and Alert
Psych: Calm and Intact Judgement/Insight (somewhat)
Data Reviewed
-
CT Scan: Report Reviewed by me and Discussed with Patient
Labs: Labs Reviewed by me, Discussed with Nurse and Discussed with Patient
[2025-08-19] MEDS: COZAAR 50 MG PO (08:50)
[2025-08-19] MEDS: SENOKOT 8.6 MG PO (08:50)
[2025-08-19] MEDS: COLACE 100 MG PO (08:50)
[2025-08-19] MEDS: PACERONE 200 MG PO (08:50)
[2025-08-19] MEDS: MIRALAX 17 GRAMS PO (08:50)
[2025-08-19] MEDS: TOPROL XL 12.5 MG PO (08:51)
[2025-08-19] MEDS: ELIQUIS 5 MG PO (08:51)
[2025-08-19] MEDS: LOW STRENGTH ASPIRIN 81 MG PO (08:51)
[2025-08-19] MEDS: LASIX 40 MG PO (08:51)
--- NOTE | 2025-08-19 09:23 | W.PN.CARDCBS ---
Today's Communication / Plan
-
Stable cardiac status
We will sign off, please recall as needed
Impression / Plan
-
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
Impression:
Acute respiratory failure
VDRF
Septic shock
Troponin elevation peak 5.3, possibly OR versus nonischemic troponin elevation related to neurologic status, possible Takotsubo
Abnormal EKG with profound T wave inversion
Prolonged QT interval, improved
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
PAFib
TIAs change in mental status
Acute encephalopathy
Pneumonia with possible aspiration
Hypotension
History of multiple TIAs
History of Alzheimer's dementia
History of abdominal aortic aneurysm 4.7 cm (January 2025)
Hypertension
Hyperlipidemia
History of recurrent DVT
Echo Aug 07 2025: EF 25 to 30% with apical akinesis. Normal right ventricle. Mild AR.
Plan:
Volume status appears stable
Will change to oral Lasix 40 mg daily and continue on discharge
Remains in sinus on oral amiodarone 200 mg TID started August 16 and will change to 200 mg p.o. twice daily and continue for 1 month then decrease to 200mg daily
Tolerating Eliquis for stroke prophylaxis. He has hx of elevated troponin, PAFib and DVT and was on Eliquis as an outpatient.
With his cardiomyopathy and reduced EF plan to discharge on Toprol XL 25 mg daily and losartan 100 mg daily
Continue ASA/statin for possible ICM given elevated troponin
Consideration for ischemic evaluation as an outpatient
Stable for discharge from my perspective
We will sign off, please recall as needed
Outpatient follow-up to be arranged
Recommended cardiac meds on discharge:
Eliquis 5 mg twice daily
Aspirin 81 mg daily
Atorvastatin 40 mg daily
Toprol-XL 25 mg daily
Amiodarone 200 mg twice daily
Losartan 100 mg daily
Lasix 40 mg daily
HPI: We were initially consulted because of elevated troponin value of 5. Additionally ECG now with anterior and inferior ST and T wave abnormalities and in particular rather deep T wave inversions (marked change from presenting ECG prior). It was
noted that he developed progressive agitation during this hospital stay but there is no notation of any specific complaints of chest pain. He then developed marked and refractory hypotension requiring IV pressor support and is intubated and sedated
(pneumonia/aspiration/airway protection).
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
Subjective
Date of Service: August 19, 2025
No acute overnight events. Patient is resting comfortably in bed this morning eating breakfast. No cardiac complaints. Maintaining sinus rhythm by review of telemetry.
Objective
Labs:
08/19/25 04:30
08/19/25 04:30
Labs
Hgb 13.2 g/dL (13.0-18.0) 08/19/25 04:30
Hct 40.2 % (39.0-52.0) 08/19/25 04:30
Plt Count 262 10^3/uL (130-400) 08/19/25 04:30
PT 15.9 Sec (11.4-14.6) H 08/06/25 11:00
INR 1.22 08/06/25 11:00
APTT 34.9 Sec (23.4-35.0) 08/14/25 03:03
Sodium 136 mmol/L (135-145) 08/19/25 04:30
Potassium 3.7 mmol/L (3.5-5.1) 08/19/25 04:30
BUN 26 mg/dl (9-20) H 08/19/25 04:30
Creatinine 0.9 mg/dL (0.7-1.3) 08/19/25 04:30
Glucose 105 mg/dl (70-99) H 08/19/25 04:30
Vital Signs and I&O:
Vital Signs
Temp Pulse Resp BP Pulse Ox
98.6 F 83 13 152/75 96
08/19/25 07:40 08/19/25 08:00 08/19/25 08:00 08/19/25 08:00 08/19/25 08:53
Vital Signs
Temp Pulse Resp BP Pulse Ox
98.6 F 83 13 152/75 96
08/19/25 07:40 08/19/25 08:00 08/19/25 08:00 08/19/25 08:00 08/19/25 08:53
Intake & Output
08/17/25 08/18/25 08/19/25 08/20/25
06:59 06:59 06:59 06:59
Intake Total 1645 / 1645 1275 / 1275
Output Total 720 / 720 1110 / 1110 1200 / 1200
Balance 925 / 925 165 / 165 -1200 / -1200
Physical Exam
Physical Exam
Gen: NAD, AA
HEENT: NC/AT, sclera anicteric
CV: RRR, NL s1/s2
Lungs: On RA
Abd: S/ND
Ext: No LE edema
Skin: Warm, dry
Neuro: Non-focal
[2025-08-19 12:36] LABS: COVID-19 Antigen Negative (Negative)
--- NOTE | 2025-08-19 14:04 | W.DCSUMMARY ---
Discharge Summary
Discharge Data
Date of Admission: 08/06/25
Date of Discharge: 08/19/25
Total time spent discharging patient (in min): 40
-
Pending Results: No
Hospital Course
Principal Diagnosis:
Acute metabolic encephalopathy, due to community acquired pneumonia and aspiration pneumonia.
Acute hypoxic respiratory failure, resolved.
Hypotension- resolved.
Cardiomyopathy. Troponin elevation due to possible non-MT troponin elevation versus Takotsubo cardiomyopathy.
Paroxysmal A-fib with resolved RVR. Spontaneously converted to normal sinus rhythm
Chronic Diagnoses:�
Hyperlipidemia
h/o DVT on Eliquis
Consultations:�
Message Clerk/pulmonary
Cardiology
Procedures:�
None
Clinical course:�
This is a 85 year old M with HTN, HLD, CAD s/p stents, BPH, AMANDA not on CPAP, periodic limb movement disorder, degenerative joint disease, GERD, H/O DVT on Eliquis, glaucoma, multiple TIAs; p/w acute and intermittent onset of aphasia and facial
droop, found to have pneumonia.
Problem 1:
Acute metabolic encephalopathy, due to community acquired pneumonia and aspiration pneumonia.
His admission CT head and MRI brain were all unrevealing.
His mental status improved during his hospital stay, and returned to baseline which is awake, alert and conversant.
Problem 2:
Acute hypoxic respiratory failure, resolved.
Pt was intubated 08/07 for respiratory distress/airway protection and was extubated on 08/14 doing well.
O2 was slowly weaned back to room air.
Problem 3:
Community acquired pneumonia and aspiration pneumonia.
His admission CXR showed Left basilar atelectasis and/or pneumonia.
Follow-up CXR 08/18 showed improvement in interstitial and basilar airspace opacities.
His MRSA was positive, and he received vancomycin for 5 days.
His sputum culture from 08/12 grew Citrobacter.
He received and completed antibiotic course with Unasyn (for 10 days) per net lead developer.
Problem 4:
Hypotension- resolved. Septic shock vs Post-intubation hypotension.
He did require pressor support at one point, which was not continued following clinical stabilization.
Problem 5:
Cardiomyopathy.
Troponin elevation due to possible non-MT troponin elevation versus Takotsubo cardiomyopathy.
His Echo showed low EF 25-30%, new LV dysfunction, apical akinesis with sparing of the base. This could represent Takotsubo but cannot exclude MT at this point.
He received heparin drip which was subsequently transition to Eliquis 5 mg BID (for A fib, see below).
GDMT Cozaar was added this admission.
He can continue with prior to admission Toprol 25 mg daily.
He received IV Lasix while in the hospital and was discharged with oral lasix 40 mg daily.
Problem 6:
Paroxysmal A-fib with resolved RVR.
He spontaneously converted to normal sinus rhythm.
The patient initially received amiodarone drip, which was subsequently transition to oral amiodarone.
He can continue oral amiodarone at 200 mg twice daily following discharge.
As for the rest of his medical problems, they were stable during his hospital stay.
Discharge Plan
-
Patient Disposition: Alf/SNF
Discharge Diagnosis/Procedures: Acute metabolic encephalopathy (resolved), likely due to sepsis/pneumonia on admission;
Suspected aspiration pneumonia with component of community acquired pneumonia;
Resolved hypoxic respiratory failure;
paroxysmal A-fib;
Cardiomyopathy with nonischemic troponin elevation;
Hypertension (Cozaar and Toprol added)
Condition: Fair
Diet: As tolerated
Activity: As tolerated
Driving Restrictions: Not until seen by your Dr
Blood Work: CBC and BMP in 1 week, result to PCP
Referrals:
UNKNOWN,NO INTERVIEW [Family Provider] - in less than 1 week
Additional Discharge Medication Instructions: We have added:
Amiodarone 200 mg twice daily
Lasix 40 mg daily
Losartan 100 mg daily
Take aspirin every day
Prescriptions:
New
losartan 50 mg Tablet
100 mg PO DAILY Qty: 30 0RF
furosemide 40 mg Tablet
40 mg PO DAILY Qty: 30 0RF
amiodarone [Pacerone] 200 mg Tablet
200 mg PO BID Qty: 60 0RF
(DME) CBC with diff
See Rx Instructions .Route .MEDSUPPLY Qty: 1 0RF
Rx Instructions:
CBC with diff
08/22 - 08/29, result to PCP
# reactive leukocytosis
(DME) BMP
See Rx Instructions .Route .MEDSUPPLY Qty: 1 0RF
Rx Instructions:
08/22-08/29, result to PCP
# cardiomyopathy
Continued
latanoprost 0.005 % drops
1 drp BOTH EYES HS
metoprolol succinate 25 mg tablet extended release 24 hr
25 mg PO DAILY
omeprazole 20 mg Tablet,Delayed Release (Dr/Ec)
20 mg PO DAILY
cholecalciferol (vitamin D3) [Vitamin D3] 50 mcg (2,000 unit) Tablet
50 mcg PO DAILY
Eliquis 5 mg tablet
5 mg PO BID
atorvastatin 40 MG tablet
40 mg PO QPM
docusate sodium 100 mg capsule
100 mg PO BIDPRN PRN (Reason: constipation)
Changed
aspirin 81 mg Tablet,Chewable
81 mg PO DAILY Qty: 0 0RF
Discharge Orders:
Discharge Patient (As Directed); Ordered 08/19/25
Ordered By: Vangie Tillman
Discharge Date and Time
Print Language: FRENCH
--- NOTE | 2025-08-19 14:25 | CM ---
F/U: Patient is ready, called for Auth from the [place] [id number]:
Auth: #[id number]
08/19 to 08/25
NRD: 08/25... to P: #[phone]
Transport is 6pm, Hospitalist aware, Auth Provided to [facility]:
Report: #[id number] ext: [id number]

PLAN: SNF at [facility]
[2025-08-19] MEDS: LIPITOR 40 MG PO (16:55)
--- NOTE | 2025-08-19 16:57 | PTCARENOTE ---
Patient to be discharged today to rehab. Transport pick out hand time 1800 to [facility]. Report called to Vinayak VAIL. VS stable. Patient currently OOB to chair eating dinner.
--- NOTE | 2025-08-20 13:56 | PN.CDI ---
CDI
- -
CDI:
Physician Documentation Request
Admit Date: 08/06/25 13:47
Dear Doctor Primo,
Please review the following and provide your response in the progress notes.
Clinical Indicators:
Cardiology PN, 08/11
#Agree with IV Lasix
#Heart failure with reduced ejection fraction, new during this event
#...He is somewhat volume overloaded, agree with Lasix
Cardiology PN, 08/13
#proBNP 2140 on August 12, 2025 and he received Lasix 40 mg IV x 1 at that time.
#...His weight is down 4 pounds over the last 24 hours
#...but remains from admission weight of 191.
#Will give additional Lasix 40 g IV x 1 August 13, 2025
Cardiology PN, 08/14
#...lasix 40 mg IV today
PN, 08/15
#IV lasix PRN for diuresis as per CC/cardiology
#...Intermittent IV lasix
Cardiology PN, 08/16
#proBNP 2140 on August 12, 2025,
#...continue IV lasix to help optimize respiratory status and
#...possible transition to oral Lasix next 24 hours
Cardiology PN, 08/19
#Volume status appears stable
#Will change to oral Lasix 40 mg daily and continue on discharge
Discharge Summary, 08/19
#Problem 5:
#...Echo showed low EF 25-30%, new LV dysfunction,
#...apical akinesis with sparing of the base.
#...received IV Lasix while in the hospital and
#...was discharged with oral lasix 40 mg daily.
Based on the above and your clinical assessment, please provide further specificity regarding the most likely type and acuity of HF evaluated, treated and/ or monitored.
Acute on Chronic HFrEF
Acute HFrEF
Chronic HFrEF
Other (please specify)
Type Acuity
Systolic Acute
Diastolic Chronic
Combined Systolic/Diastolic Acute on Chronic
Use of terms such as suspected, likely, concern for, or probable (associated with a specific diagnosis that is being evaluated, monitored, or treated as if it exists) are acceptable and can be coded in the inpatient setting, when documented at the
time of discharge.
Thank you,
Shelley Moore RN BSN CCDS
CDI Specialist
Please contact via tiger text
Please use your independent medical judgment in providing your response.
== END 2025-08-19 18:55 | DRG 870 ==
LOC: IMU 13:47
PROVIDERS: Internal Medicine; Internal Medicine Cardiovascular Disease; Internal Medicine Critical Care Medicine; Nurse Practitioner Family; Nurse Practitioner Primary Care; Registered Nurse Critical Care Medicine; Student in an Organized Health Care Education/Training Program; ADMITTING PHYSICIAN Internal Medicine; CONSULT PHYSICIAN Internal Medicine Cardiovascular Disease; CONSULT PHYSICIAN Internal Medicine Critical Care Medicine; CONSULT PHYSICIAN Psychiatry & Neurology Neurology; EMERGENCY PHYSICIAN Emergency Medicine
PROC: 0BH17EZ Insertion of Endotracheal Airway into Trachea, Via Natural or Artificial Opening (ICD-10-PCS; 2025-08-07)
PROC: 5A1955Z Respiratory Ventilation, Greater than 96 Consecutive Hours (ICD-10-PCS; 2025-08-07)
PROC: 03HY32Z Insertion of Monitoring Device into Upper Artery, Percutaneous Approach (ICD-10-PCS; 2025-08-07)
DX: A41.9 Sepsis, unspecified organism (principal); G93.41 Metabolic encephalopathy; J18.9 Pneumonia, unspecified organism; J96.01 Acute respiratory failure with hypoxia; J69.0 Pneumonitis due to inhalation of food and vomit; R65.21 Severe sepsis with septic shock; I21.9 Acute myocardial infarction, unspecified; I50.23 Acute on chronic systolic (congestive) heart failure; I42.9 Cardiomyopathy, unspecified; I51.81 Takotsubo syndrome; R47.01 Aphasia; I82.532 Chronic embolism and thrombosis of left popliteal vein; I82.512 Chronic embolism and thrombosis of left femoral vein; I95.9 Hypotension, unspecified; I48.0 Paroxysmal atrial fibrillation; E78.00 Pure hypercholesterolemia, unspecified; G47.33 Obstructive sleep apnea (adult) (pediatric); I11.0 Hypertensive heart disease with heart failure; R29.810 Facial weakness; F02.80 Dementia in other diseases classified elsewhere, unspecified severity, without behavioral disturbance, psychotic disturbance, mood disturbance, and anxiety; G30.9 Alzheimer's disease, unspecified; R29.6 Repeated falls; I25.10 Atherosclerotic heart disease of native coronary artery without angina pectoris; K21.9 Gastro-esophageal reflux disease without esophagitis; N40.0 Benign prostatic hyperplasia without lower urinary tract symptoms; G47.61 Periodic limb movement disorder; H40.9 Unspecified glaucoma; G89.29 Other chronic pain; M19.90 Unspecified osteoarthritis, unspecified site; Z91.81 History of falling; I25.2 Old myocardial infarction; Z86.73 Personal history of transient ischemic attack (TIA), and cerebral infarction without residual deficits; Z95.5 Presence of coronary angioplasty implant and graft; Z11.52 Encounter for screening for COVID-19; Z86.79 Personal history of other diseases of the circulatory system; Z87.891 Personal history of nicotine dependence; Z79.01 Long term (current) use of anticoagulants; Z79.82 Long term (current) use of aspirin
CPT/HCPCS: 0042T; 36600; 70450; 70496; 70498; 70551; 71045; 71046; 74018; 80048; 80051; 80053; 80061; 80202; 81003; 81015; 82330; 82550; 82607; 82728; 82746; 82805; 82962; 83036; 83735; 83880; 84100; 84132; 84145; 84302; 84443; 84478; 84484; 85025; 85027; 85610; 85730; 87040; 87070; 87077; 87086; 87186; 87205; 87641; 87811; 92526; 92610; 92612; 93005; 93306; 93970; 94002; 94003; 94640; 96372; 96374; 96376; 97116; 97163; 97167; 97530; 97535; 99291; J0282; Q9950; Q9967

== ENCOUNTER → 2025-09-18 11:16 | Outpatient (REF) | payer OTHER, SELFPAY | LOC: RAD 11:16 | PROVIDERS: ATTENDING PHYSICIAN Surgery Vascular Surgery; FAMILY PHYSICIAN Family Medicine | DX: I71.40 Abdominal aortic aneurysm, without rupture, unspecified (principal) | CPT/HCPCS: 74174; Q9967 ==

== ENCOUNTER → 2025-09-23 10:30 | Outpatient (REF) | payer OTHER, SELFPAY | LOC: PET 10:30 | PROVIDERS: ATTENDING PHYSICIAN Physician Assistant | DX: I25.10 Atherosclerotic heart disease of native coronary artery without angina pectoris (principal); I50.20 Unspecified systolic (congestive) heart failure; R06.02 Shortness of breath; I42.9 Cardiomyopathy, unspecified | CPT/HCPCS: 78431; A9555; J2785 ==